=== PATIENT | male | born 1955 | race Caucasian/White ===

== ENCOUNTER 2016-04-11 14:08 | Emergency (ER) | payer SELFPAY ==
[~2016-04-11 14:08] MED LIST: ALTA1.256; DIPH2%T; PAXI20TA26 PO; TOPR25TA2 PO; VYTO10TA29 PO; WARF2.5 PO
[2016-04-11 14:10] VITALS: BP 152/71; PULSE 62; RESP 20; TEMP 98.1; O2SAT 98
--- NOTE | 2016-04-11 16:01 | PD ---
HPI Chief Complaint: GI/ Complaint Time Seen by Provider: 15:53 Travel History International Travel<30 days: No Contact w/Intl Traveler<30days: No Traveled to known affect area: No History of Present Illness HPI Patient is a 61-year-old male presented to the emergency for evaluation of urinary symptoms. Patient states for several years he's had issues with dribbling, feeling as if he doesn't empty his bladder completely. For the last week he states the symptoms have worsened. He has pelvic pressure, low back pain and dysuria. Patient is also complaining of constipation. He states that he did have a bowel movement this morning but it was loose and watery. Patient has been using suppositories and milk of magnesia. Initially he said he didn't have a bowel movement for a week but then he has had small bowel movements with the [id number] therapies he's been trialing. He denies any fever, chills , nausea, vomiting, chest pain, shortness of breath. Patient's past medical history includes BPH, aortic stenosis, hypertension, depression, hyperlipidemia. PFSH Past Medical History Hx Anticoagulant Therapy: Yes (on Coumadin) Anxiety: Yes Depression: Yes Cardiovascular Problems: Yes (aortic stenosis) High Cholesterol: Yes Hypertension: Yes Past Surgical History Cardiac Surgery: Yes (aortic valve replacement) Coronary Artery Bypass Graft: Yes Valve Replacement: Yes (CARDIAC VALVE REPLACEMENT) Social History Alcohol Use: No Tobacco Use: Yes (1PPD) Substance Use: No Allergies-Medications (Allergen,Severity, Reaction): Coded Allergies: No Known Allergies (Verified , 04/11/16) Reported Meds & Prescriptions Reported Meds & Active Scripts Active Reported Benazepril (Benazepril HCl) 20 Mg Tab 20 Mg PO BID Warfarin 5 Mg Tab 5 Mg PO DAILY Paxil (Paroxetine HCl) 20 Mg Tab 20 Mg PO DAILY Aspirin 81 Mg Tabdr 81 Mg PO DAILY Crestor (Rosuvastatin Calcium) 40 Mg Tab 40 Mg PO DAILY Metoprolol Tartrate 25 Mg Tab 12.5 Mg PO BID Review of Systems Except as stated in HPI: all other systems reviewed are Neg Cardiovascular: No: Chest Pain or Discomfort Respiratory: No: Shortness of Breath Gastrointestinal: Positive: Abdominal Pain (distention), Constipation, No: Nausea Genitourinary: Positive: Frequency, Decreased Urinary Output, Hesitancy, Dribbling, Pelvic Pain, Flank Pain Physical Exam Narrative GENERAL: Thin, well-developed, alert male. Resting comfortably in no acute distress. SKIN: Warm and dry. HEAD: Atraumatic. Normocephalic. EYES: Pupils equal and round. No scleral icterus. No injection or drainage. ENT: No nasal bleeding or discharge. Mucous membranes pink and moist. NECK: Trachea midline. No JVD. CARDIOVASCULAR: Regular rate and rhythm. 5/6 systolic murmur, palpable on anterior chest wall, just right of the sternum RESPIRATORY: No accessory muscle use. Clear to auscultation. Breath sounds equal bilaterally. GASTROINTESTINAL: Abdomen firm, mildly tender in suprapubic region, mildly distended. Hepatic and splenic margins not palpable. Positive bowel sounds, no rebound, no guarding. MUSCULOSKELETAL: No obvious deformities. No clubbing. No cyanosis. No edema. NEUROLOGICAL: Awake and alert. No obvious cranial nerve deficits. Motor grossly within normal limits. Normal speech. PSYCHIATRIC: Appropriate mood and affect; insight and judgment normal. Data Data Last Documented VS Vital Signs Date Time Temp Pulse Resp B/P Pulse Ox O2 Delivery O2 Flow Rate FiO2 04/11/16 17:13 54 17 140/71 100 Room Air 04/11/16 14:10 98.1 Orders Complete Blood Count With Diff (04/11/16 15:52) Comprehensive Metabolic Panel (04/11/16 15:52) Ua Includes Microscopic (04/11/16 15:52) Abdomen, Kub Only (04/11/16 15:52) Labs Laboratory Tests Test 04/11/16 04/11/16 16:00 16:12 Urine Color LIGHT-YELLOW Urine Turbidity CLEAR Urine pH 5.5 Urine Specific [place] 1.005 Urine Protein NEG mg/dL Urine Glucose (UA) NEG mg/dL Urine Ketones NEG mg/dL Urine Occult Blood LARGE Urine Nitrite NEG Urine Bilirubin NEG Urine Urobilinogen LESS THAN 2.0 MG/DL Urine Leukocyte Esterase NEG Urine RBC 2 /hpf Urine WBC 2 /hpf Urine Squamous Epithelial <1 /hpf Cells White Blood Count 8.8 TH/MM3 Red Blood Count 3.94 MIL/MM3 Hemoglobin 11.9 GM/DL Hematocrit 34.2 % Mean Corpuscular Volume 86.9 FL Mean Corpuscular Hemoglobin 30.1 PG Mean Corpuscular Hemoglobin 34.6 % Concent Red Cell Distribution Width 15.8 % Platelet Count 140 TH/MM3 Mean Platelet Volume 10.1 FL Neutrophils (%) (Auto) 69.6 % Lymphocytes (%) (Auto) 10.3 % Monocytes (%) (Auto) 11.9 % Eosinophils (%) (Auto) 7.8 % Basophils (%) (Auto) 0.4 % Neutrophils # (Auto) 6.1 TH/MM3 Lymphocytes # (Auto) 0.9 TH/MM3 Monocytes # (Auto) 1.1 TH/MM3 Eosinophils # (Auto) 0.7 TH/MM3 Basophils # (Auto) 0.0 TH/MM3 CBC Comment DIFF FINAL Differential Comment Sodium Level 140 MEQ/L Potassium Level 4.4 MEQ/L Chloride Level 105 MEQ/L Carbon Dioxide Level 29.6 MEQ/L Anion Gap 5 MEQ/L Blood Urea Nitrogen 10 MG/DL Creatinine 1.31 MG/DL Estimat Glomerular Filtration 55 ML/MIN Rate Random Glucose 100 MG/DL Calcium Level 8.4 MG/DL Total Bilirubin 0.5 MG/DL Aspartate Amino Transf 26 U/L (AST/SGOT) Alanine Aminotransferase 19 U/L (ALT/SGPT) Alkaline Phosphatase 80 U/L Total Protein 6.8 GM/DL Albumin 3.6 GM/DL MDM Medical Decision Making Medical Screen Exam Complete: Yes Emergency Medical Condition: Yes Interpretation(s) Vital Signs Date Time Temp Pulse Resp B/P Pulse Ox O2 Delivery O2 Flow Rate FiO2 04/11/16 14:10 98.1 62 20 152/71 98 Room Air Differential Diagnosis BPH versus obstruction versus constipation versus UTI versus other Narrative Course Patient is a 61-year-old male presenting to the emergency department for evaluation of constipation and difficulty urinating. Patient has a primary doctor, Dr. Arredondo. Patient was told that he had an enlarged prostate, he has not ever been on medication for this. Labs and imaging ordered and pending. Patient is in no acute distress, patient is comfortable, his vital signs are stable. Care of patient will be transferred to medical bed when one is available. Kimberlee Cao Apr 11, 2016 16:01
--- NOTE | 2016-04-11 16:14 | RADRPT ---
EXAM DATE/TIME: 04/11/2016 16:12 [facility] COMPARISON: No previous studies available for comparison. INDICATIONS : Constipation. Abdominal pain and firmness. MEDICAL HISTORY : None. SURGICAL HISTORY : Aortic valve replacement. ENCOUNTER: Initial ACUITY: 1 week PAIN SCORE: 4/10 LOCATION: Bilateral lower quadrant abdomen FINDINGS: Supine view of the abdomen was performed. The abdominal bowel gas pattern is normal. No abnormal ma sses, calcifications, or organomegaly is seen. The osseous structures are unremarkable. CONCLUSION: Normal examination. Gunnar Monge MD on April 11, 2016 at 16:12 Board Certified Radiologist. This report was verified electronically.
[2016-04-11 16:31] LABS: BLOOD, URINE LARGE (NEG); GLUCOSE,URINE NEG (NEG); KETONE, URINE NEG (NEG); NITRITE,URINE NEG (NEG); PH, URINE 5.5 (5.0-8.5); SQUAMOUS EPITHELIAL CELL URINE <1 /hpf (0-5); URINE COLOR LIGHT-YELLOW (YELLW/STRAW)
[2016-04-11 16:31] LABS: AUTOMATED NEUTROPHIL # 6.1 TH/MM3 (1.8-7.7); BASOPHIL % 0.4 % (0.0-2.0); EOSINOPHIL # 0.7 TH/MM3 (0-0.4); EOSINOPHIL % 7.8 % (0.0-4.0); HEMATOCRIT 34.2 % (39.0-51.0); HEMO FLAGS DIFF FINAL; LYMPH % 10.3 % (9.0-44.0); LYMPHOCYTE # 0.9 TH/MM3 (1.0-4.8); MEAN CELL VOLUME 86.9 FL (80.0-100.0); MEAN CORPUSCULAR HEMOGLOBIN 30.1 PG (27.0-34.0); MEAN CORPUSCULAR HGB CONC 34.6 % (32.0-36.0); MONO % 11.9 % (0.0-8.0); NEUT % 69.6 % (16.0-70.0); PLATELET COUNT 140 TH/MM3 (150-450); RED BLOOD COUNT 3.94 MIL/MM3 (4.50-5.90); RED CELL DISTRIBUTION WIDTH 15.8 % (11.6-17.2); WHITE BLOOD COUNT 8.8 TH/MM3 (4.0-11.0)
[2016-04-11 16:56] LABS: ANION GAP 5 MEQ/L (5-15); AST (GOT) 26 U/L (15-37); BICARBONATE 29.6 MEQ/L (21.0-32.0); BLOOD UREA NITROGEN 10 MG/DL (7-18); CHLORIDE 105 MEQ/L (98-107); GLOMERULAR FILTRATION RATE 55 ML/MIN (>89); POTASSIUM 4.4 MEQ/L (3.5-5.1); SODIUM (NA) 140 MEQ/L (136-145)
[2016-04-11 16:59] LABS: ALKALINE PHOSPHATASE 80 U/L (45-117); ALT (GPT) 19 U/L (12-78); TOTAL BILIRUBIN ADULT 0.5 MG/DL (0.2-1.0)
[2016-04-11 17:13] VITALS: BP 140/71; PULSE 54; RESP 17; O2SAT 100
[2016-04-11] MEDS ORDERED: PAXI20TA PO (17:18)
[2016-04-11] MEDS ORDERED: ROSU40 PO (17:18)
[2016-04-11] MEDS ORDERED: ASPI1TAB69 PO (17:18)
[2016-04-11] MEDS ORDERED: METO25TA3 PO (17:18)
[2016-04-11] MEDS ORDERED: WARF-23 PO (17:18)
[2016-04-11] MEDS ORDERED: BENA20TA PO (17:22)
--- NOTE | 2016-04-11 17:50 | PD ---
Data Data Last Documented VS Vital Signs Date Time Temp Pulse Resp B/P Pulse Ox O2 Delivery O2 Flow Rate FiO2 04/11/16 20:05 54 18 166/70 99 04/11/16 17:13 Room Air 04/11/16 14:10 98.1 Orders Complete Blood Count With Diff (04/11/16 15:52) Comprehensive Metabolic Panel (04/11/16 15:52) Ua Includes Microscopic (04/11/16 15:52) Abdomen, Kub Only (04/11/16 15:52) Prothrombin Time / Inr (Pt) (04/11/16 17:25) Ed Poc Ultrasound (04/11/16 ) Urinary Catheter Insert/Apply (04/11/16 17:34) Labs Laboratory Tests Test 04/11/16 04/11/16 04/11/16 16:00 16:12 18:35 Urine Color LIGHT-YELLOW Urine Turbidity CLEAR Urine pH 5.5 Urine Specific [place] 1.005 Urine Protein NEG mg/dL Urine Glucose (UA) NEG mg/dL Urine Ketones NEG mg/dL Urine Occult Blood LARGE Urine Nitrite NEG Urine Bilirubin NEG Urine Urobilinogen LESS THAN 2.0 MG/DL Urine Leukocyte Esterase NEG Urine RBC 2 /hpf Urine WBC 2 /hpf Urine Squamous Epithelial <1 /hpf Cells White Blood Count 8.8 TH/MM3 Red Blood Count 3.94 MIL/MM3 Hemoglobin 11.9 GM/DL Hematocrit 34.2 % Mean Corpuscular Volume 86.9 FL Mean Corpuscular Hemoglobin 30.1 PG Mean Corpuscular Hemoglobin 34.6 % Concent Red Cell Distribution Width 15.8 % Platelet Count 140 TH/MM3 Mean Platelet Volume 10.1 FL Neutrophils (%) (Auto) 69.6 % Lymphocytes (%) (Auto) 10.3 % Monocytes (%) (Auto) 11.9 % Eosinophils (%) (Auto) 7.8 % Basophils (%) (Auto) 0.4 % Neutrophils # (Auto) 6.1 TH/MM3 Lymphocytes # (Auto) 0.9 TH/MM3 Monocytes # (Auto) 1.1 TH/MM3 Eosinophils # (Auto) 0.7 TH/MM3 Basophils # (Auto) 0.0 TH/MM3 CBC Comment DIFF FINAL Differential Comment Sodium Level 140 MEQ/L Potassium Level 4.4 MEQ/L Chloride Level 105 MEQ/L Carbon Dioxide Level 29.6 MEQ/L Anion Gap 5 MEQ/L Blood Urea Nitrogen 10 MG/DL Creatinine 1.31 MG/DL Estimat Glomerular Filtration 55 ML/MIN Rate Random Glucose 100 MG/DL Calcium Level 8.4 MG/DL Total Bilirubin 0.5 MG/DL Aspartate Amino Transf 26 U/L (AST/SGOT) Alanine Aminotransferase 19 U/L (ALT/SGPT) Alkaline Phosphatase 80 U/L Total Protein 6.8 GM/DL Albumin 3.6 GM/DL Prothrombin Time 62.9 SEC Prothromb Time International 5.3 RATIO Ratio [facility] Supervised Visit with BO: Yes Narrative Course Patient care assumed from Hillary BEAR: This is a 61-year-old male presents emergency Department with difficulty stooling and difficult to urinating for the past week. Patient states he was told that he had an enlarged prostate in the past. Patient urinated just prior to being roomed in the emergency department, states he continuously feels like he has to urinate. He was placed on Flomax in the past but it made him feel lightheaded so he self discontinued it. He has not seen a urologist in several years and last saw urologist for kidney stones. Denies any fever denies any blood in the stool. He is on Coumadin for a history of valve replacement. Patient states he was taking multiple medications including milk of magnesia, suppositories to relieve his bowels and did have quite explosive bowel movement prior to arrival. He does complain of some abdominal discomfort but denies any pain. GENERAL: Well-developed well-nourished no apparent distress, thin build. SKIN: Warm and dry. HEAD: Atraumatic. Normocephalic. EYES: Pupils equal and round. No scleral icterus. No injection or drainage. ENT: No nasal bleeding or discharge. Mucous membranes pink and moist. NECK: Trachea midline. No JVD. CARDIOVASCULAR: Regular rate and rhythm. No murmur appreciated. RESPIRATORY: No accessory muscle use. Clear to auscultation. Breath sounds equal bilaterally. GASTROINTESTINAL: Abdomen soft, non-tender, minimally distended in the suprapubic area. Hepatic and splenic margins not palpable. MUSCULOSKELETAL: No obvious deformities. No clubbing. No cyanosis. No edema. NEUROLOGICAL: Awake and alert. No obvious cranial nerve deficits. Motor grossly within normal limits. Normal speech. PSYCHIATRIC: Appropriate mood and affect; insight and judgment normal. Hannah catheter was placed immediately yielded about 1250 cc of urine. Patient has no evidence of urinary tract infection. INR is elevated to 5.2. Patient states that since his abdomen had been tense he has not been eating as much leafy vegetables his usual. Discussed with him to hold his Coumadin for the next 2 days and call his [employer] officer for further instructions. Otherwise his symptoms been completely relieved. Discussed MiraLAX for constipation and follow-up the primary care physician. Discussed return to ED criteria. Will be discharged with leg bag in place Procedures Procedure Narrative BEDSIDE ULTRASOUND: Superpubic views were obtained of the bladder approximately 20 minutes after the patient attempted to void: There is approximately 850-950 cc of urine in the bladder. Diagnosis Primary Impression: Urinary retention Additional Impression: Elevated INR Referrals: Taz Smith MD Additional Instruction: Stop taking her Coumadin for the next 2 days, call Dr. Quispe for further instructions. Follow-up with urology within the next week, if you cannot find a urology appointment within the next week return to the emergency department for consideration of removal of catheter. Med/Other Pt SpecificInfo: Prescription(s) given Scripts Tamsulosin (Flomax)0.4 Mg Cap0.4 Mg PO HS #30 CAP Ref 0 Prov:Adolph Carroll MD 04/11/16 Disposition: 01 DISCHARGE HOME Condition: Stable Adolph Carroll MD Apr 11, 2016 17:49
[2016-04-11 19:03] LABS: INTERNATIONAL NORMALIZED RATIO 5.3 RATIO; PROTHROMBIN TIME - PATIENT 62.9 SEC (9.8-11.6)
[2016-04-11] MEDS ORDERED: TAMS5CAP PO (19:34)
[2016-04-11 20:05] VITALS: BP 166/70
== END 2016-04-11 20:12 | disposition home or self-care (01) ==
LOC: NEPA 14:08
DX: R33.9 Retention of urine, unspecified (principal); K59.00 Constipation, unspecified; M54.5 Low back pain; R79.1 Abnormal coagulation profile; I35.0 Nonrheumatic aortic (valve) stenosis; I10 Essential (primary) hypertension; F17.200 Nicotine dependence, unspecified, uncomplicated; Z79.01 Long term (current) use of anticoagulants
CPT/HCPCS: 51703; 74000; 80053; 81001; 85025; 85610

== ENCOUNTER 2017-01-03 19:02 | Inpatient (IN) | payer SELFPAY ==
[2017-01-03] VITALS (10 sets, daily range): BP systolic 79–127; BP diastolic 30–61; PULSE 74–90; RESP 22; TEMP 93.2–97.1; O2SAT 92–100
[~2017-01-03] VITALS: Ht 182.9 cm; Wt 60.0 kg
[~2017-01-03 19:02] MED LIST changes: -ALTA1.256; +ASPI1TAB69 PO; +BENA20TA PO; -DIPH2%T; +METO25TA3 PO; +PAXI20TA PO; -PAXI20TA26 PO; +ROSU40 PO; +TAMS5CAP PO; -TOPR25TA2 PO; -VYTO10TA29 PO; +WARF-23 PO; -WARF2.5 PO
[2017-01-03] MEDS ORDERED: PANTOPRAZOLE INJ 80 MG in SODIUM CHLORIDE 0.9% INJ 35 ML IV ONE (19:13)
[2017-01-03] MEDS ORDERED: SODIUM CHLOR 0.9% 1000 ML INJ 1,000 ML IV SCH ×2 (19:13→20:27)
[2017-01-03] MEDS ORDERED: SODIUM CHLORIDE 0.9% FLUSH 10 ML FLUSH IVF PRN (19:15)
[2017-01-03] MEDS: PANTOPRAZOLE INJ 80 MG in SODIUM CHLORIDE 0.9% INJ 100 ML IV SCH (19:30)
[2017-01-03 19:49] LABS: MEAN CELL VOLUME 85.8 FL (80.0-100.0); MEAN CORPUSCULAR HEMOGLOBIN 26.1 PG (27.0-34.0); MEAN CORPUSCULAR HGB CONC 30.4 % (32.0-36.0); PLATELET COUNT 276 TH/MM3 (150-450); RED BLOOD COUNT 1.09 MIL/MM3 (4.50-5.90); RED CELL DISTRIBUTION WIDTH 16.4 % (11.6-17.2); WHITE BLOOD COUNT 22.6 TH/MM3 (4.0-11.0)
[2017-01-03 19:55] LABS: HEMO FLAGS AUTO DIFF
[2017-01-03 19:58] LABS: HEMATOCRIT 9.4 % (39.0-51.0)
--- NOTE | 2017-01-03 20:17 | PD ---
HPI Chief Complaint: GI Complaint Time Seen by Provider: 19:13 Travel History International Travel<30 days: No Contact w/Intl Traveler<30days: No Traveled to known affect area: No History of Present Illness HPI 61-year-old male came to the emergency room with history of GI bleed. Patient appeared to be in extremis and was brought in by EMS. As per them his blood pressure was in the low 80s systolic. Patient is GCS of 14 and says that he's been having diarrhea for past 1 week, where he has noticed blood in his stool. Patient is on Coumadin for a replaced heart valve. He appeared lethargic and unable to answer too many questions. He was covered in stool and appeared very pale. Patient was not a reliable historian at this point. He denies of any pain currently. His rectal temperature was 93. PFSH Past Medical History Narrative Medical List of his past medical, surgical, social and family history is reviewed from the nursing note. Hx Anticoagulant Therapy: Yes (on Coumadin) Anxiety: Yes Depression: Yes Cardiovascular Problems: Yes (aortic stenosis) High Cholesterol: Yes Diminished Hearing: No Gastrointestinal Disorders: Yes (GI bleed) Hypertension: Yes Past Surgical History Cardiac Surgery: Yes (aortic valve replacement) Coronary Artery Bypass Graft: Yes Valve Replacement: Yes (CARDIAC VALVE REPLACEMENT) Social History Alcohol Use: No Tobacco Use: Yes (1 PPD) Substance Use: No Allergies-Medications (Allergen,Severity, Reaction): Coded Allergies: No Known Allergies (Verified Allergy, Mild, 01/03/17) Comments No known drug allergies Reported Meds & Prescriptions Reported Meds & Active Scripts Active Flomax (Tamsulosin HCl) 0.4 Mg Cap 0.4 Mg PO HS Reported Benazepril (Benazepril HCl) 20 Mg Tab 20 Mg PO BID Warfarin 5 Mg Tab 5 Mg PO DAILY Paxil (Paroxetine HCl) 20 Mg Tab 20 Mg PO DAILY Aspirin 81 Mg Tabdr 81 Mg PO DAILY Crestor (Rosuvastatin Calcium) 40 Mg Tab 40 Mg PO DAILY Metoprolol Tartrate 25 Mg Tab 12.5 Mg PO BID Narrative Medication List of his home medications reviewed from the nursing note. Review of Systems Except as stated in HPI: all other systems reviewed are Neg Gastrointestinal: Positive: Diarrhea, Hematochezia Neurologic: Positive: Weakness Physical Exam Narrative GENERAL: Lethargic, significant distress SKIN: Pale and cold. Poor skin hygiene and covered in dried dark color stool HEAD: Atraumatic. Normocephalic. EYES: Pupils equal and round. No scleral icterus. No injection or drainage. ENT: No nasal bleeding or discharge. Mucous membranes pink and moist. NECK: Trachea midline. No JVD. CARDIOVASCULAR: Regular rate and rhythm. No murmur appreciated. RESPIRATORY: No accessory muscle use. Clear to auscultation. Breath sounds equal bilaterally. GASTROINTESTINAL: Abdomen soft, non-tender, nondistended. Hepatic and splenic margins not palpable. MUSCULOSKELETAL: No obvious deformities. No clubbing. No cyanosis. No edema. NEUROLOGICAL: Lethargic, GCS of 14. No obvious cranial nerve deficits. Motor grossly within normal limits. Normal speech. PSYCHIATRIC: Appropriate mood and affect; insight and judgment normal. Data Data Last Documented VS Vital Signs Date Time Temp Pulse Resp B/P (MAP) Pulse Ox O2 Delivery O2 Flow Rate FiO2 01/03/17 20:15 76 22 121/53 01/03/17 20:00 93.2 01/03/17 19:40 92 Nasal Cannula 3.00 Orders Orders Type And Screen (01/03/17 19:14) Complete Blood Count With Diff (01/03/17 19:13) Comprehensive Metabolic Panel (01/03/17 19:13) Prothrombin Time / Inr (Pt) (01/03/17 19:13) Red Blood Cells (Rbc) (01/03/17 19:13) Fresh Frozen Plasma (Ffp) (01/03/17 19:13) Ecg Monitoring (01/03/17 19:13) Iv Access Insert/Monitor (01/03/17 19:13) Oximetry (01/03/17 19:13) Sodium Chlor 0.9% 1000 Ml Inj (Ns 1000 M (01/03/17 19:13) Sodium Chloride 0.9% Flush (Ns Flush) (01/03/17 19:15) Sodium Chloride 0.9... W/Pantoprazole In (01/03/17 19:13) Sodium Chloride 0.9... W/Pantoprazole In (01/03/17 19:13) Piperacil-Tazo 4.5 Gm Premix (Zosyn 4.5 (01/03/17 20:30) Vancomycin Inj (Vancomycin Inj) (01/03/17 20:30) C Diff Toxin Pcr (01/03/17 20:17) Blood Culture (01/03/17 20:17) Lactic Acid (01/03/17 20:17) Admit Order (Ed Use Only) (01/03/17 20:17) Labs Laboratory Tests Test 01/03/17 19:10 White Blood Count 22.6 TH/MM3 Red Blood Count 1.09 MIL/MM3 Hemoglobin 2.8 GM/DL Hematocrit 9.4 % Mean Corpuscular Volume 85.8 FL Mean Corpuscular Hemoglobin 26.1 PG Mean Corpuscular Hemoglobin Concent 30.4 % Red Cell Distribution Width 16.4 % Platelet Count 276 TH/MM3 Mean Platelet Volume 10.3 FL CBC Comment AUTO DIFF Differential Total Cells Counted 100 Neutrophils % (Manual) 86 % Band Neutrophils % 5 % Lymphocytes % 1 % Monocytes % 4 % Neutrophils # (Manual) 21.5 TH/MM3 Metamyelocytes 2 % Myelocytes 1 % Promyelocytes 1 % Differential Comment FINAL DIFF MANUAL Platelet Estimate NORMAL Platelet Morphology Comment ENLARGED Ovalocytes 2+ Prothrombin Time GREATER THAN 180.0 SEC Prothromb Time International Ratio GREATER THAN 14.5 RATIO Blood Urea Nitrogen 60 MG/DL Creatinine 2.04 MG/DL Random Glucose 150 MG/DL Total Protein 4.1 GM/DL Albumin 1.4 GM/DL Calcium Level 6.5 MG/DL Alkaline Phosphatase 39 U/L Aspartate Amino Transf (AST/SGOT) 13 U/L Alanine Aminotransferase (ALT/SGPT) 20 U/L Total Bilirubin 0.1 MG/DL Sodium Level 141 MEQ/L Potassium Level 5.7 MEQ/L Chloride Level 111 MEQ/L Carbon Dioxide Level 15.0 MEQ/L Anion Gap 15 MEQ/L Estimat Glomerular Filtration Rate 33 ML/MIN Protein Corrected Calcium 8.1 MG/DL MDM Medical Decision Making Medical Screen Exam Complete: Yes Emergency Medical Condition: Yes Medical Record Reviewed: Yes Differential Diagnosis GI bleed, symptomatic anemia, hemorrhagic shock, hypovolemic shock Narrative Course 8:23 PM given patient's initial appearance and my clinical gestalt I decided to start him on emergency release blood 4 units. I will also ordered 4 units of FFP given the fact that he is on Coumadin. His current blood pressure is 94 systolic. The nurses have cleaned him and he does not appear to be in active bleeding condition right now. Given his hemoglobin and hematocrit I've ordered 4 more units of crossmatch PRBC. I just discussed the case with Dr. Rico from GI and I put a fight him. He agrees that patient needs to be stabilized and they will see him soon. He'll need to be scoped. Patient is also getting Protonix bolus and drip. I discussed the case with Dr. Baez from ICU who has accepted the case. Patient's condition continues to be critical. Given his leukocytosis I have given him IV Zosyn and vancomycin. Blood culture, lactic acid and C. difficile has been ordered. 8:39 PM patient's INR is 14.5 and PTT is more than 180. Given the fact that the Coumadin is for replacement of it would be dangerous to completely reverse him. I've chosen to give some vitamin K 10 mg subcutaneous and 4 more units of FFP. I was just told by the nurse that patient's blood pressure is 121/78. His chemistry was back and patient has some significant electrolyte abnormalities and renal failure. I have ordered 2 g of calcium and 2 A of bicarbonate which will take care of the hyperkalemia, acidosis as well as hypocalcemia Critical Care Narrative Aggregate critical care time was 90 minutes. Time to perform other separately billable procedures was not included in the critical care time. My time did not include minutes spent treating any other patients simultaneously or on activities that did not directly contribute to the patient's treatment. The services I provided to this patient were to treat and/or prevent clinically significant deterioration that could result in: GI bleed, hemorrhagic shock, leukocytosis, multiple blood transfusion, Protonix bolus and drip I provided critical care services requiring my management, as noted below: Chart data review, documentation time, medication orders and management, vital sign assessments/reviewing monitor data, ordering and reviewing lab tests, ordering and interpreting/reviewing x-rays and diagnostic studies, care of the patient and discussion of the patient with the admitting physicians. Procedures EKG Prior to Arrival: No Physician Communication Physician Communication Dr. Rico, Dr. Baez Diagnosis Primary Impression: GI bleed Qualified Codes: K92.1 - Melena Additional Impressions: Hemorrhagic shock Leukocytosis Qualified Codes: D72.829 - Elevated white blood cell count, unspecified Symptomatic anemia Hypocalcemia Hyperkalemia Acute renal failure Qualified Codes: N17.9 - Acute kidney failure, unspecified Metabolic acidosis Coumadin toxicity Qualified Codes: T45.514A - Poisoning by anticoagulants, undetermined, initial encounter Isha Dorsey MD Jan 03, 2017 20:17
[2017-01-03 20:23] LABS: CALCIUM-PROTEIN CORRECTED 8.1 MG/DL (8.5-10.1); POTASSIUM 5.7 MEQ/L (3.5-5.1); TOTAL BILIRUBIN ADULT 0.1 MG/DL (0.2-1.0)
--- NOTE | 2017-01-03 20:29 | HHI.HP ---
[facility] Service Critical Care Medicine Primary Care Physician Unknown Admission Diagnosis GI bleed, leukocytosis, symptomatic anemia, hemorrhagic shock Diagnosis: (1) Symptomatic anemia Diagnosis: Principal (2) GI bleed Diagnosis: Principal (3) Acute renal failure Diagnosis: Principal (4) Hyperkalemia Diagnosis: Principal (5) Hypocalcemia Diagnosis: Principal (6) Elevated INR Diagnosis: Principal (7) Urinary retention Diagnosis: Principal (8) Metabolic acidosis Diagnosis: Principal (9) Coumadin toxicity Diagnosis: Principal (10) Hemorrhagic shock Diagnosis: Principal (11) Leukocytosis Diagnosis: Principal Chief Complaint: Shortness of breath, weakness Travel History International Travel<30 Days: No Contact w/Intl Traveler <30 Da: No Traveled to Known Affected Are: No History of Present Illness This is a 1-year-old male. Date of admission 01/03/2017. Past medical history includes aortic valve replacement 10 years ago, chronic warfarin use, depression, hypertension, dyslipidemia and BPH. Patient has not felt well for the past 2 weeks. Patient states his bowel movements have initially returned from dark brown to black to liquid diarrhea with blood. Patient recently had his warfarin checked. Last INR was 4.2 and his warfarin was decreased by 4 mg. He did not take his warfarin today. He presents to [facility] ED with generalized weakness and heme positive stools. Laboratories revealed potassium 5.7, creatinine 2.0, low calcium low albumin. INR greater than 14. White blood cell count 22,000. Hemoglobin 2.8. Patient received vitamin K, 8 units. Season or units FFP. Repeat coags are pending. Patient is currently hemodynamically stable. EKG and troponins currently pending. Review of Systems Constitutional: COMPLAINS OF: Fatigue, Weight loss, Dizziness, DENIES: Weight gain, Chills Endocrine: DENIES: Polydipsia, Polyuria Eyes: DENIES: Blurred vision Ears, nose, mouth, throat: DENIES: Tinnitus Respiratory: DENIES: Apneas Cardiovascular: DENIES: Chest pain Gastrointestinal: COMPLAINS OF: Black stools, Bloody stools, Constipation, Diarrhea, DENIES: Abdominal pain, Nausea, Vomiting Genitourinary: COMPLAINS OF: Urgency Musculoskeletal: DENIES: Joint pain Integumentary: DENIES: Abnormal pigmentation Hematologic/lymphatic: DENIES: Bruising Immunologic/allergic: DENIES: Eczema Neurologic: DENIES: Abnormal gait, Headache Psychiatric: DENIES: Anxiety, Confusion Past Family Social History Allergies: Coded Allergies: No Known Allergies (Verified Allergy, Mild, 01/03/17) Past Medical History Hypertension Dyslipidemia BPH Chronic warfarin use Depression Past Surgical History Aortic valve replacement Reported Medications Active Flomax (Tamsulosin HCl) 0.4 Mg Cap 0.4 Mg PO HS Reported Benazepril (Benazepril HCl) 20 Mg Tab 20 Mg PO BID Warfarin 5 Mg Tab 5 Mg PO DAILY Paxil (Paroxetine HCl) 20 Mg Tab 20 Mg PO DAILY Aspirin 81 Mg Tabdr 81 Mg PO DAILY Crestor (Rosuvastatin Calcium) 40 Mg Tab 40 Mg PO DAILY Metoprolol Tartrate 25 Mg Tab 12.5 Mg PO BID Active Ordered Medications Reviewed in EMR Family History Mother's cause of unknown. Father had aortic aneurysm. Social History 1 pack per day tobacco. Denies any significant alcohol use or illicit drug use. Physical Exam Vital Signs Vital Signs Date Time Temp Pulse Resp B/P (MAP) Pulse Ox O2 Delivery O2 Flow Rate FiO2 01/03/17 20:15 76 22 121/53 01/03/17 20:00 93.2 77 22 79/61 01/03/17 19:40 22 92 Nasal Cannula 3.00 01/03/17 19:38 90 22 84/47 (59) 96 Nasal Cannula 3.00 01/03/17 19:26 88 22 80/30 01/03/17 19:13 88 22 80/30 (47) Physical Exam GENERAL: 61 year male, resting in bed in no acute distress SKIN: Warm and dry. HEAD: Atraumatic. Normocephalic. EYES: Pupils equal and round. No scleral icterus. No injection or drainage. ENT: No nasal bleeding or discharge. Mucous membranes pink and moist. NECK: Trachea midline. No JVD. CARDIOVASCULAR: Regular rate and rhythm. S1, S2 no S4. 2/6 murmur with click right upper sternal border RESPIRATORY:. Clear to auscultation. Breath sounds equal bilaterally. GASTROINTESTINAL: Abdomen soft, non-tender, nondistended. Positive stools MUSCULOSKELETAL: Extremities without noted peripheral edema. No obvious deformities. NEUROLOGICAL: Awake and alert. No obvious cranial nerve deficits. Motor grossly within normal limits. Five out of 5 muscle strength in the arms and legs. Normal speech. PSYCHIATRIC: Appropriate mood and affect; insight and judgment normal. Laboratory Laboratory Tests Test 01/03/17 19:10 White Blood Count 22.6 Red Blood Count 1.09 Hemoglobin 2.8 Hematocrit 9.4 Mean Corpuscular Volume 85.8 Mean Corpuscular Hemoglobin 26.1 Mean Corpuscular Hemoglobin Concent 30.4 Red Cell Distribution Width 16.4 Platelet Count 276 Mean Platelet Volume 10.3 CBC Comment AUTO DIFF Blood Urea Nitrogen 60 Creatinine 2.04 Random Glucose 150 Total Protein 4.1 Albumin 1.4 Calcium Level 6.5 Alkaline Phosphatase 39 Aspartate Amino Transf (AST/SGOT) 13 Alanine Aminotransferase (ALT/SGPT) 20 Total Bilirubin 0.1 Sodium Level 141 Potassium Level 5.7 Chloride Level 111 Carbon Dioxide Level 15.0 Anion Gap 15 Estimat Glomerular Filtration Rate 33 Protein Corrected Calcium 8.1 Result Diagram: 01/03/17190901/03/171909 Messi VTE Risk Assessment Messi VTE Risk Assessment: Mod/High Risk (score >= 2) VTE Pharm Contraindication: Hemorrhage Messi Risk Assessment Model Point Value = 1 Point Value = 2 Point Value = 3 Point Value = 5 Age 41-60 Minor surgery BMI > 25 kg/m2 Swollen legs Varicose veins or History of unexplained or recurrent spontaneous Oral contraceptives or hormone replacement Sepsis (< 1 month) Serious lung disease, including pneumonia (< 1 month) Abnormal pulmonary function Acute myocardial infarction Congestive heart failure (< 1 month) History of inflammatory bowel disease Medical patient at bed rest Age 61-74 Arthroscopic surgery Major open surgery (> 45 min) Laparoscopic surgery (> 45 min) Malignancy Confined to bed (> 72 hours) Immobilizing plaster cast Central venous access Age >= 75 History of VTE Family history of VTE Factor V Leiden Prothrombin [id number] Lupus anticoagulant Anticardiolipin antibodies Elevated serum homocysteine Heparin-induced thrombocytopenia Other congenital or acquired thrombophilia Stroke (< 1 month) Elective arthroplasty Hip, pelvis, or leg fracture Acute spinal cord injury (< 1 month) Prophylaxis Regimen Total Risk Factor Score Risk Level Prophylaxis Regimen 0-1 Low Early ambulation 2 Moderate Order ONE of the following: *Sequential Compression Device (SCD) *Heparin 5000 units SQ BID 3-4 Higher Order ONE of the following medications: *Heparin 5000 units SQ TID *Enoxaparin/Lovenox 40 mg SQ daily (WT < 150 kg, CrCl > 30 mL/min) *Enoxaparin/Lovenox 30 mg SQ daily (WT < 150 kg, CrCl > 10-29 mL/min) *Enoxaparin/Lovenox 30 mg SQ BID (WT < 150 kg, CrCl > 30 mL/min) AND/OR *Sequential Compression Device (SCD) 5 or more Highest Order ONE of the following medications: *Heparin 5000 units SQ TID (Preferred with Epidurals) *Enoxaparin/Lovenox 40 mg SQ daily (WT < 150 kg, CrCl > 30 mL/min) *Enoxaparin/Lovenox 30 mg SQ daily (WT < 150 kg, CrCl > 10-29 mL/min) *Enoxaparin/Lovenox 30 mg SQ BID (WT < 150 kg, CrCl > 30 mL/min) AND *Sequential Compression Device (SCD) Assessment and Plan Assessment and Plan Neuro/Psych: IV Ofirmev for fever/pain 1-10 CV: History of aortic valve replacement Hypertension Dyslipidemia Follow-up on EKG/troponin. Currently holding rosuvastatin 40 mg daily for dyslipidemia. Resume when clinically indicated Currently metoprolol 12.5 mg by mouth twice a day and benazepril 20 mg twice a day in light of hypotension/acute kidney injury. Resume when clinically indicated Consult Dr. Matthews per family request with recent abnormal echo stress test Holding aspirin 81 mg daily light of GI bleed Current D5 water with 3 ampules sodium bicarbonate at 75 cc an hour Resp: Tobacco abuse Nasal cannula to maintain saturations greater than equal to 90% Incentive spirometry while awake Follow-up on chest x-ray Nicotine cessation encouraged. GI: GI bleed Hypoalbuminemia Currently on pantoprazole drip at 8 mg an hour. Consult gastroenterology for endoscopy : BPH Currently holding tamsulosin 0.4 mill grams daily. Resume when clinically indicated Endo: Sliding-scale insulin if indicated to maintain euglycemia Renal: Acute kidney injury Check urine eosinophils electrolytes Check abdominal ultrasound Monitor urine output Accurate I's and O's Currently on D5 water with 3 ampules of bicarbonate at 75 cc an hour in ED. Heme: Acute blood loss anemia Leukocytosis Warfarin toxicity Serial hemoglobin is every 6 hours recheck coags in a.m. Receive vitamin K 10 mg and 4 FFP in ED. Transfuse 8 units PRBCs ID: Monitor for infection Received vancomycin ED FEN: Hyperkalemia Hypocalcemia Calcium gluconate, insulin/D50 and bicarbonate given. Recheck potassium tonight 3 hours MSK: Osteoarthritis PT evaluate and treat Access - Utilize peripheral IV. Central line if indicated Prophylaxis - GI - pantoprazole - DVT - SCD/pharmacological prophylaxis contraindicated with acute GI bleed Level II admission Code Status Full code Discussed Condition With Patient. Care plan discussed and all questions answered. Problem Qualifiers (1) GI bleed: Qualified Codes: K92.1 - Melena (2) Acute renal failure: Qualified Codes: N17.9 - Acute kidney failure, unspecified (3) Coumadin toxicity: Qualified Codes: T45.514A - Poisoning by anticoagulants, undetermined, initial encounter (4) Leukocytosis: Qualified Codes: D72.829 - Elevated white blood cell count, unspecified Tushar Baez MD Jan 03, 2017 20:29
[2017-01-03 20:30] LABS: BANDS 5 % (0-6); METAMYELOCYTES 2 % (0-1); MYELOCYTES 1 % (0-0); NEUTROPHIL # MANUAL DIFF 21.5 TH/MM3 (1.8-7.7); OVALOCYTES 2+ (NORMAL); POLYS (SEG NEUTROPHILS) 86 % (16-70); PROMYELOCYTES 1 % (0-0); WBC DIFF SAMPLE 100
[2017-01-03] MEDS ORDERED: CALCIUM GLUCONATE INJ 1 GM in SODIUM CHLORIDE 0.9% INJ 100 ML IV ONE (20:30)
[2017-01-03] MEDS ORDERED: SENNOSIDES 8.6 MG TAB PO PRN (20:30)
[2017-01-03] MEDS ORDERED: PIPERACIL-TAZO 4.5 GM PREMIX 100 ML IV ONE (20:30)
[2017-01-03] MEDS ORDERED: ACETAMINOPHEN 325 MG TAB PO PRN (20:30)
[2017-01-03] MEDS ORDERED: MISCELLANEOUS NURSING INFORMATION XX SCH (20:30)
[2017-01-03] MEDS ORDERED: ONDANSETRON HCL 4 MG/2 ML VIAL IV PUSH PRN (20:30)
[2017-01-03] MEDS ORDERED: VANCOMYCIN INJ 1,000 MG in SODIUM CHLOR 0.9% 250 ML INJ 250 ML IV ONE (20:30)
[2017-01-03] MEDS ORDERED: RESP: ALBUTEROL 2.5 MG/3 ML NEB (PRN) INH (20:30)
[2017-01-03] MEDS ORDERED: SODIUM CHLOR 0.9% 250 ML INJ 250 ML IV ONE ×2 (20:30→20:45)
[2017-01-03] MEDS ORDERED: MAGNESIUM HYDROXIDE SUSP 30 ML CUP PO PRN (20:30)
[2017-01-03] MEDS ORDERED: CHLORHEXIDINE GLUCONATE 2 % 1 PACK (2 CLOTHS) TOP PRN (20:30)
[2017-01-03] MEDS ORDERED: BISACODYL 10 MG SUPP RECTAL PRN (20:30)
[2017-01-03] MEDS ORDERED: LACTULOSE SYRUP 20 GM/30 ML CUP PO PRN (20:30)
[2017-01-03] MEDS ORDERED: SODIUM CHLORIDE 0.9% FLUSH 10 ML FLUSH IV FLUSH PRN (20:30)
[2017-01-03] MEDS ORDERED: ACETAMINOPHEN/HYDROcodone 325 MG/5 MG TAB PO PRN (20:30)
[2017-01-03] MEDS ORDERED: CALCIUM CHLORIDE INJ 2 GM in DEXTROSE 5% IN WATER 100ML INJ 100 ML IV ONE ×2 (20:30)
[2017-01-03 20:31] LABS: PLATELET ESTIMATE SMEAR NORMAL (NORMAL); PLATELET MORPHOLOGY ENLARGED (NORMAL); SCAN/DIFF FINAL DIFF MANUAL
[2017-01-03 20:33] LABS: INTERNATIONAL NORMALIZED RATIO GREATER THAN 14.5 RATIO; PROTHROMBIN TIME - PATIENT GREATER THAN 180.0 SEC (9.8-11.6)
[2017-01-03] MEDS ORDERED: PHYTONADIONE 10 MG/ML VIAL SQ ONE (20:45)
[2017-01-03] MEDS: DOCUSATE SODIUM 50 MG/SENNA 8.6 MG TAB PO SCH (21:00)
[2017-01-03] MEDS: SODIUM CHLORIDE 0.9% FLUSH 10 ML FLUSH IV FLUSH SCH (21:00)
[2017-01-03] MEDS: SODIUM BICARBONATE 8.4% INJ 150 MEQ in DEXTROSE 5% IN WATE 1000ML INJ 1,000 ML IV SCH ×2 (21:19)
[2017-01-03] MEDS: RESP: ALBUTEROL 2.5 MG/IPRATROPIUM 0.5 MG NEB (SCH) INH (22:07)
[2017-01-03] MEDS ORDERED: CALCIUM GLUCONATE INJ 1 GM in DEXTROSE 5% IN WATER 100ML INJ 100 ML IV ONE ×2 (22:30)
[2017-01-03] MEDS ORDERED: SODIUM BICARBONATE 8.4% SOLN 50 MEQ/50 ML VIAL SLOW IVP ONE (22:30)
[2017-01-03] MEDS ORDERED: INSULIN HUMAN REGULAR 1,000 UNITS/10 ML VIAL IV PUSH ONE (22:30)
[2017-01-03] MEDS ORDERED: DEXTROSE 50% IN WATER 50 ML VIAL(D50) IV PUSH ONE (22:30)
[2017-01-03] MEDS ORDERED: CALCIUM GLUCONATE 10% 1 GM/10 ML VIAL SLOW IVP ONE (22:30)
[2017-01-03] MEDS ORDERED: ACETAMINOPHEN 1000 MG/100 ML 100 ML IV PRN (22:45)
[2017-01-03] MEDS ORDERED: DEXTROSE 50% IN WATER 50 ML VIAL(D50) IV PUSH PRN (23:00)
[2017-01-03] MEDS ORDERED: PHYTONADIONE INJ 10 MG in SODIUM CHLORIDE 0.9% INJ 50 ML IV ONE (23:00)
[2017-01-03] MEDS ORDERED: GLUCAGON 1 MG/ML VIAL OTHER PRN (23:00)
[2017-01-04] VITALS (26 sets, daily range): BP systolic 85–147; BP diastolic 55–80; PULSE 63–87; RESP 16–30; TEMP 97.9–98.9; O2SAT 89–100
[2017-01-04 01:08] LABS: HEMATOCRIT 24.7 % (39.0-51.0); REVIEW FLAG FINAL
[2017-01-04 01:15] LABS: APTT (PATIENT) 44.4 SEC (24.3-30.1); INTERNATIONAL NORMALIZED RATIO 2.4 RATIO
[2017-01-04 01:27] LABS: POTASSIUM 4.9 MEQ/L (3.5-5.1)
[2017-01-04 01:36] LABS: HDL CHOLESTEROL 21.1 MG/DL (40.0-60.0)
[2017-01-04] MEDS: CHLORHEXIDINE GLUCONATE 2 % 1 PACK (2 CLOTHS) TOP SCH (02:21)
[2017-01-04] MEDS: PANTOPRAZOLE INJ 80 MG in SODIUM CHLORIDE 0.9% INJ 100 ML IV SCH ×2 (04:07→16:00)
[2017-01-04] MEDS: RESP: ALBUTEROL 2.5 MG/IPRATROPIUM 0.5 MG NEB (SCH) INH ×4 (04:25→22:00)
[2017-01-04 04:33] LABS: APTT (PATIENT) 46.6 SEC (24.3-30.1); INTERNATIONAL NORMALIZED RATIO 2.7 RATIO; PROTHROMBIN TIME - PATIENT 30.6 SEC (9.8-11.6)
[2017-01-04 04:47] LABS: BICARBONATE 25.8 MEQ/L (21.0-32.0); CALCIUM-PROTEIN CORRECTED 8.5 MG/DL (8.5-10.1); POTASSIUM 4.9 MEQ/L (3.5-5.1); TOTAL BILIRUBIN ADULT 0.4 MG/DL (0.2-1.0)
[2017-01-04 05:07] LABS: HEMATOCRIT 24.5 % (39.0-51.0); REVIEW FLAG FINAL
[2017-01-04 05:09] LABS: AUTOMATED NEUTROPHIL # 15.6 TH/MM3 (1.8-7.7); BASOPHIL % 0.2 % (0.0-2.0); EOSINOPHIL % 0.1 % (0.0-4.0); HEMATOCRIT 24.1 % (39.0-51.0); LYMPH % 4.8 % (9.0-44.0); LYMPHOCYTE # 0.8 TH/MM3 (1.0-4.8); MEAN CELL VOLUME 84.6 FL (80.0-100.0); MEAN CORPUSCULAR HEMOGLOBIN 28.9 PG (27.0-34.0); MEAN CORPUSCULAR HGB CONC 34.1 % (32.0-36.0); NEUT % 89.9 % (16.0-70.0); PLATELET COUNT 218 TH/MM3 (150-450); RED BLOOD COUNT 2.85 MIL/MM3 (4.50-5.90); RED CELL DISTRIBUTION WIDTH 15.3 % (11.6-17.2); WHITE BLOOD COUNT 17.3 TH/MM3 (4.0-11.0)
[2017-01-04 05:15] LABS: HEMO FLAGS AUTO DIFF
[2017-01-04] MEDS: INSULIN NovoLIN REGULAR SUPPLEMENTAL SCALE SQ SCH ×4 (06:00→18:00)
[2017-01-04 06:57] LABS: PLATELET ESTIMATE SMEAR NORMAL (NORMAL); PLATELET MORPHOLOGY NORMAL (NORMAL); SCAN/DIFF AUTO DIFF CONFIRMED
--- NOTE | 2017-01-04 08:34 | PD.CONS ---
HPI History of Present Illness This is a 61 year old with a history of mechanical aortic valve replacement on chronic anticoagulation with coumadin and daily aspirin. He reports that for the past 2 weeks, he had severe generalized weakness, decreased appetite, and generalized malaise. He thought he had the flu and was taking Tylenol, but no ibuprofen. About a week ago, he started having black tarry stools. He denies any nausea, vomiting. He does note that he has not been eating much for the past few weeks secondary to his decreased appetite. He did note some left sided flank pain described as a dull ache. A few days ago, the melena turned to a dark maroon bloody stool. Yesterday, he went to take a shower and when he got out of the shower, he passed out. He reports that he woke up on his bedroom floor. His daughter went by his house and called 911 and [facility] transported him to the hospital. He was noted to have severe anemia with an HH 2.8/9.4 and coagulopathy with an INR > 14.5. He was given 6 units of PRBC and 4 units of FFP. Rpt labs from 4am 8.2/24.1 and INR of 2.7. He ws given another 2 units of FFP. He is currently resting in bed with stable vital signs. He is not having active bleeding at this time. He denies any history of PUD and has never had an egd/colonoscopy. (Corina Luis) PFS Past Medical History Aortic Valve Replacement, on chronic anticoagulation with coumadin HTN Hyperlipidemia BPH Depression Past Surgical History Aortic valve replacement, mechanical (Corina Luis) Coded Allergies: No Known Allergies (Verified Allergy, Mild, 01/03/17) Medications Allergies Coded Allergies Type Severity Reaction Last Updated Verified No Known Allergies Allergy Mild 01/03/17 Yes Active Scripts Medications Dose Route/Sig Max Daily Dose Days Date Category Flomax (Tamsulosin HCl) 0.4 Mg Cap 0.4 Mg PO HS 04/11/16 Rx Benazepril (Benazepril HCl) 20 Mg Tab 20 Mg PO BID 04/11/16 Reported Warfarin 5 Mg Tab 5 Mg PO DAILY 04/11/16 Reported Paxil (Paroxetine HCl) 20 Mg Tab 20 Mg PO DAILY 04/11/16 Reported Aspirin 81 Mg Tabdr 81 Mg PO DAILY 04/11/16 Reported Crestor (Rosuvastatin Calcium) 40 Mg Tab 40 Mg PO DAILY 04/11/16 Reported Metoprolol Tartrate 25 Mg Tab 12.5 Mg PO BID 04/11/16 Reported Family History Father from aortic aneurysm Social History Smokes 1 PPD. No ETOH/Illicit drug use. (Corina Luis) Review of Systems Constitutional: COMPLAINS OF: Diaphoretic episodes, Fatigue, Change in appetite , DENIES: Weight loss Respiratory: COMPLAINS OF: Cough Cardiovascular: COMPLAINS OF: Syncope, DENIES: Chest pain Gastrointestinal: COMPLAINS OF: Black stools, Bloody stools, Diarrhea, Anorexia , DENIES: Abdominal pain, Constipation, Nausea, Vomiting, Hematemesis (left flank pain) Hematologic/lymphatic: COMPLAINS OF: Bruising Neurologic: DENIES: Headache Psychiatric: DENIES: Confusion (Corina Luis) GI Exam Vitals I&O Vital Signs Date Time Temp Pulse Resp B/P (MAP) Pulse Ox O2 Delivery O2 Flow Rate FiO2 01/04/17 06:00 64 28 138/65 (89) 94 01/04/17 06:00 63 01/04/17 05:12 98.0 67 22 119/57 94 01/04/17 05:00 72 30 119/57 (77) 98 01/04/17 04:02 97.9 72 18 125/58 97 01/04/17 04:00 98.0 71 26 125/58 (80) 99 01/04/17 04:00 71 01/04/17 04:00 72 01/04/17 03:00 65 24 113/61 (78) 99 01/04/17 02:00 98.9 70 22 118/56 (76) 97 01/04/17 02:00 70 01/04/17 02:00 70 01/04/17 01:29 99 Nasal Cannula 2.00 01/04/17 01:00 98.6 71 24 106/56 (73) 99 01/04/17 00:00 98.7 72 24 120/58 (78) 100 01/04/17 00:00 72 01/04/17 00:00 72 01/03/17 22:09 100 Nasal Cannula 3.00 01/03/17 22:06 97.1 74 22 115/56 (75) 98 Nasal Cannula 3.00 01/03/17 20:45 75 22 127/58 01/03/17 20:30 75 22 109/55 01/03/17 20:15 76 22 121/53 01/03/17 20:00 93.2 77 22 79/61 01/03/17 19:40 22 92 Nasal Cannula 3.00 01/03/17 19:38 90 22 84/47 (59) 96 Nasal Cannula 3.00 01/03/17 19:26 88 22 80/30 01/03/17 19:13 88 22 80/30 (47) I/O 01/03/17 01/03/17 01/03/17 01/04/17 01/04/17 01/04/17 07:00 15:00 23:00 07:00 15:00 23:00 Intake Total 5211 ml 1176 ml Output Total 450 ml Balance 5211 ml 726 ml Intake Oral 120 ml IV Total 1255 ml 350 ml Packed Cells 1600 ml FFP 943 ml 366 ml Blood Product IV Normal Saline Flush 1413 ml 340 ml Output Urine Total 450 ml Laboratory Test 01/03/17 19:10 01/03/17 20:35 01/03/17 23:00 01/04/17 00:41 White Blood Count 22.6 TH/MM3 Red Blood Count 1.09 MIL/MM3 Hemoglobin 2.8 GM/DL 8.6 GM/DL Hematocrit 9.4 % 24.7 % Mean Corpuscular Volume 85.8 FL Mean Corpuscular Hemoglobin 26.1 PG Mean Corpuscular Hemoglobin Concent 30.4 % Red Cell Distribution Width 16.4 % Platelet Count 276 TH/MM3 Mean Platelet Volume 10.3 FL CBC Comment AUTO DIFF Differential Total Cells Counted 100 Neutrophils % (Manual) 86 % Band Neutrophils % 5 % Lymphocytes % 1 % Monocytes % 4 % Neutrophils # (Manual) 21.5 TH/MM3 Metamyelocytes 2 % Myelocytes 1 % Promyelocytes 1 % Differential Comment FINAL DIFF MANUAL Platelet Estimate NORMAL Platelet Morphology Comment ENLARGED Ovalocytes 2+ Prothrombin Time GREATER THAN 180.0 SEC Prothromb Time International Ratio GREATER THAN 14.5 RATIO Blood Urea Nitrogen 60 MG/DL Creatinine 2.04 MG/DL Random Glucose 150 MG/DL Total Protein 4.1 GM/DL Albumin 1.4 GM/DL Calcium Level 6.5 MG/DL Alkaline Phosphatase 39 U/L Aspartate Amino Transf (AST/SGOT) 13 U/L Alanine Aminotransferase (ALT/SGPT) 20 U/L Total Bilirubin 0.1 MG/DL Sodium Level 141 MEQ/L Potassium Level 5.7 MEQ/L 4.9 MEQ/L Chloride Level 111 MEQ/L Carbon Dioxide Level 15.0 MEQ/L Anion Gap 15 MEQ/L Estimat Glomerular Filtration Rate 33 ML/MIN Protein Corrected Calcium 8.1 MG/DL Lactic Acid Level 8.2 mmol/L Nasal Screen MRSA (PCR) MRSA NOT DETECTED Total Creatine Kinase 97 U/L Troponin I 0.08 NG/ML Triglycerides Level 164 MG/DL Cholesterol Level 63 MG/DL LDL Cholesterol 9 MG/DL HDL Cholesterol 21.1 MG/DL Cholesterol/HDL Ratio 2.98 RATIO Thyroid Stimulating Hormone 3rd Gen 1.520 uIU/ML Test 01/04/17 00:52 01/04/17 04:01 Prothrombin Time 27.0 SEC 30.6 SEC Prothromb Time International Ratio 2.4 RATIO 2.7 RATIO Activated Partial Thromboplast Time 44.4 SEC 46.6 SEC White Blood Count 17.3 TH/MM3 Red Blood Count 2.85 MIL/MM3 Hemoglobin 8.2 GM/DL Hematocrit 24.1 % Mean Corpuscular Volume 84.6 FL Mean Corpuscular Hemoglobin 28.9 PG Mean Corpuscular Hemoglobin Concent 34.1 % Red Cell Distribution Width 15.3 % Platelet Count 218 TH/MM3 Mean Platelet Volume 9.5 FL Neutrophils (%) (Auto) 89.9 % Lymphocytes (%) (Auto) 4.8 % Monocytes (%) (Auto) 5.0 % Eosinophils (%) (Auto) 0.1 % Basophils (%) (Auto) 0.2 % Neutrophils # (Auto) 15.6 TH/MM3 Lymphocytes # (Auto) 0.8 TH/MM3 Monocytes # (Auto) 0.9 TH/MM3 Eosinophils # (Auto) 0.0 TH/MM3 Basophils # (Auto) 0.0 TH/MM3 CBC Comment AUTO DIFF Differential Comment AUTO DIFF CONFIRMED Platelet Estimate NORMAL Platelet Morphology Comment NORMAL Blood Urea Nitrogen 50 MG/DL Creatinine 1.79 MG/DL Random Glucose 126 MG/DL Total Protein 5.2 GM/DL Albumin 2.1 GM/DL Calcium Level 7.4 MG/DL Phosphorus Level 4.3 MG/DL Magnesium Level 2.0 MG/DL Alkaline Phosphatase 52 U/L Aspartate Amino Transf (AST/SGOT) 20 U/L Alanine Aminotransferase (ALT/SGPT) 23 U/L Total Bilirubin 0.4 MG/DL Sodium Level 142 MEQ/L Potassium Level 4.9 MEQ/L Chloride Level 109 MEQ/L Carbon Dioxide Level 25.8 MEQ/L Anion Gap 7 MEQ/L Estimat Glomerular Filtration Rate 39 ML/MIN Lactic Acid Level 1.5 mmol/L Protein Corrected Calcium 8.5 MG/DL Troponin I 0.13 NG/ML Date/Time Source Procedure Growth Status 01/03/17 20:50 Blood Peripheral Aerobic Blood Culture Pending Received 01/03/17 20:50 Blood Peripheral Anaerobic Blood Culture Pending Received Physical Examination HEENT: Normocephalic; atraumatic; no jaundice. CHEST: CTA CARDIAC: RRR ABDOMEN: Soft, nondistended, nontender; no hepatosplenomegaly; bowel sounds are present in all four quadrants. EXTREMITIES: No clubbing, cyanosis, or edema. SKIN: Generalized pallor PIPE INSULATOR HELPER: No focal deficits; Lethargic and oriented times three. (Corina Luis) Assessment and Plan Plan ASSESSMENT: - GIB with melanotic/dark maroon bloody stool x 1 week. Severe weakness, malaise, night sweats and decreased appetite x 2 weeks. Hx Aortic valve replacement (mechanical), on chronic anticoagulation with coumadin. Also takes daily ASA. 1 week hx of black tarry stools, that then turned to dark maroon stools. No hx PUD. No hx EGD/ Colonoscopy. On admission, HH 2.8/9.4 and coagulopathy with an INR > 14.5. He was given 6 units of PRBC and 4 units of FFP. Rpt labs from 4am 8.2/24.1 and INR of 2.7. S/P 2 units of FFP. He is currently resting in bed with stable vital signs. He is not having active bleeding at this time. - Hemorrhagic Shock/Severe anemia. HH 2.8/9.4 on admission. S/P 6 units PRBC. 6 units FFP. Rpt. Labs 4am 8.2/24.1 and INR of 2.7 - Coagulopathy, Coumadin toxicity. Chronic anticoagulation for mechanical heart valve with coumadin. Currently on hold. INR > 14.5 on admission. Was 2.7 this am and received addition FFP for total of 6 units. - ASHLEY secondary to above. Creat. 1.79. - Hx Mechanical Aortic Heart Valve. Chronic anticoagulation. Coumadin on hold - HTN, Hyperlipidemia, BPH, Depression per attending. PLAN: - Plan for EGD today - Obtain consents - NPO - Protonix Gtt - 2 units FFP - Monitor HH q6h, INR - Transfuse as necessary - CBC, BMP in am - Notify GI of active bleeding - Supportive care - Further recommendations to follow based on results of above - Pt seen and examined by Dr. Rico and myself and this note is written on his behalf (Corina Luis) Physician Comments Patient seen and examined Agree with above Continue with current supportive care Monitor labs Plan for an EGD now (Moshe Rico MD) Corina Luis Jan 04, 2017 08:34 Moshe Rico MD Jan 04, 2017 12:10
[2017-01-04] MEDS ORDERED: SODIUM CHLOR 0.9% 250 ML INJ 250 ML IV ONE ×2 (08:45→15:45)
[2017-01-04] MEDS: DOCUSATE SODIUM 50 MG/SENNA 8.6 MG TAB PO SCH ×2 (09:00→21:00)
--- NOTE | 2017-01-04 09:22 | RADRPT ---
EXAM DATE/TIME: 01/04/2017 07:57 [facility] COMPARISON: No previous studies available for comparison. INDICATIONS : Elevated liver function tests. Elevated BUN. MEDICAL HISTORY : Hypercholesterolemia. Hypertension. Gastrointestinal bleed. Aortic stenosis. Dyspnea. Melena. Prostat e problems. Depression. Anxiety. Tobacco use. Anticoagulant therapy, Coumadin. SURGICAL HISTORY : CABG. Aortic valve replacement. TURP. Blood transfusions. ENCOUNTER: Initial ACUITY: 1 day PAIN SCORE: 0/10 LOCATION: Abdomen. MEASUREMENTS: LIVER: 16.0 cm length COMMON DUCT: 5 mm RIGHT KIDNEY: 12.3 x 4.4 x 5.1 cm LEFT KIDNEY: 12.5 x 6.1 x cm SPLEEN: 10.0 cm length AORTA: 2.4cm maximal FINDINGS: LIVER: Normal echotexture without focal lesion or ductal dilatation. Small bilateral pleural effusions are noted. COMMON DUCT: No intraluminal mass or stone visualized. GALLBLADDER: Sludge with minimal pericholecystic fluid. PANCREAS: The visualized portions are within normal limits. RIGHT KIDNEY: 1 cm cyst. In right kidney. Hyperechoic area upper pole of right kidney it is not of simple cysts. Follow with CT scan with and without contrast is suggested. LEFT KIDNEY: No hydronephrosis, stone or mass. SPLEEN: No focal lesion. AORTA: Non aneurysmal. IVC: Within normal limits. CONCLUSION: 1. Sludge gallbladder with trace pericholecystic fluid. There is no tenderness over the gallbladder 2. Abnormal right kidney. CT renal protocol is suggested. 3. Bilateral pleural effusions. Moy Patton MD FACR on January 04, 2017 at 9:19 Board Certified Radiologist. This report was verified electronically.
[2017-01-04] MEDS ORDERED: PROPOFOL 200 MG/20 ML AMP IV ONE (12:00)
[2017-01-04] MEDS ORDERED: LIDOCAINE HCL 1% PF 5 ML SYRINGE OTHER ONE (12:00)
--- NOTE | 2017-01-04 12:13 | PD.PROCEDR ---
GI Procedure REFERRING PHYSICIAN Dr. Baez PROCEDURE PERFORMED EGD INDICATION FOR PROCEDURE GI bleed PROCEDURE: The procedure, risks and benefits were discussed with Mr. Shearer and informed consent was obtained. Anesthesia sedated him with Diprivan. He was placed in the left lateral decubitus position. EGD: The Pentax videoscope was introduced through the oropharynx and advanced to the second portion of the duodenum under direct visualization. Retroflexion was performed in the stomach. FINDINGS: The esophagus this was normal The stomach this was normal The duodenum this was normal ESTIMATED BLOOD LOSS: None SPECIMENS REMOVED: None COMPLICATIONS: None IMPRESSION: Normal EGD PLAN: Continue with current supportive care Monitor labs and transfuse as needed Plan for colonoscopy tomorrow Moshe Rico MD Jan 04, 2017 12:13
[2017-01-04] MEDS ORDERED: DO NOT ADM ANY ANTICOAGULANT DRUGS PRN (12:16)
[2017-01-04] MEDS ORDERED: PEG (High)/E-LYTE SOLN 4000 ML BTL PO ONE (13:00)
[2017-01-04 13:36] LABS: HEMATOCRIT 22.6 % (39.0-51.0); REVIEW FLAG FINAL
[2017-01-04] MEDS: SODIUM BICARBONATE 8.4% INJ 150 MEQ in DEXTROSE 5% IN WATE 1000ML INJ 1,000 ML IV SCH ×2 (14:23)
[2017-01-04 14:28] LABS: BACTERIA, URINE OCC /hpf; BLOOD, URINE MOD (NEG); GLUCOSE,URINE NEG (NEG); KETONE, URINE NEG (NEG); MUCUS URINE FEW /lpf (OCC); NITRITE,URINE POS (NEG); URINE COLOR YELLOW (YELLW/STRAW)
[2017-01-04 14:29] LABS: COMMENT (UR) CATH-CULTURE IND; CULTURE IF INDICATED CATH CULTURE IND
--- NOTE | 2017-01-04 16:09 | HHI.CCPN ---
Subjective Remarks/Hospital Course 01/03: This is a 1-year-old male. Date of admission 01/03/2017. Past medical history includes aortic valve replacement 10 years ago, chronic warfarin use, depression, hypertension, dyslipidemia and BPH. Patient has not felt well for the past 2 weeks. Patient states his bowel movements have initially returned from dark brown to black to liquid diarrhea with blood. Patient recently had his warfarin checked. Last INR was 4.2 and his warfarin was decreased by 4 mg. He did not take his warfarin today. He presents to [place] ED with generalized weakness and heme positive stools. Laboratories revealed potassium 5.7, creatinine 2.0, low calcium low albumin. INR greater than 14. White blood cell count 22,000. Hemoglobin 2.8. Patient received vitamin K, 8 units. Season or units FFP. Repeat coags are pending. Patient is currently hemodynamically stable. EKG and troponins currently pending. 01/04: Resting in bed comfortably. Not in any acute distress. EGD unremarkable. Objective Vital Signs Date Time Temp Pulse Resp B/P (MAP) Pulse Ox O2 Delivery O2 Flow Rate FiO2 01/04/17 14:00 67 01/04/17 10:36 98.2 24 135/62 90 01/04/17 10:11 Nasal Cannula 4.00 Intake and Output 01/04/17 01/04/17 01/05/17 08:00 16:00 00:00 Intake Total 1176 ml 984 ml Output Total 450 ml Balance 726 ml 984 ml Result Diagram: 01/04/17 1219 01/04/17 0401 Objective Remarks GENERAL: 61 year male, resting in bed in no acute distress SKIN: Warm and dry. HEAD: Atraumatic. Normocephalic. EYES: Pupils equal and round. No scleral icterus. No injection or drainage. Pallor present ENT: No nasal bleeding or discharge. NECK: Trachea midline. No JVD. CARDIOVASCULAR: Regular rate and rhythm. S1, S2 no S4. 2/6 murmur with click right upper sternal border RESPIRATORY:. Clear to auscultation. Breath sounds equal bilaterally. GASTROINTESTINAL: Abdomen soft, non-tender, nondistended. Positive stools MUSCULOSKELETAL: Extremities without noted peripheral edema. No obvious deformities. NEUROLOGICAL: Awake and alert. No obvious cranial nerve deficits. Motor grossly within normal limits. Five out of 5 muscle strength in the arms and legs. Normal speech. PSYCHIATRIC: Appropriate mood and affect; insight and judgment normal. A/P Assessment and Plan Neuro/Psych: IV Ofirmev for fever/pain 1-10 CV: History of aortic valve replacement Hypertension Dyslipidemia Follow-up on EKG/troponin. Currently holding rosuvastatin 40 mg daily for dyslipidemia. Resume when clinically indicated Currently metoprolol 12.5 mg by mouth twice a day and benazepril 20 mg twice a day in light of hypotension/acute kidney injury. Resume when clinically indicated Consult Dr. Matthews per family request with recent abnormal echo stress test Holding aspirin 81 mg daily light of GI bleed Current D5 water with 3 ampules sodium bicarbonate at 75 cc an hour Resp: Tobacco abuse Nasal cannula to maintain saturations greater than equal to 90% Incentive spirometry while awake Follow-up on chest x-ray Nicotine cessation encouraged. GI: GI bleed Hypoalbuminemia Currently on pantoprazole drip at 8 mg an hour. Consulted gastroenterology. EGD negative. colonoscopy planned. : BPH Currently holding tamsulosin 0.4 mill grams daily. Resume when clinically indicated Endo: Sliding-scale insulin if indicated to maintain euglycemia Renal: Acute kidney injury Check urine eosinophils electrolytes Check abdominal ultrasound Monitor urine output Accurate I's and O's Currently on D5 water with 3 ampules of bicarbonate at 75 cc an hour in ED. Heme: Acute blood loss anemia Leukocytosis Warfarin toxicity Serial hemoglobin is every 6 hours recheck coags in a.m. Receive vitamin K 10 mg and 4 FFP in ED. Transfuse 8 units PRBCs. Ordered 1 unit PRBC on 01/04 after EGD. ID: Monitor for infection Received vancomycin ED FEN: Hyperkalemia Hypocalcemia Calcium gluconate, insulin/D50 and bicarbonate given. Recheck potassium tonight 3 hours MSK: Osteoarthritis PT evaluate and treat Access - Utilize peripheral IV. Central line if indicated Prophylaxis - GI - pantoprazole - DVT - SCD/pharmacological prophylaxis contraindicated with acute GI bleed Ethan Chicas MD Jan 04, 2017 16:09
--- NOTE | 2017-01-04 18:54 | EKG ---
Date Performed: 01/03/2017 Time Performed: 22:01:59 PTAGE: 61 years EKG: Sinus rhythm WITH FIRST DEGREE AV BLOCK INTRAVENTRICULAR CONDUCTION DELAY OLD INFERIOR MYOCARDIAL INFARCTION ABNO RMAL ECG PREVIOUS TRACING : 03/25/2007 16.17 Compared to prior tracing no significant change DOCTOR: Clarisse Saunders Interpretating Date/Time 01/04/2017 18:53:21
[2017-01-04] MEDS: MORPHINE SULFATE 2 MG/ML INJ IV PUSH PRN ×2 (18:55→22:29)
[2017-01-04 21:20] LABS: HEMATOCRIT 28.2 % (39.0-51.0); REVIEW FLAG FINAL
--- NOTE | 2017-01-04 21:57 | RADRPT ---
EXAM DATE/TIME: 01/04/2017 21:35 [facility] COMPARISON: No previous studies available for comparison. INDICATIONS : Shortness of breath. MEDICAL HISTORY : None. SURGICAL HISTORY : CABG. Cardiac valve replacement. ENCOUNTER: Initial ACUITY: 1 day PAIN SCORE: 0/10 LOCATION: chest FINDINGS: The patient is status post sternotomy. The inferior sternal wire is broken. There is a prosthetic car diac valve in place. The heart size is within normal limits. There is diffuse increased density throu ghout the lungs being worse at the bases. There is silhouetting of the hemidiaphragms bilaterally. CONCLUSION: Diffuse increased density likely related to diffuse processes such as edema. There is further atelect asis, consolidation or effusion at the bases silhouetting the hemidiaphragms. Gunnar Martinez MD on January 04, 2017 at 21:54 Board Certified Radiologist. This report was verified electronically.
[2017-01-04] MEDS ORDERED: ALBUMIN 25% INJ 50 ML IV ONE (22:00)
[2017-01-04] MEDS: SODIUM CHLORIDE 0.9% FLUSH 10 ML FLUSH IV FLUSH SCH (22:30)
[2017-01-04] MEDS ORDERED: BUMETANIDE INJ 1 MG/4 ML VIAL IV PUSH ONE (23:30)
[2017-01-05] VITALS (17 sets, daily range): BP systolic 118–169; BP diastolic 61–75; PULSE 54–80; RESP 18–25; TEMP 97.8–98.5; O2SAT 92–100
[2017-01-05] MEDS: MORPHINE SULFATE 2 MG/ML INJ IV PUSH PRN (00:15)
[2017-01-05] MEDS: PANTOPRAZOLE INJ 80 MG in SODIUM CHLORIDE 0.9% INJ 100 ML IV SCH ×3 (00:36→23:15)
[2017-01-05] MEDS: CHLORHEXIDINE GLUCONATE 2 % 1 PACK (2 CLOTHS) TOP SCH (00:37)
[2017-01-05] MEDS: RESP: ALBUTEROL 2.5 MG/IPRATROPIUM 0.5 MG NEB (SCH) INH ×4 (03:02→19:25)
[2017-01-05 03:48] LABS: AUTOMATED NEUTROPHIL # 15.3 TH/MM3 (1.8-7.7); BASOPHIL % 0.2 % (0.0-2.0); EOSINOPHIL # 0.1 TH/MM3 (0-0.4); EOSINOPHIL % 0.5 % (0.0-4.0); HEMATOCRIT 27.7 % (39.0-51.0); HEMO FLAGS DIFF FINAL; LYMPH % 4.1 % (9.0-44.0); LYMPHOCYTE # 0.7 TH/MM3 (1.0-4.8); MEAN CORPUSCULAR HEMOGLOBIN 29.9 PG (27.0-34.0); MEAN CORPUSCULAR HGB CONC 35.1 % (32.0-36.0); MONO % 5.1 % (0.0-8.0); NEUT % 90.1 % (16.0-70.0); PLATELET COUNT 262 TH/MM3 (150-450); RED BLOOD COUNT 3.26 MIL/MM3 (4.50-5.90); RED CELL DISTRIBUTION WIDTH 15.2 % (11.6-17.2)
[2017-01-05 03:53] LABS: INTERNATIONAL NORMALIZED RATIO 1.2 RATIO; PROTHROMBIN TIME - PATIENT 13.2 SEC (9.8-11.6)
[2017-01-05 04:29] LABS: ALKALINE PHOSPHATASE 65 U/L (45-117); ALT (GPT) 26 U/L (12-78); ANION GAP 7 MEQ/L (5-15); AST (GOT) 25 U/L (15-37); BICARBONATE 31.7 MEQ/L (21.0-32.0); BLOOD UREA NITROGEN 33 MG/DL (7-18); CHLORIDE 106 MEQ/L (98-107); GLOMERULAR FILTRATION RATE 47 ML/MIN (>89); POTASSIUM 3.9 MEQ/L (3.5-5.1); SODIUM (NA) 145 MEQ/L (136-145); TOTAL BILIRUBIN ADULT 0.6 MG/DL (0.2-1.0)
[2017-01-05] MEDS: INSULIN NovoLIN REGULAR SUPPLEMENTAL SCALE SQ SCH ×4 (06:00→17:26)
--- NOTE | 2017-01-05 07:29 | MB ---
cc: MARY SINGLETON M.D. DATE OF CONSULTATION 01/04/2017 REASON FOR CONSULTATION Mr. Shearer is a 61-year-old gentleman known to me with a prior history of mild cardiomyopathy, aortic valve replacement with a metallic valve, history of chronic anticoagulation with Coumadin therapy, history of smoking and occasional ETOH use, history of hypertension and hyperlipidemia, history of depression. He comes in found by his family lying in bed weak and in a pool of blood and came to the emergency room with a hemoglobin of 2.8 and had multiple blood transfusions and calcium gluconate and FFP as well as vitamin K. He has epigastric discomfort when he takes a deep breath. Otherwise denies any other chest pains. He has been short of breath lately today. Denies prior palpitations, dizziness or syncope. He has been progressively feeling weak with GI symptoms including dark black stools and diarrhea with bloody stools at times, nauseous and "lazy". His last INR was checked in the office about three weeks ago and he was supposed to come on the 21 of December for a recheck as it was 4.2 and he was advised to hold the dose one day and cut down the dose. He never came to the appointment December 21 and now with INR greater than 14 upon admission and hemorrhagic shock with prerenal insufficiency. PAST MEDICAL AND SURGICAL HISTORY As mentioned above. MEDICATIONS AT HOME Includes: 1. Benazepril 20 mEq b.i.d. 2. Coumadin 4 grams daily 3. Paxil 20 n.p.o. daily 4. Ecotrin 81 mg p.o. daily 5. Crestor 40 mg p.o. q.h.s. 6. Metoprolol tartrate 12.5 mg p.o. b.i.d. SOCIAL HISTORY He smokes a pack a day and smoked for many years. He used to drink alcohol on and off, but has not lately according to him. Denies recreational drug use. FAMILY HISTORY Positive for aneurysm, otherwise noncontributory. REVIEW OF SYSTEMS 12-point system review was unremarkable except what is mentioned in the history of present illness and the GI symptoms. EXAMINATION The patient is a 61-year-old gentleman lying in bed in mild to moderate respiratory distress. Alert and oriented x3 answering questions appropriately. VITAL SIGNS: Shows blood pressures 140/73 mmHg, pulse of 84 beats per minute and regular, respiration at 24 beats per minute, afebrile. HEENT: Shows head is normocephalic. Pupils equal and active. Throat is within normal limits. NECK: Supple. No carotid bruit. No thyromegaly or jugular venous distension noted. LUNGS: Shows diminished air entry at the bases bilaterally with crepitations more on the left side. CARDIOVASCULAR: S1-S2 are metallic in nature and faint S4 gallop with a 1/6 soft systolic murmur unchanged from before. No rubs. ABDOMEN: Exam is somewhat distended, but with normoactive bowel sounds and nontender. No organomegaly. EXTREMITIES: No clubbing, cyanosis or edema. Pulses 2+ bilaterally and no bruit noted. NEUROLOGIC: Grossly intact with no focal deficits. RECTAL: Exam deferred. LABORATORIES He came with an INR of 14.5 and a repeat is 2.4 and 2.7. Chemistry came with a BUN of 60, creatinine 2.04, potassium of 5.7, calcium 6.5 and total bilirubin of 0.1 with an AST of 13, ALT of 20, bilirubin of 1.4, Troponin I is 0.08 and 0.13, repeat kidney function was 50 and 1.79. Lipid panel showed triglycerides 164, BUN of 9, HDL of 21. TSH 1.52. Magnesium is 2.0 and phosphorous 4.3. Lactic acid upon presentation was elevated at 8.2, repeat is 1.5. A chest x-ray was not done. EKG shows sinus rhythm at 70 beats per minute with incomplete right bundle-branch block, borderline first degree AV block and this has not really significantly changed compared to prior tracing. ASSESSMENT AND RECOMMENDATIONS GI bleed with Coumadin toxicity. Agree with current therapy. Would try to avoid further vitamin K as they do develop antibodies and it becomes difficult to anticoagulate with Coumadin later on. His INR at the present time is stable where it should be because of his metallic valve. I agree with the GI workup. He already had an upper endoscopy with no significant pathology and is getting colonoscopy. Transfuse to keep hemoglobin greater than 8. He does have some pleural effusion and appears to be in fluid overload and a dose Bumex with albumin will be given with careful watch of his electrolytes and his kidney function because he is currently sating around 94% on a non-rebreather and quite tachypneic. History of mild cardiomyopathy. At present would avoid the EDGARD inhibitors because of his renal function and his hyperkalemia when he presented. The beta blockers will be kept on hold and reintroduce when he is more stable. Leukocytosis and the rest of the medical problem per his medical team and critical care. Status post aortic valve replacement as mentioned above. He needs to continue on anticoagulation as long as his hemoglobin/hematocrit remains stable and also cleared by GI. Follow up his INR on a daily basis. SBE prophylaxis in high risk procedures. Further recommendations will follow. I thank you for the consultation. MD AVANI Frey/JASMIN /9:16 PM /7:07 AM
[2017-01-05] MEDS ORDERED: FUROSEMIDE 40 MG/4 ML VIAL IV PUSH ONE (07:30)
[2017-01-05] MEDS: PARoxetine HCL 20 MG TAB PO SCH (07:51)
[2017-01-05] MEDS: DOCUSATE SODIUM 50 MG/SENNA 8.6 MG TAB PO SCH ×2 (07:51→23:14)
[2017-01-05] MEDS: ATORVASTATIN 80 MG TAB PO SCH (07:51)
[2017-01-05] MEDS: SODIUM CHLORIDE 0.9% FLUSH 10 ML FLUSH IV FLUSH SCH ×2 (07:52→23:13)
--- NOTE | 2017-01-05 08:07 | RADRPT ---
EXAM DATE/TIME: 01/05/2017 07:39 [facility] COMPARISON: CHEST SINGLE AP, January 04, 2017, 21:35. INDICATIONS : Shortness of breath. MEDICAL HISTORY : Hypercholesterolemia. Hypertension. Gastrointestinal bleed. Aortic stenosis.Dyspnea. Melena. Prostate problems. Depression. Anxiety. Tobacco use. Anticoagulant therapy, Coumadin. SURGICAL HISTORY : CABG. Aortic valve replacement. TURP. Blood transfusions. ENCOUNTER: Subsequent ACUITY: 2 days PAIN SCORE: 0/10 LOCATION: Bilateral chest FINDINGS: A single portable frontal view the chest shows no significant change. Cardiomegaly. Bilateral pleural effusions and bibasilar pulmonary infiltrates. Median sternotomy wires and prosthetic aortic valve. CONCLUSION: Unchanged exam. Serafin Jean Jr., MD on January 05, 2017 at 8:05 Board Certified Radiologist. This report was verified electronically.
[2017-01-05 10:29] LABS: HEMATOCRIT 30.7 % (39.0-51.0); REVIEW FLAG FINAL
[2017-01-05] MEDS ORDERED: PHENYLEPH/NS 1000 MCG/10 ML SYR IV ONE (12:00)
[2017-01-05] MEDS ORDERED: MAGNESIUM CITRATE SOLN 300 ML BTL PO SCH ×2 (12:00→18:00)
[2017-01-05] MEDS ORDERED: PROPOFOL 200 MG/20 ML AMP IV ONE (12:00)
--- NOTE | 2017-01-05 12:14 | HHI.CCPN ---
Subjective Remarks/Hospital Course 01/03: This is a 1-year-old male. Date of admission 01/03/2017. Past medical history includes aortic valve replacement 10 years ago, chronic warfarin use, depression, hypertension, dyslipidemia and BPH. Patient has not felt well for the past 2 weeks. Patient states his bowel movements have initially returned from dark brown to black to liquid diarrhea with blood. Patient recently had his warfarin checked. Last INR was 4.2 and his warfarin was decreased by 4 mg. He did not take his warfarin today. He presents to [facility] ED with generalized weakness and heme positive stools. Laboratories revealed potassium 5.7, creatinine 2.0, low calcium low albumin. INR greater than 14. White blood cell count 22,000. Hemoglobin 2.8. Patient received vitamin K, 8 units. Season or units FFP. Repeat coags are pending. Patient is currently hemodynamically stable. EKG and troponins currently pending. 01/04: Resting in bed comfortably. Not in any acute distress. EGD unremarkable. 01/05: Increasing O2 requirement since yesterday evening. On 100% nonrebreather facemask. Given Bumex 2 mg IV last night, chest x-ray last evening revealed pulmonary edema/right pleural effusion. This morning remains on nonrebreather facemask. Denies any shortness of breath though gets very hypoxic on attempting to decrease O2. Getting colonoscopy prep. Objective Vital Signs Date Time Temp Pulse Resp B/P (MAP) Pulse Ox O2 Delivery O2 Flow Rate FiO2 01/05/17 10:00 55 01/05/17 09:51 98 Non-Rebreather 100 01/05/17 08:55 15.00 01/05/17 08:00 98.3 24 169/67 (101) Intake and Output 01/05/17 01/05/17 01/06/17 08:00 16:00 00:00 Intake Total 200 ml Output Total 1502 ml Balance -1302 ml Result Diagram: 01/05/1790401/05/174 Imaging Last Impressions Chest X-Ray 01/05/17 0000 Signed Impressions: Service Date/Time: December 07:39 - CONCLUSION: Unchanged exam. Serafin Jean Jr., MD Abdomen Ultrasound 01/04/17 0000 Signed Impressions: Service Date/Time: Wednesday, January 04, 2017 07:57 - CONCLUSION: 1. Sludge gallbladder with trace pericholecystic fluid. There is no tenderness over the gallbladder 2. Abnormal right kidney. CT renal protocol is suggested. 3. Bilateral pleural effusions. Moy Patton MD FACR Objective Remarks GENERAL: 61 year male, resting in bed in no acute distress SKIN: Warm and dry. HEAD: Atraumatic. Normocephalic. EYES: Pupils equal and round. No scleral icterus. No injection or drainage. Pallor present ENT: No nasal bleeding or discharge. NECK: Trachea midline. No JVD. CARDIOVASCULAR: Regular rate and rhythm. S1, S2 no S4. 2/6 murmur with click right upper sternal border RESPIRATORY:. Clear to auscultation. Breath sounds equal bilaterally. GASTROINTESTINAL: Abdomen soft, non-tender, nondistended. Positive stools MUSCULOSKELETAL: Extremities without noted peripheral edema. No obvious deformities. NEUROLOGICAL: Awake and alert. No obvious cranial nerve deficits. Motor grossly within normal limits. Five out of 5 muscle strength in the arms and legs. Normal speech. PSYCHIATRIC: Appropriate mood and affect; insight and judgment normal. A/P Assessment and Plan Neuro/Psych: IV Ofirmev for fever/pain 1-10 CV: History of aortic valve replacement Hypertension Dyslipidemia Follow-up on EKG/troponin. Currently holding rosuvastatin 40 mg daily for dyslipidemia. Resume when clinically indicated holding metoprolol 12.5 mg by mouth twice a day and benazepril 20 mg twice a day in light of hypotension/acute kidney injury. Resume when clinically indicated Consulted Dr. Matthews per family request with recent abnormal echo stress test. Bumex 2mg IV on 01/04. Holding aspirin 81 mg daily light of GI bleed KVO IV fluids. Lasix 40mg IV x 1 on 01/05 Resp: Tobacco abuse Nasal cannula to maintain saturations greater than equal to 90% Incentive spirometry while awake Follow-up on chest x-ray Nicotine cessation encouraged. GI: GI bleed Hypoalbuminemia Currently on pantoprazole drip at 8 mg an hour. Consulted gastroenterology. EGD negative. colonoscopy planned. : BPH Currently holding tamsulosin 0.4 mill grams daily. Resume when clinically indicated Endo: Sliding-scale insulin if indicated to maintain euglycemia Renal: Acute kidney injury Check urine eosinophils electrolytes Check abdominal ultrasound Monitor urine output Accurate I's and O's Change bicarbonate drip to KVO Heme: Acute blood loss anemia Leukocytosis Warfarin toxicity Serial hemoglobin is every 6 hours recheck coags in a.m. Receive vitamin K 10 mg and 4 FFP in ED. Transfuse 8 units PRBCs. Ordered 1 unit PRBC on 01/04 after EGD. ID: Monitor for infection Received vancomycin ED FEN: Hyperkalemia Hypocalcemia Calcium gluconate, insulin/D50 and bicarbonate given on admission. MSK: Osteoarthritis PT evaluate and treat Access - Utilize peripheral IV. Central line if indicated Prophylaxis - GI - pantoprazole - DVT - SCD/pharmacological prophylaxis contraindicated with acute GI bleed Ethan Chicas MD Jan 05, 2017 12:14
[2017-01-05] MEDS ORDERED: FUROSEMIDE 20 MG/2 ML VIAL IV PUSH ONE (13:00)
--- NOTE | 2017-01-05 15:43 | HHI.GIFU ---
Subjective Remarks Finished golytely prep this am. Was having shortness of breath this am and went on nonrebreather, however, now improved. No obvious active bleeding at this time. Denies n/v/abdominal pain. (Corina Luis) Objective Vitals I&O Vital Signs Date Time Temp Pulse Resp B/P (MAP) Pulse Ox O2 Delivery O2 Flow Rate FiO2 01/05/17 15:11 100 Partial Non-Rebreather 01/05/17 14:00 60 01/05/17 12:00 98.5 54 25 139/70 (93) 100 01/05/17 12:00 54 01/05/17 10:00 55 01/05/17 09:51 98 Non-Rebreather 100 01/05/17 08:55 97 Non-Rebreather 15.00 01/05/17 08:00 98.3 74 24 169/67 (101) 95 01/05/17 08:00 74 01/05/17 08:00 74 01/05/17 06:00 60 24 134/70 (91) 99 01/05/17 06:00 80 01/05/17 05:00 60 24 140/73 (95) 98 01/05/17 04:00 68 01/05/17 04:00 68 01/05/17 04:00 98.4 68 18 131/74 (93) 94 01/05/17 03:00 61 24 133/66 (88) 97 01/05/17 02:00 60 01/05/17 02:00 61 24 127/75 (92) 95 01/05/17 01:00 66 18 118/61 (80) 96 01/05/17 00:00 72 01/05/17 00:00 98.4 72 18 127/66 (86) 97 01/05/17 00:00 72 01/04/17 23:00 69 16 132/58 (82) 96 01/04/17 22:11 94 Non-Rebreather 15.00 100 01/04/17 22:00 69 01/04/17 22:00 69 18 130/69 (89) 96 01/04/17 21:00 98.3 78 16 127/78 (94) 92 01/04/17 20:00 79 01/04/17 20:00 79 01/04/17 20:00 98.3 79 16 138/80 (99) 91 01/04/17 19:00 98.3 87 18 85/55 (65) 89 01/04/17 18:00 67 01/04/17 18:00 73 26 139/73 (95) 92 01/04/17 17:00 98.1 68 26 147/68 (94) 99 01/04/17 16:00 73 01/04/17 16:00 98.1 72 26 147/68 (94) 99 01/04/17 16:00 67 I/O 01/04/17 01/04/17 01/04/17 01/05/17 01/05/17 01/05/17 07:00 15:00 23:00 07:00 15:00 23:00 Intake Total 1176 ml 743 ml 2171 ml 925 ml 77 ml Output Total 450 ml 852 ml 1502 ml Balance 726 ml 743 ml 1319 ml -577 ml 77 ml Intake Oral 120 ml 380 ml 200 ml IV Total 350 ml 1090 ml 725 ml 77 ml Packed Cells 400 ml FFP 366 ml 603 ml 201 ml Blood Product IV Normal Saline Flush 340 ml 90 ml 100 ml Other 50 ml Output Urine Total 450 ml 850 ml 1500 ml Stool Total 2 ml 2 ml Laboratory Laboratory Tests Test 01/04/17 21:06 01/05/17 03:14 01/05/17 09:05 Hemoglobin 9.6 9.7 10.5 Hematocrit 28.2 27.7 30.7 B-Type Natriuretic Peptide 1095 White Blood Count 17.0 Red Blood Count 3.26 Mean Corpuscular Volume 85.0 Mean Corpuscular Hemoglobin 29.9 Mean Corpuscular Hemoglobin Concent 35.1 Red Cell Distribution Width 15.2 Platelet Count 262 Mean Platelet Volume 8.8 Neutrophils (%) (Auto) 90.1 Lymphocytes (%) (Auto) 4.1 Monocytes (%) (Auto) 5.1 Eosinophils (%) (Auto) 0.5 Basophils (%) (Auto) 0.2 Neutrophils # (Auto) 15.3 Lymphocytes # (Auto) 0.7 Monocytes # (Auto) 0.9 Eosinophils # (Auto) 0.1 Basophils # (Auto) 0.0 CBC Comment DIFF FINAL Differential Comment Prothrombin Time 13.2 Prothromb Time International Ratio 1.2 Blood Urea Nitrogen 33 Creatinine 1.52 Random Glucose 96 Total Protein 6.2 Albumin 2.6 Calcium Level 7.5 Alkaline Phosphatase 65 Aspartate Amino Transf (AST/SGOT) 25 Alanine Aminotransferase (ALT/SGPT) 26 Total Bilirubin 0.6 Sodium Level 145 Potassium Level 3.9 Chloride Level 106 Carbon Dioxide Level 31.7 Anion Gap 7 Estimat Glomerular Filtration Rate 47 Date/Time Source Procedure Growth Status 01/03/17 20:50 Blood Peripheral Aerobic Blood Culture - Preliminary NO GROWTH IN 2 DAYS Resulted 01/03/17 20:50 Blood Peripheral Anaerobic Blood Culture - Preliminary NO GROWTH IN 2 DAYS Resulted 01/04/17 13:05 Urine Catheterized Urine Urine Culture - Preliminary Gram Negative [place] Resulted Imaging Last Impressions Chest X-Ray 01/05/17 0000 Signed Impressions: Service Date/Time: December 07:39 - CONCLUSION: Unchanged exam. Serafin Jean Jr., MD Abdomen Ultrasound 01/04/17 0000 Signed Impressions: Service Date/Time: Wednesday, January 04, 2017 07:57 - CONCLUSION: 1. Sludge gallbladder with trace pericholecystic fluid. There is no tenderness over the gallbladder 2. Abnormal right kidney. CT renal protocol is suggested. 3. Bilateral pleural effusions. Moy Patton MD FACR Physical Exam HEENT: Normocephalic; atraumatic; no jaundice. CHEST: Diminished, NRB Mask. Not labored. Actually took off his mask and stayed 96-97% CARDIAC: RRR. ABDOMEN: Soft, nontender; no hepatosplenomegaly; bowel sounds are present in all four quadrants. EXTREMITIES: No clubbing, cyanosis, or edema. SKIN: Generalized pallor HAND BULLDOZER: No focal deficits; alert and oriented times three. (Corina LuisP) Assessment and Plan Plan ASSESSMENT: - GIB with melanotic/dark maroon bloody stool x 1 week. Severe weakness, malaise, night sweats and decreased appetite x 2 weeks. Hx Aortic valve replacement (mechanical), on chronic anticoagulation with coumadin. Also takes daily ASA. 1 week hx of black tarry stools, that then turned to dark maroon stools. No hx PUD. No hx EGD/ Colonoscopy. On admission, HH 2.8/9.4 and coagulopathy with an INR > 14.5. S/P 5 unit PRBC, 8 units FFP. S/P EGD (11/15/17)---> Normal EGD. Plan is for colonoscopy today vs. tomorrow. HH 10.5/30.7. - Hemorrhagic Shock/Severe anemia. HH 2.8/9.4 on admission. S/P 5 units PRBC. 8 units FFP. HH stable 10.5/30.7. - Coagulopathy, Coumadin toxicity. Chronic anticoagulation for mechanical heart valve with coumadin. Currently on hold. INR > 14.5 on admission. S/P 8 units FFP. INR 1.2. - ASHLEY secondary to above. Creat. 1.52 - Hx Mechanical Aortic Heart Valve. Chronic anticoagulation. Coumadin on hold. - HTN, Hyperlipidemia, BPH, Depression per attending. PLAN: - Plan for colonoscopy today vs. tomorrow - Obtain consents - NPO - Protonix Gtt - Monitor HH - Transfuse as necessary - CBC, BMP in am - Notify GI of active bleeding - Supportive care - Further recommendations to follow based on results of above - Pt seen and examined by Dr. Rico and myself and this note is written on his behalf (Corina Luis) Physician Comments Patient seen and examined Agree with above Continue with current supportive care Monitor labs Patient appears to be stable for colonoscopy today we will proceed (Moshe Rico MD) Corina Luis Jan 05, 2017 15:43 Moshe Rico MD Jan 05, 2017 19:08
[2017-01-05 16:29] LABS: HEMATOCRIT 30.3 % (39.0-51.0); REVIEW FLAG FINAL
[2017-01-05] MEDS: FUROSEMIDE 20 MG/2 ML VIAL IV PUSH SCH (17:26)
[2017-01-05] MEDS ORDERED: DO NOT ADM ANY ANTICOAGULANT DRUGS PRN (18:31)
--- NOTE | 2017-01-05 18:48 | PD.PROCEDR ---
GI Procedure REFERRING PHYSICIAN Dr. grande PROCEDURE PERFORMED Colonoscopy INDICATION FOR PROCEDURE GI bleed, anemia PROCEDURE: The procedure, risks and benefits were discussed with Mr. Shearer and informed consent was obtained. Anesthesia sedated him with Diprivan. He was placed in the left lateral decubitus position. Colonoscopy: The Pentax videoscope was introduced through the rectum and advanced to cecum where the ileocecal valve and appendiceal orifice were identified. Retroflexion was performed in the rectum. Colonic prep was very good FINDINGS: Colonic withdrawal time greater than 6 minutes as the scope was slowly withdrawn colonic mucosa was carefully inspected this was noted to be unremarkable and within normal limits on the way through so as retroflexion and rectal examination the patient was noted to have mild diverticulosis of the sigmoid region ESTIMATED BLOOD LOSS: None SPECIMENS REMOVED: None COMPLICATIONS: None IMPRESSION: Diverticulosis PLAN: Continue with current supportive care Monitor labs and transfuse as needed Obtain a small bowel follow-through Moshe Rico MD Jan 05, 2017 18:48
[2017-01-05] MEDS ORDERED: BISACODYL EC 5 MG TABEC PO SCH (21:00)
[2017-01-05 22:30] LABS: HEMATOCRIT 32.9 % (39.0-51.0); REVIEW FLAG FINAL
[2017-01-05] MEDS: TAMSULOSIN HCL 0.4 MG CAP PO SCH (23:14)
[2017-01-05] MEDS ORDERED: HEPARIN SODIUM - IV 10,000 UNITS/10 ML VIAL IV PUSH PRN ×2 (23:15)
[2017-01-05] MEDS: POTASSIUM CHLORIDE 10 MEQ CONTROLLED RELEASE TAB PO SCH (23:41)
[2017-01-05] MEDS: HEPARIN 25,000 UNITS-D5W 250 ML - PREMIX IV PRN (23:59)
[2017-01-06] VITALS (17 sets, daily range): BP systolic 107–173; BP diastolic 58–83; PULSE 42–126; RESP 22–33; TEMP 98–98.8; O2SAT 91–99
[2017-01-06] MEDS: RESP: ALBUTEROL 2.5 MG/IPRATROPIUM 0.5 MG NEB (SCH) INH ×4 (03:55→21:31)
[2017-01-06] MEDS: CHLORHEXIDINE GLUCONATE 2 % 1 PACK (2 CLOTHS) TOP SCH (04:00)
[2017-01-06] MEDS: INSULIN NovoLIN REGULAR SUPPLEMENTAL SCALE SQ SCH ×5 (06:00→23:21)
[2017-01-06 06:20] LABS: AUTOMATED NEUTROPHIL # 12.9 TH/MM3 (1.8-7.7); BASOPHIL % 0.2 % (0.0-2.0); EOSINOPHIL # 0.2 TH/MM3 (0-0.4); EOSINOPHIL % 1.5 % (0.0-4.0); HEMATOCRIT 29.8 % (39.0-51.0); HEMO FLAGS DIFF FINAL; LYMPH % 3.8 % (9.0-44.0); LYMPHOCYTE # 0.6 TH/MM3 (1.0-4.8); MEAN CORPUSCULAR HEMOGLOBIN 30.4 PG (27.0-34.0); MEAN CORPUSCULAR HGB CONC 34.9 % (32.0-36.0); NEUT % 88.5 % (16.0-70.0); PLATELET COUNT 298 TH/MM3 (150-450); RED BLOOD COUNT 3.42 MIL/MM3 (4.50-5.90); RED CELL DISTRIBUTION WIDTH 15.3 % (11.6-17.2); WHITE BLOOD COUNT 14.6 TH/MM3 (4.0-11.0)
[2017-01-06 06:33] LABS: APTT (PATIENT) 44.3 SEC (24.3-30.1); INTERNATIONAL NORMALIZED RATIO 1.1 RATIO
[2017-01-06 07:24] LABS: BICARBONATE 27.9 MEQ/L (21.0-32.0)
[2017-01-06 07:30] LABS: POTASSIUM 2.9 MEQ/L (3.5-5.1)
--- NOTE | 2017-01-06 08:07 | HHI.CCPN ---
Subjective Remarks/Hospital Course 01/03: This is a 1-year-old male. Date of admission 01/03/2017. Past medical history includes aortic valve replacement 10 years ago, chronic warfarin use, depression, hypertension, dyslipidemia and BPH. Patient has not felt well for the past 2 weeks. Patient states his bowel movements have initially returned from dark brown to black to liquid diarrhea with blood. Patient recently had his warfarin checked. Last INR was 4.2 and his warfarin was decreased by 4 mg. He did not take his warfarin today. He presents [facility] with generalized weakness and heme positive stools. Laboratories revealed potassium 5.7, creatinine 2.0, low calcium low albumin. INR greater than 14. White blood cell count 22,000. Hemoglobin 2.8. Patient received vitamin K, 8 units. Season or units FFP. Repeat coags are pending. Patient is currently hemodynamically stable. EKG and troponins currently pending. 01/04: Resting in bed comfortably. Not in any acute distress. EGD unremarkable. 01/05: Increasing O2 requirement since yesterday evening. On 100% nonrebreather facemask. Given Bumex 2 mg IV last night, chest x-ray last evening revealed pulmonary edema/right pleural effusion. This morning remains on nonrebreather facemask. Denies any shortness of breath though gets very hypoxic on attempting to decrease O2. Getting colonoscopy prep. 01/06 No events overnight. On 3L oxygen with good sats. Afebrile. On Heparin and Protonix drips. Objective Vital Signs Date Time Temp Pulse Resp B/P (MAP) Pulse Ox O2 Delivery O2 Flow Rate FiO2 01/06/17 06:00 60 01/06/17 04:00 98.5 22 140/68 (92) 95 01/05/17 19:25 Nasal Cannula 3.50 01/05/17 09:51 100 Intake and Output 01/06/17 01/06/17 01/07/17 08:00 16:00 00:00 Intake Total 0 ml Output Total 1300 ml Balance -1300 ml Result Diagram: 01/06/17 0550 01/06/17 0550 Other Results Laboratory Tests Test 01/05/17 09:05 01/05/17 15:33 01/05/17 21:18 01/06/17 05:50 Hemoglobin 10.5 GM/DL 10.1 GM/DL 11.1 GM/DL 10.4 GM/DL Hematocrit 30.7 % 30.3 % 32.9 % 29.8 % White Blood Count 14.6 TH/MM3 Red Blood Count 3.42 MIL/MM3 Mean Corpuscular Volume 87.0 FL Mean Corpuscular Hemoglobin 30.4 PG Mean Corpuscular Hemoglobin Concent 34.9 % Red Cell Distribution Width 15.3 % Platelet Count 298 TH/MM3 Mean Platelet Volume 8.9 FL Neutrophils (%) (Auto) 88.5 % Lymphocytes (%) (Auto) 3.8 % Monocytes (%) (Auto) 6.0 % Eosinophils (%) (Auto) 1.5 % Basophils (%) (Auto) 0.2 % Neutrophils # (Auto) 12.9 TH/MM3 Lymphocytes # (Auto) 0.6 TH/MM3 Monocytes # (Auto) 0.9 TH/MM3 Eosinophils # (Auto) 0.2 TH/MM3 Basophils # (Auto) 0.0 TH/MM3 CBC Comment DIFF FINAL Differential Comment Prothrombin Time 12.0 SEC Prothromb Time International Ratio 1.1 RATIO Activated Partial Thromboplast Time 44.3 SEC Blood Urea Nitrogen 25 MG/DL Creatinine 1.37 MG/DL Random Glucose 100 MG/DL Calcium Level 7.9 MG/DL Sodium Level 140 MEQ/L Potassium Level 2.9 MEQ/L Chloride Level 105 MEQ/L Carbon Dioxide Level 27.9 MEQ/L Anion Gap 7 MEQ/L Estimat Glomerular Filtration Rate 53 ML/MIN Imaging Last Impressions Chest X-Ray 01/05/17 0000 Signed Impressions: Service Date/Time: December 07:39 - CONCLUSION: Unchanged exam. Serafin Jean Jr., MD Abdomen Ultrasound 01/04/17 0000 Signed Impressions: Service Date/Time: Wednesday, January 04, 2017 07:57 - CONCLUSION: 1. Sludge gallbladder with trace pericholecystic fluid. There is no tenderness over the gallbladder 2. Abnormal right kidney. CT renal protocol is suggested. 3. Bilateral pleural effusions. Moy Patton MD FACR Objective Remarks GENERAL: 61 year male, resting in bed in no acute distress SKIN: Warm and dry. HEAD: Atraumatic. Normocephalic. EYES: Pupils equal and round. No scleral icterus. No injection or drainage. Pallor present ENT: No nasal bleeding or discharge. NECK: Trachea midline. No JVD. CARDIOVASCULAR: Regular rate and rhythm. S1, S2 no S4. 2/6 murmur with click right upper sternal border RESPIRATORY:. Clear to auscultation. Breath sounds equal bilaterally. GASTROINTESTINAL: Abdomen soft, non-tender, nondistended. Positive stools MUSCULOSKELETAL: Extremities without noted peripheral edema. No obvious deformities. NEUROLOGICAL: Awake and alert. No obvious cranial nerve deficits. Motor grossly within normal limits. Five out of 5 muscle strength in the arms and legs. Normal speech. PSYCHIATRIC: Appropriate mood and affect; insight and judgment normal. A/P Assessment and Plan Neuro/Psych: IV Ofirmev for fever/pain 1-10 CV: History of aortic valve replacement Hypertension Dyslipidemia Monitor HR and BP keep MAP >65mmHg Cards is following- Dr. Matthews On Heparin drip Resp: Tobacco abuse Continue with oxygen keep sat 90% Incentive spirometry while awake Bronchodilators Nicotine cessation encouraged. GI: GI bleed Hypoalbuminemia Change Protonix drip to IV Protonix 40mg daily GI is following. EGD negative. s/p colonoscopy-Diverticulosis For small bowel series today : ASHLEY BPH Monitor renal function, I/O's, electrolytes replacement per protocol Renal function is improving with Cr: 1.37 from 1.52 Will need K replacement today Endo: Sliding-scale insulin if indicated to maintain euglycemia Heme: Acute blood loss anemia Leukocytosis s/p Warfarin toxicity Monitor CBC, coags- On Heparin drip Receive vitamin K 10 mg and 4 FFP in ED. Transfuse 8 units PRBCs. Ordered 1 unit PRBC on 01/04 after EGD. Keep Hgb >8 ID: UTI: urine cx: GNR Place on Rocephin and monitor for signs of infection( Fever, WBC) Received vancomycin ED MSK Osteoarthritis PT evaluate and treat Access - Utilize peripheral IV. Central line if indicated Prophylaxis - GI - pantoprazole - DVT - SCD/on heparin drip. Level 3 Gab David MD Jan 06, 2017 08:07
[2017-01-06] MEDS ORDERED: MAGNESIUM SULFATE INJ 4 GM in SODIUM CHLORIDE 0.9% INJ 92 ML IV PRN (08:15)
[2017-01-06] MEDS ORDERED: POTASSIUM CHLOR 20 MEQ PREMIX 100 ML IV PRN (08:15)
[2017-01-06] MEDS ORDERED: POTASSIUM PHOSPHATE INJ 30 MMOL in SODIUM CHLOR 0.9% 250 ML INJ 250 ML IV PRN (08:15)
[2017-01-06] MEDS ORDERED: POTASSIUM CHLOR 40 MEQ PREMIX 100 ML IV PRN ×2 (08:15)
[2017-01-06] MEDS ORDERED: MAGNESIUM OXIDE 400 MG TAB PO PRN (08:15)
[2017-01-06] MEDS ORDERED: POTASSIUM PHOSPHATE MONOBASIC 500 MG TAB PO/TUBE PRN (08:15)
[2017-01-06] MEDS ORDERED: SODIUM PHOSPHATE INJ 30 MMOL in SODIUM CHLOR 0.9% 250 ML INJ 240 ML IV PRN (08:15)
[2017-01-06] MEDS ORDERED: POTASSIUM CHLORIDE 25 MEQ EFFERVESCENT TAB PO PRN (08:15)
[2017-01-06] MEDS ORDERED: MAGNESIUM SULFATE INJ 2 GM in SODIUM CHLORIDE 0.9% INJ 96 ML IV PRN (08:15)
[2017-01-06] MEDS ORDERED: POTASSIUM PHOSPHATE MONOBASIC 500 MG TAB PO PRN (08:15)
[2017-01-06] MEDS: DOCUSATE SODIUM 50 MG/SENNA 8.6 MG TAB PO SCH ×2 (08:31→21:00)
[2017-01-06] MEDS: ATORVASTATIN 80 MG TAB PO SCH (08:32)
[2017-01-06] MEDS: PARoxetine HCL 20 MG TAB PO SCH (08:32)
[2017-01-06] MEDS: POTASSIUM CHLORIDE 10 MEQ CONTROLLED RELEASE TAB PO SCH ×2 (08:33→21:01)
[2017-01-06] MEDS: FUROSEMIDE 20 MG/2 ML VIAL IV PUSH SCH ×2 (08:36→17:50)
[2017-01-06] MEDS: SODIUM CHLORIDE 0.9% FLUSH 10 ML FLUSH IV FLUSH SCH ×2 (08:37→21:00)
[2017-01-06] MEDS: cefTRIAXone INJ 1,000 MG in SODIUM CHLORIDE 0.9% INJ 100 ML IV SCH (08:50)
[2017-01-06] MEDS: POTASSIUM CHLOR 20 MEQ PREMIX 100 ML IV PRN ×4 (08:51→18:40)
[2017-01-06] MEDS: PANTOPRAZOLE SODIUM 40 MG VIAL IV PUSH SCH (08:52)
[2017-01-06] MEDS ORDERED: INFLUENZA VIRUS VACCINE (QUADRIVALENT) 0.5 ML SYR IM ONE (09:00)
[2017-01-06] MEDS ORDERED: PNEUMOCOCCAL POLYVALENT INJ 25 MCG/0.5 ML SYR IM ONE (09:00)
--- NOTE | 2017-01-06 13:04 | RADRPT ---
EXAM DATE/TIME: 01/06/2017 10:31 [facility] COMPARISON: No previous studies available for comparison. INDICATIONS : Anemia. GI bleed. FLUORO TIME: .80 minutes IMAGE COUNT: 15 CONTRAST: Entero Vu 24% Barium Sulfate (24% w/v, 20% w/w) IMAGING TIME(S): 15 min, 30 min, 45 min, 1 hr, 1.5 hrs MEDICAL HISTORY : Hypercholesterolemia. Hypertension. Gastrointestinal bleed. Aortic stenosis.Dyspnea. Melena. Prostate problems. Depression. Anxiety. Tobacco use. Anticoagulant therapy, Coumadin. SURGICAL HISTORY : CABG. Aortic valve replacement. TURP. Blood transfusions. ENCOUNTER: Initial ACUITY: 1 day PAIN SCORE: 0/10 LOCATION: abdomen FINDINGS: Preliminary film is unremarkable. The stomach is grossly unremarkable. Examination of the small bowel demonstrates normal mucosal pattern involving the jejunum and ileum. There is no evidence of mass or obstruction. No intraluminal filling defects are identified. Small bowel transit time is normal at 90 minutes. Fluoroscopy of the abdomen and terminal ileum demonstrat es no abnormality. CONCLUSION: Unremarkable small bowel examination. Aurelio Jane MD on January 06, 2017 at 13:02 Board Certified Radiologist. This report was verified electronically.
--- NOTE | 2017-01-06 13:36 | HHI.GIFU ---
Subjective Remarks Resting in bed. Has had multiple loose stools, some dark. No osmin red bleeding. On heparin gtt. No n/v, abdominal pain. (Corina Luis) Objective Vitals I&O Vital Signs Date Time Temp Pulse Resp B/P (MAP) Pulse Ox O2 Delivery O2 Flow Rate FiO2 01/06/17 12:00 42 01/06/17 12:00 98.8 53 33 143/65 (91) 97 01/06/17 10:00 47 28 151/72 (98) 97 01/06/17 10:00 47 01/06/17 09:08 97 Nasal Cannula 3.00 01/06/17 09:00 49 31 158/69 (98) 97 01/06/17 08:00 95 Nasal Cannula 3.00 01/06/17 08:00 50 01/06/17 08:00 98.1 50 32 150/70 (96) 95 01/06/17 06:00 60 01/06/17 04:00 98.5 69 22 140/68 (92) 95 01/06/17 04:00 69 01/06/17 02:00 61 01/06/17 00:00 126 01/06/17 00:00 98.6 126 24 137/68 (91) 91 01/05/17 22:00 71 01/05/17 20:00 57 01/05/17 20:00 98.2 57 24 149/71 (97) 92 01/05/17 19:25 92 Nasal Cannula 3.50 01/05/17 19:00 99 Nasal Cannula 3.00 01/05/17 19:00 97.8 58 16 132/67 (88) 92 Nasal Cannula 4 01/05/17 18:45 57 16 141/67 (91) 91 Nasal Cannula 4 01/05/17 18:30 98.0 55 19 147/61 (89) 96 Simple Mask 6 01/05/17 16:45 99 Non-Rebreather 15.00 01/05/17 16:00 54 01/05/17 16:00 97.8 54 22 140/73 (95) 100 01/05/17 15:11 100 Partial Non-Rebreather 01/05/17 14:00 60 I/O 01/05/17 01/05/17 01/05/17 01/06/17 01/06/1717/17 07:00 15:00 23:00 07:00 15:00 23:00 Intake Total 925 ml 77 ml 1644 ml 0 ml 221 ml Output Total 1502 ml 3850 ml 1300 ml Balance -577 ml 77 ml -2206 ml -1300 ml 221 ml Intake Oral 200 ml 1500 ml 0 ml IV Total 725 ml 77 ml 44 ml 221 ml Other 100 ml Output Urine Total 1500 ml 3850 ml 1300 ml Stool Total 2 ml # Bowel Movements 4 2 Laboratory Laboratory Tests Test 01/05/17 15:33 01/05/17 21:18 01/06/17 05:50 Hemoglobin 10.1 11.1 10.4 Hematocrit 30.3 32.9 29.8 White Blood Count 14.6 Red Blood Count 3.42 Mean Corpuscular Volume 87.0 Mean Corpuscular Hemoglobin 30.4 Mean Corpuscular Hemoglobin Concent 34.9 Red Cell Distribution Width 15.3 Platelet Count 298 Mean Platelet Volume 8.9 Neutrophils (%) (Auto) 88.5 Lymphocytes (%) (Auto) 3.8 Monocytes (%) (Auto) 6.0 Eosinophils (%) (Auto) 1.5 Basophils (%) (Auto) 0.2 Neutrophils # (Auto) 12.9 Lymphocytes # (Auto) 0.6 Monocytes # (Auto) 0.9 Eosinophils # (Auto) 0.2 Basophils # (Auto) 0.0 CBC Comment DIFF FINAL Differential Comment Prothrombin Time 12.0 Prothromb Time International Ratio 1.1 Activated Partial Thromboplast Time 44.3 Blood Urea Nitrogen 25 Creatinine 1.37 Random Glucose 100 Calcium Level 7.9 Sodium Level 140 Potassium Level 2.9 Chloride Level 105 Carbon Dioxide Level 27.9 Anion Gap 7 Estimat Glomerular Filtration Rate 53 Date/Time Source Procedure Growth Status 01/03/17 20:50 Blood Peripheral Aerobic Blood Culture - Preliminary NO GROWTH IN 3 DAYS Resulted 01/03/17 20:50 Blood Peripheral Anaerobic Blood Culture - Preliminary NO GROWTH IN 3 DAYS Resulted 01/04/17 13:05 Urine Catheterized Urine Urine Culture - Final Klebsiella Pneumoniae Complete Imaging Last Impressions Small Bowel X-Ray 01/06/17 0000 Signed Impressions: Service Date/Time: Friday, January 06, 2017 10:31 - CONCLUSION: Unremarkable small bowel examination. Aurelio Jane MD Chest X-Ray 01/05/17 0000 Signed Impressions: Service Date/Time: December 07:39 - CONCLUSION: Unchanged exam. Serafin Jean Jr., MD Abdomen Ultrasound 01/04/17 0000 Signed Impressions: Service Date/Time: Wednesday, January 04, 2017 07:57 - CONCLUSION: 1. Sludge gallbladder with trace pericholecystic fluid. There is no tenderness over the gallbladder 2. Abnormal right kidney. CT renal protocol is suggested. 3. Bilateral pleural effusions. Moy Patton MD FACR Physical Exam HEENT: Normocephalic; atraumatic; no jaundice. CHEST: Resp. even/unlabored, diminished bases CARDIAC: Regular, bradycardic ABDOMEN: Soft, mildly bloated, nontender; no hepatosplenomegaly; bowel sounds are present in all four quadrants. EXTREMITIES: No clubbing, cyanosis, or edema. SKIN: Generalized pallor JUNIOR QA ANALYST: No focal deficits; alert and oriented times three. (Corina Luis) Assessment and Plan Plan ASSESSMENT: - GIB with melanotic/dark maroon bloody stool x 1 week. Severe weakness, malaise, night sweats and decreased appetite x 2 weeks. Hx Aortic valve replacement (mechanical), on chronic anticoagulation with coumadin. Also takes daily ASA. 1 week hx of black tarry stools, that then turned to dark maroon stools. No hx PUD. No hx EGD/ Colonoscopy. On admission, HH 2.8/9.4 and coagulopathy with an INR > 14.5. S/P 5 unit PRBC, 8 units FFP. S/P EGD (01/04/17)---> Normal EGD. S/P Colonoscopy (01/06/17)---> Diverticulosis. SBFT (01/06/17)---> Unremarkable small bowel examination. HH 10.4/29.8. HH has remained stable with heparin gtt. - Hemorrhagic Shock/Severe anemia. HH 2.8/9.4 on admission. S/P 5 units PRBC. 8 units FFP. HH stable 10./29.8 - Coagulopathy, Coumadin toxicity. Chronic anticoagulation for mechanical heart valve with coumadin. Currently on hold. INR > 14.5 on admission. S/P 8 units FFP. INR 1.1. - ASHLEY secondary to above. Creat. 1.37 - Hx Mechanical Aortic Heart Valve. Chronic anticoagulation. Heparin gtt. - HTN, Hyperlipidemia, BPH, Depression per attending. PLAN: - Heart healthy diet - Protonix 40mg IV daily - Monitor HH - Transfuse as necessary - Monitor labs - Notify GI of active bleeding - Consider capsule endoscopy as outpatient - Further recommendations to follow based on results of above - Pt seen and examined by Dr. Rico and myself and this note is written on his behalf (Corina Luis) Physician Comments Patient seen and examined Agree with above Continue with current supportive care Monitor labs Patient appears to be stable on heparin drip with no further bleeding Small bowel follow-through is negative At this point I would say it is okay to resume anticoagulation as necessary Patient to follow-up with GI post discharge for capsule endoscopy If there is any active bleeding then I will pursue a bleeding scan (Moshe Rico MD) Corina Luis Jan 06, 2017 13:36 Moshe Rico MD Jan 06, 2017 18:18
[2017-01-06 14:23] LABS: REVIEW FLAG FINAL
[2017-01-06 14:34] LABS: APTT (PATIENT) 42.7 SEC (24.3-30.1)
[2017-01-06] MEDS: BISACODYL EC 5 MG TABEC PO SCH (17:45)
[2017-01-06 18:25] LABS: POTASSIUM 3.5 MEQ/L (3.5-5.1)
[2017-01-06 20:29] LABS: HEMATOCRIT 29.8 % (39.0-51.0)
[2017-01-06 20:32] LABS: REVIEW FLAG FINAL
[2017-01-06] MEDS: HEPARIN 25,000 UNITS-D5W 250 ML - PREMIX IV PRN (21:00)
[2017-01-06] MEDS: TAMSULOSIN HCL 0.4 MG CAP PO SCH (21:01)
[2017-01-06] MEDS ORDERED: POTASSIUM PHOSPHATE INJ 30 MMOL in SODIUM CHLOR 0.9% 250 ML INJ 250 ML IV ONE (22:15)
[2017-01-06] MEDS: WARFARIN SOD 4 MG TAB PO SCH (23:12)
[2017-01-07] VITALS (19 sets, daily range): BP systolic 105–164; BP diastolic 55–96; PULSE 41–74; RESP 21–30; TEMP 98–98.3; O2SAT 96–99
[2017-01-07] MEDS: RESP: ALBUTEROL 2.5 MG/IPRATROPIUM 0.5 MG NEB (SCH) INH ×4 (04:00→21:28)
[2017-01-07] MEDS: CHLORHEXIDINE GLUCONATE 2 % 1 PACK (2 CLOTHS) TOP SCH (04:00)
[2017-01-07 04:44] LABS: AUTOMATED NEUTROPHIL # 10.8 TH/MM3 (1.8-7.7); BASOPHIL # 0.1 TH/MM3 (0-0.2); BASOPHIL % 0.4 % (0.0-2.0); EOSINOPHIL # 0.4 TH/MM3 (0-0.4); EOSINOPHIL % 2.8 % (0.0-4.0); HEMATOCRIT 30.3 % (39.0-51.0); HEMO FLAGS DIFF FINAL; LYMPH % 7.6 % (9.0-44.0); MEAN CELL VOLUME 86.8 FL (80.0-100.0); MEAN CORPUSCULAR HEMOGLOBIN 29.1 PG (27.0-34.0); MEAN CORPUSCULAR HGB CONC 33.5 % (32.0-36.0); MONO % 6.6 % (0.0-8.0); NEUT % 82.6 % (16.0-70.0); PLATELET COUNT 344 TH/MM3 (150-450); RED BLOOD COUNT 3.49 MIL/MM3 (4.50-5.90); RED CELL DISTRIBUTION WIDTH 15.3 % (11.6-17.2); WHITE BLOOD COUNT 13.1 TH/MM3 (4.0-11.0)
[2017-01-07 04:56] LABS: APTT (PATIENT) 57.8 SEC (24.3-30.1); PROTHROMBIN TIME - PATIENT 11.6 SEC (9.8-11.6)
[2017-01-07 05:08] LABS: BICARBONATE 24.1 MEQ/L (21.0-32.0); MAGNESIUM 1.7 MG/DL (1.5-2.5); POTASSIUM 4.1 MEQ/L (3.5-5.1)
[2017-01-07] MEDS: INSULIN NovoLIN REGULAR SUPPLEMENTAL SCALE SQ SCH ×3 (06:00→18:00)
--- NOTE | 2017-01-07 08:16 | HHI.CCPN ---
Subjective Remarks/Hospital Course 01/03: This is a 1-year-old male. Date of admission 01/03/2017. Past medical history includes aortic valve replacement 10 years ago, chronic warfarin use, depression, hypertension, dyslipidemia and BPH. Patient has not felt well for the past 2 weeks. Patient states his bowel movements have initially returned from dark brown to black to liquid diarrhea with blood. Patient recently had his warfarin checked. Last INR was 4.2 and his warfarin was decreased by 4 mg. He did not take his warfarin today. He presents to [facility] with generalized weakness and heme positive stools. Laboratories revealed potassium 5.7, creatinine 2.0, low calcium low albumin. INR greater than 14. White blood cell count 22,000. Hemoglobin 2.8. Patient received vitamin K, 8 units. Season or units FFP. Repeat coags are pending. Patient is currently hemodynamically stable. EKG and troponins currently pending. 01/04: Resting in bed comfortably. Not in any acute distress. EGD unremarkable. 01/05: Increasing O2 requirement since yesterday evening. On 100% nonrebreather facemask. Given Bumex 2 mg IV last night, chest x-ray last evening revealed pulmonary edema/right pleural effusion. This morning remains on nonrebreather facemask. Denies any shortness of breath though gets very hypoxic on attempting to decrease O2. Getting colonoscopy prep. 01/06 No events overnight. On 3L oxygen with good sats. Afebrile. On Heparin and Protonix drips. 01/07 No events overnight. H/H stable, SB series unremarkable. On Heparin drip. Objective Vital Signs Date Time Temp Pulse Resp B/P (MAP) Pulse Ox O2 Delivery O2 Flow Rate FiO2 01/07/17 06:00 41 01/07/17 04:00 98.1 28 142/94 (110) 97 01/06/17 22:54 Nasal Cannula 01/06/17 19:00 3.00 01/05/17 09:51 100 Intake and Output 01/07/17 01/07/17 01/08/17 08:00 16:00 00:00 Intake Total 1044 ml Output Total 1550 ml Balance -506 ml Result Diagram: 01/07/17 0346 01/07/17 0346 Other Results Laboratory Tests Test 01/06/17 14:07 01/06/17 17:55 01/06/17 20:04 01/07/17 03:46 Hemoglobin 10.8 GM/DL 11.0 GM/DL 10.2 GM/DL Hematocrit 32.0 % 29.8 % 30.3 % Activated Partial Thromboplast Time 42.7 SEC 57.8 SEC Potassium Level 3.5 MEQ/L 4.1 MEQ/L Phosphorus Level 1.8 MG/DL 3.7 MG/DL White Blood Count 13.1 TH/MM3 Red Blood Count 3.49 MIL/MM3 Mean Corpuscular Volume 86.8 FL Mean Corpuscular Hemoglobin 29.1 PG Mean Corpuscular Hemoglobin Concent 33.5 % Red Cell Distribution Width 15.3 % Platelet Count 344 TH/MM3 Mean Platelet Volume 8.8 FL Neutrophils (%) (Auto) 82.6 % Lymphocytes (%) (Auto) 7.6 % Monocytes (%) (Auto) 6.6 % Eosinophils (%) (Auto) 2.8 % Basophils (%) (Auto) 0.4 % Neutrophils # (Auto) 10.8 TH/MM3 Lymphocytes # (Auto) 1.0 TH/MM3 Monocytes # (Auto) 0.9 TH/MM3 Eosinophils # (Auto) 0.4 TH/MM3 Basophils # (Auto) 0.1 TH/MM3 CBC Comment DIFF FINAL Differential Comment Prothrombin Time 11.6 SEC Prothromb Time International Ratio 1.0 RATIO Blood Urea Nitrogen 23 MG/DL Creatinine 1.23 MG/DL Random Glucose 100 MG/DL Calcium Level 7.6 MG/DL Magnesium Level 1.7 MG/DL Sodium Level 139 MEQ/L Chloride Level 109 MEQ/L Carbon Dioxide Level 24.1 MEQ/L Anion Gap 6 MEQ/L Estimat Glomerular Filtration Rate 60 ML/MIN Imaging Last Impressions Small Bowel X-Ray 01/06/17 0000 Signed Impressions: Service Date/Time: Friday, January 06, 2017 10:31 - CONCLUSION: Unremarkable small bowel examination. Aurelio Jane MD Chest X-Ray 01/05/17 0000 Signed Impressions: Service Date/Time: December 07:39 - CONCLUSION: Unchanged exam. Serafin Jean Jr., MD Abdomen Ultrasound 01/04/17 0000 Signed Impressions: Service Date/Time: Wednesday, January 04, 2017 07:57 - CONCLUSION: 1. Sludge gallbladder with trace pericholecystic fluid. There is no tenderness over the gallbladder 2. Abnormal right kidney. CT renal protocol is suggested. 3. Bilateral pleural effusions. Moy Patton MD FACR Objective Remarks GENERAL: 61 year male, resting in bed in no acute distress SKIN: Warm and dry. HEAD: Atraumatic. Normocephalic. EYES: Pupils equal and round. No scleral icterus. No injection or drainage. Pallor present ENT: No nasal bleeding or discharge. NECK: Trachea midline. No JVD. CARDIOVASCULAR: Regular rate and rhythm. S1, S2 no S4. 2/6 murmur with click right upper sternal border RESPIRATORY:. Clear to auscultation. Breath sounds equal bilaterally. GASTROINTESTINAL: Abdomen soft, non-tender, nondistended. Positive stools MUSCULOSKELETAL: Extremities without noted peripheral edema. No obvious deformities. NEUROLOGICAL: Awake and alert. No obvious cranial nerve deficits. Motor grossly within normal limits. Five out of 5 muscle strength in the arms and legs. Normal speech. PSYCHIATRIC: Appropriate mood and affect; insight and judgment normal. A/P Assessment and Plan Neuro/Psych: Awake and alert CV: History of aortic valve replacement Hypertension Dyslipidemia Monitor HR and BP keep MAP >65mmHg Cards is following- Dr. Matthews On Heparin drip, Coumadin started yesterday Resp: Tobacco abuse Continue with oxygen keep sat 90% Incentive spirometry while awake Bronchodilators Nicotine cessation encouraged. GI: GI bleed Hypoalbuminemia Change Protonix drip to IV Protonix 40mg daily GI is following. EGD negative. s/p colonoscopy-Diverticulosis small bowel series yesterday unremarkable. : ASHLEY- improving BPH Monitor renal function, I/O's, electrolytes replacement per protocol Renal function is improving with Cr: 1.23 today from 1.37 On Lasix 20mg BID Endo: Sliding-scale insulin if indicated to maintain euglycemia Heme: Acute blood loss anemia Leukocytosis s/p Warfarin toxicity Monitor CBC, coags- On Heparin drip, Coumadin, d/c Coumadin once INR >2.0 Receive vitamin K 10 mg and 4 FFP in ED. Transfuse 8 units PRBCs. Ordered 1 unit PRBC on 01/04 after EGD. Keep Hgb >8 ID: UTI: urine cx: Kleb pneumonia On Rocephin and monitor for signs of infection( Fever, WBC) Received vancomycin ED MSK Osteoarthritis PT evaluate and treat Access - Utilize peripheral IV. Prophylaxis - GI - pantoprazole - DVT - SCD/on heparin drip/Coumadin. Will sign off and transfer care to [facility] Level 3 Gab David MD Jan 07, 2017 08:16
[2017-01-07] MEDS: ATORVASTATIN 80 MG TAB PO SCH (08:26)
[2017-01-07] MEDS: PARoxetine HCL 20 MG TAB PO SCH (08:26)
[2017-01-07] MEDS: POTASSIUM CHLORIDE 10 MEQ CONTROLLED RELEASE TAB PO SCH ×2 (08:26→21:41)
[2017-01-07] MEDS: PANTOPRAZOLE SODIUM 40 MG VIAL IV PUSH SCH (08:26)
[2017-01-07] MEDS: DOCUSATE SODIUM 50 MG/SENNA 8.6 MG TAB PO SCH ×2 (08:27→21:00)
[2017-01-07] MEDS: FUROSEMIDE 20 MG/2 ML VIAL IV PUSH SCH ×2 (08:27→18:26)
[2017-01-07] MEDS: SODIUM CHLORIDE 0.9% FLUSH 10 ML FLUSH IV FLUSH SCH ×2 (08:27→21:42)
[2017-01-07] MEDS: cefTRIAXone INJ 1,000 MG in SODIUM CHLORIDE 0.9% INJ 100 ML IV SCH (08:27)
--- NOTE | 2017-01-07 11:12 | HHI.GIFU ---
Subjective Remarks Pt resting in bed. No obvious bleeding. Still with liquid BM. no pain, n/v. (Kimberly Casey) Objective Vitals I&O Vital Signs Date Time Temp Pulse Resp B/P (MAP) Pulse Ox O2 Delivery O2 Flow Rate FiO2 01/07/17 06:00 41 01/07/17 04:00 54 01/07/17 04:00 98.1 54 28 142/94 (110) 97 01/07/17 02:00 54 01/07/17 00:00 56 01/07/17 00:00 98.1 56 27 131/60 (83) 98 01/06/17 22:54 94 Nasal Cannula 01/06/17 22:00 57 01/06/17 20:00 98.3 64 23 127/59 (81) 99 01/06/17 20:00 64 01/06/17 19:00 98 Nasal Cannula 3.00 01/06/17 18:00 57 01/06/17 16:00 60 01/06/17 16:00 98.0 67 32 138/65 (89) 97 01/06/17 15:00 61 33 107/58 (74) 96 01/06/17 14:00 45 01/06/17 14:00 53 27 138/83 (101) 98 01/06/17 13:00 43 31 173/73 (106) 96 01/06/17 12:00 42 01/06/17 12:00 98.8 53 33 143/65 (91) 97 I/O 01/06/17 01/06/17 01/06/17 01/07/17 01/07/17 01/07/17 07:00 15:00 23:00 07:00 15:00 23:00 Intake Total 0 ml 221 ml 1580 ml 1044 ml Output Total 1300 ml 1200 ml 1550 ml Balance -1300 ml 221 ml 380 ml -506 ml Intake Oral 0 ml 980 ml 500 ml IV Total 221 ml 600 ml 544 ml Output Urine Total 1300 ml 1200 ml 1550 ml # Bowel Movements 2 2 1 Laboratory Laboratory Tests Test 01/06/17 14:07 01/06/17 17:55 01/06/17 20:04 01/07/17 03:46 Hemoglobin 10.8 11.0 10.2 Hematocrit 32.0 29.8 30.3 Activated Partial Thromboplast Time 42.7 57.8 Potassium Level 3.5 4.1 Phosphorus Level 1.8 3.7 White Blood Count 13.1 Red Blood Count 3.49 Mean Corpuscular Volume 86.8 Mean Corpuscular Hemoglobin 29.1 Mean Corpuscular Hemoglobin Concent 33.5 Red Cell Distribution Width 15.3 Platelet Count 344 Mean Platelet Volume 8.8 Neutrophils (%) (Auto) 82.6 Lymphocytes (%) (Auto) 7.6 Monocytes (%) (Auto) 6.6 Eosinophils (%) (Auto) 2.8 Basophils (%) (Auto) 0.4 Neutrophils # (Auto) 10.8 Lymphocytes # (Auto) 1.0 Monocytes # (Auto) 0.9 Eosinophils # (Auto) 0.4 Basophils # (Auto) 0.1 CBC Comment DIFF FINAL Differential Comment Prothrombin Time 11.6 Prothromb Time International Ratio 1.0 Blood Urea Nitrogen 23 Creatinine 1.23 Random Glucose 100 Calcium Level 7.6 Magnesium Level 1.7 Sodium Level 139 Chloride Level 109 Carbon Dioxide Level 24.1 Anion Gap 6 Estimat Glomerular Filtration Rate 60 Date/Time Source Procedure Growth Status 01/03/17 20:50 Blood Peripheral Aerobic Blood Culture - Preliminary NO GROWTH IN 4 DAYS Resulted 01/03/17 20:50 Blood Peripheral Anaerobic Blood Culture - Preliminary NO GROWTH IN 4 DAYS Resulted 01/04/17 13:05 Urine Catheterized Urine Urine Culture - Final Klebsiella Pneumoniae Complete Imaging Last Impressions Small Bowel X-Ray 01/06/17 0000 Signed Impressions: Service Date/Time: Friday, January 06, 2017 10:31 - CONCLUSION: Unremarkable small bowel examination. Aurelio Jane MD Chest X-Ray 01/05/17 0000 Signed Impressions: Service Date/Time: December 07:39 - CONCLUSION: Unchanged exam. Serafin Jean Jr., MD Abdomen Ultrasound 01/04/17 0000 Signed Impressions: Service Date/Time: Wednesday, January 04, 2017 07:57 - CONCLUSION: 1. Sludge gallbladder with trace pericholecystic fluid. There is no tenderness over the gallbladder 2. Abnormal right kidney. CT renal protocol is suggested. 3. Bilateral pleural effusions. Moy Patton MD FACR Physical Exam HEENT: Normocephalic; atraumatic; no jaundice. CHEST: CTA CARDIAC: Regular, bradycardic; click (mechanical valve) ABDOMEN: Soft, mildly bloated, nontender; no hepatosplenomegaly; bowel sounds are present in all four quadrants. EXTREMITIES: No clubbing, cyanosis, or edema. SKIN: Generalized pallor COMPUTER FORENSIC SPECIALIST: No focal deficits; alert and oriented times three. (Kimberly Casey) Assessment and Plan Plan ASSESSMENT: - GIB with melanotic/dark maroon bloody stool x 1 week. Severe weakness, malaise, night sweats and decreased appetite x 2 weeks. Hx Aortic valve replacement (mechanical), on chronic anticoagulation with coumadin. Also takes daily ASA. 1 week hx of black tarry stools, that then turned to dark maroon stools. No hx PUD. No hx EGD/ Colonoscopy. On admission, HH 2.8/9.4 and coagulopathy with an INR > 14.5. S/P 5 unit PRBC, 8 units FFP. S/P EGD (01/04/17)---> Normal EGD. S/P Colonoscopy (01/06/17)---> Diverticulosis. SBFT (01/06/17)---> Unremarkable small bowel examination. mild drop hgb today. no obvious bleeding. + bm liquid, per RN looks like contrast - Hemorrhagic Shock/Severe anemia. HH 2.8/9.4 on admission. S/P 5 units PRBC. 8 units FFP. HH relatively stable - Coagulopathy, Coumadin toxicity. Chronic anticoagulation for mechanical heart valve with coumadin. Currently on hold. INR > 14.5 on admission. S/P 8 units FFP. INR 1. - ASHLEY secondary to above. Creat. 1.23 improving - Hx Mechanical Aortic Heart Valve. Chronic anticoagulation. Heparin gtt. - HTN, Hyperlipidemia, BPH, Depression per attending. PLAN: - Heart healthy diet - Protonix 40mg IV daily - Monitor HH - Transfuse as necessary - Monitor labs - if bleeding get stat bleed scan - f/u with GI after d/c for capsule endoscopy - Further recommendations to follow based on results of above - Pt seen and examined by Dr. Rico and myself and this note is written on his behalf (Kimberly Casey) Physician Comments Patient seen and examined Agree with above Continue with current supportive care Monitor labs (Moshe Rico MD) Kimberly Casey Jan 07, 2017 11:12 Moshe Rico MD Jan 07, 2017 21:02
[2017-01-07] MEDS ORDERED: WARFARIN SOD 2 MG TAB PO ONE (13:45)
[2017-01-07] MEDS: HEPARIN 25,000 UNITS-D5W 250 ML - PREMIX IV PRN (17:41)
[2017-01-07] MEDS: BISACODYL EC 5 MG TABEC PO SCH (18:00)
[2017-01-07] MEDS: WARFARIN SOD 4 MG TAB PO SCH (18:26)
[2017-01-07] MEDS: TAMSULOSIN HCL 0.4 MG CAP PO SCH (21:41)
[2017-01-08] VITALS (18 sets, daily range): BP systolic 108–151; BP diastolic 66–83; PULSE 43–75; RESP 19–34; TEMP 95.9–98.6; O2SAT 94–97
[2017-01-08] MEDS: CHLORHEXIDINE GLUCONATE 2 % 1 PACK (2 CLOTHS) TOP SCH (04:00)
[2017-01-08 05:06] LABS: AUTOMATED NEUTROPHIL # 10.6 TH/MM3 (1.8-7.7); BASOPHIL # 0.1 TH/MM3 (0-0.2); BASOPHIL % 0.4 % (0.0-2.0); EOSINOPHIL # 0.4 TH/MM3 (0-0.4); EOSINOPHIL % 3.1 % (0.0-4.0); HEMATOCRIT 33.2 % (39.0-51.0); HEMO FLAGS DIFF FINAL; LYMPH % 7.9 % (9.0-44.0); MEAN CELL VOLUME 86.2 FL (80.0-100.0); MEAN CORPUSCULAR HEMOGLOBIN 28.6 PG (27.0-34.0); MEAN CORPUSCULAR HGB CONC 33.2 % (32.0-36.0); MONO % 7.1 % (0.0-8.0); NEUT % 81.5 % (16.0-70.0); PLATELET COUNT 396 TH/MM3 (150-450); RED BLOOD COUNT 3.85 MIL/MM3 (4.50-5.90); RED CELL DISTRIBUTION WIDTH 15.4 % (11.6-17.2)
[2017-01-08 05:19] LABS: BICARBONATE 25.3 MEQ/L (21.0-32.0); MAGNESIUM 1.7 MG/DL (1.5-2.5); POTASSIUM 3.8 MEQ/L (3.5-5.1)
[2017-01-08 05:35] LABS: APTT (PATIENT) 58.5 SEC (24.3-30.1); INTERNATIONAL NORMALIZED RATIO 1.2 RATIO; PROTHROMBIN TIME - PATIENT 13.2 SEC (9.8-11.6)
[2017-01-08] MEDS: INSULIN NovoLIN REGULAR SUPPLEMENTAL SCALE SQ SCH ×3 (06:00→12:00)
--- NOTE | 2017-01-08 07:40 | HHI.CCPN ---
Subjective Remarks/Hospital Course 01/03: This is a 1-year-old male. Date of admission 01/03/2017. Past medical history includes aortic valve replacement 10 years ago, chronic warfarin use, depression, hypertension, dyslipidemia and BPH. Patient has not felt well for the past 2 weeks. Patient states his bowel movements have initially returned from dark brown to black to liquid diarrhea with blood. Patient recently had his warfarin checked. Last INR was 4.2 and his warfarin was decreased by 4 mg. He did not take his warfarin today. He presents to [facility] ED with generalized weakness and heme positive stools. Laboratories revealed potassium 5.7, creatinine 2.0, low calcium low albumin. INR greater than 14. White blood cell count 22,000. Hemoglobin 2.8. Patient received vitamin K, 8 units. Season or units FFP. Repeat coags are pending. Patient is currently hemodynamically stable. EKG and troponins currently pending. 01/04: Resting in bed comfortably. Not in any acute distress. EGD unremarkable. 01/05: Increasing O2 requirement since yesterday evening. On 100% nonrebreather facemask. Given Bumex 2 mg IV last night, chest x-ray last evening revealed pulmonary edema/right pleural effusion. This morning remains on nonrebreather facemask. Denies any shortness of breath though gets very hypoxic on attempting to decrease O2. Getting colonoscopy prep. 01/06 No events overnight. On 3L oxygen with good sats. Afebrile. On Heparin and Protonix drips. 01/07 No events overnight. H/H stable, SB series unremarkable. On Heparin drip. 01/08 No events overnight. On Heparin drip. Afebrile. Objective Vital Signs Date Time Temp Pulse Resp B/P (MAP) Pulse Ox O2 Delivery O2 Flow Rate FiO2 01/08/17 06:00 46 01/08/17 04:00 98.6 31 151/67 (95) 94 01/07/17 21:27 Nasal Cannula 2.00 01/05/17 09:51 100 Intake and Output 01/08/17 01/08/17 01/09/17 08:00 16:00 00:00 Intake Total 300 ml Output Total 1600 ml Balance -1300 ml Result Diagram: 01/08/17 0355 01/08/17 0355 Other Results Laboratory Tests Test 01/08/17 03:55 White Blood Count 13.0 TH/MM3 Red Blood Count 3.85 MIL/MM3 Hemoglobin 11.0 GM/DL Hematocrit 33.2 % Mean Corpuscular Volume 86.2 FL Mean Corpuscular Hemoglobin 28.6 PG Mean Corpuscular Hemoglobin Concent 33.2 % Red Cell Distribution Width 15.4 % Platelet Count 396 TH/MM3 Mean Platelet Volume 8.6 FL Neutrophils (%) (Auto) 81.5 % Lymphocytes (%) (Auto) 7.9 % Monocytes (%) (Auto) 7.1 % Eosinophils (%) (Auto) 3.1 % Basophils (%) (Auto) 0.4 % Neutrophils # (Auto) 10.6 TH/MM3 Lymphocytes # (Auto) 1.0 TH/MM3 Monocytes # (Auto) 0.9 TH/MM3 Eosinophils # (Auto) 0.4 TH/MM3 Basophils # (Auto) 0.1 TH/MM3 CBC Comment DIFF FINAL Differential Comment Prothrombin Time 13.2 SEC Prothromb Time International Ratio 1.2 RATIO Activated Partial Thromboplast Time 58.5 SEC Blood Urea Nitrogen 23 MG/DL Creatinine 1.17 MG/DL Random Glucose 97 MG/DL Calcium Level 8.3 MG/DL Phosphorus Level 3.2 MG/DL Magnesium Level 1.7 MG/DL Sodium Level 137 MEQ/L Potassium Level 3.8 MEQ/L Chloride Level 103 MEQ/L Carbon Dioxide Level 25.3 MEQ/L Anion Gap 9 MEQ/L Estimat Glomerular Filtration Rate 63 ML/MIN Imaging Last Impressions Small Bowel X-Ray 01/06/17 0000 Signed Impressions: Service Date/Time: Friday, January 06, 2017 10:31 - CONCLUSION: Unremarkable small bowel examination. Aurelio Jane MD Chest X-Ray 01/05/17 0000 Signed Impressions: Service Date/Time: December 07:39 - CONCLUSION: Unchanged exam. Serafin Jean Jr., MD Abdomen Ultrasound 01/04/17 0000 Signed Impressions: Service Date/Time: Wednesday, January 04, 2017 07:57 - CONCLUSION: 1. Sludge gallbladder with trace pericholecystic fluid. There is no tenderness over the gallbladder 2. Abnormal right kidney. CT renal protocol is suggested. 3. Bilateral pleural effusions. Moy Patton MD FACR Objective Remarks GENERAL: 61 year male, resting in bed in no acute distress SKIN: Warm and dry. HEAD: Atraumatic. Normocephalic. EYES: Pupils equal and round. No scleral icterus. No injection or drainage. Pallor present ENT: No nasal bleeding or discharge. NECK: Trachea midline. No JVD. CARDIOVASCULAR: Regular rate and rhythm. S1, S2 no S4. 2/6 murmur with click right upper sternal border RESPIRATORY:. Clear to auscultation. Breath sounds equal bilaterally. GASTROINTESTINAL: Abdomen soft, non-tender, nondistended. Positive stools MUSCULOSKELETAL: Extremities without noted peripheral edema. No obvious deformities. NEUROLOGICAL: Awake and alert. No obvious cranial nerve deficits. Motor grossly within normal limits. Five out of 5 muscle strength in the arms and legs. Normal speech. PSYCHIATRIC: Appropriate mood and affect; insight and judgment normal. A/P Assessment and Plan Neuro/Psych: Awake and alert CV: History of aortic valve replacement Hypertension Dyslipidemia Monitor HR and BP keep MAP >65mmHg Cards is following- Dr. Matthews On Heparin drip, Coumadin monitor PTT,INR Resp: Tobacco abuse Continue with oxygen keep sat 90% Incentive spirometry while awake Bronchodilators Nicotine cessation encouraged. GI: s/p GI bleed Hypoalbuminemia On IV Protonix 40mg daily GI is following. EGD negative. s/p colonoscopy-Diverticulosis small bowel series 01/06 unremarkable. : ASHLEY- improving BPH Monitor renal function, I/O's, electrolytes replacement per protocol On Lasix 20mg BID Endo: Sliding-scale insulin if indicated to maintain euglycemia Heme: Acute blood loss anemia Leukocytosis s/p Warfarin toxicity Monitor CBC, coags- On Heparin drip, Coumadin, d/c Coumadin once INR >2.0 Receive vitamin K 10 mg and 4 FFP in ED. Transfuse 8 units PRBCs. Ordered 1 unit PRBC on 01/04 after EGD. Keep Hgb >8 ID: UTI: urine cx: Kleb pneumonia On Rocephin,monitor for signs of infection( Fever, WBC) Received vancomycin ED MSK Osteoarthritis PT evaluate and treat Access - Utilize peripheral IV. Prophylaxis - GI - pantoprazole - DVT - SCD/on heparin drip/Coumadin. Will sign off and transfer care to [facility]. Awaiting transfer to floor. Level 2 aGb David MD Jan 08, 2017 07:40
[2017-01-08] MEDS: DOCUSATE SODIUM 50 MG/SENNA 8.6 MG TAB PO SCH ×2 (09:00→19:37)
[2017-01-08] MEDS: PANTOPRAZOLE SODIUM 40 MG VIAL IV PUSH SCH (09:17)
[2017-01-08] MEDS: POTASSIUM CHLORIDE 10 MEQ CONTROLLED RELEASE TAB PO SCH ×2 (09:17→19:36)
[2017-01-08] MEDS: ATORVASTATIN 80 MG TAB PO SCH (09:17)
[2017-01-08] MEDS: cefTRIAXone INJ 1,000 MG in SODIUM CHLORIDE 0.9% INJ 100 ML IV SCH (09:17)
[2017-01-08] MEDS: PARoxetine HCL 20 MG TAB PO SCH (09:17)
[2017-01-08] MEDS: FUROSEMIDE 20 MG/2 ML VIAL IV PUSH SCH ×2 (09:18→18:00)
[2017-01-08] MEDS: SODIUM CHLORIDE 0.9% FLUSH 10 ML FLUSH IV FLUSH SCH ×2 (09:18→19:36)
--- NOTE | 2017-01-08 16:00 | HHI.GIFU ---
Subjective Remarks Patient is resting in bed, no more bleeding. He is being transferred to regular floor. (CrystalJeffrycarol ann BEAR) Objective Vitals I&O Vital Signs Date Time Temp Pulse Resp B/P (MAP) Pulse Ox O2 Delivery O2 Flow Rate FiO2 01/08/17 14:00 64 01/08/17 13:00 75 01/08/17 12:00 64 01/08/17 12:00 97.8 64 27 123/72 (89) 97 01/08/17 11:00 64 01/08/17 10:00 68 01/08/17 09:00 44 01/08/17 08:00 58 01/08/17 08:00 97.9 58 34 136/66 (89) 96 01/08/17 07:00 59 01/08/17 07:00 98 Nasal Cannula 3.00 01/08/17 06:00 46 01/08/17 04:00 98.6 43 31 151/67 (95) 94 01/08/17 04:00 43 01/08/17 02:00 52 01/08/17 00:00 98.2 47 28 137/83 (101) 96 01/08/17 00:00 47 01/07/17 22:00 50 01/07/17 21:27 98 Nasal Cannula 2.00 01/07/17 20:00 60 01/07/17 20:00 98.0 60 28 117/66 (83) 97 01/07/17 19:00 98 Nasal Cannula 3.00 01/07/17 18:00 57 01/07/17 17:00 48 01/07/17 16:00 48 01/07/17 16:00 48 30 105/96 (99) 96 I/O 01/07/17 01/07/17 01/07/17 01/08/17 01/08/17 01/08/17 07:00 15:00 23:00 07:00 15:00 23:00 Intake Total 1044 ml 100 ml 950 ml 300 ml Output Total 1550 ml 2300 ml 1600 ml Balance -506 ml 100 ml -1350 ml -1300 ml Intake Oral 500 ml 700 ml 300 ml IV Total 544 ml 100 ml 250 ml Output Urine Total 1550 ml 2300 ml 1600 ml # Bowel Movements 1 1 Laboratory Laboratory Tests Test 01/08/17 03:55 White Blood Count 13.0 Red Blood Count 3.85 Hemoglobin 11.0 Hematocrit 33.2 Mean Corpuscular Volume 86.2 Mean Corpuscular Hemoglobin 28.6 Mean Corpuscular Hemoglobin Concent 33.2 Red Cell Distribution Width 15.4 Platelet Count 396 Mean Platelet Volume 8.6 Neutrophils (%) (Auto) 81.5 Lymphocytes (%) (Auto) 7.9 Monocytes (%) (Auto) 7.1 Eosinophils (%) (Auto) 3.1 Basophils (%) (Auto) 0.4 Neutrophils # (Auto) 10.6 Lymphocytes # (Auto) 1.0 Monocytes # (Auto) 0.9 Eosinophils # (Auto) 0.4 Basophils # (Auto) 0.1 CBC Comment DIFF FINAL Differential Comment Prothrombin Time 13.2 Prothromb Time International Ratio 1.2 Activated Partial Thromboplast Time 58.5 Blood Urea Nitrogen 23 Creatinine 1.17 Random Glucose 97 Calcium Level 8.3 Phosphorus Level 3.2 Magnesium Level 1.7 Sodium Level 137 Potassium Level 3.8 Chloride Level 103 Carbon Dioxide Level 25.3 Anion Gap 9 Estimat Glomerular Filtration Rate 63 Date/Time Source Procedure Growth Status 01/03/17 20:50 Blood Peripheral Aerobic Blood Culture - Final NO GROWTH IN 5 DAYS Complete 01/03/17 20:50 Blood Peripheral Anaerobic Blood Culture - Final NO GROWTH IN 5 DAYS Complete 01/04/17 13:05 Urine Catheterized Urine Urine Culture - Final Klebsiella Pneumoniae Complete Imaging Last Impressions Small Bowel X-Ray 01/06/17 0000 Signed Impressions: Service Date/Time: Friday, January 06, 2017 10:31 - CONCLUSION: Unremarkable small bowel examination. Aurelio Jane MD Chest X-Ray 01/05/17 0000 Signed Impressions: Service Date/Time: December 07:39 - CONCLUSION: Unchanged exam. Serafin Jean Jr., MD Abdomen Ultrasound 01/04/17 0000 Signed Impressions: Service Date/Time: Wednesday, January 04, 2017 07:57 - CONCLUSION: 1. Sludge gallbladder with trace pericholecystic fluid. There is no tenderness over the gallbladder 2. Abnormal right kidney. CT renal protocol is suggested. 3. Bilateral pleural effusions. Moy Patton MD FACR Physical Exam HEENT: Normocephalic; atraumatic; no jaundice. CHEST: CTA CARDIAC: Regular, bradycardic; click (mechanical valve) ABDOMEN: Soft, mildly bloated, nontender; no hepatosplenomegaly; bowel sounds are present in all four quadrants. EXTREMITIES: No clubbing, cyanosis, or edema. SKIN: Generalized pallor OPHTHALMIC SURGEON: No focal deficits; alert and oriented times three. (Shon Rojas) Assessment and Plan Plan ASSESSMENT: - GIB with melanotic/dark maroon bloody stool x 1 week. Severe weakness, malaise, night sweats and decreased appetite x 2 weeks. Hx Aortic valve replacement (mechanical), on chronic anticoagulation with coumadin. Also takes daily ASA. 1 week hx of black tarry stools, that then turned to dark maroon stools. No hx PUD. No hx EGD/ Colonoscopy. On admission, HH 2.8/9.4 and coagulopathy with an INR > 14.5. S/P 5 unit PRBC, 8 units FFP. S/P EGD (01/04/17)---> Normal EGD. S/P Colonoscopy (01/06/17)---> Diverticulosis. SBFT (01/06/17)---> Unremarkable small bowel examination. hgb stable no obvious bleeding. - Hemorrhagic Shock/Severe anemia. HH 2.8/9.4 on admission. S/P 5 units PRBC. 8 units FFP. HH stable, no more bleeding - Coagulopathy, Coumadin toxicity. Chronic anticoagulation for mechanical heart valve with coumadin. Currently on hold. INR > 14.5 on admission. S/P 8 units FFP. INR 1. - ASHLEY secondary to above. Creat. 1.23 improving - Hx Mechanical Aortic Heart Valve. Chronic anticoagulation. Heparin gtt. - HTN, Hyperlipidemia, BPH, Depression per attending. PLAN: - Heart healthy diet - Protonix 40mg IV daily - Monitor HH - Transfuse as necessary - Monitor labs - if bleeding get stat bleed scan - f/u with GI after d/c for capsule endoscopy - Gi will sign off - Pt seen and examined by Dr. Rico and myself and this note is written on his behalf (Shon Rojas) Physician Comments Patient seen and examined Agree with above Continue with current supportive care Monitor labs Not much to add at this point from a GI perspective we will sign off Please reconsult as needed Follow-up with GI post discharge for capsule endoscopy (Moshe Rico MD) FernandabryantShon FUENTESP Jan 08, 2017 16:00 Moshe Rico MD Jan 08, 2017 18:33
[2017-01-08] MEDS: HEPARIN 25,000 UNITS-D5W 250 ML - PREMIX IV PRN (16:20)
[2017-01-08] MEDS: BISACODYL EC 5 MG TABEC PO SCH (18:00)
[2017-01-08] MEDS: WARFARIN SOD 4 MG TAB PO SCH (18:14)
[2017-01-08] MEDS: TAMSULOSIN HCL 0.4 MG CAP PO SCH (19:36)
[2017-01-09] VITALS (9 sets, daily range): BP systolic 104–124; BP diastolic 60–69; PULSE 62–76; RESP 17–20; TEMP 96.1–97.1; O2SAT 93–97
[2017-01-09] MEDS: CHLORHEXIDINE GLUCONATE 2 % 1 PACK (2 CLOTHS) TOP SCH (00:30)
[2017-01-09] MEDS: INSULIN NovoLIN REGULAR SUPPLEMENTAL SCALE SQ SCH ×4 (05:43→17:00)
[2017-01-09 06:51] LABS: AUTOMATED NEUTROPHIL # 10.8 TH/MM3 (1.8-7.7); BASOPHIL # 0.1 TH/MM3 (0-0.2); BASOPHIL % 0.7 % (0.0-2.0); EOSINOPHIL # 0.4 TH/MM3 (0-0.4); EOSINOPHIL % 3.1 % (0.0-4.0); HEMATOCRIT 35.1 % (39.0-51.0); HEMO FLAGS DIFF FINAL; LYMPH % 8.1 % (9.0-44.0); LYMPHOCYTE # 1.1 TH/MM3 (1.0-4.8); MEAN CELL VOLUME 86.4 FL (80.0-100.0); MEAN CORPUSCULAR HEMOGLOBIN 29.7 PG (27.0-34.0); MEAN CORPUSCULAR HGB CONC 34.4 % (32.0-36.0); MONO % 7.7 % (0.0-8.0); NEUT % 80.4 % (16.0-70.0); PLATELET COUNT 416 TH/MM3 (150-450); RED BLOOD COUNT 4.06 MIL/MM3 (4.50-5.90); RED CELL DISTRIBUTION WIDTH 15.1 % (11.6-17.2); WHITE BLOOD COUNT 13.5 TH/MM3 (4.0-11.0)
[2017-01-09 07:01] LABS: APTT (PATIENT) 60.4 SEC (24.3-30.1); INTERNATIONAL NORMALIZED RATIO 1.4 RATIO
[2017-01-09 07:13] LABS: BICARBONATE 26.6 MEQ/L (21.0-32.0); POTASSIUM 3.9 MEQ/L (3.5-5.1)
[2017-01-09] MEDS: PARoxetine HCL 20 MG TAB PO SCH (08:25)
[2017-01-09] MEDS: ATORVASTATIN 80 MG TAB PO SCH (08:25)
[2017-01-09] MEDS: cefTRIAXone INJ 1,000 MG in SODIUM CHLORIDE 0.9% INJ 100 ML IV SCH (08:25)
[2017-01-09] MEDS: PANTOPRAZOLE SODIUM 40 MG VIAL IV PUSH SCH (08:26)
[2017-01-09] MEDS: POTASSIUM CHLORIDE 10 MEQ CONTROLLED RELEASE TAB PO SCH ×2 (08:26→20:19)
[2017-01-09] MEDS: FUROSEMIDE 20 MG/2 ML VIAL IV PUSH SCH ×2 (08:26→17:10)
[2017-01-09] MEDS: SODIUM CHLORIDE 0.9% FLUSH 10 ML FLUSH IV FLUSH SCH ×2 (08:27→20:19)
[2017-01-09] MEDS: DOCUSATE SODIUM 50 MG/SENNA 8.6 MG TAB PO SCH ×2 (08:27→20:19)
[2017-01-09] MEDS: HEPARIN 25,000 UNITS-D5W 250 ML - PREMIX IV PRN (11:29)
--- NOTE | 2017-01-09 15:10 | HHI.PR ---
Subjective Remarks Patient seen earlier today at 11:45 AM. The patient denies chest pain or shortness of breath. Denies fevers or chills. Denies nausea, vomiting or abdominal pain. Denies melena or hematochezia. Objective Vitals Vital Signs Date Time Temp Pulse Resp B/P (MAP) Pulse Ox O2 Delivery O2 Flow Rate FiO2 01/09/17 12:00 96.1 76 17 105/60 (75) 96 01/09/17 11:09 Room Air 01/09/17 08:00 97.1 74 17 107/64 (78) 97 01/09/17 05:57 96.5 62 20 112/64 (80) 93 01/09/17 01:23 96.8 69 20 109/61 (77) 93 01/09/17 01:04 96 01/08/17 21:48 96.4 64 22 120/73 (89) 96 01/08/17 21:35 71 01/08/17 20:00 Room Air 01/08/17 18:40 98 Room Air 01/08/17 18:00 95.9 68 19 108/75 (86) 96 01/08/17 17:00 72 01/08/17 16:00 98.0 64 32 128/68 (88) 95 01/08/17 16:00 64 I/O 01/08/17 01/08/17 01/08/17 01/09/17 01/09/17 01/09/17 07:00 15:00 23:00 07:00 15:00 23:00 Intake Total 300 ml 700 ml 123 ml Output Total 1600 ml 2100 ml 2150 ml Balance -1300 ml -1400 ml -2027 ml Intake Oral 300 ml 700 ml IV Total 123 ml Output Urine Total 1600 ml 2100 ml 2150 ml Result Diagram: 01/09/17 0621 01/09/17 0621 Imaging Last Impressions Small Bowel X-Ray 01/06/17 0000 Signed Impressions: Service Date/Time: Friday, January 06, 2017 10:31 - CONCLUSION: Unremarkable small bowel examination. Aurelio Jane MD Chest X-Ray 01/05/17 0000 Signed Impressions: Service Date/Time: December 07:39 - CONCLUSION: Unchanged exam. Serafin Jean Jr., MD Abdomen Ultrasound 01/04/17 0000 Signed Impressions: Service Date/Time: Wednesday, January 04, 2017 07:57 - CONCLUSION: 1. Sludge gallbladder with trace pericholecystic fluid. There is no tenderness over the gallbladder 2. Abnormal right kidney. CT renal protocol is suggested. 3. Bilateral pleural effusions. Moy Patton MD FACR Objective Remarks GENERAL: 61 year male, resting in bed in no acute distress SKIN: Warm and dry. HEAD: Atraumatic. Normocephalic. EYES: Pupils equal and round. No scleral icterus. No injection or drainage. Pallor present ENT: No nasal bleeding or discharge. NECK: Trachea midline. No JVD. CARDIOVASCULAR: Regular rate and rhythm. S1, S2 no S4. 2/6 murmur with click right upper sternal border RESPIRATORY:. Clear to auscultation. Breath sounds equal bilaterally. GASTROINTESTINAL: Abdomen soft, non-tender, nondistended. MUSCULOSKELETAL: Extremities without noted peripheral edema. No obvious deformities. NEUROLOGICAL: Awake and alert. No obvious cranial nerve deficits. Motor grossly within normal limits. Five out of 5 muscle strength in the arms and legs. Normal speech. PSYCHIATRIC: Appropriate mood and affect; insight and judgment normal. Medications and IVs Current Medications Medications (Trade) Dose Ordered Sig/Timothy Route Start Time Stop Time Status Last Admin (NS Flush) 2 ml UNSCH PRN IV FLUSH 01/03/17 20:30 (NS Flush) 2 ml BID IV FLUSH 01/03/17 21:00 01/09/17 08:27 (Tylenol) 650 mg Q6H PRN PO 01/03/17 20:30 ([place] 5-325 Mg) 1 tab Q4H PRN PO 01/03/17 20:30 (Morphine Inj) 2 mg Q2H PRN IV PUSH 01/03/17 21:15 01/04/17 22:29 (Zofran Inj) 4 mg Q6H PRN IV PUSH 01/03/17 20:30 (Albuterol Neb) 2.5 mg Q2HR NEB PRN INH 01/03/17 20:30 Miscellaneous Information 1 Q361D XX 01/03/17 20:30 (Chlorhexidine 2% Cloth) Taper DAILY@04 TOP 01/04/17 04:00 12/31/17 03:59 01/08/17 04:00 (Chlorhexidine 2% Cloth) 3 pack UNSCH PRN TOP 01/03/17 20:30 (Natividad-Colace) 1 tab BID PO 01/03/17 21:00 01/06/17 08:31 (Milk Of Magnesia Liq) 30 ml Q12H PRN PO 01/03/17 20:30 (Senokot) 17.2 mg Q12H PRN PO 01/03/17 20:30 (Dulcolax Supp) 10 mg DAILY PRN RECTAL 01/03/17 20:30 (Lactulose Liq) 30 ml DAILY PRN PO 01/03/17 20:30 Acetaminophen 100 ml @ 400 mls/hr Q8HR PRN IV 01/03/17 22:45 (D50w (Vial) Inj) 50 ml UNSCH PRN IV PUSH 01/03/17 23:00 (Glucagon Inj) 1 mg UNSCH PRN OTHER 01/03/17 23:00 (NovoLIN R SUPPLEMENTAL SCALE) 1 Q6HR SQ 01/04/17 00:00 01/09/17 11:25 (Paxil) 20 mg DAILY PO 01/05/17 09:00 01/09/17 08:25 (Flomax) 0.4 mg HS PO 01/05/17 21:00 01/08/17 19:36 (Lipitor) 80 mg DAILY PO 01/05/17 09:00 01/09/17 08:25 (Lasix Inj) 20 mg BID@09,18 IV PUSH 01/05/17 18:00 01/09/17 08:26 (Dulcolax Ec) 10 mg 1800 PO 01/06/17 18:00 (KCl) 10 meq BID PO 01/05/17 22:50 01/09/17 08:26 Heparin Sodium/ Dextrose 250 ml @ 12 mls/hr TITRATE PRN IV 01/05/17 23:15 01/09/17 11:29 (Heparin Inj) 5,000 units UNSCH PRN IV PUSH 01/05/17 23:15 (Heparin Inj) 2,500 units UNSCH PRN IV PUSH 01/05/17 23:15 (Protonix Inj) 40 mg Q24H IV PUSH 01/06/17 09:00 01/09/17 08:26 Ceftriaxone Sodium 1000 mg/ Sodium Chloride 100 ml @ 200 mls/hr Q24H IV 01/06/17 09:00 01/09/17 08:25 (Coumadin) 4 mg DAILY@1800 PO 01/06/17 22:15 01/08/17 18:14 Urinary Catheter: No Vascular Central Line Catheter: No A/P Problem List: (1) Symptomatic anemia ICD Code: D64.9 - Anemia, unspecified Status: Acute (2) GI bleed ICD Code: K92.2 - Gastrointestinal hemorrhage, unspecified Status: Acute (3) Acute renal failure ICD Code: N17.9 - Acute kidney failure, unspecified Status: Acute (4) Hyperkalemia ICD Code: E87.5 - Hyperkalemia Status: Acute (5) Hypocalcemia ICD Code: E83.51 - Hypocalcemia Status: Acute (6) Elevated INR ICD Code: R79.1 - Abnormal coagulation profile Status: Acute (7) Urinary retention ICD Code: R33.9 - Retention of urine, unspecified Status: Acute (8) Metabolic acidosis ICD Code: E87.2 - Acidosis Status: Acute (9) Coumadin toxicity ICD Code: T45.511A - Poisoning by anticoagulants, accidental (unintentional), initial encounter Status: Acute (10) Hemorrhagic shock ICD Code: R57.8 - Other shock Status: Acute (11) Leukocytosis ICD Code: D72.829 - Elevated white blood cell count, unspecified Status: Acute Assessment and Plan History of aortic valve replacement Hypertension Dyslipidemia Monitor HR and BP keep MAP >65mmHg Cards is following- Dr. Matthews 01/09 daily heparin bridge to Coumadin, monitor PT, PTT INR. INR goal 2.5-3.5. Tobacco abuse Continue with oxygen keep sat 90% Incentive spirometry while awake Bronchodilators Nicotine cessation encouraged. s/p GI bleed Hypoalbuminemia On IV Protonix 40mg daily GI is following. EGD negative. s/p colonoscopy-Diverticulosis small bowel series 01/06 unremarkable. Transfuse as needed for hemoglobin less than 7, symptomatic anemia or hemoglobin less than 8 if active bleeding. Goal hemoglobin more than 9. ASHLEY- improving BPH Monitor renal function, I/O's, electrolytes replacement per protocol On Lasix 20mg BID Endo: Sliding-scale insulin if indicated to maintain euglycemia 01/09 Check hemoglobin A1C. Acute blood loss anemia Leukocytosis s/p Warfarin toxicity Monitor CBC, coags- On Heparin drip, Coumadin, d/c Coumadin once INR >2.0 Receive vitamin K 10 mg and 4 FFP in ED. Transfuse 8 units PRBCs. Ordered 1 unit PRBC on 01/04 after EGD. Keep Hgb >8 Klebsiella Pneumonia UTI On Rocephin,monitor for signs of infection( Fever, WBC) Received vancomycin ED Osteoarthritis PT evaluate and treat Access - Utilize peripheral IV. Prophylaxis - GI - pantoprazole - DVT - SCD/on heparin drip/Coumadin. Discharge Planning Patient needs to have a therapeutic INR - goal INR 2.5 to 3.5. Problem Qualifiers (1) GI bleed: Qualified Codes: K92.1 - Melena (2) Acute renal failure: Qualified Codes: N17.9 - Acute kidney failure, unspecified (3) Coumadin toxicity: Qualified Codes: T45.514A - Poisoning by anticoagulants, undetermined, initial encounter (4) Leukocytosis: Qualified Codes: D72.829 - Elevated white blood cell count, unspecified Mikael Tay MD Jan 09, 2017 15:10
[2017-01-09] MEDS ORDERED: WARFARIN SOD 2 MG TAB PO ONE (16:15)
[2017-01-09] MEDS: BISACODYL EC 5 MG TABEC PO SCH (17:09)
[2017-01-09] MEDS: WARFARIN SOD 4 MG TAB PO SCH (17:10)
[2017-01-09] MEDS: TAMSULOSIN HCL 0.4 MG CAP PO SCH (20:19)
[2017-01-10] VITALS (8 sets, daily range): BP systolic 105–128; BP diastolic 56–67; PULSE 70–79; RESP 16–18; TEMP 95.8–97.1; O2SAT 95–97
[2017-01-10] MEDS: CHLORHEXIDINE GLUCONATE 2 % 1 PACK (2 CLOTHS) TOP SCH (04:00)
[2017-01-10 05:53] LABS: APTT (PATIENT) 66.1 SEC (24.3-30.1); AUTOMATED NEUTROPHIL # 8.7 TH/MM3 (1.8-7.7); BASOPHIL # 0.1 TH/MM3 (0-0.2); BASOPHIL % 1.1 % (0.0-2.0); EOSINOPHIL # 0.4 TH/MM3 (0-0.4); EOSINOPHIL % 3.7 % (0.0-4.0); HEMATOCRIT 35.5 % (39.0-51.0); HEMO FLAGS DIFF FINAL; INTERNATIONAL NORMALIZED RATIO 1.7 RATIO; LYMPH % 10.6 % (9.0-44.0); LYMPHOCYTE # 1.2 TH/MM3 (1.0-4.8); MEAN CORPUSCULAR HEMOGLOBIN 29.6 PG (27.0-34.0); MONO % 8.5 % (0.0-8.0); NEUT % 76.1 % (16.0-70.0); PLATELET COUNT 405 TH/MM3 (150-450); PROTHROMBIN TIME - PATIENT 19.4 SEC (9.8-11.6); RED BLOOD COUNT 4.08 MIL/MM3 (4.50-5.90); RED CELL DISTRIBUTION WIDTH 15.7 % (11.6-17.2); WHITE BLOOD COUNT 11.5 TH/MM3 (4.0-11.0)
[2017-01-10] MEDS: INSULIN NovoLIN REGULAR SUPPLEMENTAL SCALE SQ SCH ×4 (06:00→18:00)
[2017-01-10 06:09] LABS: BICARBONATE 23.6 MEQ/L (21.0-32.0); POTASSIUM 3.9 MEQ/L (3.5-5.1)
[2017-01-10] MEDS: SODIUM CHLORIDE 0.9% FLUSH 10 ML FLUSH IV FLUSH SCH ×2 (09:00→21:00)
[2017-01-10] MEDS: HEPARIN 25,000 UNITS-D5W 250 ML - PREMIX IV PRN (09:56)
[2017-01-10] MEDS: PANTOPRAZOLE SODIUM 40 MG VIAL IV PUSH SCH (09:58)
[2017-01-10] MEDS: ATORVASTATIN 80 MG TAB PO SCH (09:59)
[2017-01-10] MEDS: DOCUSATE SODIUM 50 MG/SENNA 8.6 MG TAB PO SCH ×2 (09:59→21:00)
[2017-01-10] MEDS: PARoxetine HCL 20 MG TAB PO SCH (09:59)
[2017-01-10] MEDS: FUROSEMIDE 20 MG TAB PO SCH (09:59)
[2017-01-10] MEDS: POTASSIUM CHLORIDE 10 MEQ CONTROLLED RELEASE TAB PO SCH (10:00)
[2017-01-10] MEDS: cefTRIAXone INJ 1,000 MG in SODIUM CHLORIDE 0.9% INJ 100 ML IV SCH (10:02)
--- NOTE | 2017-01-10 13:06 | HHI.PR ---
Subjective Remarks denies cp/sob. Denies melena or hematochezia. Objective Vitals Vital Signs Date Time Temp Pulse Resp B/P (MAP) Pulse Ox O2 Delivery O2 Flow Rate FiO2 01/10/17 12:00 96.7 72 16 106/62 (77) 97 01/10/17 08:00 96.8 79 16 113/65 (81) 97 01/10/17 04:00 95.8 73 17 110/63 (79) 96 01/10/17 00:00 96.5 70 18 105/56 (72) 97 01/09/17 20:06 67 01/09/17 20:00 96.1 72 17 104/66 (79) 94 01/09/17 16:00 96.1 75 17 124/69 (87) 96 I/O 01/09/17 01/09/17 01/09/17 01/10/17 01/10/17 01/10/17 07:00 15:00 23:00 07:00 15:00 23:00 Intake Total 123 ml 1680 ml 240 ml Output Total 2150 ml 1500 ml 2500 ml Balance -2027 ml 180 ml -2260 ml Intake Oral 1680 ml 240 ml IV Total 123 ml Output Urine Total 2150 ml 1500 ml 2500 ml # Voids 3 # Bowel Movements 1 Result Diagram: 01/10/17 0410 01/10/17 0410 Imaging Last Impressions Small Bowel X-Ray 01/06/17 0000 Signed Impressions: Service Date/Time: Friday, January 06, 2017 10:31 - CONCLUSION: Unremarkable small bowel examination. Aurelio Jane MD Chest X-Ray 01/05/17 0000 Signed Impressions: Service Date/Time: December 07:39 - CONCLUSION: Unchanged exam. Serafin Jean Jr., MD Abdomen Ultrasound 01/04/17 0000 Signed Impressions: Service Date/Time: Wednesday, January 04, 2017 07:57 - CONCLUSION: 1. Sludge gallbladder with trace pericholecystic fluid. There is no tenderness over the gallbladder 2. Abnormal right kidney. CT renal protocol is suggested. 3. Bilateral pleural effusions. Moy Patton MD FACR Objective Remarks GENERAL: 61 year male, resting in bed in no acute distress SKIN: Warm and dry. HEAD: Atraumatic. Normocephalic. EYES: Pupils equal and round. No scleral icterus. No injection or drainage. Pallor present ENT: No nasal bleeding or discharge. NECK: Trachea midline. No JVD. CARDIOVASCULAR: Regular rate and rhythm. S1, S2 no S4. 2/6 murmur with click right upper sternal border RESPIRATORY:. Clear to auscultation. Breath sounds equal bilaterally. GASTROINTESTINAL: Abdomen soft, non-tender, nondistended. MUSCULOSKELETAL: Extremities without noted peripheral edema. No obvious deformities. NEUROLOGICAL: Awake and alert. No obvious cranial nerve deficits. Motor grossly within normal limits. Five out of 5 muscle strength in the arms and legs. Normal speech. PSYCHIATRIC: Appropriate mood and affect; insight and judgment normal. Medications and IVs Current Medications Medications (Trade) Dose Ordered Sig/Timothy Route Start Time Stop Time Status Last Admin (NS Flush) 2 ml UNSCH PRN IV FLUSH 01/03/17 20:30 (NS Flush) 2 ml BID IV FLUSH 01/03/17 21:00 01/10/17 09:00 (Tylenol) 650 mg Q6H PRN PO 01/03/17 20:30 ([place] 5-325 Mg) 1 tab Q4H PRN PO 01/03/17 20:30 (Morphine Inj) 2 mg Q2H PRN IV PUSH 01/03/17 21:15 01/04/17 22:29 (Zofran Inj) 4 mg Q6H PRN IV PUSH 01/03/17 20:30 (Albuterol Neb) 2.5 mg Q2HR NEB PRN INH 01/03/17 20:30 Miscellaneous Information 1 Q361D XX 01/03/17 20:30 (Chlorhexidine 2% Cloth) Taper DAILY@04 TOP 01/04/17 04:00 12/31/17 03:59 01/08/17 04:00 (Chlorhexidine 2% Cloth) 3 pack UNSCH PRN TOP 01/03/17 20:30 (Natividad-Colace) 1 tab BID PO 01/03/17 21:00 01/10/17 09:59 (Milk Of Magnesia Liq) 30 ml Q12H PRN PO 01/03/17 20:30 (Senokot) 17.2 mg Q12H PRN PO 01/03/17 20:30 (Dulcolax Supp) 10 mg DAILY PRN RECTAL 01/03/17 20:30 (Lactulose Liq) 30 ml DAILY PRN PO 01/03/17 20:30 Acetaminophen 100 ml @ 400 mls/hr Q8HR PRN IV 01/03/17 22:45 (D50w (Vial) Inj) 50 ml UNSCH PRN IV PUSH 01/03/17 23:00 (Glucagon Inj) 1 mg UNSCH PRN OTHER 01/03/17 23:00 (NovoLIN R SUPPLEMENTAL SCALE) 1 Q6HR SQ 01/04/17 00:00 01/09/17 11:25 (Paxil) 20 mg DAILY PO 01/05/17 09:00 01/10/17 09:59 (Flomax) 0.4 mg HS PO 01/05/17 21:00 01/09/17 20:19 (Lipitor) 80 mg DAILY PO 01/05/17 09:00 01/10/17 09:59 (Dulcolax Ec) 10 mg 1800 PO 01/06/17 18:00 Heparin Sodium/ Dextrose 250 ml @ 12 mls/hr TITRATE PRN IV 01/05/17 23:15 01/10/17 09:56 (Heparin Inj) 5,000 units UNSCH PRN IV PUSH 01/05/17 23:15 (Heparin Inj) 2,500 units UNSCH PRN IV PUSH 01/05/17 23:15 (Protonix Inj) 40 mg Q24H IV PUSH 01/06/17 09:00 01/10/17 09:58 Ceftriaxone Sodium 1000 mg/ Sodium Chloride 100 ml @ 200 mls/hr Q24H IV 01/06/17 09:00 01/10/17 10:02 (Coumadin) 4 mg DAILY@1800 PO 01/06/17 22:15 01/09/17 17:10 Pharmacy Profile Note 0 ml @ 0 mls/hr UNSCH OTHER 01/09/17 15:15 (Lasix) 20 mg DAILY PO 01/10/17 09:00 01/10/17 09:59 (KCl) 10 meq DAILY PO 01/10/17 09:00 01/10/17 10:00 Urinary Catheter: No Vascular Central Line Catheter: No A/P Problem List: (1) Symptomatic anemia ICD Code: D64.9 - Anemia, unspecified Status: Acute (2) GI bleed ICD Code: K92.2 - Gastrointestinal hemorrhage, unspecified Status: Acute (3) Acute renal failure ICD Code: N17.9 - Acute kidney failure, unspecified Status: Acute (4) Hyperkalemia ICD Code: E87.5 - Hyperkalemia Status: Acute (5) Hypocalcemia ICD Code: E83.51 - Hypocalcemia Status: Acute (6) Elevated INR ICD Code: R79.1 - Abnormal coagulation profile Status: Acute (7) Urinary retention ICD Code: R33.9 - Retention of urine, unspecified Status: Acute (8) Metabolic acidosis ICD Code: E87.2 - Acidosis Status: Acute (9) Coumadin toxicity ICD Code: T45.511A - Poisoning by anticoagulants, accidental (unintentional), initial encounter Status: Acute (10) Hemorrhagic shock ICD Code: R57.8 - Other shock Status: Acute (11) Leukocytosis ICD Code: D72.829 - Elevated white blood cell count, unspecified Status: Acute Assessment and Plan History of aortic valve replacement Hypertension Dyslipidemia Monitor HR and BP keep MAP >65mmHg Cards is following- Dr. Matthews 01/10 Continue heparin bridge to Coumadin, monitor PT, PTT INR. INR goal 2.5- 3.5. INR today 1.7 Tobacco abuse Continue with oxygen keep sat 90% Incentive spirometry while awake Bronchodilators Nicotine cessation encouraged. s/p GI bleed Hypoalbuminemia On IV Protonix 40mg daily GI is following. EGD negative. s/p colonoscopy-Diverticulosis small bowel series 01/06 unremarkable. Transfuse as needed for hemoglobin less than 7, symptomatic anemia or hemoglobin less than 8 if active bleeding. Goal hemoglobin more than 9. Hemoglobin stable. ASHLEY- improving BPH Monitor renal function, I/O's, electrolytes replacement per protocol On Lasix 20mg BID Sliding-scale insulin if indicated to maintain euglycemia Check hemoglobin A1C. Acute blood loss anemia Leukocytosis s/p Warfarin toxicity Monitor CBC, coags- On Heparin drip, Coumadin, d/c Coumadin once INR >2.0 Receive vitamin K 10 mg and 4 FFP in ED. Transfuse 8 units PRBCs. Ordered 1 unit PRBC on 01/04 after EGD. Keep Hgb >8 Klebsiella Pneumonia UTI On Rocephin,monitor for signs of infection( Fever, WBC) Received vancomycin ED Osteoarthritis PT evaluate and treat Access - Utilize peripheral IV. Prophylaxis - GI - pantoprazole - DVT - SCD/on heparin drip/Coumadin. Discharge Planning Patient needs to have a therapeutic INR - goal INR 2.5 to 3.5. Problem Qualifiers (1) GI bleed: Qualified Codes: K92.1 - Melena (2) Acute renal failure: Qualified Codes: N17.9 - Acute kidney failure, unspecified (3) Coumadin toxicity: Qualified Codes: T45.514A - Poisoning by anticoagulants, undetermined, initial encounter (4) Leukocytosis: Qualified Codes: D72.829 - Elevated white blood cell count, unspecified Mikael Tay MD Jan 10, 2017 13:06
[2017-01-10 16:18] LABS: HEMOGLOBIN A1a 0.9 %; HEMOGLOBIN A1b 1.6 %; HEMOGLOBIN Ao 85.9 %; HEMOGLOBIN LA1C 1.8 %; HEMOGLOBIN P3 3.6 %
[2017-01-10] MEDS: BISACODYL EC 5 MG TABEC PO SCH (18:00)
[2017-01-10] MEDS: WARFARIN SOD 4 MG TAB PO SCH (20:00)
[2017-01-10] MEDS: TAMSULOSIN HCL 0.4 MG CAP PO SCH (21:13)
[2017-01-11] VITALS: BP 108/62; PULSE 73; RESP 17; TEMP 97.1; O2SAT 96
[2017-01-11] MEDS: CHLORHEXIDINE GLUCONATE 2 % 1 PACK (2 CLOTHS) TOP SCH (01:11)
[2017-01-11 04:00] VITALS: BP 106/62; PULSE 65; RESP 18; TEMP 95.9; O2SAT 95
[2017-01-11] MEDS: INSULIN NovoLIN REGULAR SUPPLEMENTAL SCALE SQ SCH ×3 (06:49→12:00)
[2017-01-11 06:56] LABS: INTERNATIONAL NORMALIZED RATIO 1.9 RATIO; PROTHROMBIN TIME - PATIENT 21.7 SEC (9.8-11.6)
[2017-01-11 06:57] LABS: BASOPHIL # 0.1 TH/MM3 (0-0.2); EOSINOPHIL # 0.3 TH/MM3 (0-0.4); EOSINOPHIL % 3.2 % (0.0-4.0); LYMPH % 12.8 % (9.0-44.0); LYMPHOCYTE # 1.2 TH/MM3 (1.0-4.8); MEAN CELL VOLUME 87.1 FL (80.0-100.0); MEAN CORPUSCULAR HGB CONC 33.3 % (32.0-36.0); MONO % 9.3 % (0.0-8.0); NEUT % 73.7 % (16.0-70.0); PLATELET COUNT 395 TH/MM3 (150-450); RED CELL DISTRIBUTION WIDTH 15.1 % (11.6-17.2); WHITE BLOOD COUNT 9.4 TH/MM3 (4.0-11.0)
[2017-01-11 07:12] LABS: ALT (GPT) 57 U/L (12-78); ANION GAP 10 MEQ/L (5-15); AST (GOT) 42 U/L (15-37); BICARBONATE 23.3 MEQ/L (21.0-32.0); BLOOD UREA NITROGEN 27 MG/DL (7-18); CHLORIDE 105 MEQ/L (98-107); GLOMERULAR FILTRATION RATE 69 ML/MIN (>89); SODIUM (NA) 138 MEQ/L (136-145)
[2017-01-11 07:14] LABS: ALKALINE PHOSPHATASE 88 U/L (45-117); TOTAL BILIRUBIN ADULT 0.3 MG/DL (0.2-1.0)
[2017-01-11 07:16] LABS: HEMO FLAGS AUTO DIFF
[2017-01-11 08:00] VITALS: BP 128/66; PULSE 69; RESP 17; TEMP 95.5; O2SAT 96
[2017-01-11] MEDS: POTASSIUM CHLORIDE 10 MEQ CONTROLLED RELEASE TAB PO SCH (09:22)
[2017-01-11] MEDS: PANTOPRAZOLE SODIUM 40 MG VIAL IV PUSH SCH (09:22)
[2017-01-11] MEDS: cefTRIAXone INJ 1,000 MG in SODIUM CHLORIDE 0.9% INJ 100 ML IV SCH (09:22)
[2017-01-11] MEDS: SODIUM CHLORIDE 0.9% FLUSH 10 ML FLUSH IV FLUSH SCH (09:23)
[2017-01-11] MEDS: DOCUSATE SODIUM 50 MG/SENNA 8.6 MG TAB PO SCH (09:23)
[2017-01-11] MEDS: ATORVASTATIN 80 MG TAB PO SCH (09:23)
[2017-01-11] MEDS: PARoxetine HCL 20 MG TAB PO SCH (09:23)
[2017-01-11] MEDS: FUROSEMIDE 20 MG TAB PO SCH (09:23)
[2017-01-11 09:24] VITALS: PULSE 58
[2017-01-11 09:24] LABS: OVALOCYTES 1+ (NORMAL)
[2017-01-11 09:25] LABS: SCAN/DIFF AUTO DIFF CONFIRMED
[2017-01-11] MEDS: HEPARIN 25,000 UNITS-D5W 250 ML - PREMIX IV PRN (10:09)
[2017-01-11 12:00] VITALS: BP 112/59; PULSE 70; RESP 17; TEMP 95.9; O2SAT 96
--- NOTE | 2017-01-11 14:45 | HHI.PR ---
Subjective Remarks 01/03: This is a 1-year-old male. Date of admission 01/03/2017. Past medical history includes aortic valve replacement 10 years ago, chronic warfarin use, depression, hypertension, dyslipidemia and BPH. Patient has not felt well for the past 2 weeks. Patient states his bowel movements have initially returned from dark brown to black to liquid diarrhea with blood. Patient recently had his warfarin checked. Last INR was 4.2 and his warfarin was decreased by 4 mg. He did not take his warfarin today. He presents to [facility] with generalized weakness and heme positive stools. Laboratories revealed potassium 5.7, creatinine 2.0, low calcium low albumin. INR greater than 14. White blood cell count 22,000. Hemoglobin 2.8. Patient received vitamin K, 8 units. Season or units FFP. Repeat coags are pending. Patient is currently hemodynamically stable. EKG and troponins currently pending. 01/04: Resting in bed comfortably. Not in any acute distress. EGD unremarkable. 01/05: Increasing O2 requirement since yesterday evening. On 100% nonrebreather facemask. Given Bumex 2 mg IV last night, chest x-ray last evening revealed pulmonary edema/right pleural effusion. This morning remains on nonrebreather facemask. Denies any shortness of breath though gets very hypoxic on attempting to decrease O2. Getting colonoscopy prep. 01/06 No events overnight. On 3L oxygen with good sats. Afebrile. On Heparin and Protonix drips. 01/07 No events overnight. H/H stable, SB series unremarkable. On Heparin drip. 01/08 No events overnight. On Heparin drip. Afebrile. 01-11 NEED TO RELOAD COUMADIN GOAL 2.5 TO 3.5 MECHANICAL VALVE DW RN AND PT NO NEW COMPLAINTS AM LABS LOAD COUMADIN Objective Vitals Vital Signs Date Time Temp Pulse Resp B/P (MAP) Pulse Ox O2 Delivery O2 Flow Rate FiO2 01/11/17 12:00 95.9 70 17 112/59 (76) 96 01/11/17 08:00 95.5 69 17 128/66 (86) 96 01/11/17 04:00 95.9 65 18 106/62 (77) 95 01/11/17 00:00 97.1 73 17 108/62 (77) 96 01/10/17 21:49 70 01/10/17 20:00 97.1 79 17 128/67 (87) 97 01/10/17 16:00 96.5 75 16 110/65 (80) 95 I/O 01/10/17 01/10/17 01/10/17 01/11/17 01/11/17 01/11/17 07:00 15:00 23:00 07:00 15:00 23:00 Intake Total 240 ml 720 ml 240 ml 100 ml Output Total 2500 ml 1125 ml 1200 ml Balance -2260 ml -405 ml -960 ml 100 ml Intake Oral 240 ml 720 ml 240 ml IV Total 100 ml Output Urine Total 2500 ml 1125 ml 1200 ml # Bowel Movements 1 Result Diagram: 01/11/17 0515 01/11/17 0515 Other Results Laboratory Tests Test 01/09/17 06:21 01/10/17 04:10 01/11/17 05:15 White Blood Count 13.5 TH/MM3 11.5 TH/MM3 9.4 TH/MM3 Red Blood Count 4.06 MIL/MM3 4.08 MIL/MM3 3.90 MIL/MM3 Hemoglobin 12.1 GM/DL 12.1 GM/DL 11.3 GM/DL Hematocrit 35.1 % 35.5 % 34.0 % Mean Corpuscular Volume 86.4 FL 87.0 FL 87.1 FL Mean Corpuscular Hemoglobin 29.7 PG 29.6 PG 29.0 PG Mean Corpuscular Hemoglobin Concent 34.4 % 34.0 % 33.3 % Red Cell Distribution Width 15.1 % 15.7 % 15.1 % Platelet Count 416 TH/MM3 405 TH/MM3 395 TH/MM3 Mean Platelet Volume 8.7 FL 9.0 FL 8.9 FL Neutrophils (%) (Auto) 80.4 % 76.1 % 73.7 % Lymphocytes (%) (Auto) 8.1 % 10.6 % 12.8 % Monocytes (%) (Auto) 7.7 % 8.5 % 9.3 % Eosinophils (%) (Auto) 3.1 % 3.7 % 3.2 % Basophils (%) (Auto) 0.7 % 1.1 % 1.0 % Neutrophils # (Auto) 10.8 TH/MM3 8.7 TH/MM3 7.0 TH/MM3 Lymphocytes # (Auto) 1.1 TH/MM3 1.2 TH/MM3 1.2 TH/MM3 Monocytes # (Auto) 1.0 TH/MM3 1.0 TH/MM3 0.9 TH/MM3 Eosinophils # (Auto) 0.4 TH/MM3 0.4 TH/MM3 0.3 TH/MM3 Basophils # (Auto) 0.1 TH/MM3 0.1 TH/MM3 0.1 TH/MM3 CBC Comment DIFF FINAL DIFF FINAL AUTO DIFF Differential Comment AUTO DIFF CONFIRMED Prothrombin Time 16.0 SEC 19.4 SEC 21.7 SEC Prothromb Time International Ratio 1.4 RATIO 1.7 RATIO 1.9 RATIO Activated Partial Thromboplast Time 60.4 SEC 66.1 SEC Blood Urea Nitrogen 23 MG/DL 29 MG/DL 27 MG/DL Creatinine 1.20 MG/DL 1.16 MG/DL 1.08 MG/DL Random Glucose 100 MG/DL 102 MG/DL 90 MG/DL Calcium Level 8.6 MG/DL 8.7 MG/DL 8.6 MG/DL Sodium Level 136 MEQ/L 136 MEQ/L 138 MEQ/L Potassium Level 3.9 MEQ/L 3.9 MEQ/L 4.0 MEQ/L Chloride Level 102 MEQ/L 102 MEQ/L 105 MEQ/L Carbon Dioxide Level 26.6 MEQ/L 23.6 MEQ/L 23.3 MEQ/L Anion Gap 7 MEQ/L 10 MEQ/L 10 MEQ/L Estimat Glomerular Filtration Rate 61 ML/MIN 64 ML/MIN 69 ML/MIN Hemoglobin A1c 6.0 % Ovalocytes 1+ Total Protein 7.0 GM/DL Albumin 2.7 GM/DL Phosphorus Level 3.3 MG/DL Magnesium Level 2.0 MG/DL Alkaline Phosphatase 88 U/L Aspartate Amino Transf (AST/SGOT) 42 U/L Alanine Aminotransferase (ALT/SGPT) 57 U/L Total Bilirubin 0.3 MG/DL Imaging Last Impressions Small Bowel X-Ray 01/06/17 0000 Signed Impressions: Service Date/Time: Friday, January 06, 2017 10:31 - CONCLUSION: Unremarkable small bowel examination. Aurelio Jane MD Chest X-Ray 01/05/17 0000 Signed Impressions: Service Date/Time: December 07:39 - CONCLUSION: Unchanged exam. Serafin Jean Jr., MD Abdomen Ultrasound 01/04/17 0000 Signed Impressions: Service Date/Time: Wednesday, January 04, 2017 07:57 - CONCLUSION: 1. Sludge gallbladder with trace pericholecystic fluid. There is no tenderness over the gallbladder 2. Abnormal right kidney. CT renal protocol is suggested. 3. Bilateral pleural effusions. Moy Patton MD FACR Objective Remarks GENERAL: SKIN: Warm and dry. HEAD: Atraumatic. Normocephalic. EYES: Pupils equal and round. No scleral icterus. No injection or drainage. ENT: No nasal bleeding or discharge. Mucous membranes pink and moist. NECK: Trachea midline. No JVD. CARDIOVASCULAR: Regular rate and rhythm. RESPIRATORY: No accessory muscle use. Clear to auscultation. Breath sounds equal bilaterally. GASTROINTESTINAL: Abdomen soft, non-tender, nondistended. Hepatic and splenic margins not palpable. MUSCULOSKELETAL: Extremities without clubbing, cyanosis, or edema. No obvious deformities. NEUROLOGICAL: Awake and alert. No obvious cranial nerve deficits. Motor grossly within normal limits. Five out of 5 muscle strength in the arms and legs. Normal speech. PSYCHIATRIC: Appropriate mood and affect; insight and judgment normal. Procedures PROCEDURE PERFORMED Colonoscopy INDICATION FOR PROCEDURE GI bleed, anemia PROCEDURE: The procedure, risks and benefits were discussed with Mr. Shearer and informed consent was obtained. Anesthesia sedated him with Diprivan. He was placed in the left lateral decubitus position. Colonoscopy: The Pentax videoscope was introduced through the rectum and advanced to cecum where the ileocecal valve and appendiceal orifice were identified. Retroflexion was performed in the rectum. Colonic prep was very good FINDINGS: Colonic withdrawal time greater than 6 minutes as the scope was slowly withdrawn colonic mucosa was carefully inspected this was noted to be unremarkable and within normal limits on the way through so as retroflexion and rectal examination the patient was noted to have mild diverticulosis of the sigmoid region ESTIMATED BLOOD LOSS: None SPECIMENS REMOVED: None COMPLICATIONS: None IMPRESSION: Diverticulosis PLAN: Continue with current supportive care Monitor labs and transfuse as needed Obtain a small bowel follow-through Medications and IVs Current Medications Sodium Chloride 1,000 ml @ 1,000 mls/hr Q1H IV Last administered on t 19:20; Start 01/03/17 at 19:13; Stop 01/03/17 at 20:12; Status DC Sodium Chloride (NS Flush) 2 ml UNSCH PRN IVF FLUSH AFTER USING IV ACCESS; Start 01/03/17 at 19:15; Stop 01/03/17 at 20:54; Status DC Pantoprazole Sodium 80 mg/ Sodium Chloride 35 ml @ 420 mls/hr Q5M ONCE IV Last administered on 01/03/17 19:20; Start 01/03/17 at 19:13; Stop 01/03/17 at 19:17; Status DC Pantoprazole Sodium 80 mg/ Sodium Chloride 100 ml @ 10 mls/hr Q10H IV Last administered on 01/05/17 23:15; Start 01/03/17 at 19:13; Stop 01/06/17 at 08 :07; Status DC Piperacillin Sod/ Tazobactam Sod 100 ml @ 200 mls/hr ONCE ONCE IV Last administered on 01/03/17 21:01; Start 01/03/17 at 20:30; Stop 01/03/17 at 20 :59; Status DC Vancomycin HCl 1000 mg/Sodium Chloride 250 ml @ 250 mls/hr ONCE ONCE IV Last administered on 01/03/17 21:38; Start 01/03/17 at 20:30; Stop 01/03/17 at 21 :29; Status DC Calcium Gluconate 1 gm/Sodium Chloride 110 ml @ 110 mls/hr ONCE ONCE IV ; Start 01/03/17 at 20:30; Stop 01/03/17 at 21:29; Status UNV Sodium Chloride 1,000 ml @ 84 mls/hr [id number] IV Last administered on 02:21; Start 01/03/17 at 20:27; Stop 01/04/17 at 21:40; Status DC Sodium Chloride (NS Flush) 2 ml UNSCH PRN IV FLUSH FLUSH AFTER USING IV ACCESS ; Start 01/03/17 at 20:30 Sodium Chloride (NS Flush) 2 ml BID IV FLUSH Last administered on 01/11/17 09 :23; Start 01/03/17 at 21:00 Acetaminophen (Tylenol) 650 mg Q6H PRN PO FEVER >101F; Start 01/03/17 at 20:30 Acetaminophen/ Hydrocodone Bitart (Vicco 5-325 Mg) 1 tab Q4H PRN PO PAIN SCALE 1 TO 5; Start 01/03/17 at 20:30 Morphine Sulfate (Morphine Inj) 2 mg Q2H PRN IV PUSH PAIN 6-10 Last administered on 01/04/17 22:29; Start 01/03/17 at 21:15 Ondansetron HCl (Zofran Inj) 4 mg Q6H PRN IV PUSH NAUSEA OR VOMITING; Start at 20:30 Albuterol/ Ipratropium (Duoneb Neb) 1 ampule Q6HR NEB INH Last administered on 01/04/17 15:35; Start 01/03/17 at 22:00; Stop 01/07/17 at 21:59; Status DC Albuterol Sulfate (Albuterol Neb) 2.5 mg Q2HR NEB PRN INH SOB/WHEEZING; Start 01/03/17 at 20:30 Miscellaneous Information 1 Q361D XX ; Start 01/03/17 at 20:30 Chlorhexidine Gluconate (Chlorhexidine 2% Cloth) Taper DAILY@04 TOP Last administered on 01/08/17 04:00; Start 01/04/17 at 04:00; Stop 12/31/17 at 03 :59 Chlorhexidine Gluconate (Chlorhexidine 2% Cloth) 3 pack UNSCH PRN TOP HYGIENIC CARE; Start 01/03/17 at 20:30 Senna/Docusate Sodium (Natividad-Colace) 1 tab BID PO Last administered on 09:59; Start 01/03/17 at 21:00 Magnesium Hydroxide (Milk Of Magnesia Liq) 30 ml Q12H PRN PO Mild constipation ; Start 01/03/17 at 20:30 Sennosides (Senokot) 17.2 mg Q12H PRN PO Moderate constipation; Start at 20:30 Bisacodyl (Dulcolax Supp) 10 mg DAILY PRN RECTAL SEVERE CONSITIPATION; Start 01/03/17 at 20:30 Lactulose (Lactulose Liq) 30 ml DAILY PRN PO SEVERE CONSITIPATION; Start 01/03 at 20:30 Sodium Chloride 250 ml @ 15 mls/hr ONCE ONCE IV ; Start 01/03/17 at 20:30; Stop 01/04/17 at 03:45; Status DC Calcium Chloride 2 gm/Dextrose 120 ml @ 120 mls/hr ONCE ONCE IV Last administered on 11/14/17at 21:12; Start 01/03/17 at 20:30; Stop 01/03/17 at 21 :29; Status DC Sodium Bicarbonate 150 meq/Dextrose 1,150 ml @ 75 mls/hr [id number] IV Last administered on 01/04/17t 14:23; Start 01/03/17 at 20:30; Stop 01/04/17 at 21 :40; Status DC Phytonadione (Vitamin K Inj) 10 mg ONCE ONCE SQ Last administered on t 21:26; Start 01/03/17 at 20:45; Stop 01/03/17 at 20:46; Status DC Sodium Chloride 250 ml @ 15 mls/hr ONCE ONCE IV ; Start 01/03/17 at 20:45; Stop 01/04/17 at 03:45; Status DC Calcium Gluconate (Calcium Gluconate Inj) 1 gm ONCE ONCE SLOW IVP ; Start at 22:30; Stop 01/03/17 at 22:30; Status DC Insulin Human Regular (NovoLIN R INJ) 10 units ONCE ONCE IV PUSH ; Start 01/03 at 22:30; Stop 01/03/17 at 22:31; Status DC Dextrose (D50w (Vial) Inj) 50 ml ONCE ONCE IV PUSH ; Start 01/03/17 at 22:30; Stop 01/03/17 at 22:31; Status DC Sodium Bicarbonate (Sodium Bicarbonate 8.4% Inj) 50 meq ONCE ONCE SLOW IVP ; Start 01/03/17 at 22:30; Stop 01/03/17 at 22:31; Status DC Calcium Gluconate 1 gm/Dextrose 110 ml @ 220 mls/hr ONCE ONCE IV ; Start at 22:30; Stop 01/03/17 at 22:59; Status DC Acetaminophen 100 ml @ 400 mls/hr Q8HR PRN IV fever; Start 01/03/17 at 22:45 Phytonadione 10 mg/Sodium Chloride 51 ml @ 102 mls/hr ONCE ONCE IV ; Start at 23:00; Stop 01/03/17 at 23:29; Status DC Dextrose (D50w (Vial) Inj) 50 ml UNSCH PRN IV PUSH HYPOGLYCEMIA-SEE COMMENTS; Start 01/03/17 at 23:00 Glucagon (Glucagon Inj) 1 mg UNSCH PRN OTHER HYPOGLYCEMIA-SEE COMMENTS; Start 01/03/17 at 23:00 Insulin Human Regular (NovoLIN R SUPPLEMENTAL SCALE) 1 Q6HR SQ Last administered on 01/11/17 06:49; Start 01/04/17 at 00:00 Pneumococcal Polyvalent Vaccine (Pneumovax-23 Inj) 25 mcg ONCE ONCE IM Last administered on 01/06/17 08:35; Start 01/06/17 at 09:00; Stop 01/06/17 at 09 :01; Status DC Influenza Virus Vaccine (Flu (Quadrivalent) Vaccine Inj) 0.5 ml ONCE ONCE IM Last administered on 01/06/17 08:42; Start 01/06/17 at 09:00; Stop 01/06/17 at 09:01; Status DC Sodium Chloride 250 ml @ 15 mls/hr ONCE ONCE IV ; Start 01/04/17 at 08:45; Stop 01/04/17 at 15:42; Status DC Polyethylene Glycol/ Electrolytes (Colyte Liq) 4,000 ml ONCE ONCE PO Last administered on 01/04/17 17:12; Start 01/04/17 at 13:00; Stop 01/04/17 at 13 :01; Status DC Miscellaneous Information ALL NURSING DEPARTME... UNSCH PRN .XX SEE LABEL COMMENTS; Start 01/04/17 at 12:16; Stop 01/05/17 at 12:15; Status DC Sodium Chloride 250 ml @ 15 mls/hr ONCE ONCE IV Last administered on 15:45; Start 01/04/17 at 15:45; Stop 01/05/17 at 08:24; Status DC Albumin Human 50 ml @ 50 mls/hr NOW ONCE IV Last administered on 01/04/17 22 :27; Start 01/04/17 at 22:00; Stop 01/04/17 at 22:59; Status DC Bumetanide (Bumex Inj) 2 mg ONCE@2330 ONCE IV PUSH Last administered on 22:28; Start 01/04/17 at 23:30; Stop 01/04/17 at 23:31; Status DC Furosemide (Lasix Inj) 40 mg STAT ONCE IV PUSH Last administered on 07:52; Start 01/05/17 at 07:30; Stop 01/05/17 at 07:31; Status DC Paroxetine HCl (Paxil) 20 mg DAILY PO Last administered on 01/11/17 09:23; Start 01/05/17 at 09:00 Tamsulosin HCl (Flomax) 0.4 mg HS PO Last administered on 01/10/17 21:13; Start 01/05/17 at 21:00 Atorvastatin Calcium (Lipitor) 80 mg DAILY PO Last administered on 01/11/17 09:23; Start 01/05/17 at 09:00 Furosemide (Lasix Inj) 20 mg BID@09,18 IV PUSH Last administered on 01/09/17 17:10; Start 01/05/17 at 18:00; Stop 01/09/17 at 21:29; Status DC Acetazolamide Sodium (Diamox Inj) 250 mg ONCE ONCE IV PUSH Last administered on 01/05/17 12:55; Start 01/05/17 at 13:00; Stop 01/05/17 at 13:01; Status DC Furosemide (Lasix Inj) 20 mg STAT ONCE IV PUSH Last administered on 12:55; Start 01/05/17 at 13:00; Stop 01/05/17 at 13:01; Status DC Miscellaneous Information ALL NURSING DEPARTME... UNSCH PRN .XX SEE LABEL COMMENTS; Start 01/05/17 at 18:31; Stop 01/06/17 at 18:30; Status DC Magnesium Citrate (Citroma Liq) 300 ml ONCE PO ; Start 01/05/17 at 12:00; Stop 01/05/17 at 23:59; Status DC Magnesium Citrate (Citroma Liq) 300 ml ONCE PO ; Start 01/05/17 at 18:00; Stop 01/05/17 at 23:59; Status DC Bisacodyl (Dulcolax Ec) 10 mg 1800 PO ; Start 01/06/17 at 18:00 Bisacodyl (Dulcolax Ec) 10 mg HS PO Last administered on 01/05/17 23:14; Start 01/05/17 at 21:00; Stop 01/05/17 at 21:01; Status DC Potassium Chloride (KCl) 10 meq BID PO Last administered on 01/09/17 20:19; Start 01/05/17 at 22:50; Stop 01/09/17 at 21:29; Status DC Heparin Sodium/ Dextrose 250 ml @ 12 mls/hr TITRATE PRN IV Coagulation Management Last administered on 01/11/17t 10:09; Start 01/05/17 at 23:15 Heparin Sodium (Porcine) (Heparin Inj) 5,000 units UNSCH PRN IV PUSH aPTT less than 25; Start 01/05/17 at 23:15 Heparin Sodium (Porcine) (Heparin Inj) 2,500 units UNSCH PRN IV PUSH aPTT 25 to 39; Start 01/05/17 at 23:15 Potassium Chloride 100 ml @ 50 mls/hr Q2H PRN IV For Potassium 2.8 - 3.2 mEq/L ; Start 01/06/17 at 08:15; Stop 01/09/17 at 09:02; Status DC Potassium Chloride 100 ml @ 50 mls/hr Q2H PRN IV For Potassium 2.8 - 3.2 mEq/ L Last administered on 01/06/17t 18:40; Start 01/06/17 at 08:15; Stop at 09:02; Status DC Potassium Bicarb/ Potassium Chloride (K-Lyte Cl Eff) 50 meq UNSCH PRN PO For Potassium 3.3 - 3.5 mEq/L; Start 01/06/17 at 08:15; Stop 01/09/17 at 09:02; Status DC Potassium Chloride 100 ml @ 25 mls/hr UNSCH PRN IV For Potassium 3.3 - 3.5 mEq /L; Start 01/06/17 at 08:15; Stop 01/09/17 at 09:02; Status DC Potassium Chloride 100 ml @ 50 mls/hr Q2H PRN IV For Potassium 3.3 - 3.5 mEq/L ; Start 01/06/17 at 08:15; Stop 01/09/17 at 09:02; Status DC Magnesium Sulfate 4 gm/Sodium Chloride 100 ml @ 50 mls/hr UNSCH PRN IV For Magnesium 0.9 - 1.1 mg/dL; Start 01/06/17 at 08:15; Stop 01/09/17 at 09:02; Status DC Magnesium Oxide (Mag-Ox) 800 mg UNSCH PRN PO For Magnesium 1.2 - 1.6 mg/dL; Start 01/06/17 at 08:15; Stop 01/09/17 at 09:02; Status DC Magnesium Sulfate 2 gm/Sodium Chloride 100 ml @ 50 mls/hr UNSCH PRN IV For Magnesium 1.2 - 1.6 mg/dL; Start 01/06/17 at 08:15; Stop 01/09/17 at 09:02; Status DC Potassium Phosphate (K-Phos) 2,000 mg Q4H PRN PO For Phosphorus < 2.5 mg/dL; Start 01/06/17 at 08:15; Stop 01/09/17 at 09:02; Status DC Sodium Phosphate 30 mmol/Sodium Chloride 250 ml @ 42 mls/hr UNSCH PRN IV For Phosphorus < 2.5 mg/dL; Start 01/06/17 at 08:15; Stop 01/09/17 at 09:02; Status DC Potassium Phosphate (K-Phos) 2,000 mg UNSCH PRN PO/TUBE SEE LABEL COMMENTS; Start 01/06/17 at 08:15; Stop 01/09/17 at 09:02; Status DC Potassium Phosphate 30 mmol/ Sodium Chloride 260 ml @ 42 mls/hr UNSCH PRN IV SEE LABEL COMMENTS; Start 01/06/17 at 08:15; Stop 01/09/17 at 09:02; Status DC Pantoprazole Sodium (Protonix Inj) 40 mg Q24H IV PUSH Last administered on 09:22; Start 01/06/17 at 09:00 Ceftriaxone Sodium 1000 mg/ Sodium Chloride 100 ml @ 200 mls/hr Q24H IV Last administered on 01/11/17 09:22; Start 01/06/17 at 09:00 Potassium Phosphate 30 mmol/ Sodium Chloride 260 ml @ 86.667 mls/ hr NOW ONCE IV Last administered on 01/06/17 23:12; Start 01/06/17 at 22:15; Stop 01/07 at 01:14; Status DC Warfarin Sodium (Coumadin) 4 mg DAILY@1800 PO Last administered on 01/10/17 20:00; Start 01/06/17 at 22:15 Warfarin Sodium (Coumadin) 2 mg NOW ONCE PO Last administered on 01/07/17 13 :45; Start 01/07/17 at 13:45; Stop 01/07/17 at 13:46; Status DC Pharmacy Profile Note 0 ml @ 0 mls/hr UNSCH OTHER ; Start 01/09/17 at 15:15 Warfarin Sodium (Coumadin) 2 mg ONCE ONCE PO Last administered on 01/09/17 17:10; Start 01/09/17 at 16:15; Stop 01/09/17 at 16:16; Status DC Furosemide (Lasix) 20 mg DAILY PO Last administered on 01/11/17 09:23; Start 01/10/17 at 09:00 Potassium Chloride (KCl) 10 meq DAILY PO Last administered on 01/11/17 09:22 ; Start 01/10/17 at 09:00 A/P Problem List: (1) Symptomatic anemia ICD Code: D64.9 - Anemia, unspecified Status: Acute (2) GI bleed ICD Code: K92.2 - Gastrointestinal hemorrhage, unspecified Status: Acute (3) Acute renal failure ICD Code: N17.9 - Acute kidney failure, unspecified Status: Acute (4) Hyperkalemia ICD Code: E87.5 - Hyperkalemia Status: Acute (5) Hypocalcemia ICD Code: E83.51 - Hypocalcemia Status: Acute (6) Elevated INR ICD Code: R79.1 - Abnormal coagulation profile Status: Acute (7) Urinary retention ICD Code: R33.9 - Retention of urine, unspecified Status: Acute (8) Metabolic acidosis ICD Code: E87.2 - Acidosis Status: Acute (9) Coumadin toxicity ICD Code: T45.511A - Poisoning by anticoagulants, accidental (unintentional), initial encounter Status: Acute (10) Hemorrhagic shock ICD Code: R57.8 - Other shock Status: Acute (11) Leukocytosis ICD Code: D72.829 - Elevated white blood cell count, unspecified Status: Acute Assessment and Plan Assessment and Plan History of aortic valve replacement Hypertension Dyslipidemia Monitor HR and BP keep MAP >65mmHg Cards is following- Dr. Matthews 01/10 Continue heparin bridge to Coumadin, monitor PT, PTT INR. INR goal 2.5- 3.5. INR today 1.9 GOAL OF 2.5 TO 3.5 Tobacco abuse Continue with oxygen keep sat 90% Incentive spirometry while awake Bronchodilators Nicotine cessation encouraged. s/p GI bleed Hypoalbuminemia On IV Protonix 40mg daily GI is following. EGD negative. s/p colonoscopy-Diverticulosis small bowel series 01/06 unremarkable. Transfuse as needed for hemoglobin less than 7, symptomatic anemia or hemoglobin less than 8 if active bleeding. Goal hemoglobin more than 9. Hemoglobin stable. ASHLEY- improving BPH Monitor renal function, I/O's, electrolytes replacement per protocol On Lasix 20mg BID Sliding-scale insulin if indicated to maintain euglycemia Check hemoglobin A1C. Acute blood loss anemia Leukocytosis s/p Warfarin toxicity Monitor CBC, coags- On Heparin drip, Coumadin, d/c Coumadin once INR >2.0 Receive vitamin K 10 mg and 4 FFP in ED. Transfuse 8 units PRBCs. Ordered 1 unit PRBC on 01/04 after EGD. Keep Hgb >8 Klebsiella Pneumonia UTI On Rocephin,monitor for signs of infection( Fever, WBC) Received vancomycin ED Osteoarthritis PT evaluate and treat Access - Utilize peripheral IV. Prophylaxis - GI - pantoprazole - DVT - SCD/on heparin drip/Coumadin. Discharge Planning Patient needs to have a therapeutic INR - goal INR 2.5 to 3.5. Discharge Planning PENDING INR 2.5 TO 3.5 THEN DC Problem Qualifiers (1) GI bleed: Qualified Codes: K92.1 - Melena (2) Acute renal failure: Qualified Codes: N17.9 - Acute kidney failure, unspecified (3) Coumadin toxicity: Qualified Codes: T45.514A - Poisoning by anticoagulants, undetermined, initial encounter (4) Leukocytosis: Qualified Codes: D72.829 - Elevated white blood cell count, unspecified Moy Rico DO Jan 11, 2017 14:45
[2017-01-11] MEDS ORDERED: PROT40TA PO (15:09)
[2017-01-11] MEDS ORDERED: METO25TA3 PO (15:09)
[2017-01-11] MEDS ORDERED: PARO20TA2 PO (15:09)
[2017-01-11] MEDS ORDERED: ROSU40 PO (15:09)
[2017-01-11] MEDS ORDERED: TAMS5CAP PO (15:09)
[2017-01-11] MEDS ORDERED: COUM4TAB PO (15:09)
--- NOTE | 2017-01-11 15:15 | HHI.DS ---
Discharge Summary Admission Date Jan 03, 2017 at 20:20 Discharge Date: Jan 11, 2017 Admitting Diagnosis GI bleed, leukocytosis, symptomatic anemia, hemorrhagic shock (1) Symptomatic anemia ICD Code: D64.9 - Anemia, unspecified Diagnosis: Principal Status: Acute (2) GI bleed ICD Code: K92.2 - Gastrointestinal hemorrhage, unspecified Diagnosis: Principal Status: Acute (3) Acute renal failure ICD Code: N17.9 - Acute kidney failure, unspecified Diagnosis: Principal Status: Acute (4) Hyperkalemia ICD Code: E87.5 - Hyperkalemia Diagnosis: Secondary Status: Acute (5) Hypocalcemia ICD Code: E83.51 - Hypocalcemia Diagnosis: Secondary Status: Acute (6) Elevated INR ICD Code: R79.1 - Abnormal coagulation profile Diagnosis: Principal Status: Acute (7) Urinary retention ICD Code: R33.9 - Retention of urine, unspecified Diagnosis: Secondary Status: Acute (8) Metabolic acidosis ICD Code: E87.2 - Acidosis Diagnosis: Principal Status: Acute (9) Coumadin toxicity ICD Code: T45.511A - Poisoning by anticoagulants, accidental (unintentional), initial encounter Diagnosis: Principal Status: Acute (10) Hemorrhagic shock ICD Code: R57.8 - Other shock Diagnosis: Principal Status: Acute (11) Leukocytosis ICD Code: D72.829 - Elevated white blood cell count, unspecified Diagnosis: Secondary Status: Acute Procedures PROCEDURE PERFORMED Colonoscopy INDICATION FOR PROCEDURE GI bleed, anemia PROCEDURE: The procedure, risks and benefits were discussed with Mr. Shearer and informed consent was obtained. Anesthesia sedated him with Diprivan. He was placed in the left lateral decubitus position. Colonoscopy: The Pentax videoscope was introduced through the rectum and advanced to cecum where the ileocecal valve and appendiceal orifice were identified. Retroflexion was performed in the rectum. Colonic prep was very good FINDINGS: Colonic withdrawal time greater than 6 minutes as the scope was slowly withdrawn colonic mucosa was carefully inspected this was noted to be unremarkable and within normal limits on the way through so as retroflexion and rectal examination the patient was noted to have mild diverticulosis of the sigmoid region ESTIMATED BLOOD LOSS: None SPECIMENS REMOVED: None COMPLICATIONS: None IMPRESSION: Diverticulosis PLAN: Continue with current supportive care Monitor labs and transfuse as needed Obtain a small bowel follow-through Brief History - From Admission This is a 1-year-old male. Date of admission 01/03/2017. Past medical history includes aortic valve replacement 10 years ago, chronic warfarin use, depression, hypertension, dyslipidemia and BPH. Patient has not felt well for the past 2 weeks. Patient states his bowel movements have initially returned from dark brown to black to liquid diarrhea with blood. Patient recently had his warfarin checked. Last INR was 4.2 and his warfarin was decreased by 4 mg. He did not take his warfarin today. He presents to [place] ED with generalized weakness and heme positive stools. Laboratories revealed potassium 5.7, creatinine 2.0, low calcium low albumin. INR greater than 14. White blood cell count 22,000. Hemoglobin 2.8. Patient received vitamin K, 8 units. Season or units FFP. Repeat coags are pending. Patient is currently hemodynamically stable. EKG and troponins currently pending. CBC/BMP: 01/11/17 0515 01/11/17 0515 Significant Findings Laboratory Tests Test 01/09/17 06:21 01/10/17 04:10 01/11/17 05:15 White Blood Count 13.5 TH/MM3 (4.0-11.0) 11.5 TH/MM3 (4.0-11.0) Red Blood Count 4.06 MIL/MM3 (4.50-5.90) 4.08 MIL/MM3 (4.50-5.90) 3.90 MIL/MM3 (4.50-5.90) Hemoglobin 12.1 GM/DL (13.0-17.0) 12.1 GM/DL (13.0-17.0) 11.3 GM/DL (13.0-17.0) Hematocrit 35.1 % (39.0-51.0) 35.5 % (39.0-51.0) 34.0 % (39.0-51.0) Neutrophils (%) (Auto) 80.4 % (16.0-70.0) 76.1 % (16.0-70.0) 73.7 % (16.0-70.0) Lymphocytes (%) (Auto) 8.1 % (9.0-44.0) Neutrophils # (Auto) 10.8 TH/MM3 (1.8-7.7) 8.7 TH/MM3 (1.8-7.7) Monocytes # (Auto) 1.0 TH/MM3 (0-0.9) 1.0 TH/MM3 (0-0.9) Prothrombin Time 16.0 SEC (9.8-11.6) 19.4 SEC (9.8-11.6) 21.7 SEC (9.8-11.6) Activated Partial Thromboplast Time 60.4 SEC (24.3-30.1) 66.1 SEC (24.3-30.1) Blood Urea Nitrogen 23 MG/DL (7-18) 29 MG/DL (7-18) 27 MG/DL (7-18) Estimat Glomerular Filtration Rate 61 ML/MIN (>89) 64 ML/MIN (>89) 69 ML/MIN (>89) Monocytes (%) (Auto) 8.5 % (0.0-8.0) 9.3 % (0.0-8.0) Ovalocytes 1+ (NORMAL) Albumin 2.7 GM/DL (3.4-5.0) Aspartate Amino Transf (AST/SGOT) 42 U/L (15-37) Imaging Last Impressions Small Bowel X-Ray 01/06/17 0000 Signed Impressions: Service Date/Time: Friday, January 06, 2017 10:31 - CONCLUSION: Unremarkable small bowel examination. Aurelio Jane MD Chest X-Ray 01/05/17 0000 Signed Impressions: Service Date/Time: December 07:39 - CONCLUSION: Unchanged exam. Serafin Jean Jr., MD Abdomen Ultrasound 01/04/17 0000 Signed Impressions: Service Date/Time: Wednesday, January 04, 2017 07:57 - CONCLUSION: 1. Sludge gallbladder with trace pericholecystic fluid. There is no tenderness over the gallbladder 2. Abnormal right kidney. CT renal protocol is suggested. 3. Bilateral pleural effusions. Moy Patton MD FACR PE at Discharge GENERAL: SKIN: Warm and dry. HEAD: Atraumatic. Normocephalic. EYES: Pupils equal and round. No scleral icterus. No injection or drainage. ENT: No nasal bleeding or discharge. Mucous membranes pink and moist. NECK: Trachea midline. No JVD. CARDIOVASCULAR: Regular rate and rhythm. RESPIRATORY: No accessory muscle use. Clear to auscultation. Breath sounds equal bilaterally. GASTROINTESTINAL: Abdomen soft, non-tender, nondistended. Hepatic and splenic margins not palpable. MUSCULOSKELETAL: Extremities without clubbing, cyanosis, or edema. No obvious deformities. NEUROLOGICAL: Awake and alert. No obvious cranial nerve deficits. Motor grossly within normal limits. Five out of 5 muscle strength in the arms and legs. Normal speech. PSYCHIATRIC: Appropriate mood and affect; insight and judgment normal. Hospital Course 01/03: This is a 1-year-old male. Date of admission 01/03/2017. Past medical history includes aortic valve replacement 10 years ago, chronic warfarin use, depression, hypertension, dyslipidemia and BPH. Patient has not felt well for the past 2 weeks. Patient states his bowel movements have initially returned from dark brown to black to liquid diarrhea with blood. Patient recently had his warfarin checked. Last INR was 4.2 and his warfarin was decreased by 4 mg. He did not take his warfarin today. He presents to [place] ED with generalized weakness and heme positive stools. Laboratories revealed potassium 5.7, creatinine 2.0, low calcium low albumin. INR greater than 14. White blood cell count 22,000. Hemoglobin 2.8. Patient received vitamin K, 8 units. Season or units FFP. Repeat coags are pending. Patient is currently hemodynamically stable. EKG and troponins currently pending. 01/04: Resting in bed comfortably. Not in any acute distress. EGD unremarkable. 01/05: Increasing O2 requirement since yesterday evening. On 100% nonrebreather facemask. Given Bumex 2 mg IV last night, chest x-ray last evening revealed pulmonary edema/right pleural effusion. This morning remains on nonrebreather facemask. Denies any shortness of breath though gets very hypoxic on attempting to decrease O2. Getting colonoscopy prep. 01/06 No events overnight. On 3L oxygen with good sats. Afebrile. On Heparin and Protonix drips. 01/07 No events overnight. H/H stable, SB series unremarkable. On Heparin drip. 01/08 No events overnight. On Heparin drip. Afebrile. 01-11 NEED TO RELOAD COUMADIN GOAL 2.5 TO 3.5 MECHANICAL VALVE DW RN AND PT NO NEW COMPLAINTS CARDIOLOGY WANTS TO GIVE 6MG OF COUMADIN AND DC TO HOME TODAY AND FOLLOW UP IN HIS OFFICE ON MONDAY FOR INR CHECK Pt Condition on Discharge: Good Discharge Disposition: Discharge Home Discharge Time: > 30 minutes Discharge Instructions DIET: Follow Instructions for: Heart Healthy Diet Speech Therapy-Diet Recommends: Regular Activities you can perform: Regular-No Restrictions Follow up Referrals: Cardiology - 01/13/17 with Yung Matthews MD Gastroenterology - 2 Weeks with Moshe Rico MD New Medications: Pantoprazole (Protonix) 40 Mg Tab 40 MG PO DAILY for Ulcer Prevention, #30 TAB 0 Refills Paroxetine (Paroxetine) 20 Mg Tab 20 MG PO DAILY for Blood Pressure Management, #30 TAB Warfarin (Coumadin) 4 Mg Tab 4 MG PO DAILY@1800 for Blood Clot Prevention, #30 TAB Continued Medications: Metoprolol Tartrate (Metoprolol Tartrate) 25 Mg Tab 12.5 MG PO BID for Blood Pressure Management, #60 TAB 0 Refills (This prescription has been renewed) Rosuvastatin (Crestor) 40 Mg Tab 40 MG PO DAILY for Cholesterol Management, #30 TAB 0 Refills (This prescription has been renewed) Tamsulosin (Flomax) 0.4 Mg Cap 0.4 MG PO HS for Manage Prostate Problems, #30 CAP 0 Refills (This prescription has been renewed) Discontinued Medications: Aspirin (Aspirin) 81 Mg Tabdr 81 MG PO DAILY, TAB Benazepril (Benazepril) 20 Mg Tab 20 MG PO BID for Blood Pressure Management, #60 TAB 0 Refills Paroxetine (Paxil) 20 Mg Tab 20 MG PO DAILY, #30 TAB 0 Refills Warfarin (Warfarin) 5 Mg Tab 5 MG PO DAILY for Blood Clot Prevention, #30 TAB 0 Refills Moy Rico DO Jan 11, 2017 15:15
[2017-01-11 16:00] VITALS: BP 119/65; PULSE 71; RESP 17; TEMP 96.6; O2SAT 97
[2017-01-11] MEDS ORDERED: PILL SPLITTER OTHER PRN (16:30)
[2017-01-11] MEDS ORDERED: WARFARIN SOD 6 MG TAB PO ONE (16:30)
[2017-01-11] MEDS ORDERED: METOPROLOL TARTRATE 25 MG TAB PO SCH (21:00)
[2017-01-12] MEDS ORDERED: WARFARIN SOD 4 MG TAB PO SCH (18:00)
== END 2017-01-11 18:14 | disposition home or self-care (01) | DRG 377 ==
LOC: NEPC 19:02 → NEDA 20:20 → HIME 22:40 → N07B 01-08 17:49
PROVIDERS: ADMIT Hospitalist; ATTEND Hospitalist
PROC: 30233K1 Transfusion of Nonautologous Frozen Plasma into Peripheral Vein, Percutaneous Approach (ICD-10-PCS; principal; 2017-01-03)
PROC: 30233N1 Transfusion of Nonautologous Red Blood Cells into Peripheral Vein, Percutaneous Approach (ICD-10-PCS; 2017-01-03)
PROC: 0DJ08ZZ Inspection of Upper Intestinal Tract, Via Natural or Artificial Opening Endoscopic (ICD-10-PCS; 2017-01-04)
PROC: 0DJD8ZZ Inspection of Lower Intestinal Tract, Via Natural or Artificial Opening Endoscopic (ICD-10-PCS; 2017-01-05)
DX: K92.1 Melena (principal); R57.8 Other shock; N17.9 Acute kidney failure, unspecified; J90 Pleural effusion, not elsewhere classified; J81.1 Chronic pulmonary edema; D62 Acute posthemorrhagic anemia; E87.2 Acidosis; D68.32 Hemorrhagic disorder due to extrinsic circulating anticoagulants; I42.9 Cardiomyopathy, unspecified; N39.0 Urinary tract infection, site not specified; E83.51 Hypocalcemia; E87.5 Hyperkalemia; F32.9 Major depressive disorder, single episode, unspecified; I10 Essential (primary) hypertension; N40.0 Benign prostatic hyperplasia without lower urinary tract symptoms; E78.5 Hyperlipidemia, unspecified; K57.30 Diverticulosis of large intestine without perforation or abscess without bleeding; R09.02 Hypoxemia; M19.90 Unspecified osteoarthritis, unspecified site; B96.1 Klebsiella pneumoniae [K. pneumoniae] as the cause of diseases classified elsewhere; F17.210 Nicotine dependence, cigarettes, uncomplicated; F41.9 Anxiety disorder, unspecified; Z23 Encounter for immunization; Z79.01 Long term (current) use of anticoagulants; Z95.2 Presence of prosthetic heart valve
CPT/HCPCS: 36430; 71010; 74250; 76700; 80048; 80053; 80061; 81001; 82550; 82570; 82948; 83036; 83605; 83735; 83880; 84100; 84132; 84300; 84443; 84484; 85007; 85014; 85018; 85025; 85027; 85610; 85730; 86850; 86900; 86901; 86920; 86927; 87040; 87077; 87086; 87186; 87205; 87641; 90686; 90732; 93005; 94150; 94640; 94664; 96361; 96365; 99292; C9113; J0696; J1120; J1644; J1940; J2270; J2370; J2543; J3370; J3430; J3480; J7030; J7050; J7070; P9016; P9017; P9047; Q2038

== ENCOUNTER 2017-09-11 18:26 | Inpatient (IN) ==
[2017-09-11] MEDS ORDERED: Sod Chloride 0.9% Inj 1,000 ML IV.SIG ONE (19:03)
--- NOTE | 2017-09-11 19:27 | XR ---
EXAM DATE: 09/11/2017 7:22 PM EDT AGE/SEX: 62 years / Male INDICATIONS: Fever. CLINICAL DATA: This is the patient's initial encounter. Patient reports that signs and symptoms have been present for 1 day and indicates a pain score of 0/10. MEDICAL/SURGICAL HISTORY: . Hypercholesterolemia. Hypertension. Gastrointestinal bleed. Aortic stenosis. Dyspnea. Melena. Prostate problems. Depression. Anxiety. Tobacco use. Anticoagulant therapy , Coumadin. . CABG. Aortic valve replacement. TURP. Blood transfusions. Prostate. [place] [facility] [place]. . FINDINGS: The patient is status post sternotomy. There is a prosthetic aortic valve present. The heart size is normal. There is mild increased density at the right base. The left lung is grossly clear. CONCLUSION: Suspected mild right lower lobe consolidation or atelectasis. Electronically signed by: Gunnar Martinez MD 09/11/2017 7:26 PM EDT
[2017-09-11] MEDS ORDERED: Aztreonam Inj 2 GM in Sodium Chloride 0.9% Inj 100 ML IV.SIG STA (19:30)
--- NOTE | 2017-09-11 19:36 | ED ---
HPI General Chief complaint: Weakness Stated complaint: Weakness Time Seen by Provider: 09/11/17 18:36 Source: patient Mode of arrival: EMS History of Present Illness HPI Narrative: Patient is a 62-year-old male who presents the emergency room for evaluation of generalized weakness. Patient reports that he had an outpatient procedure today at the surgical center- he has green laser surgery to his prostate by Dr. Banda around 7am this morning. Reports that he was at the out patient surgical center for a few hours and was discharged home with a snowden catheter. It was draining blood - he is on coumadin because he has history of aortic valve replacement. Patient reports that after he was discharged to home, he just felt weak overall. Denies fever/chills. Denies chest pain/sob. Patient with no other complaints. Related Data Home Medications Medication Instructions Recorded Confirmed ciprofloxacin HCl [Cipro] 500 mg PO Q12H 09/11/17 09/11/17 metoprolol tartrate 12.5 mg PO BID 09/11/17 09/11/17 rosuvastatin [Crestor] 40 mg PO DAILY 09/11/17 09/11/17 warfarin [Coumadin] 4 mg PO EVERY OTHER DAY 09/11/17 09/11/17 warfarin [Coumadin] 5 mg PO QTUTHSASU 09/11/17 09/11/17 Allergies Allergy/AdvReac Type Severity Reaction Status Date / Time No Known Allergies Allergy Unverified 09/11/17 18:43 Review of Systems Except as stated in HPI: all other systems reviewed are negative [facility] Medical History Medical History Aortic valve stenosis, severe (Acute) High cholesterol (Acute) Hypertension (Acute) Surgical History Surgical History H/O transurethral resection of prostate (Acute) Social History Social History Smoking Status: Former smoker Tobacco Type: Cigarettes How Often Do You Have a Drink Containing Alcohol: Monthly or less Recent Travel in [facility] within the Last 8 Weeks: No Recent Out of Country Travel within the Last 8 Weeks: No Immunization History Tetanus Immunization: Unsure Hx Influenza Vaccine This Season: No Exam Narrative Exam Narrative: GENERAL: Severe distress SKIN: Focused skin assessment warm/dry. HEAD: Atraumatic. Normocephalic. EYES: Pupils equal and round. No scleral icterus. No injection or drainage. ENT: No nasal bleeding or discharge. Mucous membranes pink and moist. NECK: Trachea midline. No JVD. CARDIOVASCULAR: Regular rate and rhythm. No murmur appreciated. RESPIRATORY: No accessory muscle use. Clear to auscultation. Breath sounds equal bilaterally. GASTROINTESTINAL: Abdomen soft, non-tender, nondistended. Hepatic and splenic margins not palpable. : snowden catheter with dark blood MUSCULOSKELETAL: No obvious deformities. No clubbing. No cyanosis. No edema. NEUROLOGICAL: Awake and alert. No obvious cranial nerve deficits. Motor grossly within normal limits. Normal speech. PSYCHIATRIC: Appropriate mood and affect; insight and judgment normal. Procedures Central Line Placement Right Femoral: Time Out Performed: Yes Patient Placed on Monitor/Pulse Ox: Yes MD Prep: mask, gown and gloves Central Line Prep: Chlorhexidine scrub and sterile drapes applied Local anesthesia used: lidocaine 1% Amount of anesthesia used (mL): 4 Ultrasound Used for Placement: Yes Central Line Lumen Inserted: triple Post Procedure: sutured in place, good blood return, all ports aspirated, flushed, capped and sterile dressing applied Patient Tolerated Procedure: no complications Complications: none Course Initial Documented Vital Signs Temperature 97.2 F L 09/11/17 18:47 Pulse Rate 58 L 09/11/17 18:47 Respiratory Rate 14 09/11/17 18:47 Blood Pressure 86/56 L 09/11/17 18:47 Pulse Oximetry 99 09/11/17 18:47 Last Documented Vital Signs Temperature 97.2 F L 09/11/17 18:47 Pulse Rate 54 L 09/11/17 20:05 Respiratory Rate 19 09/11/17 20:04 Blood Pressure 85/54 L 09/11/17 20:04 Pulse Oximetry 99 09/11/17 20:06 Critical Care Time Critical Care Time: Yes Total Critical Care Time: 60 Attestation: Aggregate critical care time was 60 minutes. Time to perform other separately billable procedures was not included in the critical care time. My time did not include minutes spent treating any other patients simultaneously or on activities that did not directly contribute to the patient's treatment. The services I provided to this patient were to treat and/or prevent clinically significant deterioration that could result in: , decompensation, deterioration I provided critical care services requiring my management, as noted below: Chart data review, documentation time, medication orders and management, vital sign assessments/reviewing monitor data, ordering and reviewing lab tests, ordering and interpreting/reviewing x-rays and diagnostic studies, care of the patient and discussion of the patient with the admitting physicians. Medical Decision Making MDM Narrative Medical decision making narrative: During the course of the patients emergency department visit, the patients history, examination, and differential diagnosis were reviewed with the patient. The patient was placed on a rn referral with oximetry and frequent blood pressure monitoring. The patient had an IV access obtained and blood work sent for analysis. Sepsis workup was initiated The patient was initially provided 1 liter iv fluid by EMS, patient hypotensive with BP 86/56 - this is after 1 liter of fluid - another 1 liters of fluids was ordered for him Patient's abdomen was distended, I did irrigate patient's bladder and there were many clots that came otu of his snowden catheter. Plan to change him to a 3 way snowden catheter for CBI The patients laboratory studies were reviewed and remarkable for wbc 23.5, hgb 13.8, hct 41.6, platelet 164 Radiology studies were reviewed and remarkable for: chest xray: suspected mild right lower consolidation or atelectasis Patient was given levaquin as well as azactam for broad spectrum coverage as source of infection could be from lung vs abdominal source. I do think that source of infection is most likely from the abdomen give his distended hard ab 3 way snowden catheter placed - snowden was irrigated for blood clots - patient with continued pain to abdomen - cr 1.87- ct of abdomen and pelvis without contrast ordered INR 3.6 hgb 13.8, hct 41.6 platelet 164 trop less than 0.02 lactic acid 3.1 Patient continues to be hypotensive with a bp in the 70's despite 30cc/kg bolus of IVF A right sided femoral line was placed, levophed started, patient went down for stat ct of abdomen and pelvis. case reviewed with Dr. Hartmann who accepts pt to service as he is in septic shock Differential Diagnosis Differential Diagnosis: urinary retention, bacteremia, UTI, electrolyte abnormality, pneumonia, bladder rupture Medical Records Medical records reviewed: Yes I reviewed the patient's medical records. Lab Data Lab results reviewed: Yes I reviewed the patient's lab results. Result diagrams: 09/11/17 19:10 09/11/17 19:10 Lab Results 09/11/17 09/11/17 09/11/17 Range/Units 19:10 19:10 19:10 WBC 23.5 H (4.0-11.0) th/mm3 RBC 4.67 (4.50-5.90) mil/mm3 Hgb 13.8 (13.0-17.0) gm/dL Hct 41.6 (39.0-51.0) % MCV 89.1 (80.0-100.0) fL MCH 29.6 (27.0-34.0) pg MCHC 33.3 (32.0-36.0) % RDW 15.8 (11.6-17.2) % Plt Count 164 (150-450) th/mm3 MPV 9.7 (7.0-11.0) fL Neut % (Auto) 90.0 H (16.0-70.0) % Lymph % (Auto) 3.0 L (9.0-44.0) % Ceiba % (Auto) 6.8 (0.0-8.0) % Eos % (Auto) 0.1 (0.0-4.0) % Baso % (Auto) 0.1 (0.0-2.0) % Neut # (Auto) 21.1 H (1.8-7.7) th/mm3 Lymph # (Auto) 0.7 L (1.0-4.8) th/mm3 Ceiba # (Auto) 1.6 H (0.0-0.9) th/mm3 Eos # (Auto) 0.0 (0.0-0.4) th/mm3 Baso # (Auto) 0.0 (0.0-0.2) th/mm3 WBC Differential . Differential Comment Auto diff final PT 35.9 H (9.8-11.6) sec INR 3.6 Ratio APTT 37.1 H (24.3-30.1) sec Sodium 142 (136-145) meq/L Potassium 4.4 (3.5-5.1) meq/L Chloride 111 H (98-107) meq/L Carbon Dioxide 21.4 (21.0-32.0) meq/L Anion Gap 10 (5-15) meq/L BUN 24 H (7-18) mg/dL Creatinine 1.87 H (0.60-1.30) mg/dL Estimated GFR 37 L (>89) mL/min Random Glucose 126 H (74-106) mg/dL Lactic Acid (0.4-2.0) mmol/L Calcium 7.3 L* (8.5-10.1) mg/dL Prot Corrected Calcium 8.1 L (8.5-10.1) mg/dL Magnesium 1.8 (1.5-2.5) mg/dL Total Bilirubin 0.9 (0.2-1.0) mg/dL AST 36 (15-37) U/L ALT 17 (12-78) U/L Alkaline Phosphatase 70 (45-117) U/L Total Creatine Kinase 193 (39-308) U/L CK-MB (CK-2) 4.2 H (0.5-3.6) ng/mL Troponin I Less than 0.02 L (0.02-0.05) ng/mL Total Protein 5.6 L (6.4-8.2) g/dL Albumin 2.7 L (3.4-5.0) g/dL 09/11/17 Range/Units 19:10 WBC (4.0-11.0) th/mm3 RBC (4.50-5.90) mil/mm3 Hgb (13.0-17.0) gm/dL Hct (39.0-51.0) % MCV (80.0-100.0) fL MCH (27.0-34.0) pg MCHC (32.0-36.0) % RDW (11.6-17.2) % Plt Count (150-450) th/mm3 MPV (7.0-11.0) fL Neut % (Auto) (16.0-70.0) % Lymph % (Auto) (9.0-44.0) % Ceiba % (Auto) (0.0-8.0) % Eos % (Auto) (0.0-4.0) % Baso % (Auto) (0.0-2.0) % Neut # (Auto) (1.8-7.7) th/mm3 Lymph # (Auto) (1.0-4.8) th/mm3 Ceiba # (Auto) (0.0-0.9) th/mm3 Eos # (Auto) (0.0-0.4) th/mm3 Baso # (Auto) (0.0-0.2) th/mm3 WBC Differential Differential Comment PT (9.8-11.6) sec INR Ratio APTT (24.3-30.1) sec Sodium (136-145) meq/L Potassium (3.5-5.1) meq/L Chloride (98-107) meq/L Carbon Dioxide (21.0-32.0) meq/L Anion Gap (5-15) meq/L BUN (7-18) mg/dL Creatinine (0.60-1.30) mg/dL Estimated GFR (>89) mL/min Random Glucose (74-106) mg/dL Lactic Acid 3.1 H (0.4-2.0) mmol/L Calcium (8.5-10.1) mg/dL Prot Corrected Calcium (8.5-10.1) mg/dL Magnesium (1.5-2.5) mg/dL Total Bilirubin (0.2-1.0) mg/dL AST (15-37) U/L ALT (12-78) U/L Alkaline Phosphatase (45-117) U/L Total Creatine Kinase (39-308) U/L CK-MB (CK-2) (0.5-3.6) ng/mL Troponin I (0.02-0.05) ng/mL Total Protein (6.4-8.2) g/dL Albumin (3.4-5.0) g/dL Imaging Data Attestation: I personally reviewed and interpreted this imaging study as follows : Radiologist's impression: Chest X-Ray 09/11/17 19:03 CONCLUSION: Suspected mild right lower lobe consolidation or atelectasis. Abdomen/Pelvis CT 09/11/17 20:30 CONCLUSION: 1. Increased density and scattered air within the urinary bladder. Increased density is likely related to hemorrhage. An underlying mass or process in the bladder cannot be excluded. 2. Mild ascites. 3. Small nonobstructing renal stone seen bilaterally. There is no hydronephrosis. 4. 2 left-sided renal masses are seen. The more superior mass is too dense to represent a simple cyst. It could be a complex cyst or solid mass. The inferior mass is likely related to a cyst. These are nonspecific on this noncontrast CT examination. 5. Distended stomach and distal esophagus. 6. Bibasilar areas of consolidation or atelectasis. Discharge Plan Discharge Disposition Patient Disposition: 30 Still Patient Physicians Team ED Provider: Claudia Lai Primary Care Provider: Fritz Delgado Attending Provider: Mata Hartmann Rxs /Orders / Referrals /Forms Prescriptions: No Action ciprofloxacin HCl [Cipro] 500 mg Tablet 500 mg PO Q12H RF: 0 warfarin [Coumadin] 4 mg Tablet 4 mg PO EVERY OTHER DAY RF: 0 warfarin [Coumadin] 5 mg Tablet 5 mg PO QTUTHSASU RF: 0 rosuvastatin [Crestor] 40 mg Tablet 40 mg PO DAILY RF: 0 metoprolol tartrate 25 mg Tablet 12.5 mg PO BID RF: 0 Status ED Status: With Doctor
[2017-09-11 19:37] LABS: Baso % (Auto) 0.1 % (0.0-2.0); Eos % (Auto) 0.1 % (0.0-4.0); Hematocrit 41.6 % (39.0-51.0); Hemoglobin 13.8 gm/dL (13.0-17.0); Lymph # (Auto) 0.7 th/mm3 (1.0-4.8); Mean Corpuscular HGB Conc 33.3 % (32.0-36.0); Mean Corpuscular Hemoglobin 29.6 pg (27.0-34.0); Mean Corpuscular Volume 89.1 fL (80.0-100.0); Mean Platelet Volume 9.7 fL (7.0-11.0); Mono # (Auto) 1.6 th/mm3 (0.0-0.9); Mono % (Auto) 6.8 % (0.0-8.0); Neut # (Auto) 21.1 th/mm3 (1.8-7.7); Platelet Count 164 th/mm3 (150-450); Red Blood Count 4.67 mil/mm3 (4.50-5.90); Red Cell Distribution Width 15.8 % (11.6-17.2); White Blood Count 23.5 th/mm3 (4.0-11.0)
[2017-09-11 19:56] LABS: Activated Partial Thrombo Time 37.1 sec (24.3-30.1); INR 3.6 Ratio; Prothrombin Time 35.9 sec (9.8-11.6)
[2017-09-11 20:15] LABS: Alanine Aminotransferase 17 U/L (12-78); Albumin 2.7 g/dL (3.4-5.0); Alkaline Phosphatase 70 U/L (45-117); Anion Gap 10 meq/L (5-15); Aspartate Aminotransferase 36 U/L (15-37); Blood Urea Nitrogen 24 mg/dL (7-18); Calcium 7.3 mg/dL (8.5-10.1); Carbon Dioxide 21.4 meq/L (21.0-32.0); Chloride 111 meq/L (98-107); Creatine Kinase 193 U/L (39-308); Glomerular Filtration Rate 37 mL/min (>89); Glucose,Random 126 mg/dL (74-106); Magnesium 1.8 mg/dL (1.5-2.5); Potassium 4.4 meq/L (3.5-5.1); Sodium 142 meq/L (136-145); Total Protein 5.6 g/dL (6.4-8.2)
[2017-09-11 20:41] LABS: Creatine Kinase MB 4.2 ng/mL (0.5-3.6)
[2017-09-11] MEDS ORDERED: Norepinephrine Inj 4 MG/4 ML Ampul ONE (20:48)
--- NOTE | 2017-09-11 21:34 | CT ---
EXAM DATE: 09/11/2017 9:20 PM EDT AGE/SEX: 62 years / Male INDICATIONS: Lower abdominal pain today. CLINICAL DATA: This is the patient's initial encounter. Patient reports that signs and symptoms have been present for 1 day and indicates a pain score of 7/10. MEDICAL/SURGICAL HISTORY: Hypertension. . TURP RADIATION DOSE: 6.64 CTDI (mGy) [place]PAR[place] [facility] [place]. . TECHNIQUE: Multiple contiguous axial images were obtained through the abdomen. Images were obtained using multiple row detector helical technique. Using automated exposure control and adjustment of the mA and/or kV according to patient size, radiation dose was kept as low as reasonably achievable to o btain optimal diagnostic quality images. DICOM format image data is available electronically for rev iew and comparison. FINDINGS: Lower Lungs: There is increased density at the posterior lower lobes bilaterally. There is a prosthet ic aortic valve present. There is a small amount of air within the main pulmonary artery likely from prior injection. The patient is status post sternotomy. Calcifications are seen at the [place] coronar y arteries. Liver: The liver has a homogeneous density without space-occupying lesion. There is no dilation of th e biliary tree. Spleen: Homogeneous density without enlargement. Pancreas: Unremarkable without mass or calcification. Kidneys: There are 2 small 2 to 3 mm nonobstructing right renal stone seen and a solitary tiny 2 mm nonobstructing left renal stone. No hydronephrosis is seen. There is a 2.5 cm mass seen at the sleep scientist ior superior lateral left kidney. This is too dense to represent a simple cyst. There is also a 3 cm mass at the inferior lateral left kidney likely related to a cyst. Adrenal Glands: Unremarkable. Aorta: The aorta and proximal iliac vessels are grossly unremarkable without aneurysmal dilation. T here are scattered atherosclerotic calcifications present. Bowel/Mesentery: There is a mild amount of ascites seen around the liver and spleen. There is some a scites in the lower lateral pelvic regions. The stomach is distended. The distal esophagus is distend ed. The bowel is not distended. There are scattered colonic diverticula. Abdominal Wall: Intact. Retroperitoneum: No evidence of adenopathy in the retrocrural, para-aortic, or deep pelvic regions. Bladder: There is a Hannah catheter in place. There is increased density seen throughout the urinary bladder likely related to hemorrhage. There is air in the urinary bladder. There appears to be a smal l diverticulum at the posterior right lateral aspect of the urinary bladder. Reproductive Organs: No abnormal masses or calcifications seen. Inguinal: There is a right femoral vein catheter in place. Bony Structures: There is degenerative change in the lumbar spine. There appears to be an old healed fracture deformity at the superior right pubic rami. CONCLUSION: 1. Increased density and scattered air within the urinary bladder. Increased density is likely relat ed to hemorrhage. An underlying mass or process in the bladder cannot be excluded. 2. Mild ascites. 3. Small nonobstructing renal stone seen bilaterally. There is no hydronephrosis. 4. 2 left-sided renal masses are seen. The more superior mass is too dense to represent a simple cys t. It could be a complex cyst or solid mass. The inferior mass is likely related to a cyst. These are nonspecific on this noncontrast CT examination. 5. Distended stomach and distal esophagus. 6. Bibasilar areas of consolidation or atelectasis. Electronically signed by: Gunnar Martinez MD 09/11/2017 9:32 PM EDT
[2017-09-11] MEDS ORDERED: Bisacodyl 10 MG Supp RECTAL PRN (22:17)
[2017-09-11] MEDS ORDERED: Acetaminophen 325 MG Tablet PO PRN (22:17)
[2017-09-11] MEDS ORDERED: Vancomycin Consult Pharmacy 1 EACH OTHER SCH (22:24)
--- NOTE | 2017-09-11 22:30 | P.HPCC ---
History of Present Illness Primary Care Physician: Fritz Delgado MD History of Present Illness: 62-year-old male presents for an evaluation of generalized weakness. Patient reports that he had an outpatient procedure today at the surgical center- he has green laser surgery to his prostate by Dr. Banda around 7am this morning. Reports that he was at the out patient surgical center for a few hours and was discharged home with a snowden catheter. It was draining blood - he is on coumadin because he has history of aortic valve replacement. Patient reports that after he was discharged to home, he just felt weak overall. In the emergency department he was found to be hypotensive with elevated white count, he was IV fluid resuscitated and the central line was placed by ED attending. He was started on Levophed and is now admitted to ICU. Inpatient Certification: I certify that the inpatient services were ordered in accordance with Medicare regulations governing the order. This includes certification that hospital inpatient services are reasonable and necessary and in the case of services not specified as inpatient-only under 42 CFR 419.22(n), that they are appropriately provided as inpatient services in accordance to with the 2-midnight benchmark under 43 CFR 412.3(e) Estimated Total Length of Stay (Days): 5 Plans for Post Hospital Care: Not yet determined Review of Systems All other systems reviewed negative except as stated in HPI [facility] - History History Provided By: Patient - Medical History Medical History: Medical History (Last Reviewed 09/11/17 @ 19:34 by Claudia Lai) Aortic valve stenosis, severe High cholesterol Hypertension - Surgical History Surgical History: Surgical History (Last Updated 09/11/17 @ 23:05 by Mata Hartmann MD) H/O aortic valve replacement H/O transurethral resection of prostate - Tobacco History Tobacco Use In Past 30 Days: Yes Smoking Status: Former smoker Tobacco Type: Cigarettes - Alcohol History How Often Do You Have a Drink Containing Alcohol: Monthly or less - Travel History Recent Travel in the [place] Within the Last 8 Weeks: No Recent Travel Out of the Country Within the Last 8 Weeks: No - Immunization History Tetanus Immunization: Unsure Hx Influenza Vaccine This Season: No Medications and Allergies Active Medications: Active Medications Acetaminophen (Tylenol) 650 mg PO Q6H PRN PRN Reason: PAIN 1-10 AND/OR FEVER >101F Al Hydroxide/Mg Hydroxide (Milk Of Magnesia Liq) 30 ml PO Q12H PRN PRN Reason: Mild Constipation Albuterol (Duoneb Neb (Prn)) 1 ampul NEB Q2HR NEB PRN PRN Reason: WHEEZING Atorvastatin Calcium (Lipitor) 80 mg PO DAILY [facility] Bisacodyl (Dulcolax Supp) 10 mg RECTAL DAILY PRN PRN Reason: SEVERE CONSITIPATION Chlorhexidine Gluconate (Chlorhexidine 2% Cloth) 3 pack TOPICAL DAILY@0400 [facility] Stop: 09/17/17 03:59 Chlorhexidine Gluconate (Chlorhexidine 2% Cloth) 3 pack TOPICAL DAILY@0400 PRN PRN Reason: Extra cloth needed Stop: 09/17/17 03:59 Famotidine (Pepcid Pf Inj) 20 mg IV.PUSH Q12HR [facility] Norepinephrine Bitartrate (Levophed-Dextrose 4 Mg/250 Ml Drip) 4 mg in 250 mls @ 7.5 mls/hr IV.SIG TITRATE PRN; Protocol PRN Reason: Per Protocol Sodium Chloride (Ns Inj) 1,000 mls @ 125 mls/hr IV.CONT .Q8H [facility] Albumin Human (Alburx 5% Inj) 500 mls @ 250 mls/hr IV.SIG Q6H [facility] Cefepime HCl 2,000 mg/ Sodium (Chloride) 100 mls @ 200 mls/hr IV.SIG Q12H [facility] Pharmacy Profile Note (Vancomycin Consult Pharmacy) 0 mls @ 0 mls/hr OTHER UNSCH [facility] Lactulose (Lactulose Liq) 30 ml PO DAILY PRN PRN Reason: SEVERE CONSITIPATION Morphine Sulfate (Morphine Inj) 2 mg IV.PUSH Q2H PRN PRN Reason: PAIN SCALE 6 TO 10 Ondansetron HCl (Zofran Inj) 4 mg IV.PUSH Q6H PRN PRN Reason: NAUSEA OR VOMITING Patient Medication Teaching (Coumadin Booklet) 1 each OTHER ONCE ONE Stop: 09/13/17 16:01 Senna/Docusate Sodium (Natividad-Colace) 1 tab PO BID [facility] Sennosides (Senokot) 17.2 mg PO Q12H PRN PRN Reason: Moderate Constipation Sodium Chloride (Ns Flush) 2 ml IV.FLUSH PRN PRN PRN Reason: FLUSH AFTER USING IV ACCESS Sodium Chloride (Ns Flush) 2 ml IV.FLUSH BID [facility] Terbutaline Sulfate (Brethine Inj) 1 mg SQ UNSCH PRN PRN Reason: For Extravasation Warfarin Sodium (Coumadin) 4 mg PO Q48H [facility] Allergies Allergy/AdvReac Type Severity Reaction Status Date / Time No Known Allergies Allergy Unverified 09/11/17 18:43 Home Medications Medication Instructions Recorded Confirmed Type ciprofloxacin HCl [Cipro] 500 mg PO Q12H 09/11/17 09/11/17 History metoprolol tartrate 12.5 mg PO BID 09/11/17 09/11/17 History rosuvastatin [Crestor] 40 mg PO DAILY 09/11/17 09/11/17 History warfarin [Coumadin] 4 mg PO EVERY OTHER DAY 09/11/17 09/11/17 History warfarin [Coumadin] 5 mg PO QTUTHSASU 09/11/17 09/11/17 History Results - Labs CBC & Chem 7: 09/11/17 19:10 09/11/17 19:10 Labs: Short CBC 09/11/17 Range/Units 19:10 WBC 23.5 H (4.0-11.0) th/mm3 Hgb 13.8 (13.0-17.0) gm/dL Hct 41.6 (39.0-51.0) % Plt Count 164 (150-450) th/mm3 BMP 09/11/17 19:10 Sodium 142 Potassium 4.4 Chloride 111 H Carbon Dioxide 21.4 BUN 24 H Creatinine 1.87 H Calcium 7.3 L* Cardiac Enzymes 09/11/17 Range/Units 19:10 Total Creatine Kinase 193 (39-308) U/L CK-MB (CK-2) 4.2 H (0.5-3.6) ng/mL Troponin I Less than 0.02 L (0.02-0.05) ng/mL Liver Function 09/11/17 Range/Units 19:10 Total Bilirubin 0.9 (0.2-1.0) mg/dL AST 36 (15-37) U/L ALT 17 (12-78) U/L Alkaline Phosphatase 70 (45-117) U/L Albumin 2.7 L (3.4-5.0) g/dL - Imaging Impressions Chest X-Ray 09/11/17 19:03 CONCLUSION: Suspected mild right lower lobe consolidation or atelectasis. Abdomen/Pelvis CT 09/11/17 20:30 CONCLUSION: 1. Increased density and scattered air within the urinary bladder. Increased density is likely related to hemorrhage. An underlying mass or process in the bladder cannot be excluded. 2. Mild ascites. 3. Small nonobstructing renal stone seen bilaterally. There is no hydronephrosis. 4. 2 left-sided renal masses are seen. The more superior mass is too dense to represent a simple cyst. It could be a complex cyst or solid mass. The inferior mass is likely related to a cyst. These are nonspecific on this noncontrast CT examination. 5. Distended stomach and distal esophagus. 6. Bibasilar areas of consolidation or atelectasis. Exam Vital signs: Vital Signs 09/11/17 18:47 09/11/17 20:04 09/11/17 20:05 Temperature 97.2 F L Pulse Rate 58 L 57 L 54 L Respiratory Rate 14 19 Blood Pressure 86/56 L 85/54 L Pulse Oximetry 99 99 09/11/17 20:06 Temperature Pulse Rate Respiratory Rate Blood Pressure Pulse Oximetry 99 Intake & Output 09/11/17 09/11/17 09/12/17 06:59 18:59 06:59 Weight 62.142 kg - Constitutional mild distress, average body habitus, chronically ill appearing - Routine HEENT Exam Head: Present: normocephalic, atraumatic Eye: Present: PERRL ENT: Present: mucous membranes moist - Routine Neck Exam Present: full ROM. Absent: JVD, carotid bruit - Routine Chest/Breast/Axilla Exam Chest wall: Absent: tenderness, mass - Routine Respiratory Exam Absent: accessory muscle use - Routine Cardiovascular Exam Present: RRR, S1, S2 - Routine Abdominal Exam Present: tenderness, distended, firm. Absent: rebound, guarding - Routine Extremities Exam Absent: cyanosis, clubbing, edema - Routine Skin Exam Present: intact, dry. Absent: cyanosis, erythema - Routine Neurological Exam Present: alert, oriented X3, CN II-XII intact. Absent: sensory deficit, motor deficit Septic Shock Reassessment Septic shock perfusion: reassessment completed Caprini VTE Risk Assessment Caprini VTE Risk Assessment: Moderate/High Risk (score >= 2) Caprini Risk Assessment Model: Point Value = 1 Point Value = 2 Point Value = 3 Point Value = 5 Age 41-60 Minor surgery BMI > 25 kg/m2 Swollen legs Varicose veins or History of unexplained or recurrent spontaneous Oral contraceptives or hormone replacement Sepsis (< 1 month) Serious lung disease, including pneumonia (< 1 month) Abnormal pulmonary function Acute myocardial infarction Congestive heart failure (< 1 month) History of inflammatory bowel disease Medical patient at bed rest Age 61-74 Arthroscopic surgery Major open surgery (> 45 min) Laparoscopic surgery (> 45 min) Malignancy Confined to bed (> 72 hours) Immobilizing plaster cast Central venous access Age >= 75 History of VTE Family history of VTE Factor V Leiden Prothrombin [id number] Lupus anticoagulant Anticardiolipin antibodies Elevated serum homocysteine Heparin-induced thrombocytopenia Other congenital or acquired thrombophilia Stroke (< 1 month) Elective arthroplasty Hip, pelvis, or leg fracture Acute spinal cord injury (< 1 month) Prophylaxis Regimen: Total Risk Factor Score Risk Level Prophylaxis Regimen 0-1 Low Early ambulation 2 Moderate Order ONE of the following: *Sequential Compression Device (SCD) *Heparin 5000 units SQ BID 3-4 Higher Order ONE of the following medications: *Heparin 5000 units SQ TID *Enoxaparin/Lovenox 40 mg SQ daily (WT < 150 kg, CrCl > 30 mL/min) *Enoxaparin/Lovenox 30 mg SQ daily (WT < 150 kg, CrCl > 10-29 mL/min) *Enoxaparin/Lovenox 30 mg SQ BID (WT < 150 kg, CrCl > 30 mL/min) AND/OR *Sequential Compression Device (SCD) 5 or more Highest Order ONE of the following medications: *Heparin 5000 units SQ TID (Preferred with Epidurals) *Enoxaparin/Lovenox 40 mg SQ daily (WT < 150 kg, CrCl > 30 mL/min) *Enoxaparin/Lovenox 30 mg SQ daily (WT < 150 kg, CrCl > 10-29 mL/min) *Enoxaparin/Lovenox 30 mg SQ BID (WT < 150 kg, CrCl > 30 mL/min) AND *Sequential Compression Device (SCD) Assessment and Plan - Assessment and Plan Plan: Septic shock -Aggressive IV fluid hydration -Levophed as needed to keep map above 65 -Broad-spectrum antibiotics -Follow-up cultures -Lactic acid trend Acute kidney injury -Unknown baseline -IV fluid hydration -Strict I's and O's -Monitor creatinine and electrolyte levels Hematuria -Status post TURP -Urology consultation Distended abdomen -N.p.o. -CT scan negative for perforation -NG tube to low wall suction Dyslipidemia -Continue rosuvastatin Status post aortic valve replacement -Continue Coumadin per pharmacy dosing DVT GI prophylaxis -Teds SCDs -Coumadin -Pepcid Critical Care: The total critical care time was 35 minutes. Time to perform other separately billable procedures was not included in the critical care time.
[2017-09-11] MEDS ORDERED: Warfarin Consult Pharmacy 1 EACH OTHER SCH (23:00)
[2017-09-11] MEDS: Morphine Inj 4 MG/ML Vial IV.PUSH PRN (23:29)
[2017-09-11] MEDS: Albumin Human 5% Inj 500 ML IV.SIG SCH (23:31)
[2017-09-11] MEDS: Sod Chloride 0.9% Inj 1,000 ML IV.CONT SCH (23:45)
[2017-09-12] MEDS: Morphine Inj 4 MG/ML Vial IV.PUSH PRN ×3 (01:27→23:06)
[2017-09-12 02:49] LABS: Bilirubin,Urine Negative (Negative); Clarity,Urine Cloudy (Clear); Color,Urine Red (Yellw/Straw); Glucose,Urine (UA) 50 mg/dL (Negative); Leukocyte Esterase,Urine Negative (Negative); Nitrite,Urine Positive (Negative); Specific Gravity,Urine 1.029 (1.002-1.035)
[2017-09-12] MEDS ORDERED: Chlorhexidine Gluconate 2% 1 Pack (2 Cloths) TOPICAL PRN (04:00)
[2017-09-12] MEDS: Chlorhexidine Gluconate 2% 1 Pack (2 Cloths) TOPICAL SCH (04:07)
[2017-09-12 04:17] LABS: Baso % (Auto) 0.1 % (0.0-2.0); Eos % (Auto) 0.1 % (0.0-4.0); Hematocrit 33.7 % (39.0-51.0); Hemoglobin 11.4 gm/dL (13.0-17.0); Lymph # (Auto) 0.7 th/mm3 (1.0-4.8); Lymph % (Auto) 3.5 % (9.0-44.0); Mean Corpuscular HGB Conc 33.8 % (32.0-36.0); Mean Corpuscular Hemoglobin 30.3 pg (27.0-34.0); Mean Corpuscular Volume 89.7 fL (80.0-100.0); Mean Platelet Volume 9.9 fL (7.0-11.0); Mono # (Auto) 1.4 th/mm3 (0.0-0.9); Mono % (Auto) 6.6 % (0.0-8.0); Neut % (Auto) 89.7 % (16.0-70.0); Platelet Count 151 th/mm3 (150-450); Red Blood Count 3.76 mil/mm3 (4.50-5.90); Red Cell Distribution Width 15.5 % (11.6-17.2); White Blood Count 21.2 th/mm3 (4.0-11.0)
[2017-09-12 04:26] LABS: Activated Partial Thrombo Time 45.1 sec (24.3-30.1); INR 4.7 Ratio; Prothrombin Time 46.9 sec (9.8-11.6)
[2017-09-12] MEDS: Albumin Human 5% Inj 500 ML IV.SIG SCH ×4 (04:35→23:07)
[2017-09-12 04:43] LABS: Albumin 3.1 g/dL (3.4-5.0); Calcium 6.6 mg/dL (8.5-10.1); Carbon Dioxide 23.1 meq/L (21.0-32.0); Magnesium 1.6 mg/dL (1.5-2.5); Phosphorus 2.7 mg/dL (2.5-4.9); Potassium 5.8 meq/L (3.5-5.1); Total Protein 5.6 g/dL (6.4-8.2)
[2017-09-12] MEDS ORDERED: Calcium Gluconate Inj 2 GM in Sodium Chlor 0.9% Inj 100 ML IV.SIG ONE (05:52)
[2017-09-12] MEDS ORDERED: Sodium Polystyrene Sulfonate/Sorbitol Liq 15 GM/60 ML UDC PO ONE (05:52)
[2017-09-12] MEDS ORDERED: Sod Chloride 0.9% Inj 1,000 ML IV.SIG ONE (05:54)
[2017-09-12] MEDS ORDERED: Sodium Bicarbonate 8.4% Inj 50 MEQ/50 ML Syringe IV.PUSH ONE (05:54)
[2017-09-12] MEDS: Famotidine PF Inj 20 MG/2 ML Vial IV.PUSH SCH ×2 (08:02→20:09)
[2017-09-12] MEDS: Senna/Docusate Sodium 8.6/50 MG Tablet PO SCH ×2 (08:03→20:09)
[2017-09-12] MEDS ORDERED: SODIUM CHLOR 0.9% IV.SIG ONE (09:00)
[2017-09-12] MEDS ORDERED: CALCIUM CHLORIDE IV.SIG ONE (09:00)
[2017-09-12] MEDS: Sod Chloride 0.9% Inj 1,000 ML IV.CONT SCH ×3 (10:42→23:26)
--- NOTE | 2017-09-12 10:52 | ECG ---
Date Performed: 09/11/2017 Time Performed: 18:51:34 PTAGE: 62 years EKG: Sinus rhythm RIGHT BUNDLE BRANCH BLOCK INFERIOR MYOCARDIAL INFARCTION ABNORMAL ECG PREVIOUS TRACING : 01/03/2017 22.01 DOCTOR: Guy Negron Interpretating Date/Time 09/12/2017 10:51:55
--- NOTE | 2017-09-12 14:15 | P.PNCC ---
Subjective Subjective Remarks/Hospital Course: 62-year-old male presents for an evaluation of generalized weakness. Patient reports that he had an outpatient procedure today at the surgical center- he has green laser surgery to his prostate by Dr. Banad around 7am this morning. Reports that he was at the out patient surgical center for a few hours and was discharged home with a snowden catheter. It was draining blood - he is on coumadin because he has history of aortic valve replacement. Patient reports that after he was discharged to home, he just felt weak overall. In the emergency department he was found to be hypotensive with elevated white count, he was IV fluid resuscitated and the central line was placed by ED attending. He was started on Levophed and is now admitted to ICU. 09/12: Normotensive and mildly tachycardic. INR 4.7, large amount of blood and clots in Snowden drainage. Urology service has been contacted and has arranged to replace Snowden for irrigation -> Lengthy discussion with Solo, patient, and his daughter Claudia. I explained to her that this problem is related to the warfarin and we may need to partially or completely reverse the INR to stop the bleeding. This particular mechanical valve in the aortic position will almost certainly be fine for 2-3 days without warfarin or other anticoagulation should it be necessary. We will then restart it simultaneously with heparin until INR is therapeutic. Objective Vital Signs / I&O: Vital Signs 09/11/17 18:47 09/11/17 20:04 09/11/17 20:05 Temperature 97.2 F L Pulse Rate 58 L 57 L 54 L Respiratory Rate 14 19 Blood Pressure 86/56 L 85/54 L Pulse Oximetry 99 99 09/11/17 20:06 09/11/17 21:00 09/12/17 00:00 Temperature Pulse Rate 58 L 68 Respiratory Rate 20 Blood Pressure 78/53 L 95/58 L Pulse Oximetry 99 99 100 09/12/17 01:23 09/12/17 02:30 09/12/17 04:00 Temperature 98 F Pulse Rate 76 77 Respiratory Rate 27 H Blood Pressure 116/72 Pulse Oximetry 100 96 09/12/17 04:30 09/12/17 06:00 09/12/17 08:00 Temperature Pulse Rate 79 86 80 Respiratory Rate Blood Pressure Pulse Oximetry 09/12/17 08:07 09/12/17 10:00 09/12/17 12:00 Temperature Pulse Rate 86 92 H Respiratory Rate 20 Blood Pressure Pulse Oximetry 96 Intake & Output 09/11/17 09/12/17 09/12/17 18:59 06:59 18:59 Intake Total 850 / 850 1500 / 1500 Output Total 1300 / 1300 370 / 370 Balance -450 / -450 1130 / 1130 Weight 62.142 kg 68.1 kg Intake: IV 850 / 850 1500 / 1500 NS Inj 1,000 ML @ 125 mls/hr IV 1000 / 1000 .CONT .Q8H [facility] Rx#:[id number] Alburx 5% Inj 500 ML @ 250 mls/ 500 / 500 500 / 500 hr IV.SIG Q6H [facility] Rx#:[id number] Azactam Inj 2 GM In NS Inj 100 100 / 100 ML @ 200 mls/hr IV.SIG STAT STA Rx#:[id number] Maxipime Inj 2,000 MG In NS Inj 100 / 100 100 ML @ 200 mls/hr IV.SIG Q12H [facility] Rx#:[id number] Levaquin 750 mg Premix Inj 150 150 / 150 ML @ 100 mls/hr IV.SIG STAT STA Rx#:[id number] Output: Urine Amount (Catheter) 525 / 525 370 / 370 3-way Urethral 525 / 525 370 / 370 Gastric Drainage 775 / 775 Right Nare 775 / 775 Other: Bladder Irrigation Fluid - Amount Instilled 3-way Urethral 250 Bladder Irrigation Fluid - Amount Drained 3-way Urethral 330 Date of Last Bowel Movement 09/11/17 09/11/17 Result Diagrams: 09/12/17 14:36 09/12/17 14:36 Objective Remarks: - Imaging Impressions Chest X-Ray 09/11/17 19:03 CONCLUSION: Suspected mild right lower lobe consolidation or atelectasis. Abdomen/Pelvis CT 09/11/17 20:30 CONCLUSION: 1. Increased density and scattered air within the urinary bladder. Increased density is likely related to hemorrhage. An underlying mass or process in the bladder cannot be excluded. 2. Mild ascites. 3. Small nonobstructing renal stone seen bilaterally. There is no hydronephrosis. 4. 2 left-sided renal masses are seen. The more superior mass is too dense to represent a simple cyst. It could be a complex cyst or solid mass. The inferior mass is likely related to a cyst. These are nonspecific on this noncontrast CT examination. 5. Distended stomach and distal esophagus. 6. Bibasilar areas of consolidation or atelectasis. Exam - Constitutional mild distress, average body habitus, chronically ill appearing - Routine HEENT Exam Head: Present: normocephalic, atraumatic Eye: Present: PERRL ENT: Present: mucous membranes moist - Routine Neck Exam Present: full ROM. Absent: JVD, carotid bruit - Routine Chest/Breast/Axilla Exam Chest wall: Absent: tenderness, mass - Routine Respiratory Exam Shallow respirations, appear limited by abdominal distention. - Routine Cardiovascular Exam Present: RRR, S1, S2, tachycardia at 110. [place] prosthetic valve sounds. - Routine Abdominal Exam Present: Generalized tenderness, distended, firm. Absent: rebound, guarding - Routine Extremities Exam Tepid, adequately perfused. - Routine Skin Exam Present: intact, dry. Absent: cyanosis, erythema - Routine Neurological Exam Present: alert, oriented X3, CN II-XII intact. Absent: sensory deficit, motor deficit Assessment and Plan - Assessment and Plan Plan: Septic shock -Aggressive IV fluid hydration -Levophed as needed to keep map above 65 -Continue broad-spectrum antibiotics -Follow-up cultures -Lactic acid trend Acute kidney injury -Unknown baseline -IV fluid hydration -Strict I's and O's -Monitor creatinine and electrolyte levels Hematuria -Status post TURP -Urology consultation -Serial hemoglobin Distended abdomen -N.p.o. -CT scan negative for perforation -NG tube to low intermittent wall suction Dyslipidemia -Continue rosuvastatin Status post aortic valve replacement -Continue Coumadin per pharmacy dosing DVT GI prophylaxis -Teds SCDs -Hold Coumadin -Pepcid Overall impression: This gentleman remains critically ill with abdominal distention and shallow respirations. It would appear that the bladder must be getting pretty distended by this point. His respiratory status is compromised but mostly in the form of rapid shallow breaths. I suspect this will be resolved by decompression of his bladder. We will follow the lactic acid closely in the meantime. I have discussed at length with Dr. Banda and the patient's daughter. Critical care 45 minutes aside from procedures.
[2017-09-12] MEDS ORDERED: Vancomycin Inj 1,250 MG in Sodium Chlor 0.9% Inj 250 ML IV.SIG ONE (14:30)
--- NOTE | 2017-09-12 16:52 | P.CONURO ---
History of Present Illness Service: Urology Reason for Consult: Hematuria/TURP Primary Care Provider: Fritz Delgado MD Chief Complaint: Hematuria, Weakness History of Present Illness: 62yo male with history of aortic valve on coumadin s/p [facility] T[facility]P yesterday admitted for Hematuria, weakness. His INR was over 3 on admit and recently as high as 4.7. Patient was doing well immediately post- greenlight TURP. At home he noticed his catheter becoming increasingly bloody with clots. Home health care saw the patient and per patient report changed his catheter to an unknown size. He continued to have significant hematuria and reported to the ED. His catheter was again changed to a 20Fr 3-way snowden with dark red blood noted. He was found to have an elevated WBC and CT scan identified what appears to be large clot within the bladder. Patient also has distended abdomen and tender, however patient does not report much pain. No fevers. Review of Systems All other systems reviewed negative except as stated in HPI Constitutional: Denies anorexia, Denies chills Eyes: Denies blind spots Ears, Nose, Mouth, and Throat: Denies abnormal hearing, Denies bleeding gums Cardiovascular: Denies chest pain, Denies irregular heart rhythm Respiratory: Denies chest congestion, Denies cough Gastrointestinal: Reports abdominal pain Genitourinary: Reports blood in urine Musculoskeletal: Denies back pain, Denies body aches Neurologic: Denies abnormal hearing, Denies abnormal movements, Denies dizziness Psychiatric: Denies anxiety Endocrine: Denies cold intolerance Hematologic/Lymphatic: Reports easy bleeding Allergic/Immunologic: Denies hives [facility] - History History Provided By: Patient - Medical History Medical History: Medical History (Last Reviewed 09/12/17 @ 08:23 by Mike Silva) Aortic valve stenosis, severe High cholesterol Hypertension - Surgical History Surgical History: Surgical History (Last Reviewed 09/12/17 @ 08:23 by Mike Silva) H/O aortic valve replacement H/O transurethral resection of prostate - Tobacco History Tobacco Use In Past 30 Days: Yes Smoking Status: Former smoker Tobacco Type: Cigarettes - Alcohol History How Often Do You Have a Drink Containing Alcohol: Monthly or less - Substance Use Type Alcohol Frequency: Ocassionally with meals - Travel History Recent Travel in the [facility] Within the Last 8 Weeks: No Recent Travel Out of the Country Within the Last 8 Weeks: No - Immunization History Tetanus Immunization: Unsure Hx Influenza Vaccine This Season: No Medications and Allergies Active Medications: Active Medications Acetaminophen (Tylenol) 650 mg PO Q6H PRN PRN Reason: PAIN 1-10 AND/OR FEVER >101F Al Hydroxide/Mg Hydroxide (Milk Of [place] Liq) 30 ml PO Q12H PRN PRN Reason: Mild Constipation Albuterol (Duoneb Neb (Prn)) 1 ampul NEB Q2HR NEB PRN PRN Reason: WHEEZING Atorvastatin Calcium (Lipitor) 80 mg PO DAILY [facility] Last Admin: 09/12/17 08:03 Dose: Not Given Bisacodyl (Dulcolax Supp) 10 mg RECTAL DAILY PRN PRN Reason: SEVERE CONSITIPATION Chlorhexidine Gluconate (Chlorhexidine 2% Cloth) 3 pack TOPICAL DAILY@0400 [facility] Stop: 09/17/17 03:59 Last Admin: 09/12/17 04:07 Dose: 3 pack Chlorhexidine Gluconate (Chlorhexidine 2% Cloth) 3 pack TOPICAL DAILY@0400 PRN PRN Reason: Extra cloth needed Stop: 09/17/17 03:59 Famotidine (Pepcid Pf Inj) 20 mg IV.PUSH Q12HR [facility] Last Admin: 09/12/17 08:02 Dose: 20 mg Norepinephrine Bitartrate (Levophed-Dextrose 4 Mg/250 Ml Drip) 4 mg in 250 mls @ 7.5 mls/hr IV.SIG TITRATE PRN; Protocol PRN Reason: Per Protocol Last Titration: 09/12/17 05:45 Dose: 1 mcg/min, 3.75 mls/hr Sodium Chloride (Ns Inj) 1,000 mls @ 125 mls/hr IV.CONT .Q8H [facility] Last Admin: 09/12/17 14:03 Dose: 125 mls/hr Albumin Human (Alburx 5% Inj) 500 mls @ 250 mls/hr IV.SIG Q6H [facility] Last Infusion: 09/12/17 14:03 Dose: Infused Cefepime HCl 2,000 mg/ Sodium (Chloride) 100 mls @ 200 mls/hr IV.SIG Q12H [facility] Last Admin: 09/12/17 10:46 Dose: 200 mls/hr Pharmacy Profile Note (Vancomycin Consult Pharmacy) 0 mls @ 0 mls/hr OTHER UNSCH [facility] Pharmacy Profile Note (Coumadin Consult Pharmacy) 0 mls @ 0 mls/hr OTHER [facility] Vancomycin HCl 1,000 mg/ (Sodium Chloride) 250 mls @ 250 mls/hr IV.SIG Q24H [facility] Lactulose (Lactulose Liq) 30 ml PO DAILY PRN PRN Reason: SEVERE CONSITIPATION Miscellaneous Information ([facility] Ordered Lab Info) 0 each OTHER ONCE ONE Stop: 09/15/17 14:46 Morphine Sulfate (Morphine Inj) 2 mg IV.PUSH Q2H PRN PRN Reason: PAIN SCALE 6 TO 10 Last Admin: 09/12/17 01:27 Dose: 2 mg Ondansetron HCl (Zofran Odt) 4 mg PO Q6H PRN PRN Reason: NAUSEA OR VOMITING Last Admin: 09/11/17 23:30 Dose: 4 mg Patient Medication Teaching (Coumadin Booklet) 1 each OTHER ONCE ONE Stop: 09/13/17 16:01 Senna/Docusate Sodium (Natividad-Colace) 1 tab PO BID [facility] Last Admin: 09/12/17 08:03 Dose: Not Given Sennosides (Senokot) 17.2 mg PO Q12H PRN PRN Reason: Moderate Constipation Sodium Chloride (Ns Flush) 2 ml IV.FLUSH PRN PRN PRN Reason: FLUSH AFTER USING IV ACCESS Sodium Chloride (Ns Flush) 2 ml IV.FLUSH BID [facility] Last Admin: 09/12/17 08:03 Dose: 2 ml Terbutaline Sulfate (Brethine Inj) 1 mg SQ UNS PRN PRN Reason: For Extravasation Warfarin Sodium (Coumadin) 4 mg PO Q48H [facility] Allergies Allergy/AdvReac Type Severity Reaction Status Date / Time No Known Allergies Allergy Unverified 09/11/17 18:43 Home Medications Medication Instructions Recorded Confirmed Type ciprofloxacin HCl [Cipro] 500 mg PO Q12H 09/11/17 09/11/17 History metoprolol tartrate 12.5 mg PO BID 09/11/17 09/11/17 History rosuvastatin [Crestor] 40 mg PO DAILY 09/11/17 09/11/17 History warfarin [Coumadin] 4 mg PO EVERY OTHER DAY 09/11/17 09/11/17 History warfarin [Coumadin] 5 mg PO [id number] 09/11/17 09/11/17 History Physical Exam Vital Signs - 24 hr 09/11/17 18:47 09/11/17 20:04 09/11/17 20:05 Temperature 97.2 F L Pulse Rate 58 L 57 L 54 L Respiratory Rate 14 19 Blood Pressure 86/56 L 85/54 L Pulse Oximetry 99 99 09/11/17 20:06 09/11/17 21:00 09/12/17 00:00 Temperature Pulse Rate 58 L 68 Respiratory Rate 20 Blood Pressure 78/53 L 95/58 L Pulse Oximetry 99 99 100 09/12/17 01:23 09/12/17 02:30 09/12/17 04:00 Temperature 98 F Pulse Rate 76 77 Respiratory Rate 27 H Blood Pressure 116/72 Pulse Oximetry 100 96 09/12/17 04:30 09/12/17 06:00 09/12/17 08:00 Temperature 98.4 F Pulse Rate 79 86 84 Respiratory Rate 25 H Blood Pressure 110/61 Pulse Oximetry 96 09/12/17 08:07 09/12/17 10:00 09/12/17 12:00 Temperature 98.8 F Pulse Rate 86 86 Respiratory Rate 27 H Blood Pressure 118/58 L Pulse Oximetry 96 95 09/12/17 13:36 Temperature Pulse Rate 92 H Respiratory Rate Blood Pressure Pulse Oximetry Physical Exam: GENERAL: This is a well-nourished, well-developed patient, in no apparent distress. SKIN: No rashes, ecchymoses or lesions. Cool and dry. HEAD: Atraumatic. Normocephalic. EYES: Extraocular motions intact. No scleral icterus. No injection or drainage. ENT: Nose without bleeding, purulent drainage. Airway patent. NECK: Trachea midline. No JVD or lymphadenopathy. CARDIOVASCULAR: Normal pulses RESPIRATORY: Nonlabored GASTROINTESTINAL: Abdomen distended, some tenderness to palpation, slightly firm ; no obvious peritoneal signs GENITOURINARY: Circumcised phallus, normal meatus. Blood noted in catheter, draining MUSCULOSKELETAL: Extremities without clubbing, cyanosis, or edema. NEUROLOGICAL: Awake and alert. Motor and sensory grossly within normal limits. Normal speech. Laboratory Results - last 24 hr 09/11/17 09/11/17 09/11/17 19:10 19:10 19:10 WBC 23.5 H RBC 4.67 Hgb 13.8 Hct 41.6 MCV 89.1 MCH 29.6 MCHC 33.3 RDW 15.8 Plt Count 164 MPV 9.7 Neut % (Auto) 90.0 H Lymph % (Auto) 3.0 L Reynolds % (Auto) 6.8 Eos % (Auto) 0.1 Baso % (Auto) 0.1 Neut # (Auto) 21.1 H Lymph # (Auto) 0.7 L Reynolds # (Auto) 1.6 H Eos # (Auto) 0.0 Baso # (Auto) 0.0 WBC Differential . Differential Comment Auto diff final PT 35.9 H INR 3.6 APTT 37.1 H Sodium 142 Potassium 4.4 Chloride 111 H Carbon Dioxide 21.4 Anion Gap 10 BUN 24 H Creatinine 1.87 H Estimated GFR 37 L Random Glucose 126 H Lactic Acid Calcium 7.3 L* Prot Corrected Calcium 8.1 L Phosphorus Magnesium 1.8 Total Bilirubin 0.9 AST 36 ALT 17 Alkaline Phosphatase 70 Total Creatine Kinase 193 CK-MB (CK-2) 4.2 H Troponin I Less than 0.02 L Total Protein 5.6 L Albumin 2.7 L Prealbumin Urine Color Urine Clarity Urine pH Ur Specific [place] Urine Protein Urine Glucose (UA) Urine Ketones Urine Occult Blood Urine Nitrate Urine Bilirubin Urine Urobilinogen Ur Leukocyte Esterase Micro UA Comment Urine Culture Comments Urine Comment Nasal Screen MRSA (PCR) Blood Type Antibody Screen MTS Gel Crossmatch 09/11/17 09/11/17 09/11/17 19:10 20:31 22:10 WBC RBC Hgb Hct MCV MCH MCHC RDW Plt Count MPV Neut % (Auto) Lymph % (Auto) Reynolds % (Auto) Eos % (Auto) Baso % (Auto) Neut # (Auto) Lymph # (Auto) Reynolds # (Auto) Eos # (Auto) Baso # (Auto) WBC Differential Differential Comment PT INR APTT Sodium Potassium Chloride Carbon Dioxide Anion Gap BUN Creatinine Estimated GFR Random Glucose Lactic Acid 3.1 H 2.3 H Calcium Prot Corrected Calcium Phosphorus Magnesium Total Bilirubin AST ALT Alkaline Phosphatase Total Creatine Kinase CK-MB (CK-2) Troponin I Total Protein Albumin Prealbumin Urine Color Urine Clarity Urine pH Ur Specific [place] Urine Protein Urine Glucose (UA) Urine Ketones Urine Occult Blood Urine Nitrate Urine Bilirubin Urine Urobilinogen Ur Leukocyte Esterase Micro UA Comment Urine Culture Comments Urine Comment Nasal Screen MRSA (PCR) Blood Type B Positive Antibody Screen Negative MTS Gel Crossmatch 09/12/17 09/12/17 09/12/17 01:00 01:00 04:00 WBC 21.2 H RBC 3.76 L Hgb 11.4 L D Hct 33.7 L MCV 89.7 MCH 30.3 MCHC 33.8 RDW 15.5 Plt Count 151 MPV 9.9 Neut % (Auto) 89.7 H Lymph % (Auto) 3.5 L Reynolds % (Auto) 6.6 Eos % (Auto) 0.1 Baso % (Auto) 0.1 Neut # (Auto) 19.0 H Lymph # (Auto) 0.7 L Reynolds # (Auto) 1.4 H Eos # (Auto) 0.0 Baso # (Auto) 0.0 WBC Differential . Differential Comment Auto diff final PT INR APTT Sodium Potassium Chloride Carbon Dioxide Anion Gap BUN Creatinine Estimated GFR Random Glucose Lactic Acid Calcium Prot Corrected Calcium Phosphorus Magnesium Total Bilirubin AST ALT Alkaline Phosphatase Total Creatine Kinase CK-MB (CK-2) Troponin I Total Protein Albumin Prealbumin Urine Color Red Urine Clarity Cloudy H Urine pH 7.0 Ur Specific [place] 1.029 Urine Protein 500 or greater Urine Glucose (UA) 50 Urine Ketones Negative Urine Occult Blood Large H Urine Nitrate Positive H Urine Bilirubin Negative Urine Urobilinogen Less than 2 Ur Leukocyte Esterase Negative Micro UA Comment Cath-culture ind Urine Culture Comments Cath-cult indicated Urine Comment Nasal Screen MRSA (PCR) Not detected Blood Type Antibody Screen MTS Gel Crossmatch 09/12/17 09/12/17 09/12/17 04:00 04:00 04:00 WBC RBC Hgb Hct MCV MCH MCHC RDW Plt Count MPV Neut % (Auto) Lymph % (Auto) Reynolds % (Auto) Eos % (Auto) Baso % (Auto) Neut # (Auto) Lymph # (Auto) Reynolds # (Auto) Eos # (Auto) Baso # (Auto) WBC Differential Differential Comment PT 46.9 H D INR 4.7 APTT 45.1 H D Sodium 141 Potassium 5.8 H D Chloride 112 H Carbon Dioxide 23.1 Anion Gap 6 BUN 31 H Creatinine 1.99 H Estimated GFR 34 L Random Glucose 143 H Lactic Acid 2.6 H Calcium 6.6 L* Prot Corrected Calcium 7.3 L* D Phosphorus 2.7 Magnesium 1.6 Total Bilirubin 0.9 AST 21 ALT 14 Alkaline Phosphatase 50 Total Creatine Kinase CK-MB (CK-2) Troponin I Total Protein 5.6 L Albumin 3.1 L Prealbumin 18 L Urine Color Urine Clarity Urine pH Ur Specific [place] Urine Protein Urine Glucose (UA) Urine Ketones Urine Occult Blood Urine Nitrate Urine Bilirubin Urine Urobilinogen Ur Leukocyte Esterase Micro UA Comment Urine Culture Comments Urine Comment Nasal Screen MRSA (PCR) Blood Type Antibody Screen MTS Gel Crossmatch 09/12/17 09/12/17 09/12/17 14:36 14:36 14:36 WBC RBC Hgb 7.8 L D Hct MCV MCH MCHC RDW Plt Count MPV Neut % (Auto) Lymph % (Auto) Reynolds % (Auto) Eos % (Auto) Baso % (Auto) Neut # (Auto) Lymph # (Auto) Reynolds # (Auto) Eos # (Auto) Baso # (Auto) WBC Differential Differential Comment PT INR APTT Sodium Potassium 4.3 D Chloride Carbon Dioxide Anion Gap BUN Creatinine Estimated GFR Random Glucose Lactic Acid 1.9 Calcium Prot Corrected Calcium Phosphorus Magnesium Total Bilirubin AST ALT Alkaline Phosphatase Total Creatine Kinase CK-MB (CK-2) Troponin I Total Protein Albumin Prealbumin Urine Color Urine Clarity Urine pH Ur Specific [place] Urine Protein Urine Glucose (UA) Urine Ketones Urine Occult Blood Urine Nitrate Urine Bilirubin Urine Urobilinogen Ur Leukocyte Esterase Micro UA Comment Urine Culture Comments Urine Comment Nasal Screen MRSA (PCR) Blood Type Antibody Screen MTS Gel Crossmatch 09/12/17 16:14 WBC RBC Hgb Hct MCV MCH MCHC RDW Plt Count MPV Neut % (Auto) Lymph % (Auto) Reynolds % (Auto) Eos % (Auto) Baso % (Auto) Neut # (Auto) Lymph # (Auto) Reynolds # (Auto) Eos # (Auto) Baso # (Auto) WBC Differential Differential Comment PT INR APTT Sodium Potassium Chloride Carbon Dioxide Anion Gap BUN Creatinine Estimated GFR Random Glucose Lactic Acid Calcium Prot Corrected Calcium Phosphorus Magnesium Total Bilirubin AST ALT Alkaline Phosphatase Total Creatine Kinase CK-MB (CK-2) Troponin I Total Protein Albumin Prealbumin Urine Color Urine Clarity Urine pH Ur Specific [place] Urine Protein Urine Glucose (UA) Urine Ketones Urine Occult Blood Urine Nitrate Urine Bilirubin Urine Urobilinogen Ur Leukocyte Esterase Micro UA Comment Urine Culture Comments Urine Comment Nasal Screen MRSA (PCR) Blood Type Antibody Screen MTS Gel Crossmatch See Detail Microbiology 09/11/17 22:10 Aerobic Blood Culture - Preliminary Blood - Peripheral No growth in 1 day Anaerobic Blood Culture - Preliminary No growth in 1 day 09/11/17 19:10 Aerobic Blood Culture - Preliminary Blood - Peripheral No growth in 1 day Anaerobic Blood Culture - Preliminary No growth in 1 day Result Diagrams: 09/12/17 14:36 09/12/17 14:36 Personally reviewed images: Yes Imaging: ITS Impressions Chest X-Ray 09/11/17 19:03 CONCLUSION: Suspected mild right lower lobe consolidation or atelectasis. Abdomen/Pelvis CT 09/11/17 20:30 CONCLUSION: 1. Increased density and scattered air within the urinary bladder. Increased density is likely related to hemorrhage. An underlying mass or process in the bladder cannot be excluded. 2. Mild ascites. 3. Small nonobstructing renal stone seen bilaterally. There is no hydronephrosis. 4. 2 left-sided renal masses are seen. The more superior mass is too dense to represent a simple cyst. It could be a complex cyst or solid mass. The inferior mass is likely related to a cyst. These are nonspecific on this noncontrast CT examination. 5. Distended stomach and distal esophagus. 6. Bibasilar areas of consolidation or atelectasis. Assessment and Plan - Assessment (1) Hematuria Code(s): R31.9 - Hematuria, unspecified Status: Acute (2) S/P TURP Code(s): Z90.79 - Acquired absence of other genital organ(s) Status: Acute - Plan -Snowden catheter irrigated at bedside, minimal irrigation possible -24Fr hematuria catheter placed and irrigated, no clots removed, draining easily. CBI initiated -Maintain CBI throughout the night -Cardiology consulted, holding coumadin. Will recheck INR -Patient may require formal clot evacuation in the OR -Will follow closely. If patient's hematuria does not improved as INR improves, will consider cystoscopy under anesthesia with clot evacuation. May consider re- imaging to evaluate any remaining clot in the bladder
[2017-09-12 16:58] LABS: INR 5.2 Ratio; Prothrombin Time 52.1 sec (9.8-11.6)
[2017-09-12] MEDS: PARoxetine Liq 20 MG/10 ML UDC NG/OG SCH (18:30)
[2017-09-12] MEDS: Metoprolol Tartrate 25 MG Tablet PO SCH (18:30)
[2017-09-13] MEDS: Morphine Inj 4 MG/ML Vial IV.PUSH PRN ×4 (03:13→17:10)
[2017-09-13] MEDS: Chlorhexidine Gluconate 2% 1 Pack (2 Cloths) TOPICAL SCH (04:37)
[2017-09-13] MEDS: Albumin Human 5% Inj 500 ML IV.SIG SCH ×4 (04:41→23:01)
[2017-09-13 06:25] LABS: Hematocrit 23.5 % (39.0-51.0); Mean Corpuscular HGB Conc 34.2 % (32.0-36.0); Mean Corpuscular Hemoglobin 30.2 pg (27.0-34.0); Mean Corpuscular Volume 88.4 fL (80.0-100.0); Mean Platelet Volume 10.3 fL (7.0-11.0); Platelet Count 91 th/mm3 (150-450); Red Blood Count 2.66 mil/mm3 (4.50-5.90); Red Cell Distribution Width 14.9 % (11.6-17.2); White Blood Count 10.7 th/mm3 (4.0-11.0)
[2017-09-13 06:26] LABS: Baso % (Auto) 0.1 % (0.0-2.0); Lymph # (Auto) 0.8 th/mm3 (1.0-4.8); Lymph % (Auto) 7.9 % (9.0-44.0); Mono # (Auto) 1.6 th/mm3 (0.0-0.9); Mono % (Auto) 14.7 % (0.0-8.0); Neut # (Auto) 8.2 th/mm3 (1.8-7.7); Neut % (Auto) 77.3 % (16.0-70.0)
[2017-09-13] MEDS: Metoprolol Tartrate 25 MG Tablet PO SCH ×3 (06:34→18:55)
[2017-09-13 06:54] LABS: INR 3.3 Ratio; Prothrombin Time 33.6 sec (9.8-11.6)
[2017-09-13 07:05] LABS: Albumin 3.6 g/dL (3.4-5.0); Calcium 6.7 mg/dL (8.5-10.1); Carbon Dioxide 23.5 meq/L (21.0-32.0); Potassium 3.8 meq/L (3.5-5.1); Total Protein 5.3 g/dL (6.4-8.2)
[2017-09-13 09:02] LABS: Lymphocytes 11 % (9-44); Monocytes 3 % (0-8)
[2017-09-13 09:03] LABS: Ovalocytes 1+; Platelet Morphology Normal (Normal)
--- NOTE | 2017-09-13 09:12 | P.PNURO ---
Subjective Patient symptoms today: Doing well this am, INR improved to 3.3. CBI running, light pink urine. Abdomen remains distended Objective Vital Signs: Vital Signs 09/12/17 10:00 09/12/17 12:00 09/12/17 13:36 Temperature 98.8 F Pulse Rate 86 86 92 H Respiratory Rate 27 H Blood Pressure 118/58 L Pulse Oximetry 95 09/12/17 16:00 09/12/17 17:43 09/12/17 19:50 Temperature 98.8 F 98.6 F Pulse Rate 88 91 H 98 H Respiratory Rate 20 19 Blood Pressure 141/66 H 127/58 L Pulse Oximetry 96 97 09/12/17 20:01 09/12/17 20:07 09/12/17 20:15 Temperature 97.8 F 98.4 F Pulse Rate 95 H 81 Respiratory Rate 26 H 24 Blood Pressure 133/65 135/70 Pulse Oximetry 95 98 09/12/17 22:00 09/12/17 23:30 09/13/17 00:00 Temperature 98.2 F 98.3 F Pulse Rate 91 H 79 77 Respiratory Rate 19 Blood Pressure 124/72 138/74 Pulse Oximetry 94 L 09/13/17 00:05 09/13/17 02:05 09/13/17 04:00 Temperature 98.2 F Pulse Rate 81 81 77 Respiratory Rate 20 24 Blood Pressure 135/67 122/66 Pulse Oximetry 94 L 94 L 09/13/17 06:00 Temperature Pulse Rate 78 Respiratory Rate Blood Pressure Pulse Oximetry Intake & Output 09/12/17 09/13/17 09/13/17 18:59 06:59 18:59 Intake Total 6100 / 6100 3000 / 3000 Output Total 790 / 790 0 / 0 Balance 5310 / 5310 3000 / 3000 Weight 73 kg Intake: IV 3000 / 3000 2200 / 2200 NS Inj 1,000 ML @ 125 mls/hr IV 2000 / 2000 1000 / 1000 .CONT .Q8H [facility] Rx#:[id number] Alburx 5% Inj 500 ML @ 250 mls/ 1000 / 1000 1000 / 1000 hr IV.SIG Q6H [facility] Rx#:[id number] Maxipime Inj 2,000 MG In NS Inj 200 / 200 100 ML @ 200 mls/hr IV.SIG Q12H [facility] Rx#:[id number] Intake (Blood Product) Amt 800 / 800 Rbc As-3 Leukoreduced Unit 400 / 400 [id number] Rbc As-3 Leukoreduced Unit 400 / 400 [id number] Bladder Irrigation Fluid - 3100 / 3100 Amount Retained Output: Urine Amount (Catheter) 790 / 790 3-way Urethral 790 / 790 Gastric Drainage 0 / 0 Right Nare 0 / 0 Other: Bladder Irrigation Fluid - 2,400 Amount Instilled 3-way Urethral 9,000 Bladder Irrigation Fluid - Amount Drained 3-way Urethral 7,900 Date of Last Bowel Movement 09/11/17 09/11/17 Result Diagrams: 09/13/17 05:50 09/13/17 05:50 Other Results: NAD, AAOx3 Resp NL Ab Distended, improved tenderness Hannah catheter in place, CBI running with light pink urine Medications and IVs: Active Medications Generic Name Dose Route Start Last Admin Trade Name Freq PRN Reason Stop Dose Admin Acetaminophen 650 mg 09/11/17 22:17 Tylenol PO Q6H PRN PAIN 1-10 AND/OR FEVER >101F Al Hydroxide/Mg Hydroxide 30 ml 09/11/17 22:17 Milk Of Magnesia Liq PO Q12H PRN Mild Constipation Albuterol 1 ampul 09/11/17 22:17 Duoneb Neb (Prn) NEB Q2HR NEB PRN WHEEZING Atorvastatin Calcium 80 mg 09/12/17 09:00 09/12/17 08:03 Lipitor PO Not Given DAILY [facility] Bisacodyl 10 mg 09/11/17 22:17 Dulcolax Supp RECTAL DAILY PRN SEVERE CONSITIPATION Chlorhexidine Gluconate 3 pack 09/12/17 04:00 09/13/17 04:37 Chlorhexidine 2% Cloth TOPICAL 09/17/17 03:59 3 pack DAILY@0400 [facility] Administration Chlorhexidine Gluconate 3 pack 09/12/17 04:00 Chlorhexidine 2% Cloth TOPICAL 09/17/17 03:59 DAILY@0400 PRN Extra cloth needed Famotidine 20 mg 09/12/17 09:00 09/12/17 20:09 Pepcid Pf Inj IV.PUSH 20 mg Q12HR [facility] Administration Norepinephrine Bitartrate 4 mg in 250 mls @ 7.5 mls/hr 09/11/17 20:45 05:45 Levophed-Dextrose 4 Mg/250 Ml Drip IV.SIG 1 mcg/min TITRATE PRN 3.75 mls/hr Per Protocol Titration Protocol 2 MCG/MIN Sodium Chloride 1,000 mls @ 125 mls/hr 09/11/17 22:30 09/12/17 23:26 Ns Inj IV.CONT 125 mls/hr .Q8H [facility] Administration Albumin Human 500 mls @ 250 mls/hr 09/11/17 23:00 09/13/17 04:41 Alburx 5% Inj IV.SIG 250 mls/hr Q6H [facility] Administration Cefepime HCl 2,000 mg/ Sodium 100 mls @ 200 mls/hr 09/11/17 23:00 09/12/17 23 :45 Chloride IV.SIG Infused Q12H [facility] Infusion Pharmacy Profile Note 0 mls @ 0 mls/hr 09/11/17 22:24 Vancomycin Consult Pharmacy OTHER [facility] As Directed Pharmacy Profile Note 0 mls @ 0 mls/hr 09/11/17 23:00 Coumadin Consult Pharmacy OTHER [facility] As Directed Vancomycin HCl 1,000 mg/ 250 mls @ 250 mls/hr 09/13/17 15:00 Sodium Chloride IV.SIG Q24H [facility] Lactulose 30 ml 09/11/17 22:17 Lactulose Liq PO DAILY PRN SEVERE CONSITIPATION Metoprolol Tartrate 12.5 mg 09/12/17 18:00 09/13/17 06:53 Lopressor PO 12.5 mg Q12H [facility] Administration Miscellaneous Information 0 each 09/15/17 14:45 [facility] Ordered Lab Info OTHER 09/15/17 14:46 ONCE ONE Morphine Sulfate 2 mg 09/11/17 22:17 09/13/17 06:03 Morphine Inj IV.PUSH 2 mg Q2H PRN Administration PAIN SCALE 6 TO 10 Ondansetron HCl 4 mg 09/11/17 22:17 09/11/17 23:30 Zofran Odt PO 4 mg Q6H PRN Administration NAUSEA OR VOMITING Paroxetine HCl 20 mg 09/12/17 18:00 09/12/17 18:30 Paxil Liq NG/OG 20 mg DAILY [facility] Administration Patient Medication Teaching 1 each 09/13/17 16:00 Coumadin Booklet OTHER 09/13/17 16:01 ONCE ONE Senna/Docusate Sodium 1 tab 09/12/17 09:00 09/12/17 20:09 Natividad-Colace PO 1 tab BID [facility] Administration Sennosides 17.2 mg 09/11/17 22:17 Senokot PO Q12H PRN Moderate Constipation Sodium Chloride 2 ml 09/11/17 22:17 Ns Flush IV.FLUSH PRN PRN FLUSH AFTER USING IV ACCESS Sodium Chloride 2 ml 09/12/17 09:00 09/12/17 23:26 Ns Flush IV.FLUSH 2 ml BID [facility] Administration Terbutaline Sulfate 1 mg 09/11/17 20:35 Brethine Inj SQ UNSCH PRN For Extravasation Warfarin Sodium 4 mg 09/13/17 16:00 Coumadin PO Q48H [facility] Assessment and Plan - Assessment (1) Hematuria Code(s): R31.9 - Hematuria, unspecified Status: Acute (2) S/P TURP Code(s): Z90.79 - Acquired absence of other genital organ(s) Status: Acute - Plan -Continue CBI -Obtain CT ab/pel today to re-evaluate presence of any bladder clots as catheter is now irrigating well -Keep NPO until results of CT scan -If any clots noted, patient will need official clot evacuation under anesthesia in the OR tomorrow
[2017-09-13] MEDS: Famotidine PF Inj 20 MG/2 ML Vial IV.PUSH SCH ×2 (09:54→21:38)
[2017-09-13] MEDS: PARoxetine Liq 20 MG/10 ML UDC NG/OG SCH (09:54)
[2017-09-13] MEDS: Senna/Docusate Sodium 8.6/50 MG Tablet PO SCH ×2 (09:55→21:49)
--- NOTE | 2017-09-13 11:53 | MB ---
cc: Yung Matthews MD DATE: 09/13/2017 REASON FOR CONSULTATION: Anticoagulation management. HISTORY OF PRESENT ILLNESS: 1. Mr. Adam Siddiqui is a pleasant 62-year-old gentleman who is known to me with history of borderline cardiomyopathy 2. History of aortic valve replacement, (mechanical valve) [address] [facility], in 2004. 3. History of coronary artery disease, status post bypass graft surgery at the same year during the same procedure with an SVG to diagonal/SVG to RCA. He has done relatively well after that. He also has a history of hypertension and hyperlipidemia. He underwent [facility] TURP 2 days ago and was sent home and was felt to be clotting and obstructed. He returned back. During this procedure, he was given antibiotics and his INR went up to about 5, and he was bleeding through his irrigation and also clotting at the same time. This has cleared today and irrigation appears to be flowing well, and the solution is more pinkish than actual clots. Denies chest pain or shortness of breath. Denies prior palpitations, dizziness or syncope. Denies orthopnea, PND or leg swelling. PAST MEDICAL AND SURGICAL HISTORY: 1. Includes as mentioned above. 2. History of syphilis. 3. History of gastrointestinal bleed and sepsis, CHF, and renal insufficiency during admission in 12/2016 to the hospital. SOCIAL HISTORY: He used to smoke, but stopped just recently. He has a 36-dycp-ynpm history of smoking. Denies ETOH abuse or recreational drug use. He exercises, walks and rides his bike 2-3 times a week with no chest pain or shortness of breath. FAMILY HISTORY: Positive for coronary artery disease, otherwise noncontributory. REVIEW OF SYSTEMS: A 12-point system review was unremarkable, except as mentioned in history of present illness. His abdomen is distended and slightly diffusely tender. He has been constipated over the last 4 days. No bleeding from any other site that he could tell me. ALLERGIES: NO KNOWN DRUG ALLERGIES. MEDICATIONS: 1. Crestor 40 mg p.o. at bedtime. 2. Finasteride 5 mg p.o. daily. 3. Metoprolol tartrate 12.5 mg p.o. b.i.d. 4. Paxil 20 mg p.o. daily. 5. Tamsulosin 0.4 mg capsule once daily. 6. Coumadin 4 mg alternating with 5 mg daily on Monday, Monday, Monday, otherwise, 4 mg other days. PHYSICAL EXAMINATION: GENERAL: A 62-year-old gentleman, lying in bed, in no apparent distress, alert, oriented x 3, answering questions appropriately. VITAL SIGNS: Blood pressure is 150/76, pulse rate 82 beats per minute and regular, respiration 14 per minute, afebrile. HEENT: Shows head is normocephalic. Pupils equal, reactive. Throat is within normal limits. NECK: Supple. No carotid bruit, no thyromegaly. No jugular venous distention noted. LUNGS: Clear to auscultation and percussion. HEART: S1, S2 are metallic in nature with a faint S4 gallop. No rubs or murmurs. ABDOMEN: Somewhat slightly tense, diffusely tender. No organomegaly noted. Normoactive bowel sounds, however. EXTREMITIES: No clubbing, cyanosis or edema. Pulses 2+ bilaterally and no bruit noted. NEUROLOGIC: Grossly intact with no focal deficits. RECTAL: Deferred. ASSESSMENT AND RECOMMENDATIONS: 1. Coronary artery disease, status post coronary artery bypass grafting. 2. Recent nuclear stress study prior to his surgery showed no evidence of ischemia, with a decent LVEF 60%. His baseline is around 45-50%. 3. Echocardiogram in 09/2016 showed similar LVEF of 45-50% with adequately functioning prosthetic metallic [facility] Ben's aortic valve/grade 2 diastolic dysfunction, subtle mitral valve prolapse and only mild valvular regurgitations, with a PA systolic pressure of 30 mmHg. From that aspect he appears stable. 4. Status post metallic aortic valve replacement. 5. Currently, because of his bleeding, his Coumadin is on hold. Repeat INR today is 3.3. This needs to be repeated on a daily basis and some form of anticoagulation needs to be started if his INR drops to less than 2.2. Watch his H and H closely as well. 6. With irrigation, also, watch his electrolytes. 7. Abdominal distention and tenderness. I spoke with Dr. Banda and he is ordering a abdominal CT without contrast and further recommendations will follow, per the surgical recommendations versus gastrointestinal evaluation. He is constipated and I will leave further management to the medical team/the surgeons. 2. Hypertension. Resume low-dose beta blockers as tolerated by his gastrointestinal tract. 3. Hyperlipidemia. We can hold off on the statins until his discharge or until his gastrointestinal tract is in better condition. Thank you for the consultation. We will follow. MD AVANI Frey/reina/hugo , 08:39 AM , 09:09 AM
[2017-09-13] MEDS: Sod Chloride 0.9% Inj 1,000 ML IV.CONT SCH ×3 (12:59→14:50)
--- NOTE | 2017-09-13 13:50 | CT ---
EXAM DATE: 09/13/2017 1:39 PM EDT AGE/SEX: 62 years / Male INDICATIONS: Hematuria,post turp,bladder clot,abdomen dstention CLINICAL DATA: This is the patient's initial encounter. Patient reports that signs and symptoms have been present for 1 day and indicates a pain score of 4/10. MEDICAL/SURGICAL HISTORY: Hypertension. Cardiovascular disease. . Turp,aortic valve RADIATION DOSE: 6.61 CTDI (mGy) COMPARISON: [facility] [place], CT ABDOMEN & PELVIS W/O CONTRAST, 09/11/2017. . TECHNIQUE: Multiple contiguous axial images were obtained through the abdomen. Images were obtained using multiple row detector helical technique. Using automated exposure control and adjustment of the mA and/or kV according to patient size, radiation dose was kept as low as reasonably achievable to o btain optimal diagnostic quality images. DICOM format image data is available electronically for rev iew and comparison. FINDINGS: Lower Lungs: There are new small bilateral pleural effusions. Consolidation is noted in both posterio r lung bases. Liver: The liver has a homogeneous density without space-occupying lesion. There is no dilation of th e biliary tree. Ascitic fluid is again noted surrounding portions of the liver. The gallbladder remai ns unremarkable. Spleen: Homogeneous density without enlargement. There is a small amount of surrounding ascitic flui d. Pancreas: Unremarkable without mass or calcification. Kidneys: Normal in size and shape. No evidence of hydronephrosis. High density exophytic rounded mas s is again noted extending off the lateral upper pole of left kidney. This measures up to 2.5 cm. The re is more simple appearing cysts again noted extending off the lower pole anteriorly. There are at l east 3 tiny less than 1 mm nonobstructing right renal calculi and a single 1 mm nonobstructing left r enal calculi. Adrenal Glands: Unremarkable. Aorta: The aorta and proximal iliac vessels are grossly unremarkable without aneurysmal dilation. Bowel/Mesentery: Oral contrast was given. The bowel loops are grossly unremarkable. The cecum and sig moid colon have a normal configuration. Small to moderate amount of ascitic fluid is noted in both pa racolic gutters Abdominal Wall: Intact. Retroperitoneum: No small amount of fluid in the pelvis. Evidence of adenopathy in the retrocrural, para-aortic, or deep pelvic regions. Bladder: A Hannah catheter is again noted in the bladder. The bladder remains abnormal in appearance with multiple gas bubbles and mildly inhomogeneous high density. There is a diverticulum along the ri ght lower lateral bladder. There is inflammatory change surrounding the bladder. Reproductive Organs: No abnormal masses or calcifications seen. Inguinal: The inguinal region is unremarkable without evidence of adenopathy. Bony Structures: Unremarkable. CONCLUSION: 1. Urinary bladder remains abnormal appearance with inhomogeneous high density and multiple gas bubb les. 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 A Hannah catheter is present. 2. Bilateral nonobstructing renal calculi. 3. Left renal cyst and higher density nonspecific lesion again noted which may represent complex or hemorrhagic cyst however solid lesion could have a similar appearance. 4. Sibim-ow-ywroupxg amount of ascitic fluid. 5. Bilateral effusions with consolidation in the lung bases. Electronically signed by: Aurelio Jane MD 09/13/2017 1:49 PM EDT
--- NOTE | 2017-09-13 14:28 | P.PNCC ---
Subjective Subjective Remarks/Hospital Course: 62-year-old male presents for an evaluation of generalized weakness. Patient reports that he had an outpatient procedure today at the surgical center- he has green laser surgery to his prostate by Dr. Banda around 7am this morning. Reports that he was at the out patient surgical center for a few hours and was discharged home with a snowden catheter. It was draining blood - he is on coumadin because he has history of aortic valve replacement. Patient reports that after he was discharged to home, he just felt weak overall. In the emergency department he was found to be hypotensive with elevated white count, he was IV fluid resuscitated and the central line was placed by ED attending. He was started on Levophed and is now admitted to ICU. 09/12: Normotensive and mildly tachycardic. INR 4.7, large amount of blood and clots in Snowden drainage. Urology service has been contacted and has arranged to replace Snowden for irrigation -> Lengthy discussion with Solo, patient, and his daughter Claudia. I explained to her that this problem is related to the warfarin and we may need to partially or completely reverse the INR to stop the bleeding. This particular mechanical valve in the aortic position will almost certainly be fine for 2-3 days without warfarin or other anticoagulation should it be necessary. We will then restart it simultaneously with heparin until INR is therapeutic. 09/13: Renal function remains acceptable but ongoing abdominal distention and probable bladder distention remain problematic. He continues to move air well but shallow respirations limited by abdominal distention are worrisome. Will review CAT scan today to get a better idea whether formal endoscopic bladder decompression may be indicated. Objective Vital Signs / I&O: Vital Signs 09/12/17 16:00 09/12/17 17:43 09/12/17 19:50 Temperature 98.8 F 98.6 F Pulse Rate 88 91 H 98 H Respiratory Rate 20 19 Blood Pressure 141/66 H 127/58 L Pulse Oximetry 96 97 09/12/17 20:01 09/12/17 20:07 09/12/17 20:15 Temperature 97.8 F 98.4 F Pulse Rate 95 H 81 Respiratory Rate 26 H 24 Blood Pressure 133/65 135/70 Pulse Oximetry 95 98 09/12/17 22:00 09/12/17 23:30 09/13/17 00:00 Temperature 98.2 F 98.3 F Pulse Rate 91 H 79 77 Respiratory Rate 19 Blood Pressure 124/72 138/74 Pulse Oximetry 94 L 09/13/17 00:05 09/13/17 02:05 09/13/17 04:00 Temperature 98.2 F Pulse Rate 81 81 77 Respiratory Rate 20 24 Blood Pressure 135/67 122/66 Pulse Oximetry 94 L 94 L 09/13/17 06:00 09/13/17 08:00 09/13/17 10:00 Temperature 98.1 F Pulse Rate 78 73 76 Respiratory Rate 22 Blood Pressure 121/61 Pulse Oximetry 96 09/13/17 11:20 09/13/17 11:26 09/13/17 12:00 Temperature 98.8 F Pulse Rate 80 Respiratory Rate 21 22 Blood Pressure 124/60 Pulse Oximetry 96 91 L 09/13/17 14:00 Temperature Pulse Rate 85 Respiratory Rate Blood Pressure Pulse Oximetry Intake & Output 09/12/17 09/13/17 09/13/17 18:59 06:59 18:59 Intake Total 6100 / 6100 3500 / 3500 1500 / 1500 Output Total 790 / 790 0 / 0 Balance 5310 / 5310 3500 / 3500 1500 / 1500 Weight 73 kg Intake: IV 3000 / 3000 2700 / 2700 1500 / 1500 NS Inj 1,000 ML @ 125 mls/hr IV 2000 / 2000 1000 / 1000 1000 / 1000 .CONT .Q8H [facility] Rx#:[id number] Alburx 5% Inj 500 ML @ 250 mls/ 1000 / 1000 1500 / 1500 500 / 500 hr IV.SIG Q6H [facility] Rx#:[id number] Maxipime Inj 2,000 MG In NS Inj 200 / 200 100 ML @ 200 mls/hr IV.SIG Q12H [facility] Rx#:[id number] Intake (Blood Product) Amt 800 / 800 Rbc As-3 Leukoreduced Unit 400 / 400 [id number] Rbc As-3 Leukoreduced Unit 400 / 400 [id number] Bladder Irrigation Fluid - 3100 / 3100 Amount Retained Output: Urine Amount (Catheter) 790 / 790 3-way Urethral 790 / 790 Gastric Drainage 0 / 0 Right Nare 0 / 0 Other: Bladder Irrigation Fluid - 2,400 Amount Instilled 3-way Urethral 9,000 Bladder Irrigation Fluid - Amount Drained 3-way Urethral 7,900 Date of Last Bowel Movement 09/11/17 09/11/17 Result Diagrams: 09/13/17 05:50 09/13/17 05:50 Objective Remarks: - Imaging Impressions Chest X-Ray 09/11/17 19:03 CONCLUSION: Suspected mild right lower lobe consolidation or atelectasis. Abdomen/Pelvis CT 09/11/17 20:30 CONCLUSION: 1. Increased density and scattered air within the urinary bladder. Increased density is likely related to hemorrhage. An underlying mass or process in the bladder cannot be excluded. 2. Mild ascites. 3. Small nonobstructing renal stone seen bilaterally. There is no hydronephrosis. 4. 2 left-sided renal masses are seen. The more superior mass is too dense to represent a simple cyst. It could be a complex cyst or solid mass. The inferior mass is likely related to a cyst. These are nonspecific on this noncontrast CT examination. 5. Distended stomach and distal esophagus. 6. Bibasilar areas of consolidation or atelectasis. Exam - Constitutional mild distress, average body habitus, chronically ill appearing - Routine HEENT Exam Head: Present: normocephalic, atraumatic Eye: Present: PERRL ENT: Present: mucous membranes moist - Routine Neck Exam Present: full ROM. Absent: JVD, carotid bruit - Routine Chest/Breast/Axilla Exam Chest wall: Absent: tenderness, mass - Routine Respiratory Exam Shallow respirations, appear limited by abdominal distention. - Routine Cardiovascular Exam Present: RRR, S1, S2, tachycardia at 88. [place] prosthetic valve sounds. - Routine Abdominal Exam Present: Generalized tenderness, distended, firm. Absent: rebound, guarding - Routine Extremities Exam Tepid, adequately perfused. - Routine Skin Exam Present: intact, dry. Absent: cyanosis, erythema - Routine Neurological Exam Present: alert, oriented X3, CN II-XII intact. Absent: sensory deficit, motor deficit Assessment and Plan - Assessment and Plan Plan: Septic shock -Aggressive IV fluid hydration -Levophed as needed to keep map above 65 -Continue broad-spectrum antibiotics -Follow-up cultures -Lactic acid trend has normalized. Acute kidney injury -Unknown baseline -IV fluid hydration -Strict I's and O's -Monitor creatinine and electrolyte levels Hematuria -Status post TURP -Urology consultation -Serial hemoglobin -Three-way Snowden irrigation begun Distended abdomen -N.p.o. -CT scan negative for perforation -NG tube to low intermittent wall suction Dyslipidemia -Continue rosuvastatin Status post aortic valve replacement -Continue Coumadin per pharmacy dosing DVT GI prophylaxis -Teds SCDs -Hold Coumadin -Pepcid Overall impression: This gentleman remains critically ill with abdominal distention and shallow respirations. His respiratory status is compromised but mostly in the form of rapid shallow breaths. I suspect this will be resolved by decompression of his bladder. I have discussed at length with Dr. Banda and the patient's daughter. Critical care 40 minutes aside from procedures.
[2017-09-13] MEDS ORDERED: Vancomycin Inj 1,000 MG in Sodium Chlor 0.9% Inj 250 ML IV.SIG SCH (15:00)
[2017-09-13 15:19] LABS: Hematocrit 20.2 % (39.0-51.0)
--- NOTE | 2017-09-13 16:19 | P.PNURO ---
Subjective Patient symptoms today: Pt was seen at the bedside this afternoon. NAD, no acute events. CBI is running well, urine is light pink color. H/H decreased to 09/10 he is asymptomatic we will monitor. CT scan reviewed, still has a lot of clots in the bladder, we will plan Cysto for tomorrow Objective Vital Signs: Vital Signs 09/12/17 17:43 09/12/17 19:50 09/12/17 20:01 Temperature 98.6 F 97.8 F Pulse Rate 91 H 98 H 95 H Respiratory Rate 19 26 H Blood Pressure 127/58 L 133/65 Pulse Oximetry 97 95 09/12/17 20:07 09/12/17 20:15 09/12/17 22:00 Temperature 98.4 F Pulse Rate 81 91 H Respiratory Rate 24 Blood Pressure 135/70 Pulse Oximetry 98 09/12/17 23:30 09/13/17 00:00 09/13/17 00:05 Temperature 98.2 F 98.3 F Pulse Rate 79 77 81 Respiratory Rate 19 20 Blood Pressure 124/72 138/74 135/67 Pulse Oximetry 94 L 94 L 09/13/17 02:05 09/13/17 04:00 09/13/17 06:00 Temperature 98.2 F Pulse Rate 81 77 78 Respiratory Rate 24 Blood Pressure 122/66 Pulse Oximetry 94 L 09/13/17 08:00 09/13/17 10:00 09/13/17 11:20 Temperature 98.1 F Pulse Rate 73 76 Respiratory Rate 22 21 Blood Pressure 121/61 Pulse Oximetry 96 09/13/17 11:26 09/13/17 12:00 09/13/17 14:00 Temperature 98.8 F Pulse Rate 80 85 Respiratory Rate 22 Blood Pressure 124/60 Pulse Oximetry 96 91 L Intake & Output 09/12/17 09/13/17 09/13/17 18:59 06:59 18:59 Intake Total 6100 / 6100 3500 / 3500 1600 / 1600 Output Total 790 / 790 0 / 0 Balance 5310 / 5310 3500 / 3500 1600 / 1600 Weight 73 kg Intake: IV 3000 / 3000 2700 / 2700 1600 / 1600 NS Inj 1,000 ML @ 125 mls/hr IV 2000 / 2000 1000 / 1000 1000 / 1000 .CONT .Q8H [facility] Rx#:[id number] Alburx 5% Inj 500 ML @ 250 mls/ 1000 / 1000 1500 / 1500 500 / 500 hr IV.SIG Q6H [facility] Rx#:[id number] Maxipime Inj 2,000 MG In NS Inj 200 / 200 100 / 100 100 ML @ 200 mls/hr IV.SIG Q12H [facility] Rx#:[id number] Intake (Blood Product) Amt 800 / 800 Rbc As-3 Leukoreduced Unit 400 / 400 [id number] Rbc As-3 Leukoreduced Unit 400 / 400 [id number] Bladder Irrigation Fluid - 3100 / 3100 Amount Retained Output: Urine Amount (Catheter) 790 / 790 3-way Urethral 790 / 790 Gastric Drainage 0 / 0 Right Nare 0 / 0 Other: Bladder Irrigation Fluid - 2,400 Amount Instilled 3-way Urethral 9,000 Bladder Irrigation Fluid - Amount Drained 3-way Urethral 7,900 Date of Last Bowel Movement 09/11/17 09/11/17 Result Diagrams: 09/13/17 14:30 09/13/17 05:50 Imaging: Impressions Abdomen/Pelvis CT 09/13/17 00:00 CONCLUSION: 1. Urinary bladder remains abnormal appearance with inhomogeneous high density and multiple gas bubbles. 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 A Hannah catheter is present. 2. Bilateral nonobstructing renal calculi. 3. Left renal cyst and higher density nonspecific lesion again noted which may represent complex or hemorrhagic cyst however solid lesion could have a similar appearance. 4. Yhflm-oz-fhfaepzz amount of ascitic fluid. 5. Bilateral effusions with consolidation in the lung bases. Medications and IVs: Active Medications Generic Name Dose Route Start Last Admin Trade Name Freq PRN Reason Stop Dose Admin Acetaminophen 650 mg 09/11/17 22:17 Tylenol PO Q6H PRN PAIN 1-10 AND/OR FEVER >101F Al Hydroxide/Mg Hydroxide 30 ml 09/11/17 22:17 Milk Of Magnesia Liq PO Q12H PRN Mild Constipation Albuterol 1 ampul 09/11/17 22:17 Duoneb Neb (Prn) NEB Q2HR NEB PRN WHEEZING Atorvastatin Calcium 80 mg 09/12/17 09:00 09/13/17 09:54 Lipitor PO 80 mg DAILY [facility] Administration Bisacodyl 10 mg 09/11/17 22:17 Dulcolax Supp RECTAL DAILY PRN SEVERE CONSITIPATION Chlorhexidine Gluconate 3 pack 09/12/17 04:00 09/13/17 04:37 Chlorhexidine 2% Cloth TOPICAL 09/17/17 03:59 3 pack DAILY@0400 [facility] Administration Chlorhexidine Gluconate 3 pack 09/12/17 04:00 Chlorhexidine 2% Cloth TOPICAL 09/17/17 03:59 DAILY@0400 PRN Extra cloth needed Famotidine 20 mg 09/12/17 09:00 09/13/17 09:54 Pepcid Pf Inj IV.PUSH 20 mg Q12HR [facility] Administration Norepinephrine Bitartrate 4 mg in 250 mls @ 7.5 mls/hr 09/11/17 20:45 05:45 Levophed-Dextrose 4 Mg/250 Ml Drip IV.SIG 1 mcg/min TITRATE PRN 3.75 mls/hr Per Protocol Titration Protocol 2 MCG/MIN Sodium Chloride 1,000 mls @ 75 mls/hr 09/11/17 22:30 09/13/17 14:50 Ns Inj IV.CONT Not Given .[id number] [facility] Albumin Human 500 mls @ 250 mls/hr 09/11/17 23:00 09/13/17 12:59 Alburx 5% Inj IV.SIG Infused Q6H [facility] Infusion Cefepime HCl 2,000 mg/ Sodium 100 mls @ 200 mls/hr 09/11/17 23:00 09/13/17 12 :05 Chloride IV.SIG Infused Q12H [facility] Infusion Pharmacy Profile Note 0 mls @ 0 mls/hr 09/11/17 22:24 Vancomycin Consult Pharmacy OTHER [facility] As Directed Pharmacy Profile Note 0 mls @ 0 mls/hr 09/11/17 23:00 Coumadin Consult Pharmacy OTHER [facility] As Directed Vancomycin HCl 1,000 mg/ 250 mls @ 250 mls/hr 09/13/17 15:00 09/13/17 14:49 Sodium Chloride IV.SIG 250 mls/hr Q24H [facility] Administration Lactulose 30 ml 09/11/17 22:17 Lactulose Liq PO DAILY PRN SEVERE CONSITIPATION Metoprolol Tartrate 12.5 mg 09/12/17 18:00 09/13/17 06:53 Lopressor PO 12.5 mg Q12H [facility] Administration Miscellaneous Information 0 each 09/15/17 14:45 [facility] Ordered Lab Info OTHER 09/15/17 14:46 ONCE ONE Morphine Sulfate 2 mg 09/11/17 22:17 09/13/17 09:55 Morphine Inj IV.PUSH 2 mg Q2H PRN Administration PAIN SCALE 6 TO 10 Ondansetron HCl 4 mg 09/11/17 22:17 09/11/17 23:30 Zofran Odt PO 4 mg Q6H PRN Administration NAUSEA OR VOMITING Paroxetine HCl 20 mg 09/12/17 18:00 09/13/17 09:54 Paxil Liq NG/OG 20 mg DAILY [facility] Administration Senna/Docusate Sodium 1 tab 09/12/17 09:00 09/13/17 09:55 Natividad-Colace PO 1 tab BID [facility] Administration Sennosides 17.2 mg 09/11/17 22:17 Senokot PO Q12H PRN Moderate Constipation Sodium Chloride 2 ml 09/11/17 22:17 Ns Flush IV.FLUSH PRN PRN FLUSH AFTER USING IV ACCESS Sodium Chloride 2 ml 09/12/17 09:00 09/13/17 11:21 Ns Flush IV.FLUSH 2 ml BID [facility] Administration Terbutaline Sulfate 1 mg 09/11/17 20:35 Brethine Inj SQ UNSCH PRN For Extravasation Warfarin Sodium 4 mg 09/13/17 16:00 Coumadin PO Q48H [facility] Objective Remarks: NAD NG in place RRR, Clear lungs Hannah is in place, CBI is running Assessment and Plan - Plan -C ontinue CBI. Labs at AM - NPO post nidnight - OR tomorrow at the afternoon for Cystoscop, fulguration and clot evacuation under anesthesia - Consent signed Discussed Condition With: Dr Solo ROBERTS attending
[2017-09-13 21:29] LABS: Hematocrit 17.9 % (39.0-51.0); Hemoglobin 6.3 gm/dL (13.0-17.0)
[2017-09-13] MEDS ORDERED: Sodium Chlor 0.9% Inj 250 ML IV.SIG SCH (22:00)
[2017-09-14] MEDS: Albumin Human 5% Inj 500 ML IV.SIG SCH ×2 (06:24→12:57)
[2017-09-14] MEDS: Metoprolol Tartrate 25 MG Tablet PO SCH ×2 (06:25→17:47)
[2017-09-14 06:57] LABS: Baso % (Auto) 0.2 % (0.0-2.0); Eos % (Auto) 0.1 % (0.0-4.0); Hematocrit 23.7 % (39.0-51.0); Hemoglobin 8.1 gm/dL (13.0-17.0); Lymph # (Auto) 0.5 th/mm3 (1.0-4.8); Lymph % (Auto) 5.5 % (9.0-44.0); Mean Corpuscular Hemoglobin 29.1 pg (27.0-34.0); Mean Corpuscular Volume 85.4 fL (80.0-100.0); Mean Platelet Volume 9.4 fL (7.0-11.0); Mono % (Auto) 11.6 % (0.0-8.0); Neut % (Auto) 82.6 % (16.0-70.0); Platelet Count 72 th/mm3 (150-450); Red Blood Count 2.77 mil/mm3 (4.50-5.90); Red Cell Distribution Width 16.9 % (11.6-17.2); White Blood Count 8.5 th/mm3 (4.0-11.0)
[2017-09-14 07:07] LABS: INR 2.2 Ratio
--- NOTE | 2017-09-14 07:23 | P.PNCC ---
Subjective Subjective Remarks/Hospital Course: 62-year-old male presents for an evaluation of generalized weakness. Patient reports that he had an outpatient procedure today at the surgical center- he has green laser surgery to his prostate by Dr. Banda around 7am this morning. Reports that he was at the out patient surgical center for a few hours and was discharged home with a snowden catheter. It was draining blood - he is on coumadin because he has history of aortic valve replacement. Patient reports that after he was discharged to home, he just felt weak overall. In the emergency department he was found to be hypotensive with elevated white count, he was IV fluid resuscitated and the central line was placed by ED attending. He was started on Levophed and is now admitted to ICU. 09/12: Normotensive and mildly tachycardic. INR 4.7, large amount of blood and clots in Snowden drainage. Urology service has been contacted and has arranged to replace Snowden for irrigation -> Lengthy discussion with Solo, patient, and his daughter Claudia. I explained to her that this problem is related to the warfarin and we may need to partially or completely reverse the INR to stop the bleeding. This particular mechanical valve in the aortic position will almost certainly be fine for 2-3 days without warfarin or other anticoagulation should it be necessary. We will then restart it simultaneously with heparin until INR is therapeutic. 09/13: Renal function remains acceptable but ongoing abdominal distention and probable bladder distention remain problematic. He continues to move air well but shallow respirations limited by abdominal distention are worrisome. Will review CAT scan today to get a better idea whether formal endoscopic bladder decompression may be indicated. 09/14: Continued abdominal distention with respiratory embarrassment; desaturation requiring increasing FiO2. Required two additional units prbcs last night. Diuresing with lasix now. CXR with prominent pulmonary venous congestion. He will probably need to be intubated soon. 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 Objective Vital Signs / I&O: Vital Signs 09/13/17 08:00 09/13/17 10:00 09/13/17 11:20 Temperature 98.1 F Pulse Rate 73 76 Respiratory Rate 22 21 Blood Pressure 121/61 Pulse Oximetry 96 09/13/17 11:26 09/13/17 12:00 09/13/17 14:00 Temperature 98.8 F Pulse Rate 80 85 Respiratory Rate 22 Blood Pressure 124/60 Pulse Oximetry 96 91 L 09/13/17 16:00 09/13/17 18:00 09/13/17 18:57 Temperature 98.4 F Pulse Rate 76 83 Respiratory Rate 24 24 Blood Pressure 120/64 Pulse Oximetry 93 L 09/13/17 20:00 09/13/17 21:14 09/13/17 22:00 Temperature 97.9 F Pulse Rate 74 69 Respiratory Rate 20 Blood Pressure 110/60 Pulse Oximetry 90 L 94 L 09/14/17 00:00 09/14/17 00:26 09/14/17 02:00 Temperature 97.5 F L 97.8 F Pulse Rate 82 74 79 Respiratory Rate 25 H 25 H Blood Pressure 115/79 115/79 Pulse Oximetry 89 L 93 L 09/14/17 02:19 09/14/17 04:00 09/14/17 06:00 Temperature 99.3 F 98.6 F Pulse Rate 74 73 68 Respiratory Rate 23 26 H Blood Pressure 129/60 125/81 Pulse Oximetry 92 L 92 L Intake & Output 09/13/17 09/14/17 09/14/17 18:59 06:59 18:59 Intake Total 49740 / 53518 1200 / 1200 Output Total 350 / 350 Balance 34288 / 02442 1200 / 1200 Weight 74.9 kg Intake: IV 1850 / 1850 1000 / 1000 NS Inj 1,000 ML @ 125 mls/hr IV 1000 / 1000 .CONT .Q8H FRANCISCO Rx#:[id number] Alburx 5% Inj 500 ML @ 250 mls/ 500 / 500 1000 / 1000 hr IV.SIG Q6H FRANCISCO Rx#:[id number] Maxipime Inj 2,000 MG In NS Inj 100 / 100 100 ML @ 200 mls/hr IV.SIG Q12H FRANCISCO Rx#:[id number] Vancomycin Inj 1,000 MG In NS 250 / 250 Inj 250 ML @ 250 mls/hr IV.SIG Q24H FRANCISCO Rx#:[id number] Other 69095 / 65205 200 / 200 Rbc As-3 Leukoreduced Unit 200 / 200 [id number] Intake (Blood Product) Amt 0 / 0 Rbc As-3 Leukoreduced Unit 0 / 0 [id number] Rbc As-3 Leukoreduced Unit 0 / 0 [id number] Bladder Irrigation Fluid - 250 / 250 Amount Retained 3-way Urethral 250 / 250 Output: Urine Amount (Catheter) 350 / 350 3-way Urethral 350 / 350 Other: Bladder Irrigation Fluid - Amount Instilled 3-way Urethral 13,500 6,000 Bladder Irrigation Fluid - Amount Drained 3-way Urethral 13,250 6,450 Other Intake Source Saline Solution Date of Last Bowel Movement 09/11/17 Result Diagrams: 09/14/17 06:40 09/14/17 06:40 Objective Remarks: - Imaging Impressions Chest X-Ray 09/11/17 19:03 CONCLUSION: Suspected mild right lower lobe consolidation or atelectasis. Abdomen/Pelvis CT 09/11/17 20:30 CONCLUSION: 1. Increased density and scattered air within the urinary bladder. Increased density is likely related to hemorrhage. An underlying mass or process in the bladder cannot be excluded. 2. Mild ascites. 3. Small nonobstructing renal stone seen bilaterally. There is no hydronephrosis. 4. 2 left-sided renal masses are seen. The more superior mass is too dense to represent a simple cyst. It could be a complex cyst or solid mass. The inferior mass is likely related to a cyst. These are nonspecific on this noncontrast CT examination. 5. Distended stomach and distal esophagus. 6. Bibasilar areas of consolidation or atelectasis. Exam - Constitutional mild distress, average body habitus, chronically ill appearing - Routine HEENT Exam Head: Present: normocephalic, atraumatic Eye: Present: PERRL ENT: Present: mucous membranes moist - Routine Neck Exam Present: full ROM. - Routine Chest/Breast/Axilla Exam Chest wall: Absent: tenderness, mass - Routine Respiratory Exam Shallow respirations, markedly limited by abdominal distention. Tachypneic. Diffuse wheezes, light crackles. - Routine Cardiovascular Exam Present: RRR, S1, S2, tachycardia at 88. Gem prosthetic valve sounds. Pronounced JVD. - Routine Abdominal Exam Present: Generalized tenderness, markedly distended, firm, tympanitic. Absent: rebound, guarding - Routine Extremities Exam Tepid, adequately perfused. - Routine Skin Exam Present: intact, dry. Absent: cyanosis, erythema - Routine Neurological Exam Present: alert, anxious ,oriented X3, CN II-XII intact. Absent: sensory deficit , motor deficit Assessment and Plan - Assessment and Plan Plan: Septic shock -Aggressive IV fluid hydration -Levophed only as needed to keep map above 65 -Continue broad-spectrum antibiotics -Follow-up cultures -Lactic acid trend has normalized. Acute kidney injury -Unknown baseline -IV fluid hydration -Strict I's and O's -Monitor creatinine and electrolyte levels Hematuria -Status post TURP -Urology consultation -Serial hemoglobin -Three-way Snowden irrigation begun -Formal endoscopic decompression today. Distended abdomen -N.p.o. -CT scan negative for perforation -NG tube to low intermittent wall suction Dyslipidemia -Continue rosuvastatin Status post aortic valve replacement -Continue Coumadin per pharmacy dosing DVT GI prophylaxis -Teds SCDs -Hold Coumadin -Pepcid Overall impression: This gentleman remains critically ill with abdominal distention and rapid, shallow respirations. His respiratory status is compromised but he refuses intubation. I have discussed at length with Dr. Banda and the patient's daughter. His deteriorating respiratory status will soon be highly problematic if he is not intubated. We are attempting to get in touch with his daughter and his revenue field auditor at this time. Critical care 60 minutes aside from procedures.
[2017-09-14 07:49] LABS: Anion Gap 7 meq/L (5-15); Blood Urea Nitrogen 24 mg/dL (7-18); Calcium 7.4 mg/dL (8.5-10.1); Carbon Dioxide 23.9 meq/L (21.0-32.0); Chloride 119 meq/L (98-107); Glomerular Filtration Rate Greater Than 89 mL/min (>89); Glucose,Random 108 mg/dL (74-106); Potassium 3.2 meq/L (3.5-5.1); Sodium 150 meq/L (136-145)
[2017-09-14 08:09] LABS: Total Protein 5.3 g/dL (6.4-8.2)
[2017-09-14 08:39] LABS: Ovalocytes 1+; Platelet Morphology Normal (Normal)
[2017-09-14] MEDS: Sod Chloride 0.9% Inj 1,000 ML IV.CONT SCH (08:41)
[2017-09-14] MEDS: PARoxetine Liq 20 MG/10 ML UDC NG/OG SCH (08:42)
[2017-09-14] MEDS: Senna/Docusate Sodium 8.6/50 MG Tablet PO SCH (08:42)
[2017-09-14] MEDS: Famotidine PF Inj 20 MG/2 ML Vial IV.PUSH SCH ×2 (08:45→23:38)
--- NOTE | 2017-09-14 09:08 | XR ---
EXAM DATE: 09/14/2017 8:25 AM EDT AGE/SEX: 62 years / Male INDICATIONS: Shortness of breath. CLINICAL DATA: This is the patient's subsequent encounter. Patient reports that signs and symptoms h ave been present for 1 day and indicates a pain score of 0/10. MEDICAL/SURGICAL HISTORY: . Hypertension. Cardiovascular disease. . Turp,aortic valve. COMPARISON: [facility], CHEST 1V SINGLE AP, 09/11/2017. . FINDINGS: The heart is enlarged. Aortic valve prosthesis is noted. Median sternotomy wires are noted. Small yolanda ateral pleural effusions are noted. Mild to moderate pulmonary vascular congestion is noted. A nasoga stric tube has its tip in the expected region of the distal esophagus. CONCLUSION: 1. Mild to moderate pulmonary vascular congestion. 2. Mild hepatomegaly. 3. Small bilateral pleural effusions. 4. Nasogastric tube has its tip in the distal esophagus. Electronically signed by: Adolph Oneal MD 09/14/2017 9:07 AM EDT
[2017-09-14] MEDS ORDERED: Potassium Chlor 40 mEq Premix 40 MEQ/100 ML PIGGYBACK IV.SIG ONE (11:30)
[2017-09-14] MEDS ORDERED: Midazolam Inj 5 MG/ML 1 ML Vial IV.PUSH ONE (11:54)
[2017-09-14] MEDS ORDERED: Sodium Chlor 0.9% Inj 250 ML IV.SIG ONE (12:00)
[2017-09-14] MEDS ORDERED: Phenylephrine/NS 1000 MCG/10ML Syringe IV.PUSH ONE (12:00)
[2017-09-14] MEDS ORDERED: Propofol Inj 500 MG/50 ML Vial ONE (12:17)
[2017-09-14 12:31] LABS: Magnesium 1.9 mg/dL (1.5-2.5); Phosphorus 1.3 mg/dL (2.5-4.9)
--- NOTE | 2017-09-14 13:23 | P.PCN ---
Procedure: Preoperative diagnosis: Hypoxemic respiratory failure Postoperative diagnosis: Hypoxemic respiratory failure Procedure: Orotracheal intubation Operation: Timeout performed and patient suitably identified. Spontaneous ventilation in place through nonrebreathing mask and usual ICU monitoring attached. Head of bed elevated 20 due to abdominal distention. Versed 5 mg intravenous followed by rocuronium 100 mg IV after 5 minutes. No bag mask ventilation due to abdominal distention. Patient intubated with 8.0 mm orotracheal tube. Position confirmed watching tube passed through the cords, auscultating bilateral breath sounds, documented end-tidal CO2, and maintaining sats greater than 98% throughout. Chest x-ray ordered, will review
[2017-09-14 13:54] LABS: ABG Base Excess 0.8 mmol/L (-2-2); ABG PCO2 37 mmHg (38-42); ABG PO2 80 mmHg (61-120)
[2017-09-14] MEDS ORDERED: Potassium Phosphate Inj 30 MMOL in Sodium Chlor 0.9% Inj 250 ML IV.SIG ONE (14:00)
--- NOTE | 2017-09-14 14:04 | XR ---
EXAM DATE: 09/14/2017 1:57 PM EDT AGE/SEX: 62 years / Male INDICATIONS: Post endotracheal tube placement. CLINICAL DATA: This is the patient's initial encounter. Patient reports that signs and symptoms have been present for 3 days and indicates a pain score of Nonresponsive. MEDICAL/SURGICAL HISTORY: Hypertension. Cardiovascular disease. TURP . Aortic valve replaceme nt. COMPARISON: [facility], CHEST 1V SINGLE AP, 09/14/2017. . FINDINGS: A single AP semierect portable view of the chest was obtained and demonstrates interval placement of an endotracheal tube with the tip 3 cm above the radha. The nasogastric tube remains in place with t he distal side port now projected near the distal esophagus. Hazy opacity remains in the perihilar re gions and both lung bases. There are bilateral effusions. The patient is status post median sternotom y and there is an artificial heart valve in place. The heart size remains mildly prominent. Atheroscl erotic changes are again noted in the aorta. CONCLUSION: 1. Interval intubation. 2. Mild advancement of the nasogastric tube the distal side port projected over the region of the ga stroesophageal junction. 3. Hazy opacity remains in both lungs most consistent with pulmonary edema. Bilateral effusions are present. Electronically signed by: Aurelio Jane MD 09/14/2017 2:03 PM EDT
[2017-09-14] MEDS: Vancomycin Inj 1,250 MG in Sodium Chlor 0.9% Inj 250 ML IV.SIG SCH (14:26)
[2017-09-14] MEDS ORDERED: Potassium Chlor 20 mEq Premix 20 MEQ/100 ML PIGGYBACK IV.SIG ONE (15:30)
[2017-09-14] MEDS ORDERED: Iohexol 300 MG/ML 50 ML Vial (for Rad Diag) IVCONTRAST ONE (16:44)
--- NOTE | 2017-09-14 17:10 | XR ---
EXAM DATE: 09/14/2017 5:03 PM EDT AGE/SEX: 62 years / Male INDICATIONS: Evaluate for bladder clot. CLINICAL DATA: This is the patient's initial encounter. Patient reports that signs and symptoms have been present for 1 day and indicates a pain score of Nonresponsive. MEDICAL/SURGICAL HISTORY: . Hypertension. Cardiovascular disease. . Turp,aortic valve COMPARISON: [facility] [place], CT ABDOMEN & PELVIS W/O CONTRAST, 09/13/2017. . FINDINGS: A single coned-down view of the pelvis was obtained in the major camera demonstrates a Hannah catheter projected over the pelvis with a small amount of surrounding contrast surrounding. The balloon. The bony structures appear intact. There is a left femoral line projected over the left side of the pelvi s. CONCLUSION: Hannah catheter projected over the pelvis. Electronically signed by: Aurelio Jane MD 09/14/2017 5:09 PM EDT
[2017-09-14] MEDS: Oral Hygiene Kit OROPHARYNG SCH (17:47)
[2017-09-14 19:21] LABS: Baso % (Auto) 0.1 % (0.0-2.0); Eos % (Auto) 0.3 % (0.0-4.0); Lymph # (Auto) 0.5 th/mm3 (1.0-4.8); Lymph % (Auto) 6.9 % (9.0-44.0); Mean Corpuscular HGB Conc 34.9 % (32.0-36.0); Mean Corpuscular Hemoglobin 29.7 pg (27.0-34.0); Mean Corpuscular Volume 85.2 fL (80.0-100.0); Mean Platelet Volume 9.3 fL (7.0-11.0); Mono # (Auto) 0.8 th/mm3 (0.0-0.9); Mono % (Auto) 11.1 % (0.0-8.0); Neut # (Auto) 5.8 th/mm3 (1.8-7.7); Neut % (Auto) 81.6 % (16.0-70.0); Platelet Count 67 th/mm3 (150-450); Red Blood Count 2.23 mil/mm3 (4.50-5.90); Red Cell Distribution Width 16.6 % (11.6-17.2); White Blood Count 7.2 th/mm3 (4.0-11.0)
[2017-09-14 19:28] LABS: Hemoglobin 6.6 gm/dL (13.0-17.0)
[2017-09-14 19:41] LABS: Anion Gap 9 meq/L (5-15); Blood Urea Nitrogen 22 mg/dL (7-18); Calcium 7.3 mg/dL (8.5-10.1); Carbon Dioxide 25.8 meq/L (21.0-32.0); Chloride 115 meq/L (98-107); Glomerular Filtration Rate Greater Than 89 mL/min (>89); Glucose,Random 103 mg/dL (74-106); Potassium 3.7 meq/L (3.5-5.1); Sodium 150 meq/L (136-145)
[2017-09-14 19:55] LABS: Lymphocytes 10 % (9-44); Metamyelocytes 1 % (0-1); Monocytes 8 % (0-8); Platelet Morphology Normal (Normal); Toxic Granulation 2+
[2017-09-14 19:56] LABS: Ovalocytes 1+
[2017-09-14 20:09] LABS: Total Protein 5.5 g/dL (6.4-8.2)
[2017-09-14] MEDS ORDERED: fentaNYL Citrate Inj 100 MCG/2 ML Ampul ONE (21:00)
[2017-09-14] MEDS ORDERED: Potassium Chlor 20 mEq Premix 20 MEQ/100 ML PIGGYBACK IV.SIG SCH (21:15)
--- NOTE | 2017-09-14 21:23 | MP ---
cc: Mega Banda MD DATE OF OPERATION: 09/14/2017 DATE OF OPERATION: 09/14/2017. PREOPERATIVE DIAGNOSES: 1. Hematuria. 2. Bladder perforation. POSTOPERATIVE DIAGNOSES: 1. Hematuria. 2. Bladder perforation. PROCEDURE PERFORMED: 1. On-table cystogram 2. Cystoscopy. 3. Clot evacuation. 4. Fulguration of bleeders. 5. Exploratory laparotomy. 6. Closure of cystotomy. 7. Suprapubic tube placement. SURGEON SUPERVISOR FUNCTIONAL TESTING: Dr. Ramsey Bower. PERTINENT FINDINGS: 1. On-table cystogram did not identify any obvious bladder perforation or extravasation of contrast from the bladder. 2. Significant clot burden noted within the bladder. No obvious arterial bleed; however, oozing noted throughout the bladder. 3. Concern for bladder perforation. Therefore, exploratory laparotomy identified significant fluid within the peritoneal cavity, over 500 mL, along with significant fluid surrounding the bladder. 4. Cystotomy identified significant clot burden within the bladder. This was then subsequently closed after placement of a suprapubic tube. 5. At the end of the procedure, a 24-Qatari 3-way catheter was inserted through the urethra; a 22-Qatari suprapubic catheter, Troy drain in the pelvis, and a JASON drain in the abdomen to bulb suction. HISTORY OF PRESENT ILLNESS: Adam Saucedo is a 62-year-old male with a history of urinary retention secondary to BPH. He has a history of aortic valve for which he is on Coumadin. He underwent a GreenLight procedure due to his Coumadin in order to alleviate his BPH and retention. The GreenLight procedure was without complication. However, postoperatively, the patient developed significant bleeding, at which point his INR was found to be as high as 5.5. The patient was admitted to the ICU and his clinical picture continued to deteriorate, with a distended bladder and CT scan identifying significant clot within the bladder; however, no obvious perforation. However, clinical picture was concerning for possible perforation, therefore the patient was taken to the OR for evaluation. PROCEDURE IN DETAIL: After proper informed consent was obtained, the patient was brought to the operating room and laid supine on the table. Bilateral lower extremity SCDs were then placed. The patient was placed under general anesthesia. The patient was placed in lithotomy position, prepped and draped in standard sterile fashion. After preoperative timeout was completed, the rigid cystoscope was inserted through the urethra into the bladder. Urethral mucosa within normal limits, without any abnormalities or lesions throughout. Upon entering the bladder, prior GreenLight TURP resection was identified. No obvious bleeding from the TURP site; however oozing was noted throughout. Bilateral ureteral orifices were identified. The bladder was then entered, with significant clot burden noted. The posterior and base of the bladder wall appeared to be normal; however, the anterior and dome portion of the bladder had significant clot burden attached to this area. Resection and irrigation of this clot was performed with multiple Ellik evacuations and cauterization of any obvious bleeding sites. However, the tumor burden was significant and the patient's belly appeared to be becoming more distended throughout the procedure. Therefore, we decided the patient likely had a bladder perforation; however, unable to be visualized. Prior to cystoscope placement, a cystogram on table was performed which did not identify any obvious extravasation of contrast. There were no signs of bladder perforation on the cystogram. However, again, during cystoscopy the patient's bladder continued to be distended, with concern for probable perforation. At this point, therefore, Dr. Ramsey Bower joined the case in order to perform an exploratory laparotomy. The patient was then reprepped and draped in standard sterile fashion. An incision was made from above the umbilicus down to the level of the pubic bone. Careful dissection was carried down through the inferior portion of the incision, entered the space of Retzius and extraperitoneal space. There was significant fluid noted in this area. The bladder was identified and this was also entered, with significant clot burden noted. This clot burden filled the entire bladder and was about the size of a grapefruit. All this clot was then removed from the bladder. The bladder was inspected on the inside with no obvious bladder perforation or hole noted; however, there was some concern along the right lateral bladder wall. At this point, the peritoneal cavity was entered and significant fluid, approximately 500 mL of fluid, was noted within the peritoneal cavity. Washout of his peritoneal cavity was then completed. Further inspection did not reveal any other abnormalities. At this point, the bladder was inspected in great detail, and cautery of any bleeding sites. The remainder of the peritoneal cavity as well as the space of Retzius were within normal limits. Therefore, it was decided at this point to place a drain within the abdomen. Therefore, a JASON drain was placed in the peritoneal cavity and placed to bulb suction. Following this, the bladder cystotomy was then closed after placing a 24-Qatari urethral catheter and a 22-Qatari suprapubic catheter. Following this, a Brittany drain was placed in the pelvis. All bleeding sites were fulgurated. At this point, the fascia was then closed using 0 PDS. The skin was then closed using marleni. The catheter was irrigated and proved to be open, without any evidence of clot. The patient was then taken to the PACU in good and stable condition, as he was intubated. His wound was dressed properly. DISPOSITION: The patient will undergo bilateral nephrostomy tube placement in order to divert his urine and prevent any clotting of his catheters. This will allow his bladder to dry up and eventually heal, and eventually we can take the drains and catheters out. The patient will return to the ICU for close monitoring. MD IVETH Barry/CHELLY , 08:48 PM , 09:02 PM
[2017-09-14] MEDS ORDERED: Calcium Chloride Inj 1 GM in Sodium Chlor 0.9% Inj 100 ML IV.SIG SCH (23:00)
[2017-09-14] MEDS: Chlorhexidine 0.12% Oral Kit 15 ML UDC OROPHARYNG SCH (23:26)
[2017-09-14] MEDS: Propofol 1000 mg/100 ml Inj 1,000 MG/100 ML BOTTLE IV.CONT PRN (23:39)
[2017-09-15] MEDS: Senna/Docusate Sodium 8.6/50 MG Tablet PO SCH ×3 (00:21→20:15)
[2017-09-15] MEDS: Chlorhexidine Gluconate 2% 1 Pack (2 Cloths) TOPICAL SCH ×2 (03:25→05:26)
[2017-09-15] MEDS: Albumin Human 5% Inj 500 ML IV.SIG SCH ×4 (03:26→11:38)
[2017-09-15 03:35] LABS: Baso # (Auto) 0.1 th/mm3 (0.0-0.2); Eos % (Auto) 0.1 % (0.0-4.0); Hematocrit 27.2 % (39.0-51.0); Hemoglobin 9.5 gm/dL (13.0-17.0); Lymph # (Auto) 0.3 th/mm3 (1.0-4.8); Mean Corpuscular HGB Conc 34.9 % (32.0-36.0); Mean Corpuscular Hemoglobin 30.4 pg (27.0-34.0); Mean Corpuscular Volume 86.9 fL (80.0-100.0); Mean Platelet Volume 9.7 fL (7.0-11.0); Mono # (Auto) 0.7 th/mm3 (0.0-0.9); Mono % (Auto) 7.9 % (0.0-8.0); Neut # (Auto) 8.2 th/mm3 (1.8-7.7); Platelet Count 64 th/mm3 (150-450); Red Blood Count 3.13 mil/mm3 (4.50-5.90); Red Cell Distribution Width 15.6 % (11.6-17.2); White Blood Count 9.3 th/mm3 (4.0-11.0)
[2017-09-15] MEDS: Vancomycin Inj 1,250 MG in Sodium Chlor 0.9% Inj 250 ML IV.SIG SCH ×2 (03:44→13:54)
[2017-09-15 03:45] LABS: Albumin 4.1 g/dL (3.4-5.0); Calcium 7.4 mg/dL (8.5-10.1); Carbon Dioxide 22.3 meq/L (21.0-32.0); Potassium 3.5 meq/L (3.5-5.1); Total Protein 6.1 g/dL (6.4-8.2)
[2017-09-15 03:47] LABS: INR 1.5 Ratio; Prothrombin Time 14.9 sec (9.8-11.6)
[2017-09-15] MEDS: Propofol 1000 mg/100 ml Inj 1,000 MG/100 ML BOTTLE IV.CONT PRN ×4 (06:00→22:36)
[2017-09-15] MEDS: Metoprolol Tartrate 25 MG Tablet PO SCH ×2 (06:51→17:24)
[2017-09-15] MEDS: Oral Hygiene Kit OROPHARYNG SCH ×3 (07:29→17:24)
[2017-09-15] MEDS: PARoxetine Liq 20 MG/10 ML UDC NG/OG SCH (08:38)
[2017-09-15] MEDS: Famotidine PF Inj 20 MG/2 ML Vial IV.PUSH SCH ×2 (08:38→20:03)
--- NOTE | 2017-09-15 08:58 | P.PNURO ---
Subjective Patient symptoms today: POD#1 cystoscopy, clot evacuation, fulguration of bleeders, exploratory laparotomy, closure of cystotomy, suprapubic tube placement -Hgb and Cr stable, transfused 2u PRBCs last night -Urethral catheter draining bloody urine, CBI on slow rate via SPT. Flushes easily -Abdomen improved immediately after surgery, however appears slightly more distended this morning -JASON output over 250cc Objective Vital Signs: Vital Signs 09/14/17 10:00 09/14/17 12:00 09/14/17 12:37 Temperature 97.8 F Pulse Rate 60 58 L Respiratory Rate 20 16 Blood Pressure 133/62 Pulse Oximetry 100 09/14/17 14:00 09/14/17 14:53 09/14/17 15:26 Temperature 97.9 F 97.9 F Pulse Rate 60 55 L 49 L Respiratory Rate 18 16 Blood Pressure 107/58 L 138/55 L Pulse Oximetry 99 99 09/14/17 21:25 09/14/17 22:00 09/14/17 23:14 Temperature 97.9 F Pulse Rate 50 L 50 L Respiratory Rate 16 16 Blood Pressure 141/56 H Pulse Oximetry 100 09/14/17 23:18 09/15/17 00:00 09/15/17 00:49 Temperature 97.9 F 98.0 F Pulse Rate 49 L 60 Respiratory Rate 16 16 19 Blood Pressure 134/56 L 158/71 H Pulse Oximetry 100 09/15/17 02:00 09/15/17 03:15 09/15/17 04:00 Temperature 98.1 F Pulse Rate 60 71 Respiratory Rate 23 19 Blood Pressure 146/62 H Pulse Oximetry 98 100 09/15/17 06:00 Temperature Pulse Rate 73 Respiratory Rate Blood Pressure Pulse Oximetry Intake & Output 09/14/17 09/15/17 09/15/17 18:59 06:59 18:59 Intake Total 1709.5 / 1709.5 58149.5 / 80614.5 110 / 110 Output Total 9390 / 9390 Balance 1709.5 / 1709.5 8872.5 / 8872.5 110 / 110 Weight 75.6 kg Intake: IV 1362.5 / 1362.5 1462.5 / 1462.5 110 / 110 Diprivan 1000 mg/100 ml Inj 1, 100 / 100 000 mg In 100 ml @ 5 MCG/KG/MIN 2.247 mls/hr IV.CONT TITRATE PRN Rx#:[id number] Alburx 5% Inj 500 ML @ 250 mls/ 1000 / 1000 1000 / 1000 hr IV.SIG Q6H [facility] Rx#:[id number] Calcium Chloride Inj 1 GM In NS 110 / 110 Inj 100 ML @ 110 mls/hr IV.SIG UNSCH X1 [facility] Rx#:[id number] Maxipime Inj 2,000 MG In NS Inj 100 / 100 100 / 100 100 ML @ 200 mls/hr IV.SIG Q12H [facility] Rx#:[id number] Vancomycin Inj 1,250 MG In NS 262.5 / 262.5 262.5 / 262.5 Inj 250 ML @ 250 mls/hr IV.SIG Q12H [facility] Rx#:[id number] Anesthesia Amount 2500 / 2500 Other 41308 / 99438 Intake (Blood Product) Amt 347 / 347 0 / 0 Liquid Plasma Cp2d Unit 347 / 347 [id number] Plasma Thawed 5 Day Cp2d Unit 0 / 0 [id number] Rbc As-3 Leukoreduced Unit 0 / 0 [id number] Autotransfusion Amount 800 / 800 Output: Estimated Blood Loss 1000 / 1000 Urine Amount (Catheter) 6900 / 6900 3-way Urethral 6600 / 6600 Indwelling Urethral Catheter 300 / 300 Gastric Drainage 100 / 100 Right Nare 100 / 100 Wound Drainage 1390 / 1390 # 1 Abdomen 1390 / 1390 Other: Bladder Irrigation Fluid - Amount Instilled 3-way Urethral 7,900 Indwelling Urethral Catheter 3,000 Bladder Irrigation Fluid - Amount Drained 3-way Urethral 6,450 Other Intake Source Saline Solution Date of Last Bowel Movement 09/11/17 09/11/17 # Bowel Movements 0 Result Diagrams: 09/15/17 02:50 09/15/17 02:50 Imaging: Impressions Abdomen X-Ray 09/14/17 00:00 CONCLUSION: Chest X-Ray 09/14/17 00:00 CONCLUSION: Chest X-Ray 09/14/17 00:00 CONCLUSION: Medications and IVs: Active Medications Generic Name Dose Route Start Last Admin Trade Name Freq PRN Reason Stop Dose Admin Acetaminophen 650 mg 09/11/17 22:17 09/14/17 02:36 Tylenol PO 650 mg Q6H PRN Administration PAIN 1-10 AND/OR FEVER >101F Al Hydroxide/Mg Hydroxide 30 ml 09/11/17 22:17 Milk Of Magnesia Liq PO Q12H PRN Mild Constipation Albuterol 1 ampul 09/11/17 22:17 Duoneb Neb (Prn) NEB Q2HR NEB PRN WHEEZING Albuterol 1 ampul 09/14/17 11:56 Duoneb Neb (Prn) NEB Q4HR NEB PRN SHORTNESS OF BREATH Atorvastatin Calcium 80 mg 09/12/17 09:00 09/14/17 08:42 Lipitor PO Not Given DAILY [facility] Bisacodyl 10 mg 09/11/17 22:17 Dulcolax Supp RECTAL DAILY PRN SEVERE CONSITIPATION Chlorhexidine Gluconate 3 pack 09/12/17 04:00 09/15/17 05:26 Chlorhexidine 2% Cloth TOPICAL 09/17/17 03:59 3 pack DAILY@0400 [facility] Administration Chlorhexidine Gluconate 3 pack 09/12/17 04:00 Chlorhexidine 2% Cloth TOPICAL 09/17/17 03:59 DAILY@0400 PRN Extra cloth needed Chlorhexidine Gluconate 15 ml 09/14/17 20:00 09/14/17 23:26 Peridex 0.12% Oral Kit OROPHARYNG 15 ml BID@0800,2000 [facility] Administration Famotidine 20 mg 09/12/17 09:00 09/14/17 23:38 Pepcid Pf Inj IV.PUSH 20 mg Q12HR [facility] Administration Fentanyl Citrate 50 mcg 09/14/17 11:56 Fentanyl Inj IV.PUSH Q1H PRN SEE LABEL COMMENTS Furosemide 40 mg 09/14/17 21:15 Lasix Inj IV.PUSH 09/15/17 21:14 UNSCH X1 [facility] Norepinephrine Bitartrate 4 mg in 250 mls @ 7.5 mls/hr 09/11/17 20:45 05:45 Levophed-Dextrose 4 Mg/250 Ml Drip IV.SIG 1 mcg/min TITRATE PRN 3.75 mls/hr Per Protocol Titration Protocol 2 MCG/MIN Albumin Human 500 mls @ 250 mls/hr 09/11/17 23:00 09/15/17 06:51 Alburx 5% Inj IV.SIG 125 mls/hr Q6H [facility] Administration Cefepime HCl 2,000 mg/ Sodium 100 mls @ 200 mls/hr 09/11/17 23:00 09/15/17 05 :27 Chloride IV.SIG Infused Q12H [facility] Infusion Pharmacy Profile Note 0 mls @ 0 mls/hr 09/11/17 22:24 Vancomycin Consult Pharmacy OTHER [facility] As Directed Pharmacy Profile Note 0 mls @ 0 mls/hr 09/11/17 23:00 Coumadin Consult Pharmacy OTHER [facility] As Directed Vancomycin HCl 1,250 mg/ 262.5 mls @ 250 mls/hr 09/14/17 14:00 09/15/17 05:26 Sodium Chloride IV.SIG Infused Q12H [facility] Infusion Propofol 1,000 mg in 100 mls @ 2.247 mls/hr 09/14/17 12:57 09/15/17 06:00 Diprivan 1000 Mg/100 Ml Inj IV.CONT 35 mcg/kg/min TITRATE PRN 15.73 mls/hr Per Protocol Administration Protocol 5 MCG/KG/MIN Calcium Chloride 1 gm/ Sodium 110 mls @ 110 mls/hr 09/14/17 23:00 09/15/17 07 :31 Chloride IV.SIG 09/15/17 22:59 Infused UNS X1 [facility] Infusion Lactulose 30 ml 09/11/17 22:17 Lactulose Liq PO DAILY PRN SEVERE CONSITIPATION Metoprolol Tartrate 12.5 mg 09/12/17 18:00 09/15/17 06:51 Lopressor PO Not Given Q12H [facility] Miscellaneous Information 0 each 09/16/17 13:45 [facility] Ordered Lab Info OTHER 09/16/17 13:46 ONCE ONE Morphine Sulfate 2 mg 09/11/17 22:17 09/13/17 17:10 Morphine Inj IV.PUSH 2 mg Q2H PRN Administration PAIN SCALE 6 TO 10 Ondansetron HCl 4 mg 09/11/17 22:17 09/11/17 23:30 Zofran Odt PO 4 mg Q6H PRN Administration NAUSEA OR VOMITING Paroxetine HCl 20 mg 09/12/17 18:00 09/14/17 08:42 Paxil Liq NG/OG Not Given DAILY [facility] Senna/Docusate Sodium 1 tab 09/12/17 09:00 09/15/17 00:21 Natividad-Colace PO Not Given BID [facility] Sennosides 17.2 mg 09/11/17 22:17 Senokot PO Q12H PRN Moderate Constipation Sodium Chloride 2 ml 09/11/17 22:17 Ns Flush IV.FLUSH PRN PRN FLUSH AFTER USING IV ACCESS Sodium Chloride 2 ml 09/12/17 09:00 09/14/17 23:26 Ns Flush IV.FLUSH 2 ml BID [facility] Administration Terbutaline Sulfate 1 mg 09/11/17 20:35 Brethine Inj SQ UNSCH PRN For Extravasation Warfarin Sodium 4 mg 09/13/17 16:00 Coumadin PO Q48H [facility] Objective Remarks: Intubated and sedated Incision with dressings in place and saturated with SS fluid. Inferior portion of incision with michael drain in place to allow drainage -JASON in place with over 250cc overnight -SPT with slow CBI running through with light pink output from urethral catheter -Significant scrotal swelling and ecchymosis noted Assessment and Plan - Assessment (1) Hematuria Code(s): R31.9 - Hematuria, unspecified Status: Acute (2) S/P TURP Code(s): Z90.79 - Acquired absence of other genital organ(s) Status: Acute - Plan -Closely monitor CBI on slow rate with periodic hand irrigations. Hand irrigated catheter this morning with 120cc of normal saline with small clots removed. -Hgb improved, will continue to monitor closely -Cr slightly elevated, will continue to follow -Request IR to place bilateral nephrostomy tubes to divert urine away from the bladder and allow healing. This will allow the CBI to be turned off further drying up the bladder with the catheters in place and preventing any further fluid distention of the abdomen. With bilateral nephrostomy tubes in place the urine can be accurately monitored without the concern of clotted catheter and bladder drainage. -Cardiology recommends starting anticoagulation today. Agree with Heparin drip, however will await IR recommendations prior to initiating -Will continue to follow
[2017-09-15] MEDS ORDERED: fentaNYL Citrate Inj 250 MCG/5 ML Ampul ONE (10:40)
[2017-09-15] MEDS: Chlorhexidine 0.12% Oral Kit 15 ML UDC OROPHARYNG SCH (11:37)
--- NOTE | 2017-09-15 11:42 | P.RAD ---
Post Procedure Progress Note - Pre Procedure Diagnosis (1) Hematuria - Post Procedure Diagnosis (1) Hematuria - Procedure Information Procedure Date: 09/15/17 Supervising Radiologist: Serafin Jean Jr, MD Anesthesia: Conscious Sedation - Plan of Activity Patient to Unit: Critical Care Patient Condition: Fair Additional Comments: US of the kidneys shows no hydronephrosis on either side. Attempts at accessing the right kidney were unsuccessful. Did not attemp access to the left kidney. See PACS Report for procedural detail/treatment.
--- NOTE | 2017-09-15 12:28 | P.PNCC ---
Subjective Subjective Remarks/Hospital Course: 62-year-old male presents for an evaluation of generalized weakness. Patient reports that he had an outpatient procedure today at the surgical center- he has green laser surgery to his prostate by Dr. Banda around 7am this morning. Reports that he was at the out patient surgical center for a few hours and was discharged home with a snowden catheter. It was draining blood - he is on coumadin because he has history of aortic valve replacement. Patient reports that after he was discharged to home, he just felt weak overall. In the emergency department he was found to be hypotensive with elevated white count, he was IV fluid resuscitated and the central line was placed by ED attending. He was started on Levophed and is now admitted to ICU. 09/12: Normotensive and mildly tachycardic. INR 4.7, large amount of blood and clots in Snowden drainage. Urology service has been contacted and has arranged to replace Snowden for irrigation -> Lengthy discussion with Solo, patient, and his daughter Claudia. I explained to her that this problem is related to the warfarin and we may need to partially or completely reverse the INR to stop the bleeding. This particular mechanical valve in the aortic position will almost certainly be fine for 2-3 days without warfarin or other anticoagulation should it be necessary. We will then restart it simultaneously with heparin until INR is therapeutic. 09/13: Renal function remains acceptable but ongoing abdominal distention and probable bladder distention remain problematic. He continues to move air well but shallow respirations limited by abdominal distention are worrisome. Will review CAT scan today to get a better idea whether formal endoscopic bladder decompression may be indicated. 09/14: Continued abdominal distention with respiratory embarrassment; desaturation requiring increasing FiO2. Required two additional units prbcs last night. Diuresing with lasix now. CXR with prominent pulmonary venous congestion. He will probably need to be intubated soon. 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 09/15: Back from operating room last evening following cystoscopy and laparotomy for evacuation of bladder clot and inspection of TURP site. Suprapubic catheter and Snowden irrigation in place. Abdomen still moderately distended. Nasogastric suction in place. Mechanical ventilation going well without excessive airway pressures. Oxygenation is acceptable. Chest x-ray shows pulmonary venous congestion. Transfusion now at 5 units of red cells. Objective Vital Signs / I&O: Vital Signs 09/14/17 12:37 09/14/17 14:00 09/14/17 14:53 Temperature 97.9 F Pulse Rate 60 55 L Respiratory Rate 16 18 Blood Pressure 107/58 L Pulse Oximetry 99 09/14/17 15:26 09/14/17 21:25 09/14/17 22:00 Temperature 97.9 F Pulse Rate 49 L 50 L Respiratory Rate 16 16 Blood Pressure 138/55 L Pulse Oximetry 99 100 09/14/17 23:14 09/14/17 23:18 09/15/17 00:00 Temperature 97.9 F 97.9 F 98.0 F Pulse Rate 50 L 49 L 60 Respiratory Rate 16 16 16 Blood Pressure 141/56 H 134/56 L 158/71 H Pulse Oximetry 09/15/17 00:49 09/15/17 02:00 09/15/17 03:15 Temperature Pulse Rate 60 Respiratory Rate 19 23 Blood Pressure Pulse Oximetry 100 98 09/15/17 04:00 09/15/17 06:00 09/15/17 08:00 Temperature 98.1 F 97.2 F L Pulse Rate 71 73 52 L Respiratory Rate 19 16 Blood Pressure 146/62 H 114/44 L Pulse Oximetry 100 99 09/15/17 08:50 09/15/17 10:00 Temperature Pulse Rate 62 Respiratory Rate 18 Blood Pressure Pulse Oximetry 96 Intake & Output 09/14/17 09/15/17 09/15/17 18:59 06:59 18:59 Intake Total 1709.5 / 1709.5 83424.5 / 45547.5 610 / 610 Output Total 9390 / 9390 Balance 1709.5 / 1709.5 8872.5 / 8872.5 610 / 610 Weight 75.6 kg Intake: IV 1362.5 / 1362.5 1462.5 / 1462.5 610 / 610 Diprivan 1000 mg/100 ml Inj 1, 100 / 100 000 mg In 100 ml @ 5 MCG/KG/MIN 2.247 mls/hr IV.CONT TITRATE PRN Rx#:[id number] Alburx 5% Inj 500 ML @ 250 mls/ 1000 / 1000 1000 / 1000 500 / 500 hr IV.SIG Q6H [facility] Rx#:[id number] Calcium Chloride Inj 1 GM In NS 110 / 110 Inj 100 ML @ 110 mls/hr IV.SIG UNSCH X1 [facility] Rx#:[id number] Maxipime Inj 2,000 MG In NS Inj 100 / 100 100 / 100 100 ML @ 200 mls/hr IV.SIG Q12H [facility] Rx#:[id number] Vancomycin Inj 1,250 MG In NS 262.5 / 262.5 262.5 / 262.5 Inj 250 ML @ 250 mls/hr IV.SIG Q12H [facility] Rx#:[id number] Anesthesia Amount 2500 / 2500 Other 86312 / 23164 Intake (Blood Product) Amt 347 / 347 0 / 0 Liquid Plasma Cp2d Unit 347 / 347 [id number] Plasma Thawed 5 Day Cp2d Unit 0 / 0 [id number] Rbc As-3 Leukoreduced Unit 0 / 0 [id number] Autotransfusion Amount 800 / 800 Output: Estimated Blood Loss 1000 / 1000 Urine Amount (Catheter) 6900 / 6900 3-way Urethral 6600 / 6600 Indwelling Urethral Catheter 300 / 300 Gastric Drainage 100 / 100 Right Nare 100 / 100 Wound Drainage 1390 / 1390 # 1 Abdomen 1390 / 1390 Other: Bladder Irrigation Fluid - Amount Instilled 3-way Urethral 7,900 Indwelling Urethral Catheter 3,000 Bladder Irrigation Fluid - Amount Drained 3-way Urethral 6,450 Other Intake Source Saline Solution Date of Last Bowel Movement 09/11/17 09/11/17 # Bowel Movements 0 Result Diagrams: 09/15/17 02:50 09/15/17 02:50 Objective Remarks: - Imaging Impressions Chest X-Ray 09/11/17 19:03 CONCLUSION: Suspected mild right lower lobe consolidation or atelectasis. Abdomen/Pelvis CT 09/11/17 20:30 CONCLUSION: 1. Increased density and scattered air within the urinary bladder. Increased density is likely related to hemorrhage. An underlying mass or process in the bladder cannot be excluded. 2. Mild ascites. 3. Small nonobstructing renal stone seen bilaterally. There is no hydronephrosis. 4. 2 left-sided renal masses are seen. The more superior mass is too dense to represent a simple cyst. It could be a complex cyst or solid mass. The inferior mass is likely related to a cyst. These are nonspecific on this noncontrast CT examination. 5. Distended stomach and distal esophagus. 6. Bibasilar areas of consolidation or atelectasis. Exam - Constitutional mild distress, average body habitus, chronically ill appearing - Routine HEENT Exam Head: Present: normocephalic, atraumatic Eye: Present: PERRL ENT: Present: mucous membranes moist - Routine Neck Exam Present: full ROM. - Routine Chest/Breast/Axilla Exam Chest wall: Absent: tenderness, mass - Routine Respiratory Exam Shallow respirations, markedly limited by abdominal distention. Tachypneic. Rhonchi and light wheezes persist, light crackles. - Routine Cardiovascular Exam Present: RRR, S1, S2, tachycardia at 88. [place] prosthetic valve sounds. + JVD. - Routine Abdominal Exam Present: Generalized tenderness, moderately distended, , tympanitic. JASON drain in midline lower abdomen. Absent: rebound, guarding - Routine Extremities Exam Tepid, adequately perfused. - Routine Skin Exam Present: intact, dry. Absent: cyanosis, erythema - Routine Neurological Exam Present: Sedated on mechanical ventilation. Moves 4 limbs spontaneously to stimulation. Assessment and Plan - Assessment and Plan Plan: Septic shock, resolved -Aggressive IV fluid hydration -Levophed only as needed to keep map above 65 -Continue broad-spectrum antibiotics -Follow-up cultures -Lactic acid trend has normalized. Acute kidney injury -Unknown baseline -IV fluid hydration -Strict I's and O's -Monitor creatinine and electrolyte levels Hematuria -Status post TURP -Urology consultation -Serial hemoglobin -Three-way Snowden irrigation begun -Formal endoscopic decompression today. -Formal laparotomy performed last evening with evacuation of clot and bladder, suprapubic catheter placed and JASON drain placed external to the bladder. Distended abdomen -N.p.o. -CT scan negative for perforation -NG tube to low intermittent wall suction Dyslipidemia -Continue rosuvastatin Status post aortic valve replacement -Continue Coumadin per pharmacy dosing DVT GI prophylaxis -Teds SCDs -Hold Coumadin -Pepcid Overall impression: This gentleman remains critically ill. His gas exchange has improved with mechanical ventilation. Chest x-ray reveals diffuse bilateral pulmonary venous congestion. Limbs are well-perfused and his renal function has remained acceptable. Efforts are underway to prevent extrinsic compression of the bladder and ureters. Unable to wean from ventilator today. I 'll leave anticoagulation to the Cardiology Service. Critical care 40 minutes aside from procedures.
[2017-09-15 12:59] LABS: Hematocrit 21.4 % (39.0-51.0); Hemoglobin 7.4 gm/dL (13.0-17.0)
[2017-09-15] MEDS ORDERED: Iohexol 350 MG/ML 50 ML Vial (for Rad Diag) IVCONTRAST ONE (13:19)
--- NOTE | 2017-09-15 13:27 | IR ---
EXAM DATE: 09/15/2017 1:19 PM EDT AGE/SEX: 62 years / Male INDICATIONS: Patient with bladder rupture and hematuria within the urinary bladder. Bilateral nephro stomy tube placement for urinary diversion is requested by Dr. Banda. CLINICAL DATA: This is the patient's initial encounter. Patient reports that signs and symptoms have been present for 3 days and indicates a pain score of Nonresponsive. MEDICAL/SURGICAL HISTORY: . Aortic valve stenosis, high cholesterol, and hypertension. . H/O t ransurethral resection of prostate. COMPARISON: No prior exams available for comparison. FLUORO TIME (min): 2.0 IMAGE SERIES: 1 SEDATION TIME (min): 30 CONTRAST (cc): 8cc Omnipaque (iohexol) 350 DEVICE(S): . . PROCEDURE : 1. Ultrasound-guided puncture of the kidney. 2. Antegrade percutaneous pyelogram. 3. Percutaneous nephrostomy placement. 4. Conscious sedation with continuous EKG and oximetry monitoring. The risks, benefits and alternatives to the procedure were explained and verbal and written consent w as obtained. The site was prepped in sterile fashion. Full sterile technique was used, including ca p, mask, sterile gloves and gown and a large sterile sheet. Hand hygiene and 2% chlorhexidine and/or betadine/alcohol prep was utilized per protocol for cutaneous antisepsis. Sterile gel and sterile probe cover were utilized for ultrasound guidance. The skin and subcutaneous tissues were infiltrate d with local anesthetic solution. Ultrasound evaluation of the kidneys was performed on the angiography table. No hydronephrosis involv ing either kidney. Ultrasound-guided passage of a 21-gauge needle into the midpole of the right kidne y was performed to try and gain access to the decompressed collecting system. I was not able to gain access to the collecting system. No attempt made on the left. The procedure was terminated. Conscious sedation was performed with the prescribed dosages and duration as above in the presence o f an independent trained radiology nurse to assist in the monitoring of the patient. EKG and oximetr y remained stable throughout the procedure. The patient tolerated the procedure well and there were no complications. The patient was sent to post anesthesia recovery in stable condition. CONCLUSION: 1. Failed attempt at gaining access to the collecting system of the right kidney in this patient wit h no hydronephrosis on either side. If the patient develops hydronephrosis consideration could be mad e to repeat attempt at nephrostomy tube placement if clinically warranted.. Electronically signed by: Serafin Jean MD 09/15/2017 1:26 PM EDT
[2017-09-15 13:36] LABS: Magnesium 1.9 mg/dL (1.5-2.5)
[2017-09-15] MEDS ORDERED: Heparin Drip 25,000 UNIT/250 ML BAG IV.CONT PRN (14:30)
--- NOTE | 2017-09-15 17:16 | P.PNURO ---
Subjective Patient symptoms today: IR unable to place nephrostomy tubes CBI appears to be clearing up on slow rate. Continue CBI for now until resume anticoagulation Discussed with Dr. Matthews, will hold off Heparin drip for today, plan to start tomorrow am Transfuse 2u PRBC with 20mg Lasix in between and aggressively replace potassium Objective Vital Signs: Vital Signs 09/14/17 21:25 09/14/17 22:00 09/14/17 23:14 Temperature 97.9 F Pulse Rate 50 L 50 L Respiratory Rate 16 16 Blood Pressure 141/56 H Pulse Oximetry 100 09/14/17 23:18 09/15/17 00:00 09/15/17 00:49 Temperature 97.9 F 98.0 F Pulse Rate 49 L 60 Respiratory Rate 16 16 19 Blood Pressure 134/56 L 158/71 H Pulse Oximetry 100 09/15/17 02:00 09/15/17 03:15 09/15/17 04:00 Temperature 98.1 F Pulse Rate 60 71 Respiratory Rate 23 19 Blood Pressure 146/62 H Pulse Oximetry 98 100 09/15/17 06:00 09/15/17 08:00 09/15/17 08:50 Temperature 97.2 F L Pulse Rate 73 52 L Respiratory Rate 16 18 Blood Pressure 114/44 L Pulse Oximetry 99 96 09/15/17 10:00 09/15/17 12:00 09/15/17 15:49 Temperature 97.3 F L Pulse Rate 62 48 L Respiratory Rate 16 16 Blood Pressure 125/53 L Pulse Oximetry 99 09/15/17 16:00 Temperature Pulse Rate Respiratory Rate 17 Blood Pressure Pulse Oximetry Intake & Output 09/14/17 09/15/17 09/15/17 18:59 06:59 18:59 Intake Total 1709.5 / 1709.5 78535.5 / 81557.5 1072.5 / 1072.5 Output Total 9390 / 9390 520 / 520 Balance 1709.5 / 1709.5 8872.5 / 8872.5 552.5 / 552.5 Weight 75.6 kg Intake: IV 1362.5 / 1362.5 1462.5 / 1462.5 1072.5 / 1072.5 Diprivan 1000 mg/100 ml Inj 1, 100 / 100 100 / 100 000 mg In 100 ml @ 5 MCG/KG/MIN 2.247 mls/hr IV.CONT TITRATE PRN Rx#:[id number] Alburx 5% Inj 500 ML @ 250 mls/ 1000 / 1000 1000 / 1000 500 / 500 hr IV.SIG Q6H [facility] Rx#:[id number] Calcium Chloride Inj 1 GM In NS 110 / 110 Inj 100 ML @ 110 mls/hr IV.SIG UNSCH X1 [facility] Rx#:[id number] Maxipime Inj 2,000 MG In NS Inj 100 / 100 100 / 100 100 / 100 100 ML @ 200 mls/hr IV.SIG Q12H [facility] Rx#:[id number] Vancomycin Inj 1,250 MG In NS 262.5 / 262.5 262.5 / 262.5 262.5 / 262.5 Inj 250 ML @ 250 mls/hr IV.SIG Q12H [facility] Rx#:[id number] Anesthesia Amount 2500 / 2500 Other 79093 / 85499 Intake (Blood Product) Amt 347 / 347 0 / 0 Liquid Plasma Cp2d Unit 347 / 347 [id number] Plasma Thawed 5 Day Cp2d Unit 0 / 0 [id number] Rbc As-3 Leukoreduced Unit 0 / 0 [id number] Autotransfusion Amount 800 / 800 Output: Estimated Blood Loss 1000 / 1000 Urine Amount (Catheter) 6900 / 6900 50 / 50 3-way Urethral 6600 / 6600 50 / 50 Indwelling Urethral Catheter 300 / 300 Gastric Drainage 100 / 100 Right Nare 100 / 100 Wound Drainage 1390 / 1390 470 / 470 # 1 Abdomen 1390 / 1390 470 / 470 Other: Bladder Irrigation Fluid - Amount Instilled 3-way Urethral 7,900 3,000 Indwelling Urethral Catheter 3,000 Bladder Irrigation Fluid - Amount Drained 3-way Urethral 6,450 1,675 Other Intake Source Saline Solution Date of Last Bowel Movement 09/11/17 09/11/17 # Bowel Movements 0 Result Diagrams: 09/15/17 12:30 09/15/17 02:50 Imaging: Impressions Abdomen X-Ray 09/14/17 00:00 CONCLUSION: Hannah catheter projected over the pelvis. Chest X-Ray 09/14/17 00:00 CONCLUSION: 1. Mild to moderate pulmonary vascular congestion. 2. Mild hepatomegaly. 3. Small bilateral pleural effusions. 4. Nasogastric tube has its tip in the distal esophagus. Chest X-Ray 09/14/17 00:00 CONCLUSION: 1. Interval intubation. 2. Mild advancement of the nasogastric tube the distal side port projected over the region of the gastroesophageal junction. 3. Hazy opacity remains in both lungs most consistent with pulmonary edema. Bilateral effusions are present. Nephrostomy 09/15/17 20:38 CONCLUSION: 1. Failed attempt at gaining access to the collecting system of the right kidney in this patient with no hydronephrosis on either side. If the patient develops hydronephrosis consideration could be made to repeat attempt at nephrostomy tube placement if clinically warranted.. Medications and IVs: Active Medications Generic Name Dose Route Start Last Admin Trade Name Freq PRN Reason Stop Dose Admin Acetaminophen 650 mg 09/11/17 22:17 09/14/17 02:36 Tylenol PO 650 mg Q6H PRN Administration PAIN 1-10 AND/OR FEVER >101F Al Hydroxide/Mg Hydroxide 30 ml 09/11/17 22:17 Milk Of Magnesia Liq PO Q12H PRN Mild Constipation Albuterol 1 ampul 09/11/17 22:17 Duoneb Neb (Prn) NEB Q2HR NEB PRN WHEEZING Albuterol 1 ampul 09/14/17 11:56 Duoneb Neb (Prn) NEB Q4HR NEB PRN SHORTNESS OF BREATH Atorvastatin Calcium 80 mg 09/12/17 09:00 09/15/17 11:37 Lipitor PO Not Given DAILY [facility] Bisacodyl 10 mg 09/11/17 22:17 Dulcolax Supp RECTAL DAILY PRN SEVERE CONSITIPATION Chlorhexidine Gluconate 3 pack 09/12/17 04:00 09/15/17 05:26 Chlorhexidine 2% Cloth TOPICAL 09/17/17 03:59 3 pack DAILY@0400 [facility] Administration Chlorhexidine Gluconate 3 pack 09/12/17 04:00 Chlorhexidine 2% Cloth TOPICAL 09/17/17 03:59 DAILY@0400 PRN Extra cloth needed Chlorhexidine Gluconate 15 ml 09/14/17 20:00 09/15/17 11:37 Peridex 0.12% Oral Kit OROPHARYNG 15 ml BID@0800,2000 [facility] Administration Famotidine 20 mg 09/12/17 09:00 09/15/17 08:38 Pepcid Pf Inj IV.PUSH 20 mg Q12HR [facility] Administration Fentanyl Citrate 50 mcg 09/14/17 11:56 Fentanyl Inj IV.PUSH Q1H PRN SEE LABEL COMMENTS Furosemide 40 mg 09/14/17 21:15 Lasix Inj IV.PUSH 09/15/17 21:14 UNS X1 [facility] Norepinephrine Bitartrate 4 mg in 250 mls @ 7.5 mls/hr 09/11/17 20:45 05:45 Levophed-Dextrose 4 Mg/250 Ml Drip IV.SIG 1 mcg/min TITRATE PRN 3.75 mls/hr Per Protocol Titration Protocol 2 MCG/MIN Cefepime HCl 2,000 mg/ Sodium 100 mls @ 200 mls/hr 09/11/17 23:00 09/15/17 13 :55 Chloride IV.SIG Infused Q12H [facility] Infusion Pharmacy Profile Note 0 mls @ 0 mls/hr 09/11/17 22:24 Vancomycin Consult Pharmacy OTHER [facility] As Directed Pharmacy Profile Note 0 mls @ 0 mls/hr 09/11/17 23:00 Coumadin Consult Pharmacy OTHER [facility] As Directed Vancomycin HCl 1,250 mg/ 262.5 mls @ 250 mls/hr 09/14/17 14:00 09/15/17 14:55 Sodium Chloride IV.SIG Infused Q12H [facility] Infusion Propofol 1,000 mg in 100 mls @ 2.247 mls/hr 09/14/17 12:57 09/15/17 12:35 Diprivan 1000 Mg/100 Ml Inj IV.CONT 40 mcg/kg/min TITRATE PRN 17.98 mls/hr Per Protocol Administration Protocol 5 MCG/KG/MIN Calcium Chloride 1 gm/ Sodium 110 mls @ 110 mls/hr 09/14/17 23:00 09/15/17 07 :31 Chloride IV.SIG 09/15/17 22:59 Infused UNS X1 [facility] Infusion Heparin Sodium/Dextrose 25,000 unit in 250 mls @ 0 mls/hr 09/15/17 14:30 Heparin/D5w 25,000 U/250 Ml IV.CONT TITRATE PRN Per Protocol Protocol Per Protocol Lactulose 30 ml 09/11/17 22:17 Lactulose Liq PO DAILY PRN SEVERE CONSITIPATION Metoprolol Tartrate 12.5 mg 09/12/17 18:00 09/15/17 06:51 Lopressor PO Not Given Q12H [facility] Miscellaneous Information 0 each 09/16/17 01:45 [facility] [place] [facility] Ordered Lab Info OTHER 09/16/17 01:46 ONCE ONE Morphine Sulfate 2 mg 09/11/17 22:17 09/13/17 17:10 Morphine Inj IV.PUSH 2 mg Q2H PRN Administration PAIN SCALE 6 TO 10 Ondansetron HCl 4 mg 09/11/17 22:17 09/11/17 23:30 Zofran Odt PO 4 mg Q6H PRN Administration NAUSEA OR VOMITING Paroxetine HCl 20 mg 09/12/17 18:00 09/15/17 08:38 Paxil Liq NG/OG Not Given DAILY [facility] Senna/Docusate Sodium 1 tab 09/12/17 09:00 09/15/17 11:38 Natividad-Colace PO Not Given BID [facility] Sennosides 17.2 mg 09/11/17 22:17 Senokot PO Q12H PRN Moderate Constipation Sodium Chloride 2 ml 09/11/17 22:17 Ns Flush IV.FLUSH PRN PRN FLUSH AFTER USING IV ACCESS Sodium Chloride 2 ml 09/12/17 09:00 09/15/17 08:37 Ns Flush IV.FLUSH 2 ml BID [facility] Administration Terbutaline Sulfate 1 mg 09/11/17 20:35 Brethine Inj SQ UNSCH PRN For Extravasation Warfarin Sodium 4 mg 09/13/17 16:00 Coumadin PO Q48H [facility] Objective Remarks: JASON drain with 450cc Abodmen distended, somewhat improved/softer than this am Hannah is clear, no clots with CBI Ecchymosis and swelling of scrotum Assessment and Plan - Assessment (1) Hematuria Code(s): R31.9 - Hematuria, unspecified Status: Acute (2) S/P TURP Code(s): Z90.79 - Acquired absence of other genital organ(s) Status: Acute
[2017-09-15] MEDS ORDERED: Potassium Chlor 20 mEq Premix 20 MEQ/100 ML PIGGYBACK IV.SIG ONE (18:30)
[2017-09-15] MEDS: fentaNYL Citrate Inj 100 MCG/2 ML Ampul IV.PUSH PRN (20:02)
[2017-09-15] MEDS ORDERED: Potassium Phosphate Inj 30 MMOL in Sodium Chlor 0.9% Inj 250 ML IV.SIG STA (21:57)
[2017-09-15 23:37] LABS: Anion Gap 8 meq/L (5-15); Blood Urea Nitrogen 17 mg/dL (7-18); Calcium 7.6 mg/dL (8.5-10.1); Carbon Dioxide 25.3 meq/L (21.0-32.0); Chloride 115 meq/L (98-107); Glomerular Filtration Rate Greater Than 89 mL/min (>89); Glucose,Random 94 mg/dL (74-106); Potassium 3.2 meq/L (3.5-5.1); Sodium 148 meq/L (136-145)
[2017-09-16] MEDS ORDERED: Pharmacy Ordered Lab Info OTHER ONE ×2 (01:45→13:45)
[2017-09-16] MEDS: Oral Hygiene Kit OROPHARYNG SCH ×4 (02:36→15:05)
[2017-09-16] MEDS: Chlorhexidine 0.12% Oral Kit 15 ML UDC OROPHARYNG SCH ×3 (02:36→20:50)
[2017-09-16] MEDS: Vancomycin Inj 1,250 MG in Sodium Chlor 0.9% Inj 250 ML IV.SIG SCH ×2 (02:42→14:40)
[2017-09-16] MEDS: fentaNYL Citrate Inj 100 MCG/2 ML Ampul IV.PUSH PRN ×2 (03:50→09:37)
[2017-09-16 04:18] LABS: Baso % (Auto) 0.1 % (0.0-2.0); Eos # (Auto) 0.4 th/mm3 (0.0-0.4); Eos % (Auto) 3.9 % (0.0-4.0); Hematocrit 30.9 % (39.0-51.0); Lymph # (Auto) 0.8 th/mm3 (1.0-4.8); Lymph % (Auto) 8.1 % (9.0-44.0); Mean Corpuscular HGB Conc 35.6 % (32.0-36.0); Mean Corpuscular Hemoglobin 30.2 pg (27.0-34.0); Mean Corpuscular Volume 84.8 fL (80.0-100.0); Mean Platelet Volume 9.3 fL (7.0-11.0); Mono # (Auto) 1.2 th/mm3 (0.0-0.9); Mono % (Auto) 12.2 % (0.0-8.0); Neut # (Auto) 7.3 th/mm3 (1.8-7.7); Neut % (Auto) 75.7 % (16.0-70.0); Platelet Count 71 th/mm3 (150-450); Red Blood Count 3.65 mil/mm3 (4.50-5.90); Red Cell Distribution Width 17.4 % (11.6-17.2); White Blood Count 9.6 th/mm3 (4.0-11.0)
[2017-09-16 04:22] LABS: INR 1.2 Ratio
[2017-09-16] MEDS: Propofol 1000 mg/100 ml Inj 1,000 MG/100 ML BOTTLE IV.CONT PRN ×2 (04:30→09:20)
[2017-09-16 04:49] LABS: Anion Gap 7 meq/L (5-15); Blood Urea Nitrogen 15 mg/dL (7-18); Calcium 7.4 mg/dL (8.5-10.1); Carbon Dioxide 26.6 meq/L (21.0-32.0); Chloride 113 meq/L (98-107); Glomerular Filtration Rate Greater Than 89 mL/min (>89); Glucose,Random 95 mg/dL (74-106); Magnesium 1.8 mg/dL (1.5-2.5); Phosphorus 2.5 mg/dL (2.5-4.9); Potassium 3.2 meq/L (3.5-5.1); Sodium 147 meq/L (136-145)
--- NOTE | 2017-09-16 04:54 | XR ---
EXAM DATE: 09/16/2017 4:12 AM EDT AGE/SEX: 62 years / Male INDICATIONS: Hypoxemia. CLINICAL DATA: This is the patient's subsequent encounter. Patient reports that signs and symptoms h ave been present for 3 days and indicates a pain score of Nonresponsive. MEDICAL/SURGICAL HISTORY: Cardiovascular disease. Aortic valve stenosis, high cholesterol, and hypertension. . H/O transurethral resection of prostate. COMPARISON: [facility] [place]ST 1V SINGLE AP, 09/14/2017. . FINDINGS: Stable ETT and NGT. Slightly improved hazy opacities in the perihilar and lower lung zones. Postsurgi eva features of prior median sternotomy and cardiac valve replacement. Cardiomegaly mediastinal conto urs are stable. Remainder of exam is unchanged. CONCLUSION: 1. Stable ETT and NGT. 2. Slightly improved pulmonary edema pattern with persistent small bilateral pleural effusions and a ssociated lower lobe airspace disease. Electronically signed by: Anderson Epperson MD 09/16/2017 4:53 AM EDT
[2017-09-16 04:59] LABS: Eosinophils 5 % (0-4); Lymphocytes 8 % (9-44); Metamyelocytes 1 % (0-1); Monocytes 6 % (0-8); Myelocytes 1 % (0-0)
[2017-09-16 05:00] LABS: Platelet Morphology Normal (Normal)
[2017-09-16 05:01] LABS: Ovalocytes 1+
[2017-09-16 05:04] LABS: Total Protein 5.7 g/dL (6.4-8.2)
[2017-09-16] MEDS: Metoprolol Tartrate 25 MG Tablet PO SCH ×2 (07:59→17:11)
[2017-09-16] MEDS: Chlorhexidine Gluconate 2% 1 Pack (2 Cloths) TOPICAL SCH (07:59)
[2017-09-16] MEDS: Famotidine PF Inj 20 MG/2 ML Vial IV.PUSH SCH (09:21)
[2017-09-16] MEDS: Senna/Docusate Sodium 8.6/50 MG Tablet PO SCH ×2 (09:23→21:51)
[2017-09-16] MEDS: PARoxetine Liq 20 MG/10 ML UDC NG/OG SCH (09:23)
--- NOTE | 2017-09-16 10:23 | P.PNCA ---
Subjective Interval history: Patient just put on CPAP Proc Tech may extubate today. Progressing slowly Discussed with Dr Barrios Physical Exam Vital signs: Vital Signs 09/15/17 12:00 09/15/17 14:00 09/15/17 15:49 Temperature 97.3 F L Pulse Rate 48 L 47 L Respiratory Rate 16 16 Blood Pressure 125/53 L Pulse Oximetry 99 09/15/17 16:00 09/15/17 18:00 09/15/17 18:58 Temperature 97.7 F 98.2 F Pulse Rate 47 L 50 L 58 L Respiratory Rate 16 16 Blood Pressure 137/57 L 158/64 H Pulse Oximetry 99 99 09/15/17 20:00 09/15/17 20:10 09/15/17 20:48 Temperature 99.1 F 99.0 F Pulse Rate 52 L 52 L Respiratory Rate 19 16 Blood Pressure 158/65 H 155/64 H Pulse Oximetry 99 100 09/15/17 20:52 09/15/17 22:00 09/16/17 00:00 Temperature 99.0 F 98.2 F Pulse Rate 50 L 45 L 46 L Respiratory Rate 16 17 Blood Pressure 150/61 H 154/58 H Pulse Oximetry 100 98 09/16/17 00:05 09/16/17 00:59 09/16/17 02:00 Temperature 98.2 F Pulse Rate 48 L 44 L Respiratory Rate 16 16 Blood Pressure 124/48 L Pulse Oximetry 100 09/16/17 04:00 09/16/17 04:07 09/16/17 06:00 Temperature 98.1 F Pulse Rate 44 L 39 L Respiratory Rate 16 16 Blood Pressure 157/59 H Pulse Oximetry 99 100 09/16/17 07:40 09/16/17 08:00 09/16/17 10:00 Temperature 97.7 F Pulse Rate 39 L 39 L Respiratory Rate 21 17 Blood Pressure 148/53 H Pulse Oximetry 97 100 Intake & Output 09/15/17 09/16/17 09/16/17 18:59 06:59 18:59 Intake Total 1172.5 / 1172.5 27346.5 / 34093.5 100 / 100 Output Total 580 / 580 2960 / 2960 Balance 592.5 / 592.5 79839.5 / 83473.5 100 / 100 Weight 69.9 kg Intake: IV 1172.5 / 1172.5 462.5 / 462.5 100 / 100 Diprivan 1000 mg/100 ml Inj 1, 200 / 200 200 / 200 100 / 100 000 mg In 100 ml @ 5 MCG/KG/MIN 2.247 mls/hr IV.CONT TITRATE PRN Rx#:[id number] Alburx 5% Inj 500 ML @ 250 mls/ 500 / 500 hr IV.SIG Q6H [facility] Rx#:[id number] Calcium Chloride Inj 1 GM In NS 110 / 110 Inj 100 ML @ 110 mls/hr IV.SIG UNSCH X1 [facility] Rx#:[id number] Maxipime Inj 2,000 MG In NS Inj 100 / 100 100 ML @ 200 mls/hr IV.SIG Q12H [facility] Rx#:[id number] Vancomycin Inj 1,250 MG In NS 262.5 / 262.5 262.5 / 262.5 Inj 250 ML @ 250 mls/hr IV.SIG Q12H [facility] Rx#:[id number] Anesthesia Amount 3750 / 3750 Other 82570 / 44289 Intake (Blood Product) Amt 0 / 0 400 / 400 Rbc As-3 Leukoreduced Unit 0 / 0 [id number] Rbc As-3 Leukoreduced Unit 400 / 400 [id number] Autotransfusion Amount 2400 / 2400 Output: Estimated Blood Loss 1500 / 1500 Urine Amount (Catheter) 50 / 50 900 / 900 3-way Urethral 50 / 50 Indwelling Urethral Catheter 900 / 900 Gastric Drainage 300 / 300 Right Nare 300 / 300 Wound Drainage 530 / 530 260 / 260 # 1 Abdomen 530 / 530 260 / 260 Other: Bladder Irrigation Fluid - Amount Instilled 3-way Urethral 6,000 2,250 Indwelling Urethral Catheter 3,000 Bladder Irrigation Fluid - Amount Drained 3-way Urethral 6,275 10,250 Other Intake Source Saline Solution Date of Last Bowel Movement 09/11/17 09/11/17 # Bowel Movements 0 0 - Routine Respiratory Exam Present: diminished air movement - Routine Cardiovascular Exam Comments: Systolic murmur - Urinary Catheter Management Suprapubic Cath placed during this visit: yes Reason for continuing: Gross Hematuria Insertion date: 09/14/17 3-way Urethral Cath placed during this visit: yes, but has since been removed by the nurse Reason for continuing: Gross Hematuria Insertion date: 09/14/17 Insertion time: 19:25 Removal date: 09/12/17 Removal time: 16:00 Indwelling Urethral Catheter Cath placed during this visit: yes Reason for continuing: Gross Hematuria Insertion date: 09/12/17 Insertion time: 16:00 Assessment and Plan - Assessment (1) S/P AVR Code(s): Z95.2 - Presence of prosthetic heart valve Status: Acute - Plan Coumadin when OK by Urology
--- NOTE | 2017-09-16 16:23 | P.PNURO ---
Subjective Patient symptoms today: Patient doing very well, extubated. Awake and alert. No pain, no fevers. Hgb improved, Cr improved. Urine apears light pink to clear on slow rate CBI. Objective Vital Signs: Vital Signs 09/15/17 18:00 09/15/17 18:58 09/15/17 20:00 Temperature 98.2 F 99.1 F Pulse Rate 50 L 58 L 52 L Respiratory Rate 16 Blood Pressure 158/64 H 158/65 H Pulse Oximetry 99 99 09/15/17 20:10 09/15/17 20:48 09/15/17 20:52 Temperature 99.0 F 99.0 F Pulse Rate 52 L 50 L Respiratory Rate 19 16 16 Blood Pressure 155/64 H 150/61 H Pulse Oximetry 100 100 09/15/17 22:00 09/16/17 00:00 09/16/17 00:05 Temperature 98.2 F 98.2 F Pulse Rate 45 L 46 L 48 L Respiratory Rate 17 16 Blood Pressure 154/58 H 124/48 L Pulse Oximetry 98 09/16/17 00:59 09/16/17 02:00 09/16/17 04:00 Temperature 98.1 F Pulse Rate 44 L 44 L Respiratory Rate 16 16 Blood Pressure 157/59 H Pulse Oximetry 100 99 09/16/17 04:07 09/16/17 06:00 09/16/17 07:40 Temperature Pulse Rate 39 L Respiratory Rate 16 21 Blood Pressure Pulse Oximetry 100 97 09/16/17 08:00 09/16/17 10:00 09/16/17 10:50 Temperature 97.7 F Pulse Rate 39 L 39 L Respiratory Rate 17 27 H Blood Pressure 148/53 H Pulse Oximetry 100 100 09/16/17 11:29 09/16/17 12:00 09/16/17 14:00 Temperature 98.2 F Pulse Rate 58 L 59 L Respiratory Rate 26 H Blood Pressure 165/58 H Pulse Oximetry 97 100 Intake & Output 09/15/17 09/16/17 09/16/17 18:59 06:59 18:59 Intake Total 1172.5 / 1172.5 75943.5 / 85082.5 110 / 110 Output Total 580 / 580 2960 / 2960 Balance 592.5 / 592.5 72534.5 / 95805.5 110 / 110 Weight 69.9 kg Intake: IV 1172.5 / 1172.5 462.5 / 462.5 110 / 110 Diprivan 1000 mg/100 ml Inj 1, 200 / 200 200 / 200 110 / 110 000 mg In 100 ml @ 5 MCG/KG/MIN 2.247 mls/hr IV.CONT TITRATE PRN Rx#:[id number] Alburx 5% Inj 500 ML @ 250 mls/ 500 / 500 hr IV.SIG Q6H [facility] Rx#:[id number] Calcium Chloride Inj 1 GM In NS 110 / 110 Inj 100 ML @ 110 mls/hr IV.SIG UNSCH X1 [facility] Rx#:[id number] Maxipime Inj 2,000 MG In NS Inj 100 / 100 100 ML @ 200 mls/hr IV.SIG Q12H [facility] Rx#:[id number] Vancomycin Inj 1,250 MG In NS 262.5 / 262.5 262.5 / 262.5 Inj 250 ML @ 250 mls/hr IV.SIG Q12H [facility] Rx#:[id number] Anesthesia Amount 3750 / 3750 Other 39470 / 18470 Intake (Blood Product) Amt 0 / 0 400 / 400 Rbc As-3 Leukoreduced Unit 0 / 0 [id number] Rbc As-3 Leukoreduced Unit 400 / 400 [id number] Autotransfusion Amount 2400 / 2400 Output: Estimated Blood Loss 1500 / 1500 Urine Amount (Catheter) 50 / 50 900 / 900 3-way Urethral 50 / 50 Indwelling Urethral Catheter 900 / 900 Gastric Drainage 300 / 300 Right Nare 300 / 300 Wound Drainage 530 / 530 260 / 260 # 1 Abdomen 530 / 530 260 / 260 Other: Bladder Irrigation Fluid - Amount Instilled 3-way Urethral 6,000 2,250 Indwelling Urethral Catheter 3,000 Bladder Irrigation Fluid - Amount Drained 3-way Urethral 6,275 10,250 Other Intake Source Saline Solution Date of Last Bowel Movement 09/11/17 09/11/17 # Bowel Movements 0 0 Result Diagrams: 09/16/17 04:00 09/16/17 04:00 Imaging: Impressions Chest X-Ray 09/16/17 04:00 CONCLUSION: 1. Stable ETT and NGT. 2. Slightly improved pulmonary edema pattern with persistent small bilateral pleural effusions and associated lower lobe airspace disease. Medications and IVs: Active Medications Generic Name Dose Route Start Last Admin Trade Name Freq PRN Reason Stop Dose Admin Acetaminophen 650 mg 09/11/17 22:17 09/14/17 02:36 Tylenol PO 650 mg Q6H PRN Administration PAIN 1-10 AND/OR FEVER >101F Al Hydroxide/Mg Hydroxide 30 ml 09/11/17 22:17 Milk Of [place] Liq PO Q12H PRN Mild Constipation Albuterol 1 ampul 09/11/17 22:17 Duoneb Neb (Prn) NEB Q2HR NEB PRN WHEEZING Albuterol 1 ampul 09/14/17 11:56 Duoneb Neb (Prn) NEB Q4HR NEB PRN SHORTNESS OF BREATH Atorvastatin Calcium 80 mg 09/12/17 09:00 09/16/17 09:23 Lipitor PO 80 mg DAILY [facility] Administration Bisacodyl 10 mg 09/11/17 22:17 Dulcolax Supp RECTAL DAILY PRN SEVERE CONSITIPATION Chlorhexidine Gluconate 3 pack 09/12/17 04:00 09/16/17 07:59 Chlorhexidine 2% Cloth TOPICAL 09/17/17 03:59 3 pack DAILY@0400 [facility] Administration Chlorhexidine Gluconate 3 pack 09/12/17 04:00 Chlorhexidine 2% Cloth TOPICAL 09/17/17 03:59 DAILY@0400 PRN Extra cloth needed Chlorhexidine Gluconate 15 ml 09/14/17 20:00 09/16/17 09:23 Peridex 0.12% Oral Kit OROPHARYNG 15 ml BID@0800,2000 [facility] Administration Famotidine 20 mg 09/12/17 09:00 09/16/17 09:21 Pepcid Pf Inj IV.PUSH 20 mg Q12HR [facility] Administration Fentanyl Citrate 50 mcg 09/14/17 11:56 09/16/17 09:37 Fentanyl Inj IV.PUSH 50 mcg Q1H PRN Administration SEE LABEL COMMENTS Norepinephrine Bitartrate 4 mg in 250 mls @ 7.5 mls/hr 09/11/17 20:45 05:45 Levophed-Dextrose 4 Mg/250 Ml Drip IV.SIG 1 mcg/min TITRATE PRN 3.75 mls/hr Per Protocol Titration Protocol 2 MCG/MIN Cefepime HCl 2,000 mg/ Sodium 100 mls @ 200 mls/hr 09/11/17 23:00 09/16/17 10 :17 Chloride IV.SIG 200 mls/hr Q12H [facility] Administration Pharmacy Profile Note 0 mls @ 0 mls/hr 09/11/17 22:24 Vancomycin Consult Pharmacy OTHER [facility] As Directed Pharmacy Profile Note 0 mls @ 0 mls/hr 09/11/17 23:00 Coumadin Consult Pharmacy OTHER [facility] As Directed Vancomycin HCl 1,250 mg/ 262.5 mls @ 250 mls/hr 09/14/17 14:00 09/16/17 14:40 Sodium Chloride IV.SIG 250 mls/hr Q12H [facility] Administration Propofol 1,000 mg in 100 mls @ 2.247 mls/hr 09/14/17 12:57 09/16/17 15:06 Diprivan 1000 Mg/100 Ml Inj IV.CONT Infused TITRATE PRN Titration Per Protocol Protocol 5 MCG/KG/MIN Heparin Sodium/Dextrose 25,000 unit in 250 mls @ 0 mls/hr 09/16/17 16:09 Heparin/D5w 25,000 U/250 Ml IV.CONT TITRATE PRN Per Protocol Protocol Per Protocol Lactulose 30 ml 09/11/17 22:17 Lactulose Liq PO DAILY PRN SEVERE CONSITIPATION Metoprolol Tartrate 12.5 mg 09/12/17 18:00 09/16/17 07:59 Lopressor PO Not Given Q12H [facility] Morphine Sulfate 2 mg 09/11/17 22:17 09/13/17 17:10 Morphine Inj IV.PUSH 2 mg Q2H PRN Administration PAIN SCALE 6 TO 10 Ondansetron HCl 4 mg 09/11/17 22:17 09/11/17 23:30 Zofran Odt PO 4 mg Q6H PRN Administration NAUSEA OR VOMITING Paroxetine HCl 20 mg 09/12/17 18:00 09/16/17 09:23 Paxil Liq NG/OG 20 mg DAILY [facility] Administration Senna/Docusate Sodium 1 tab 09/12/17 09:00 09/16/17 09:23 Natividad-Colace PO 1 tab BID [facility] Administration Sennosides 17.2 mg 09/11/17 22:17 Senokot PO Q12H PRN Moderate Constipation Sodium Chloride 2 ml 09/11/17 22:17 09/15/17 20:03 Ns Flush IV.FLUSH 2 ml PRN PRN Administration FLUSH AFTER USING IV ACCESS Sodium Chloride 2 ml 09/12/17 09:00 09/16/17 09:23 Ns Flush IV.FLUSH 2 ml BID [facility] Administration Terbutaline Sulfate 1 mg 09/11/17 20:35 Brethine Inj SQ UNSCH PRN For Extravasation Warfarin Sodium 4 mg 09/13/17 16:00 Coumadin PO Q48H [facility] Objective Remarks: JASON drain with 90cc since am Abdomen with improved distention, soft Incision healing well, no evidence of infection, no erythema. Inferior michael drain in place, minimal drainage Hannah is clear, no clots with CBI Ecchymosis and swelling of scrotum somewhat improved Assessment and Plan - Assessment (1) Hematuria Code(s): R31.9 - Hematuria, unspecified Status: Acute (2) S/P TURP Code(s): Z90.79 - Acquired absence of other genital organ(s) Status: Acute - Plan -Continue CBI on slow rate -Start Anticoagulation today with Heparin. May consider starting coumadin today as well as his INR is 1.2 -Stop suction on JASON drain; If minimal output will remove tomorrow am -Likely remove michael drains tomorrow as well -Start slow rate tube feeds and check residuals. Advance diet as tolerated and may remove NGT once tolerating diet well -Patient overall doing well, significant improvement -Will continue to follow closely
--- NOTE | 2017-09-16 16:52 | P.PNCC ---
Subjective Subjective Remarks/Hospital Course: 62-year-old male presents for an evaluation of generalized weakness. Patient reports that he had an outpatient procedure today at the surgical center- he has green laser surgery to his prostate by Dr. Banda around 7am this morning. Reports that he was at the out patient surgical center for a few hours and was discharged home with a snowden catheter. It was draining blood - he is on coumadin because he has history of aortic valve replacement. Patient reports that after he was discharged to home, he just felt weak overall. In the emergency department he was found to be hypotensive with elevated white count, he was IV fluid resuscitated and the central line was placed by ED attending. He was started on Levophed and is now admitted to ICU. 09/12: Normotensive and mildly tachycardic. INR 4.7, large amount of blood and clots in Snowden drainage. Urology service has been contacted and has arranged to replace Snowden for irrigation -> Lengthy discussion with Solo, patient, and his daughter Claudia. I explained to her that this problem is related to the warfarin and we may need to partially or completely reverse the INR to stop the bleeding. This particular mechanical valve in the aortic position will almost certainly be fine for 2-3 days without warfarin or other anticoagulation should it be necessary. We will then restart it simultaneously with heparin until INR is therapeutic. 09/13: Renal function remains acceptable but ongoing abdominal distention and probable bladder distention remain problematic. He continues to move air well but shallow respirations limited by abdominal distention are worrisome. Will review CAT scan today to get a better idea whether formal endoscopic bladder decompression may be indicated. 09/14: Continued abdominal distention with respiratory embarrassment; desaturation requiring increasing FiO2. Required two additional units prbcs last night. Diuresing with lasix now. CXR with prominent pulmonary venous congestion. He will probably need to be intubated soon. 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 09/15: Back from operating room last evening following cystoscopy and laparotomy for evacuation of bladder clot and inspection of TURP site. Suprapubic catheter and Snowden irrigation in place. Abdomen still moderately distended. Nasogastric suction in place. Mechanical ventilation going well without excessive airway pressures. Oxygenation is acceptable. Chest x-ray shows pulmonary venous congestion. Transfusion now at 5 units of red cells. 09/16: He was easily extubated around noon today. Breathing comfortably now 4-1 /2 hours later. Small bilateral pleural effusions, improved from several days ago, but still way ahead on free water. We will give additional Lasix dose today. Abdomen soft will start trickle tube feeds down the NG tube and check residuals. Convert to twice daily Protonix and start heparin drip. Start Coumadin tonight. Remove central line today. No evidence of infection and all cultures negative we will stop broad-spectrum antibiotic therapy. Discussed in detail with Dr. Shi the at the bedside. Objective Vital Signs / I&O: Vital Signs 09/15/17 18:00 09/15/17 18:58 09/15/17 20:00 Temperature 98.2 F 99.1 F Pulse Rate 50 L 58 L 52 L Respiratory Rate 16 Blood Pressure 158/64 H 158/65 H Pulse Oximetry 99 99 09/15/17 20:10 09/15/17 20:48 09/15/17 20:52 Temperature 99.0 F 99.0 F Pulse Rate 52 L 50 L Respiratory Rate 19 16 16 Blood Pressure 155/64 H 150/61 H Pulse Oximetry 100 100 09/15/17 22:00 09/16/17 00:00 09/16/17 00:05 Temperature 98.2 F 98.2 F Pulse Rate 45 L 46 L 48 L Respiratory Rate 17 16 Blood Pressure 154/58 H 124/48 L Pulse Oximetry 98 09/16/17 00:59 09/16/17 02:00 09/16/17 04:00 Temperature 98.1 F Pulse Rate 44 L 44 L Respiratory Rate 16 16 Blood Pressure 157/59 H Pulse Oximetry 100 99 09/16/17 04:07 09/16/17 06:00 09/16/17 07:40 Temperature Pulse Rate 39 L Respiratory Rate 16 21 Blood Pressure Pulse Oximetry 100 97 09/16/17 08:00 09/16/17 10:00 09/16/17 10:50 Temperature 97.7 F Pulse Rate 39 L 39 L Respiratory Rate 17 27 H Blood Pressure 148/53 H Pulse Oximetry 100 100 09/16/17 11:29 09/16/17 12:00 09/16/17 14:00 Temperature 98.2 F Pulse Rate 58 L 59 L Respiratory Rate 26 H Blood Pressure 165/58 H Pulse Oximetry 97 100 Intake & Output 09/15/17 09/16/17 09/16/17 18:59 06:59 18:59 Intake Total 1172.5 / 1172.5 38341.5 / 34908.5 110 / 110 Output Total 580 / 580 2960 / 2960 Balance 592.5 / 592.5 58568.5 / 36999.5 110 / 110 Weight 69.9 kg Intake: IV 1172.5 / 1172.5 462.5 / 462.5 110 / 110 Diprivan 1000 mg/100 ml Inj 1, 200 / 200 200 / 200 110 / 110 000 mg In 100 ml @ 5 MCG/KG/MIN 2.247 mls/hr IV.CONT TITRATE PRN Rx#:[id number] Alburx 5% Inj 500 ML @ 250 mls/ 500 / 500 hr IV.SIG Q6H [place] Rx#:[id number] Calcium Chloride Inj 1 GM In NS 110 / 110 Inj 100 ML @ 110 mls/hr IV.SIG UNSCH X1 FRANCISCO Rx#:[id number] Maxipime Inj 2,000 MG In NS Inj 100 / 100 100 ML @ 200 mls/hr IV.SIG Q12H [place] Rx#:[id number] Vancomycin Inj 1,250 MG In NS 262.5 / 262.5 262.5 / 262.5 Inj 250 ML @ 250 mls/hr IV.SIG Q12H FRANCISCO Rx#:[id number] Anesthesia Amount 3750 / 3750 Other 22361 / 84399 Intake (Blood Product) Amt 0 / 0 400 / 400 Rbc As-3 Leukoreduced Unit 0 / 0 [id number] Rbc As-3 Leukoreduced Unit 400 / 400 [id number] Autotransfusion Amount 2400 / 2400 Output: Estimated Blood Loss 1500 / 1500 Urine Amount (Catheter) 50 / 50 900 / 900 3-way Urethral 50 / 50 Indwelling Urethral Catheter 900 / 900 Gastric Drainage 300 / 300 Right Nare 300 / 300 Wound Drainage 530 / 530 260 / 260 # 1 Abdomen 530 / 530 260 / 260 Other: Bladder Irrigation Fluid - Amount Instilled 3-way Urethral 6,000 2,250 Indwelling Urethral Catheter 3,000 Bladder Irrigation Fluid - Amount Drained 3-way Urethral 6,275 10,250 Other Intake Source Saline Solution Date of Last Bowel Movement 09/11/17 09/11/17 # Bowel Movements 0 0 Result Diagrams: 09/16/17 04:00 09/16/17 04:00 Objective Remarks: - Imaging Impressions Chest X-Ray 09/11/17 19:03 CONCLUSION: Suspected mild right lower lobe consolidation or atelectasis. Abdomen/Pelvis CT 09/11/17 20:30 CONCLUSION: 1. Increased density and scattered air within the urinary bladder. Increased density is likely related to hemorrhage. An underlying mass or process in the bladder cannot be excluded. 2. Mild ascites. 3. Small nonobstructing renal stone seen bilaterally. There is no hydronephrosis. 4. 2 left-sided renal masses are seen. The more superior mass is too dense to represent a simple cyst. It could be a complex cyst or solid mass. The inferior mass is likely related to a cyst. These are nonspecific on this noncontrast CT examination. 5. Distended stomach and distal esophagus. 6. Bibasilar areas of consolidation or atelectasis. Exam - Constitutional mild distress, average body habitus, chronically ill appearing - Routine HEENT Exam Head: Present: normocephalic, atraumatic Eye: Present: PERRL ENT: Present: mucous membranes moist - Routine Neck Exam Present: full ROM. - Routine Chest/Breast/Axilla Exam Chest wall: Absent: tenderness, mass - Routine Respiratory Exam Tachypneic due to anxiety, fine after extubation. No wheezes or rhonchi. - Routine Cardiovascular Exam Present: RRR, S1, S2, tachycardia at 64. [place] prosthetic valve sounds. No JVD. - Routine Abdominal Exam Present: Generalized tenderness, mildly distended. JASON drain in midline lower abdomen. Absent: rebound, guarding - Routine Extremities Exam Warm, well-perfused. - Routine Skin Exam Present: intact, dry. Absent: cyanosis, erythema - Routine Neurological Exam Present: Alert, awake, conversant. Oriented 3. Motor function grossly intact. Moves 4 limbs spontaneously to stimulation. Assessment and Plan - Assessment and Plan Plan: Septic shock, resolved -Cultures all negative, no evidence of infection. Acute kidney injury -Unknown baseline -IV fluid hydration -Strict I's and O's -Monitor creatinine and electrolyte levels -Resolved. Hematuria -Status post TURP -Urology consultation -Serial hemoglobin -Three-way Snowden irrigation begun -Formal endoscopic decompression today. -Formal laparotomy performed last evening with evacuation of clot and bladder, suprapubic catheter placed and JASON drain placed external to the bladder. Distended abdomen -N.p.o. -CT scan negative for perforation -NG tube to low intermittent wall suction -Much improved, start trickle feeds down nasogastric tube. Dyslipidemia -Continue rosuvastatin Status post aortic valve replacement -Valve sounds remain crisp. Start heparin tonight and Coumadin tonight. Discontinue heparin as Coumadin becomes therapeutic. DVT GI prophylaxis -Teds SCDs -Heparin drip. -Pepcid Overall impression: This gentleman is very much improved today. He tolerated extubation without difficulty. He is still fairly far head on free water and we will continue to diuresis that off gingerly. Renal function is returning to normal. We will start anticoagulation tonight.
[2017-09-16] MEDS ORDERED: Potassium Chlor 40 mEq Premix 40 MEQ/100 ML PIGGYBACK IV.SIG PRN (17:02)
[2017-09-16] MEDS ORDERED: Potassium Chlor 20 mEq Premix 20 MEQ/100 ML PIGGYBACK IV.SIG PRN ×2 (17:02)
[2017-09-16] MEDS ORDERED: Magnesium Sulfate Inj 2 GM in Sodium Chlor 0.9% Inj 96 ML IV.SIG PRN (17:02)
[2017-09-16] MEDS ORDERED: Magnesium Oxide 400 MG Tablet PO PRN (17:02)
[2017-09-16] MEDS ORDERED: Sodium Phosphate Inj 30 MMOL in Sodium Chlor 0.9% Inj 250 ML IV.SIG PRN (17:02)
[2017-09-16] MEDS ORDERED: Magnesium Sulfate Inj 4 GM in Sodium Chlor 0.9% Inj 92 ML IV.SIG PRN (17:02)
[2017-09-16] MEDS ORDERED: Potassium Phosphate 500 MG Soluble Tablet PO PRN ×2 (17:02)
[2017-09-16] MEDS ORDERED: Potassium Phosphate Inj 30 MMOL in Sodium Chlor 0.9% Inj 250 ML IV.SIG PRN (17:02)
[2017-09-16] MEDS: Pantoprazole Inj 40 MG Vial IV.PUSH SCH (17:11)
[2017-09-16 17:52] LABS: Activated Partial Thrombo Time 32.2 sec (24.3-30.1); INR 1.1 Ratio; Prothrombin Time 11.2 sec (9.8-11.6)
[2017-09-16] MEDS: Potassium Chlor 40 mEq Premix 40 MEQ/100 ML PIGGYBACK IV.SIG PRN ×2 (18:15→22:31)
[2017-09-16] MEDS: Heparin Drip 25,000 UNIT/250 ML BAG IV.CONT PRN (18:30)
[2017-09-17] MEDS: Oral Hygiene Kit OROPHARYNG SCH ×4 (00:45→17:44)
[2017-09-17] MEDS: Pantoprazole Inj 40 MG Vial IV.PUSH SCH ×2 (05:35→17:45)
[2017-09-17] MEDS: Metoprolol Tartrate 25 MG Tablet PO SCH ×2 (05:36→17:45)
[2017-09-17 06:27] LABS: Baso % (Auto) 0.2 % (0.0-2.0); Eos # (Auto) 0.3 th/mm3 (0.0-0.4); Eos % (Auto) 2.9 % (0.0-4.0); Hematocrit 33.7 % (39.0-51.0); Hemoglobin 11.7 gm/dL (13.0-17.0); Lymph # (Auto) 0.8 th/mm3 (1.0-4.8); Lymph % (Auto) 6.8 % (9.0-44.0); Mean Corpuscular HGB Conc 34.6 % (32.0-36.0); Mean Corpuscular Volume 83.7 fL (80.0-100.0); Mean Platelet Volume 9.7 fL (7.0-11.0); Mono # (Auto) 1.2 th/mm3 (0.0-0.9); Mono % (Auto) 10.5 % (0.0-8.0); Neut % (Auto) 79.6 % (16.0-70.0); Platelet Count 95 th/mm3 (150-450); Red Blood Count 4.02 mil/mm3 (4.50-5.90); White Blood Count 11.4 th/mm3 (4.0-11.0)
[2017-09-17 06:37] LABS: Activated Partial Thrombo Time 50.3 sec (24.3-30.1); INR 1.2 Ratio
[2017-09-17 06:56] LABS: Anion Gap 9 meq/L (5-15); Blood Urea Nitrogen 18 mg/dL (7-18); Calcium 8.6 mg/dL (8.5-10.1); Carbon Dioxide 27.3 meq/L (21.0-32.0); Chloride 109 meq/L (98-107); Glomerular Filtration Rate Greater Than 89 mL/min (>89); Glucose,Random 114 mg/dL (74-106); Potassium 3.3 meq/L (3.5-5.1); Sodium 145 meq/L (136-145)
[2017-09-17] MEDS: Chlorhexidine 0.12% Oral Kit 15 ML UDC OROPHARYNG SCH ×2 (07:25→20:46)
--- NOTE | 2017-09-17 08:31 | P.PNCC ---
Subjective Subjective Remarks/Hospital Course: 62-year-old male presents for an evaluation of generalized weakness. Patient reports that he had an outpatient procedure today at the surgical center- he has green laser surgery to his prostate by Dr. Banda around 7am this morning. Reports that he was at the out patient surgical center for a few hours and was discharged home with a snowden catheter. It was draining blood - he is on coumadin because he has history of aortic valve replacement. Patient reports that after he was discharged to home, he just felt weak overall. In the emergency department he was found to be hypotensive with elevated white count, he was IV fluid resuscitated and the central line was placed by ED attending. He was started on Levophed and is now admitted to ICU. 09/12: Normotensive and mildly tachycardic. INR 4.7, large amount of blood and clots in Snowden drainage. Urology service has been contacted and has arranged to replace Snowden for irrigation -> Lengthy discussion with Solo, patient, and his daughter Claudia. I explained to her that this problem is related to the warfarin and we may need to partially or completely reverse the INR to stop the bleeding. This particular mechanical valve in the aortic position will almost certainly be fine for 2-3 days without warfarin or other anticoagulation should it be necessary. We will then restart it simultaneously with heparin until INR is therapeutic. 09/13: Renal function remains acceptable but ongoing abdominal distention and probable bladder distention remain problematic. He continues to move air well but shallow respirations limited by abdominal distention are worrisome. Will review CAT scan today to get a better idea whether formal endoscopic bladder decompression may be indicated. 09/14: Continued abdominal distention with respiratory embarrassment; desaturation requiring increasing FiO2. Required two additional units prbcs last night. Diuresing with lasix now. CXR with prominent pulmonary venous congestion. He will probably need to be intubated soon. 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 09/15: Back from operating room last evening following cystoscopy and laparotomy for evacuation of bladder clot and inspection of TURP site. Suprapubic catheter and Snowden irrigation in place. Abdomen still moderately distended. Nasogastric suction in place. Mechanical ventilation going well without excessive airway pressures. Oxygenation is acceptable. Chest x-ray shows pulmonary venous congestion. Transfusion now at 5 units of red cells. 09/16: He was easily extubated around noon today. Breathing comfortably now 4-1 /2 hours later. Small bilateral pleural effusions, improved from several days ago, but still way ahead on free water. We will give additional Lasix dose today. Abdomen soft will start trickle tube feeds down the NG tube and check residuals. Convert to twice daily Protonix and start heparin drip. Start Coumadin tonight. Remove central line today. No evidence of infection and all cultures negative we will stop broad-spectrum antibiotic therapy. Discussed in detail with Dr. Downey at the bedside. 09/17: Extubated about 24 hours ago and continues to breathe comfortably. APTT this morning 50 seconds on continuous infusion heparin. Coumadin started yesterday with one-time 7.5 mg dose. Daily dose 4 mg now with adjustment by pharmacy. Continue heparin until INR therapeutic. He has been tolerating tube feedings at 20 mL's per hour with no residual. We will let him start with small amounts of full liquids this morning. He states he feels much better and is hungry. He has been passing gas. Objective Vital Signs / I&O: Vital Signs 09/16/17 10:00 09/16/17 10:50 09/16/17 11:29 Temperature Pulse Rate 39 L Respiratory Rate 27 H Blood Pressure Pulse Oximetry 100 97 09/16/17 12:00 09/16/17 14:00 09/16/17 16:00 Temperature 98.2 F 98.3 F Pulse Rate 58 L 59 L 53 L Respiratory Rate 26 H 27 H Blood Pressure 165/58 H Pulse Oximetry 100 09/16/17 18:00 09/16/17 19:33 09/16/17 20:00 Temperature 98.6 F Pulse Rate 52 L 56 L Respiratory Rate 28 H Blood Pressure 147/67 H Pulse Oximetry 98 98 09/16/17 22:00 09/17/17 00:00 09/17/17 02:00 Temperature 98.8 F Pulse Rate 66 55 L 54 L Respiratory Rate 25 H Blood Pressure 145/59 H Pulse Oximetry 99 09/17/17 04:00 09/17/17 06:00 09/17/17 07:29 Temperature 98.7 F Pulse Rate 53 L 61 Respiratory Rate 22 Blood Pressure 158/65 H Pulse Oximetry 98 99 Intake & Output 09/16/17 09/17/17 09/17/17 18:59 06:59 18:59 Intake Total 110 / 110 70473.5 / 63809.5 Output Total 50 / 50 615 / 615 Balance 60 / 60 38245.5 / 53426.5 Weight 69.7 kg Intake: IV 110 / 110 362.5 / 362.5 Diprivan 1000 mg/100 ml Inj 1, 110 / 110 000 mg In 100 ml @ 5 MCG/KG/MIN 2.247 mls/hr IV.CONT TITRATE PRN Rx#:[id number] KCl 40 mEq Premix Inj 40 meq In 100 / 100 100 ml @ 25 mls/hr IV.SIG Q2H PRN Rx#:[id number] Vancomycin Inj 1,250 MG In NS 262.5 / 262.5 Inj 250 ML @ 250 mls/hr IV.SIG Q12H FRANCISCO Rx#:[id number] Tube Feeding 130 / 130 Anesthesia Amount 1250 / 1250 Other 73419 / 76456 Autotransfusion Amount 800 / 800 Output: Estimated Blood Loss 500 / 500 Gastric Drainage 100 / 100 Right Nare 100 / 100 Wound Drainage 50 / 50 15 / 15 # 1 Abdomen 15 / 15 # 1 Right Upper Abdomen 50 / 50 Other: Bladder Irrigation Fluid - Amount Instilled 3-way Urethral 3,300 Bladder Irrigation Fluid - Amount Drained 3-way Urethral 5,700 5,350 Other Intake Source Saline Solution Date of Last Bowel Movement 09/11/17 09/11/17 # Bowel Movements 0 0 Result Diagrams: 09/17/17 05:45 09/17/17 05:45 Objective Remarks: - Imaging Impressions Chest X-Ray 09/11/17 19:03 CONCLUSION: Suspected mild right lower lobe consolidation or atelectasis. Abdomen/Pelvis CT 09/11/17 20:30 CONCLUSION: 1. Increased density and scattered air within the urinary bladder. Increased density is likely related to hemorrhage. An underlying mass or process in the bladder cannot be excluded. 2. Mild ascites. 3. Small nonobstructing renal stone seen bilaterally. There is no hydronephrosis. 4. 2 left-sided renal masses are seen. The more superior mass is too dense to represent a simple cyst. It could be a complex cyst or solid mass. The inferior mass is likely related to a cyst. These are nonspecific on this noncontrast CT examination. 5. Distended stomach and distal esophagus. 6. Bibasilar areas of consolidation or atelectasis. Exam - Constitutional mild distress, average body habitus, chronically ill appearing - Routine HEENT Exam Head: Present: normocephalic, atraumatic Eye: Present: PERRL ENT: Present: mucous membranes moist - Routine Neck Exam Present: full ROM. - Routine Chest/Breast/Axilla Exam Chest wall: Absent: tenderness, mass - Routine Respiratory Exam Breathing comfortably, no accessory muscle use. No wheezes or rhonchi. - Routine Cardiovascular Exam Present: RRR, S1, S2, tachycardia at 57. [place] prosthetic valve sounds. No JVD. - Routine Abdominal Exam Present: Generalized tenderness, mildly distended. JASON drain in midline lower abdomen. Absent: rebound, guarding - Routine Extremities Exam Warm, well-perfused. - Routine Skin Exam Present: intact, dry. Absent: cyanosis, erythema - Routine Neurological Exam Present: Alert, awake, conversant. Oriented 3. Motor function grossly intact. Moves 4 limbs spontaneously to stimulation. Assessment and Plan - Assessment and Plan Plan: Septic shock, resolved -Cultures all negative, no evidence of infection. Acute kidney injury -Unknown baseline -IV fluid hydration -Strict I's and O's -Monitor creatinine and electrolyte levels -Resolved. Hematuria -Status post TURP -Urology consultation -Serial hemoglobin -Three-way Snowden irrigation begun -Formal endoscopic decompression today. -Formal laparotomy performed last evening with evacuation of clot and bladder, suprapubic catheter placed and JASON drain placed external to the bladder. Distended abdomen -N.p.o. -CT scan negative for perforation -NG tube to low intermittent wall suction -Much improved, start trickle feeds down nasogastric tube. -Start full liquids today. Dyslipidemia -Continue rosuvastatin Status post aortic valve replacement -Valve sounds remain crisp. Started heparin tonight and Coumadin Discontinue heparin as Coumadin becomes therapeutic. DVT GI prophylaxis -Teds SCDs -Heparin drip. -Pepcid Overall impression: This gentleman remains very much improved today. He tolerated extubation without difficulty. He is still fairly far ahead on free water and we will continue to diuresis that off gingerly. Renal function is returning to normal. Start full liquid diet, watch GI function closely.
[2017-09-17] MEDS: Potassium Chloride 25 MEQ Effervescent Tablet PO PRN ×2 (08:59→16:31)
[2017-09-17] MEDS: PARoxetine Liq 20 MG/10 ML UDC NG/OG SCH (09:01)
[2017-09-17] MEDS: Senna/Docusate Sodium 8.6/50 MG Tablet PO SCH ×2 (09:04→20:46)
--- NOTE | 2017-09-17 10:27 | P.DIET ---
Nutritional Evaluation Type of nutrition evaluation: initial Nutrition consult regarding: Tube Feeding Subjective Subjective Comments: Pt states he feels much better and is hungry Objective - Diagnosis Severe Sepsis - Objective [place] body weight: 172 kg % IBW: 87 Body Weight Used for Calculations: Actual (68.1kg) Energy Needs - Lower Range (kCal/kg): 28 Energy Needs - Upper Range (kCal/kg): 33 Lower Limit kCal/kg (kCals): 1,907 Upper Limit kCal/kg (kCals): 2,247 Lower Limit Protein Factor (Grams per Kg): 1.1 Upper Limit Protein Factor (Grams per Kg): 1.4 Lower Protein Needs (Protein): 75 Upper Protein Needs (Protein): 95 Dietitian Reviewed in Medical Record: Current diet, Curent medications, Intake & Output, Labs, Medical history, Tube feeding Diet Order: TF plus FL Objective Comments: PMH: Aortic valve stenosis, severe, high cholesterol, HTN Labs include: K+ 3.3, Glu 114 Meds include: Lipitor Last BM 09/11 Assessment Assessment: Pt admitted with severe sepsis, is now s/p AVR. Pt extubated 09/16 and is currently on TF Jevity 1.5 at 20 ml/hr and tolerating it well. Pt has started on FL diet today which includes Ensure tid. If pt were to need TF as sole source of nutrition, a goal rate of 55 ml/hr would be necessary providing 1980 kcals 84 gms protein and 1003 mls free water. Will monitor TF tolerance, diet advancement and provide additional recs relative to clinical course. Recommendations: TF Jevity 1.5 with goal rate 55 ml/hr FL diet with Ensure Dietitian to Monitor: Supplement acceptance, Intake & Output, Diet tolerance, Tube feeding tolerance, Weight change, Diet advancement, Medical course
--- NOTE | 2017-09-17 16:18 | P.PNURO ---
Subjective Patient symptoms today: Patient improved today, continues to do well. Hgb stable. Minimal pain. tolerating TF and liquid diet. +Flatus, no bm thus far. Minimal JASON drain output. Objective Vital Signs: Vital Signs 09/16/17 18:00 09/16/17 19:33 09/16/17 20:00 Temperature 98.6 F Pulse Rate 52 L 56 L Respiratory Rate 28 H Blood Pressure 147/67 H Pulse Oximetry 98 98 09/16/17 22:00 09/17/17 00:00 09/17/17 02:00 Temperature 98.8 F Pulse Rate 66 55 L 54 L Respiratory Rate 25 H Blood Pressure 145/59 H Pulse Oximetry 99 09/17/17 04:00 09/17/17 06:00 09/17/17 07:29 Temperature 98.7 F Pulse Rate 53 L 61 Respiratory Rate 22 Blood Pressure 158/65 H Pulse Oximetry 98 99 09/17/17 08:00 09/17/17 10:00 09/17/17 12:00 Temperature 98.2 F 98.3 F Pulse Rate 72 68 90 Respiratory Rate 32 H 30 H Blood Pressure 157/67 H 154/74 H Pulse Oximetry 95 09/17/17 14:00 Temperature Pulse Rate 78 Respiratory Rate Blood Pressure Pulse Oximetry Intake & Output 09/16/17 09/17/17 09/17/17 18:59 06:59 18:59 Intake Total 110 / 110 90591.5 / 48467.5 Output Total 50 / 50 615 / 615 Balance 60 / 60 70200.5 / 39203.5 Weight 69.7 kg Intake: IV 110 / 110 362.5 / 362.5 Diprivan 1000 mg/100 ml Inj 1, 110 / 110 000 mg In 100 ml @ 5 MCG/KG/MIN 2.247 mls/hr IV.CONT TITRATE PRN Rx#:[id number] KCl 40 mEq Premix Inj 40 meq In 100 / 100 100 ml @ 25 mls/hr IV.SIG Q2H PRN Rx#:[id number] Vancomycin Inj 1,250 MG In NS 262.5 / 262.5 Inj 250 ML @ 250 mls/hr IV.SIG Q12H [facility] Rx#:[id number] Tube Feeding 130 / 130 Anesthesia Amount 1250 / 1250 Other 85855 / 23669 Autotransfusion Amount 800 / 800 Output: Estimated Blood Loss 500 / 500 Gastric Drainage 100 / 100 Right Nare 100 / 100 Wound Drainage 50 / 50 15 / 15 # 1 Abdomen 15 / 15 # 1 Right Upper Abdomen 50 / 50 Other: Bladder Irrigation Fluid - Amount Instilled 3-way Urethral 3,300 Bladder Irrigation Fluid - Amount Drained 3-way Urethral 5,700 5,350 Other Intake Source Saline Solution Date of Last Bowel Movement 09/11/17 09/11/17 # Bowel Movements 0 0 Result Diagrams: 09/17/17 05:45 09/17/17 13:10 Medications and IVs: Active Medications Generic Name Dose Route Start Last Admin Trade Name Freq PRN Reason Stop Dose Admin Acetaminophen 650 mg 09/11/17 22:17 09/14/17 02:36 Tylenol PO 650 mg Q6H PRN Administration PAIN 1-10 AND/OR FEVER >101F Al Hydroxide/Mg Hydroxide 30 ml 09/11/17 22:17 Milk Of Magnesia Liq PO Q12H PRN Mild Constipation Albuterol 1 ampul 09/11/17 22:17 Duoneb Neb (Prn) NEB Q2HR NEB PRN WHEEZING Albuterol 1 ampul 09/14/17 11:56 Duoneb Neb (Prn) NEB Q4HR NEB PRN SHORTNESS OF BREATH Atorvastatin Calcium 80 mg 09/12/17 09:00 09/17/17 09:00 Lipitor PO 80 mg DAILY [facility] Administration Bisacodyl 10 mg 09/11/17 22:17 Dulcolax Supp RECTAL DAILY PRN SEVERE CONSITIPATION Chlorhexidine Gluconate 15 ml 09/14/17 20:00 09/17/17 07:25 Peridex 0.12% Oral Kit OROPHARYNG Not Given BID@0800,2000 [facility] Fentanyl Citrate 50 mcg 09/14/17 11:56 09/16/17 09:37 Fentanyl Inj IV.PUSH 50 mcg Q1H PRN Administration SEE LABEL COMMENTS Norepinephrine Bitartrate 4 mg in 250 mls @ 7.5 mls/hr 09/11/17 20:45 05:45 Levophed-Dextrose 4 Mg/250 Ml Drip IV.SIG 1 mcg/min TITRATE PRN 3.75 mls/hr Per Protocol Titration Protocol 2 MCG/MIN Pharmacy Profile Note 0 mls @ 0 mls/hr 09/11/17 23:00 Coumadin Consult Pharmacy OTHER UNSCH [facility] As Directed Heparin Sodium/Dextrose 25,000 unit in 250 mls @ 8 mls/hr 09/16/17 16:09 18:30 Heparin/D5w 25,000 U/250 Ml IV.CONT 800 units/hr TITRATE PRN 8 mls/hr Per Protocol Administration Protocol Per Protocol Magnesium Sulfate Inj 4 gm/ 100 mls @ 50 mls/hr 09/16/17 17:02 Sodium Chloride IV.SIG UNSCH PRN For Magnesium 0.9 - 1.1 mg/dL Magnesium Sulfate Inj 2 gm/ 100 mls @ 50 mls/hr 09/16/17 17:02 Sodium Chloride IV.SIG UNSCH PRN For Magnesium 1.2 - 1.6 mg/dL Potassium Chloride 40 meq in 100 mls @ 25 mls/hr 09/16/17 17:02 09/16/17 22: 31 Kcl 40 Meq Premix Inj IV.SIG 25 mls/hr Q2H PRN Administration For Potassium 2.8 - 3.2 mEq/L Potassium Chloride 40 meq in 100 mls @ 25 mls/hr 09/16/17 17:02 Kcl 40 Meq Premix Inj IV.SIG UNSCH PRN For Potassium 3.3 - 3.5 mEq/L Potassium Phosphate 30 mmol/ 260 mls @ 42 mls/hr 09/16/17 17:02 Sodium Chloride IV.SIG UNSCH PRN SEE LABEL COMMENTS Sodium Phosphate 30 mmol/ 260 mls @ 42 mls/hr 09/16/17 17:02 Sodium Chloride IV.SIG UNSCH PRN For Phosphorus < 2.5 mg/dL Lactulose 30 ml 09/11/17 22:17 Lactulose Liq PO DAILY PRN SEVERE CONSITIPATION Magnesium Oxide 800 mg 09/16/17 17:02 Mag-Ox PO UNSCH PRN For Magnesium 1.2 - 1.6 mg/dL Metoprolol Tartrate 12.5 mg 09/12/17 18:00 09/17/17 05:36 Lopressor PO Not Given Q12H [facility] Morphine Sulfate 2 mg 09/11/17 22:17 09/13/17 17:10 Morphine Inj IV.PUSH 2 mg Q2H PRN Administration PAIN SCALE 6 TO 10 Ondansetron HCl 4 mg 09/11/17 22:17 09/11/17 23:30 Zofran Odt PO 4 mg Q6H PRN Administration NAUSEA OR VOMITING Pantoprazole Sodium 40 mg 09/16/17 18:00 09/17/17 05:35 Protonix Inj IV.PUSH 40 mg Q12H [facility] Administration Paroxetine HCl 20 mg 09/12/17 18:00 09/17/17 09:01 Paxil Liq NG/OG 20 mg DAILY [facility] Administration Potassium Bicarb/Potassium Chloride 50 meq 09/16/17 17:02 09/17/17 08:59 K-Lyte Cl Eff PO 50 meq UNSCH PRN Administration For Potassium 3.3 - 3.5 mEq/L Potassium Phosphate 2,000 mg 09/16/17 17:02 K-Phos Original PO Q4H PRN Phosphorus Less Than 2.5 mg/dL Potassium Phosphate 2,000 mg 09/16/17 17:02 K-Phos Original PO UNSCH PRN SEE LABEL COMMENTS Senna/Docusate Sodium 1 tab 09/12/17 09:00 09/17/17 09:04 Natividad-Colace PO Not Given BID [facility] Sennosides 17.2 mg 09/11/17 22:17 Senokot PO Q12H PRN Moderate Constipation Sodium Chloride 2 ml 09/11/17 22:17 09/15/17 20:03 Ns Flush IV.FLUSH 2 ml PRN PRN Administration FLUSH AFTER USING IV ACCESS Sodium Chloride 2 ml 09/12/17 09:00 09/17/17 09:04 Ns Flush IV.FLUSH 2 ml BID [facility] Administration Terbutaline Sulfate 1 mg 09/11/17 20:35 Brethine Inj SQ UNSCH PRN For Extravasation Warfarin Sodium 4 mg 09/17/17 16:00 Coumadin PO DAILY@1600 [facility] Objective Remarks: -JASON drain off suction with minimal output -Incision healing well, no infection. Abdominal distention improved, mild tenderness to palpation -Brittany drains in place with minimal output -SPT and Hannah in place with clear to light pink output with minimal slow drip CBI -Scrotal swelling improved Assessment and Plan - Assessment (1) Hematuria Code(s): R31.9 - Hematuria, unspecified Status: Acute (2) S/P TURP Code(s): Z90.79 - Acquired absence of other genital organ(s) Status: Acute - Plan -Hgb stable, Cr stable -Tolerating TF and liquid diet. Advance as tolerated -Heparin started as well as coumadin -Catheter with light pink to clear on CBI slow rate. Maintain slow rater overnight with plan to DC CBI in am -[place] and JASON drain removed at bedside today -AMbulate, PT
[2017-09-17] MEDS: Morphine Inj 4 MG/ML Vial IV.PUSH PRN (16:30)
[2017-09-17] MEDS: Heparin Drip 25,000 UNIT/250 ML BAG IV.CONT PRN (21:39)
[2017-09-18] MEDS: Metoprolol Tartrate 25 MG Tablet PO SCH ×2 (05:28→17:44)
[2017-09-18] MEDS: Pantoprazole Inj 40 MG Vial IV.PUSH SCH ×2 (05:28→17:45)
[2017-09-18] MEDS: Oral Hygiene Kit OROPHARYNG SCH ×3 (05:29→17:44)
[2017-09-18 06:59] LABS: Baso % (Auto) 0.3 % (0.0-2.0); Eos # (Auto) 0.5 th/mm3 (0.0-0.4); Eos % (Auto) 3.8 % (0.0-4.0); Hematocrit 37.6 % (39.0-51.0); Hemoglobin 12.5 gm/dL (13.0-17.0); Lymph # (Auto) 0.8 th/mm3 (1.0-4.8); Lymph % (Auto) 6.3 % (9.0-44.0); Mean Corpuscular HGB Conc 33.2 % (32.0-36.0); Mean Corpuscular Hemoglobin 28.5 pg (27.0-34.0); Mean Corpuscular Volume 85.8 fL (80.0-100.0); Mean Platelet Volume 9.8 fL (7.0-11.0); Mono # (Auto) 1.5 th/mm3 (0.0-0.9); Mono % (Auto) 11.4 % (0.0-8.0); Neut # (Auto) 10.5 th/mm3 (1.8-7.7); Neut % (Auto) 78.2 % (16.0-70.0); Platelet Count 123 th/mm3 (150-450); Red Blood Count 4.38 mil/mm3 (4.50-5.90); White Blood Count 13.4 th/mm3 (4.0-11.0)
[2017-09-18 07:10] LABS: INR 1.6 Ratio; Prothrombin Time 15.7 sec (9.8-11.6)
[2017-09-18 07:27] LABS: Calcium 8.6 mg/dL (8.5-10.1); Carbon Dioxide 33.1 meq/L (21.0-32.0); Potassium 4.3 meq/L (3.5-5.1)
[2017-09-18 08:16] LABS: Eosinophils 3 % (0-4); Lymphocytes 8 % (9-44); Monocytes 8 % (0-8); Myelocytes 1 % (0-0)
[2017-09-18 08:17] LABS: Ovalocytes 1+; Platelet Morphology Normal (Normal)
--- NOTE | 2017-09-18 09:40 | P.PNIM ---
Subjective Interval history: Pt feels like he was doing better with the clear liquids than with the full liquids today He would like his diet reduced back to clear liquids. Pt is tolerated TF at 20ml/hr Pt reports that he has not had any BM since admission. Physical Exam Vital signs: Vital Signs 09/17/17 10:00 09/17/17 12:00 09/17/17 14:00 Temperature 98.3 F Pulse Rate 68 90 78 Respiratory Rate 30 H Blood Pressure 154/74 H Pulse Oximetry 09/17/17 16:00 09/17/17 18:00 09/17/17 19:44 Temperature 98.0 F Pulse Rate 80 76 Respiratory Rate 34 H Blood Pressure 133/78 Pulse Oximetry 96 09/17/17 20:05 09/17/17 22:01 09/18/17 00:00 Temperature 98.9 F 97.9 F Pulse Rate 71 67 69 Respiratory Rate 28 H 20 Blood Pressure 120/60 156/76 H Pulse Oximetry 95 94 L 09/18/17 04:00 09/18/17 08:00 Temperature 97.7 F 97.8 F Pulse Rate 71 62 Respiratory Rate 18 18 Blood Pressure 130/68 129/63 Pulse Oximetry 94 L 94 L Intake & Output 09/17/17 09/18/17 09/18/17 18:59 06:59 18:59 Intake Total -842 / -842 470 / 470 Output Total 4885 / 4885 1950 / 1950 Balance -5727 / -5727 -1480 / -1480 Weight 67.6 kg Intake: IV 350 / 350 Heparin/D5W 25,000 U/250 mL 25, 250 / 250 000 unit In 250 ml @ Per Protocol 8 mls/hr IV.CONT TITRATE PRN Rx#:[id number] KCl 40 mEq Premix Inj 40 meq In 100 / 100 100 ml @ 25 mls/hr IV.SIG Q2H PRN Rx#:[id number] Oral 720 / 720 120 / 120 Tube Feeding 263 / 263 Water Bolus Amount 50 / 50 Bladder Irrigation Fluid - -1874 / -1874 Amount Retained 3-way Urethral -1874 / Output: Urine 1200 / 1200 Urine Amount (Catheter) 4875 / 4875 750 / 750 3-way Urethral 4875 / 4875 750 / 750 Wound Drainage # 1 Abdomen Other: Bladder Irrigation Fluid - Amount Instilled 3-way Urethral 3,000 Date of Last Bowel Movement 09/11/17 Narrative: GENERAL: NAD, AAOx3 ENT: NGT in place CARDIO: Regular. Systolic click noted RESP: Breath sounds equal bilaterally. No accessory muscle use. ABD: +BS, semi-firm, distended. Suprapubic catheter in place EXT: No cyanosis, or edema. : Hannah cath in place with CBI, light red urine noted in Hannah bag - Urinary Catheter Management Suprapubic Cath placed during this visit: yes Reason for continuing: Gross Hematuria Insertion date: 09/14/17 3-way Urethral Cath placed during this visit: yes, but has since been removed by the nurse Reason for continuing: Gross Hematuria Insertion date: 09/14/17 Insertion time: 19:25 Removal date: 09/12/17 Removal time: 16:00 Indwelling Urethral Catheter Cath placed during this visit: yes Reason for continuing: Gross Hematuria Insertion date: 09/12/17 Insertion time: 16:00 Results - Labs CBC & Chem 7: 09/21/17 04:58 09/21/17 04:58 Laboratory Results - last 24 hr 09/17/17 09/17/17 09/17/17 13:10 13:10 22:00 WBC RBC Hgb Hct MCV MCH MCHC RDW Plt Count MPV Prelim Diff (Auto) Neut % (Auto) Lymph % (Auto) [place] % (Auto) Eos % (Auto) Baso % (Auto) Neut # (Auto) Lymph # (Auto) [place] # (Auto) Eos # (Auto) Baso # (Auto) WBC Differential Seg Neuts % (Manual) Band Neuts % (Manual) Lymphocytes % (Manual) Monocytes % (Manual) Eosinophils % (Manual) Myelocytes % (Man) Abs Neuts (Manual) Differential Comment Platelet Estimate Platelet Morphology Ovalocytes PT INR APTT 45.0 H Sodium Potassium 3.5 4.0 Chloride Carbon Dioxide Anion Gap BUN Creatinine Estimated GFR Random Glucose Calcium 09/18/17 09/18/17 09/18/17 06:36 06:36 06:36 WBC 13.4 H RBC 4.38 L Hgb 12.5 L Hct 37.6 L MCV 85.8 MCH 28.5 MCHC 33.2 RDW 17.0 Plt Count 123 L MPV 9.8 Prelim Diff (Auto) Slide review pending Neut % (Auto) 78.2 H Lymph % (Auto) 6.3 L [place] % (Auto) 11.4 H Eos % (Auto) 3.8 Baso % (Auto) 0.3 Neut # (Auto) 10.5 H Lymph # (Auto) 0.8 L [place] # (Auto) 1.5 H Eos # (Auto) 0.5 H Baso # (Auto) 0.0 WBC Differential Manual diff final Seg Neuts % (Manual) 72 H Band Neuts % (Manual) 8 H Lymphocytes % (Manual) 8 L Monocytes % (Manual) 8 Eosinophils % (Manual) 3 Myelocytes % (Man) 1 H Abs Neuts (Manual) 10.9 H Differential Comment . Platelet Estimate Low L Platelet Morphology Normal Ovalocytes 1+ H PT 15.7 H INR 1.6 APTT Sodium 141 Potassium 4.3 Chloride 104 Carbon Dioxide 33.1 H Anion Gap 4 L BUN 24 H Creatinine 0.95 Estimated GFR 80 L Random Glucose 114 H Calcium 8.6 - Imaging Chest X-Ray 09/11/17 19:03 CONCLUSION: Suspected mild right lower lobe consolidation or atelectasis. Abdomen/Pelvis CT 09/11/17 20:30 CONCLUSION: 1. Increased density and scattered air within the urinary bladder. Increased density is likely related to hemorrhage. An underlying mass or process in the bladder cannot be excluded. 2. Mild ascites. 3. Small nonobstructing renal stone seen bilaterally. There is no hydronephrosis. 4. 2 left-sided renal masses are seen. The more superior mass is too dense to represent a simple cyst. It could be a complex cyst or solid mass. The inferior mass is likely related to a cyst. These are nonspecific on this noncontrast CT examination. 5. Distended stomach and distal esophagus. 6. Bibasilar areas of consolidation or atelectasis. Abdomen/Pelvis CT 09/13/17 00:00 CONCLUSION: 1. Urinary bladder remains abnormal appearance with inhomogeneous high density and multiple gas bubbles. 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 A Hannah catheter is present. 2. Bilateral nonobstructing renal calculi. 3. Left renal cyst and higher density nonspecific lesion again noted which may represent complex or hemorrhagic cyst however solid lesion could have a similar appearance. 4. [id number] amount of ascitic fluid. 5. Bilateral effusions with consolidation in the lung bases. Abdomen X-Ray 09/14/17 00:00 CONCLUSION: Hannah catheter projected over the pelvis. Chest X-Ray 09/14/17 00:00 CONCLUSION: 1. Mild to moderate pulmonary vascular congestion. 2. Mild hepatomegaly. 3. Small bilateral pleural effusions. 4. Nasogastric tube has its tip in the distal esophagus. Chest X-Ray 09/14/17 00:00 CONCLUSION: 1. Interval intubation. 2. Mild advancement of the nasogastric tube the distal side port projected over the region of the gastroesophageal junction. 3. Hazy opacity remains in both lungs most consistent with pulmonary edema. Bilateral effusions are present. Nephrostomy 09/15/17 20:38 CONCLUSION: 1. Failed attempt at gaining access to the collecting system of the right kidney in this patient with no hydronephrosis on either side. If the patient develops hydronephrosis consideration could be made to repeat attempt at nephrostomy tube placement if clinically warranted.. Chest X-Ray 09/16/17 04:00 CONCLUSION: 1. Stable ETT and NGT. 2. Slightly improved pulmonary edema pattern with persistent small bilateral pleural effusions and associated lower lobe airspace disease. Assessment and Plan - Assessment (1) Hematuria Code(s): R31.9 - Hematuria, unspecified Status: Acute Plan: Septic shock, resolved. - Pt is a 62 y/o male with ASHD, mechanical aortic valve on chronic anticoagulation with Coumadin, and hyperlipidemia. - Pt presented to the ED at [facility] on 09/11/17 ror evaluation of generalized weakness. Patient had undergone an outpatient Greenlight TURP procedure with Dr. Banda on the day of admission at the surgical center. Pt was discharged home with a Hannah catheter. He had noted hematuria which seemed to worsen and he became overall weaker which prompted his evaluation in the ED. - In the ED pt was found to be hypotensive with elevated white count. He was given IVFs and the central line was placed by ED attending. He was started on Levophed and was admitted to ICU. - Pt was felt to be in septic shock and blood cultures were drawn and pt was started on board spectrum antibiotics. - Blood cultures were negative, no evidence of infection. Antibiotics were stopped on 09/16. - Consult PT on 09/18 Acute kidney injury, resolved - Review of outpt labs with Cr 0.98/BUN 12 in 01/2017 - Following admission, pts creatinine went as high as 1.99 - Pt was given IV fluid hydration with improvement in labs which seem to be around baseline now. - Strict I's and O's - Monitor creatinine and electrolyte levels Hematuria - s/p Greenlight TURP on 09/11/[address] Banda - Urology following. - Pt required transfusion with 5 units of PRBCs during admission - His Coumadin had to be held initially due to hematuria and his INR natty to 5.2 during admission. Pt was given 2 units of plasma during admission too. - Pt had a three-way Hannah placed for irrigation - Pt underwent Cystoscopy with clot evacuation, fulguration of bleeders and exploratory laparotomy with closure of cystotomy and suprapubic catheter placed and JASON drain placed external to the bladder on 09/14/[address] Banda. - Pt had JASON drain and [place] drain removed on 09/17 - Pt still with CBI and Hannah in place - His H/H has stabilized and bleeding has minimized Distended abdomen, improving - At admission pt had a CT Abd/pelvis (09/11) 1. Increased density and scattered air within the urinary bladder, increased density is likely related to hemorrhage. An underlying mass or process in the bladder cannot be excluded. 2. Mild ascites. 3. Small nonobstructing renal stone seen bilaterally. There is no hydronephrosis. 4. 2 left-sided renal masses are seen. The more superior mass is too dense to represent a simple cyst. It could be a complex cyst or solid mass. The inferior mass is likely related to a cyst. These are nonspecific on this noncontrast CT examination. 5. Distended stomach and distal esophagus. 6. Bibasilar areas of consolidation or atelectasis. - He had a repeat CT Abdomen/Pelvis on 09/13/17 1. Urinary bladder remains abnormal appearance with inhomogeneous high density and multiple gas bubbles. 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 A Hannah catheter is present. 2. Bilateral nonobstructing renal calculi. 3. Left renal cyst and higher density nonspecific lesion again noted which may represent complex or hemorrhagic cyst however solid lesion could have a similar appearance. 4. Vuuoe-ij-[id number] amount of ascitic fluid. 5. Bilateral effusions with consolidation in the lung bases. - Pt continued to have a distended abdomen and his respiratory status became compromised and pt ended up intubated from 09/14-09/16 - He had required NG tube to low intermittent wall suction during admission but the distension did improve and he was able to be started on tube feeds via NGT. - On 09/17 the TF rate was increased to 20ml/hr and he was started on full liquids - Pt wants to back off on diet down to clear liquids today - Stool softeners and Laxatives PRN - Check KUB today Dyslipidemia -Continue rosuvastatin Mechanical aortic valve replacement - His Coumadin had to be held initially due to hematuria and his INR natty to 5.2 during admission. - Pt was given 2 units of plasma during admission - Pt was able to be started on heparin and Coumadin on 09/16 - INR 1.6 on 09/18 - Repeat INR in AM DVT/GI prophylaxis -Teds SCDs -Heparin drip. -Pepcid (2) S/P TURP Code(s): Z90.79 - Acquired absence of other genital organ(s) Status: Acute (3) S/P AVR Code(s): Z95.2 - Presence of prosthetic heart valve Status: Acute - Attending Attestation Patient examined. Assessment and plan formulated with Claudia Love PA-C. I agree with the above.
[2017-09-18] MEDS: PARoxetine Liq 20 MG/10 ML UDC NG/OG SCH (09:48)
[2017-09-18] MEDS: Chlorhexidine 0.12% Oral Kit 15 ML UDC OROPHARYNG SCH ×2 (09:48→20:08)
[2017-09-18] MEDS: Senna/Docusate Sodium 8.6/50 MG Tablet PO SCH ×2 (09:49→20:08)
--- NOTE | 2017-09-18 13:18 | XR ---
EXAM DATE: 09/18/2017 1:16 PM EDT AGE/SEX: 62 years / Male INDICATIONS: Abdominal distention. CLINICAL DATA: This is the patient's initial encounter. Patient reports that signs and symptoms have been present for 4 - 6 days and indicates a pain score of 4/10. MEDICAL/SURGICAL HISTORY: None. Cardiovascular disease, Aortic valve stenosis, high cholesterol , hypertension. . Transurethral resection of prostate. COMPARISON: [facility] [place], CT ABDOMEN & PELVIS W/O CONTRAST, 09/13/2017. . FINDINGS: The abdominal bowel gas pattern is normal. No abnormal masses, calcifications, or organomegaly is s een. The osseous structures are unremarkable. Skin marleni overlie the abdomen and pelvis at midline . Catheter, possible rectal decompression tube overlies the midline pelvis. CONCLUSION: Nonobstructive bowel gas pattern. Electronically signed by: Tyler Luciano MD 09/18/2017 1:17 PM EDT
--- NOTE | 2017-09-18 15:34 | P.PNURO ---
Subjective Patient symptoms today: Doing well, Hgb stable. No fevers. Catheter draining well, light pink to clear. Tolerating TF and diet Objective Vital Signs: Vital Signs 09/17/17 16:00 09/17/17 18:00 09/17/17 19:44 Temperature 98.0 F Pulse Rate 80 76 Respiratory Rate 34 H Blood Pressure 133/78 Pulse Oximetry 96 09/17/17 20:05 09/17/17 22:01 09/18/17 00:00 Temperature 98.9 F 97.9 F Pulse Rate 71 67 69 Respiratory Rate 28 H 20 Blood Pressure 120/60 156/76 H Pulse Oximetry 95 94 L 09/18/17 04:00 09/18/17 08:00 09/18/17 12:00 Temperature 97.7 F 97.8 F 97.2 F L Pulse Rate 71 62 80 Respiratory Rate 18 18 18 Blood Pressure 130/68 129/63 111/63 Pulse Oximetry 94 L 94 L 92 L Intake & Output 09/17/17 09/18/17 09/18/17 18:59 06:59 18:59 Intake Total -842 / -842 470 / 470 Output Total 4885 / 4885 1950 / 1950 Balance -5727 / -5727 -1480 / -1480 Weight 67.6 kg Intake: IV 350 / 350 Heparin/D5W 25,000 U/250 mL 25, 250 / 250 000 unit In 250 ml @ Per Protocol 8 mls/hr IV.CONT TITRATE PRN Rx#:[id number] KCl 40 mEq Premix Inj 40 meq In 100 / 100 100 ml @ 25 mls/hr IV.SIG Q2H PRN Rx#:[id number] Oral 720 / 720 120 / 120 Tube Feeding 263 / 263 Water Bolus Amount 50 / 50 Bladder Irrigation Fluid - -187 / -1875 Amount Retained 3-way Urethral -1874 / -187 Output: Urine 1200 / 1200 Urine Amount (Catheter) 4875 / 4875 750 / 750 3-way Urethral 4875 / 4875 750 / 750 Wound Drainage # 1 Abdomen Other: Bladder Irrigation Fluid - Amount Instilled 3-way Urethral 3,000 Date of Last Bowel Movement 09/11/17 Result Diagrams: 09/18/17 06:36 09/18/17 06:36 Imaging: Impressions Abdomen X-Ray 09/18/17 00:00 CONCLUSION: Nonobstructive bowel gas pattern. Medications and IVs: Active Medications Generic Name Dose Route Start Last Admin Trade Name Freq PRN Reason Stop Dose Admin Acetaminophen 650 mg 09/11/17 22:17 09/14/17 02:36 Tylenol PO 650 mg Q6H PRN Administration PAIN 1-10 AND/OR FEVER >101F Al Hydroxide/Mg Hydroxide 30 ml 09/11/17 22:17 Milk Of Magnesia Liq PO Q12H PRN Mild Constipation Albuterol 1 ampul 09/11/17 22:17 Duoneb Neb (Prn) NEB Q2HR NEB PRN WHEEZING Albuterol 1 ampul 09/14/17 11:56 Duoneb Neb (Prn) NEB Q4HR NEB PRN SHORTNESS OF BREATH Atorvastatin Calcium 80 mg 09/12/17 09:00 09/18/17 09:48 Lipitor PO 80 mg DAILY [facility] Administration Bisacodyl 10 mg 09/11/17 22:17 Dulcolax Supp RECTAL DAILY PRN SEVERE CONSITIPATION Chlorhexidine Gluconate 15 ml 09/14/17 20:00 09/18/17 09:48 Peridex 0.12% Oral Kit OROPHARYNG Not Given BID@0800,2000 [facility] Fentanyl Citrate 50 mcg 09/14/17 11:56 09/16/17 09:37 Fentanyl Inj IV.PUSH 50 mcg Q1H PRN Administration SEE LABEL COMMENTS Pharmacy Profile Note 0 mls @ 0 mls/hr 09/11/17 23:00 Coumadin Consult Pharmacy OTHER UNSCH [facility] As Directed Heparin Sodium/Dextrose 25,000 unit in 250 mls @ 8 mls/hr 09/16/17 16:09 21:39 Heparin/D5w 25,000 U/250 Ml IV.CONT 900 units/hr TITRATE PRN 9 mls/hr Per Protocol Administration Protocol Per Protocol Lactulose 30 ml 09/11/17 22:17 09/18/17 09:58 Lactulose Liq PO 30 ml DAILY PRN Administration SEVERE CONSITIPATION Metoprolol Tartrate 12.5 mg 09/12/17 18:00 09/18/17 05:28 Lopressor PO 12.5 mg Q12H [facility] Administration Morphine Sulfate 2 mg 09/11/17 22:17 09/13/17 17:10 Morphine Inj IV.PUSH 2 mg Q2H PRN Administration PAIN SCALE 6 TO 10 Ondansetron HCl 4 mg 09/11/17 22:17 09/11/17 23:30 Zofran Odt PO 4 mg Q6H PRN Administration NAUSEA OR VOMITING Pantoprazole Sodium 40 mg 09/16/17 18:00 09/18/17 05:28 Protonix Inj IV.PUSH 40 mg Q12H [facility] Administration Paroxetine HCl 20 mg 09/12/17 18:00 09/18/17 09:48 Paxil Liq NG/OG 20 mg DAILY [facility] Administration Senna/Docusate Sodium 1 tab 09/12/17 09:00 09/18/17 09:49 Natividad-Colace PO 1 tab BID [facility] Administration Sennosides 17.2 mg 09/11/17 22:17 Senokot PO Q12H PRN Moderate Constipation Sodium Chloride 2 ml 09/11/17 22:17 09/15/17 20:03 Ns Flush IV.FLUSH 2 ml PRN PRN Administration FLUSH AFTER USING IV ACCESS Sodium Chloride 2 ml 09/12/17 09:00 09/18/17 09:48 Ns Flush IV.FLUSH Not Given BID [facility] Terbutaline Sulfate 1 mg 09/11/17 20:35 Brethine Inj SQ UNSCH PRN For Extravasation Warfarin Sodium 4 mg 09/17/17 16:00 09/17/17 16:49 Coumadin PO 4 mg DAILY@1600 [facility] Administration Objective Remarks: -Incision healing well, no infection. Abdominal distention improved, mild tenderness to palpation -SPT and Hannah in place with clear to light pink output with minimal slow drip CBI -Scrotal swelling improved Assessment and Plan - Assessment (1) Hematuria Code(s): R31.9 - Hematuria, unspecified Status: Acute (2) S/P TURP Code(s): Z90.79 - Acquired absence of other genital organ(s) Status: Acute - Plan -Hgb stable, Cr stable. Will follow WBC -Tolerating TF and liquid diet. Advance as tolerated. Would like NGT to be removed soon. -Heparin started as well as coumadin -Catheter with light pink to clear on CBI slow rate. Hold CBI for now -AMbulate, PT
[2017-09-19] MEDS: Oral Hygiene Kit OROPHARYNG SCH ×4 (00:42→18:12)
[2017-09-19] MEDS: Heparin Drip 25,000 UNIT/250 ML BAG IV.CONT PRN (01:34)
[2017-09-19 05:17] LABS: Baso % (Auto) 0.3 % (0.0-2.0); Eos # (Auto) 0.7 th/mm3 (0.0-0.4); Hematocrit 31.1 % (39.0-51.0); Hemoglobin 10.5 gm/dL (13.0-17.0); Lymph # (Auto) 0.8 th/mm3 (1.0-4.8); Lymph % (Auto) 6.8 % (9.0-44.0); Mean Corpuscular HGB Conc 33.6 % (32.0-36.0); Mean Corpuscular Hemoglobin 28.8 pg (27.0-34.0); Mean Corpuscular Volume 85.5 fL (80.0-100.0); Mean Platelet Volume 9.7 fL (7.0-11.0); Mono # (Auto) 1.4 th/mm3 (0.0-0.9); Mono % (Auto) 11.6 % (0.0-8.0); Neut # (Auto) 9.1 th/mm3 (1.8-7.7); Neut % (Auto) 75.3 % (16.0-70.0); Platelet Count 123 th/mm3 (150-450); Red Blood Count 3.64 mil/mm3 (4.50-5.90); Red Cell Distribution Width 16.9 % (11.6-17.2); White Blood Count 12.1 th/mm3 (4.0-11.0)
[2017-09-19 05:20] LABS: INR 1.4 Ratio; Prothrombin Time 14.2 sec (9.8-11.6)
[2017-09-19 05:38] LABS: Anion Gap 5 meq/L (5-15); Blood Urea Nitrogen 25 mg/dL (7-18); Calcium 8.5 mg/dL (8.5-10.1); Carbon Dioxide 29.6 meq/L (21.0-32.0); Chloride 104 meq/L (98-107); Glomerular Filtration Rate Greater Than 89 mL/min (>89); Glucose,Random 108 mg/dL (74-106); Potassium 3.7 meq/L (3.5-5.1); Sodium 139 meq/L (136-145)
[2017-09-19] MEDS: Pantoprazole Inj 40 MG Vial IV.PUSH SCH ×2 (06:21→18:12)
[2017-09-19] MEDS: Metoprolol Tartrate 25 MG Tablet PO SCH ×2 (06:21→18:12)
[2017-09-19 07:39] LABS: Eosinophils 7 % (0-4); Lymphocytes 5 % (9-44); Metamyelocytes 2 % (0-1); Monocytes 7 % (0-8); Myelocytes 1 % (0-0); Promyelocyte 1 % (0-0)
[2017-09-19 07:40] LABS: Platelet Morphology Normal (Normal)
--- NOTE | 2017-09-19 08:42 | P.PNURO ---
Subjective Patient symptoms today: Doing well, no issues overnight. CBI off, light red urine. Tolerating TF, +BM Objective Vital Signs: Vital Signs 09/18/17 12:00 09/18/17 16:00 09/18/17 20:00 Temperature 97.2 F L 97.7 F 97.7 F Pulse Rate 80 87 75 Respiratory Rate 18 18 16 Blood Pressure 111/63 117/66 119/63 Pulse Oximetry 92 L 93 L 98 09/19/17 00:28 09/19/17 04:34 Temperature 97.4 F L 99.2 F Pulse Rate 69 72 Respiratory Rate 21 18 Blood Pressure 109/58 L 117/59 L Pulse Oximetry 94 L 96 Intake & Output 09/18/17 09/19/17 09/19/17 18:59 06:59 18:59 Intake Total 480 / 480 1030 / 1030 Output Total 1356 / 1356 1000 / 1000 Balance -876 / -876 30 30 Weight 67 kg Intake: IV 250 / 250 Heparin/D5W 25,000 U/250 mL 25, 250 / 250 000 unit In 250 ml @ Per Protocol 8 mls/hr IV.CONT TITRATE PRN Rx#:[id number] Oral 480 / 480 780 / 780 Output: Urine 1000 / 1000 Urine Amount (Catheter) 1356 / 1356 3-way Urethral 1356 / 1356 Other: Bladder Irrigation Fluid - Amount Instilled 3-way Urethral 1,900 Bladder Irrigation Fluid - Amount Drained 3-way Urethral 1,900 # Bowel Movements 2 Result Diagrams: 09/19/17 04:53 09/19/17 04:53 Imaging: Impressions Abdomen X-Ray 09/18/17 00:00 CONCLUSION: Nonobstructive bowel gas pattern. Medications and IVs: Active Medications Generic Name Dose Route Start Last Admin Trade Name Freq PRN Reason Stop Dose Admin Acetaminophen 650 mg 09/11/17 22:17 09/14/17 02:36 Tylenol PO 650 mg Q6H PRN Administration PAIN 1-10 AND/OR FEVER >101F Al Hydroxide/Mg Hydroxide 30 ml 09/11/17 22:17 Milk Of Magnesia Liq PO Q12H PRN Mild Constipation Albuterol 1 ampul 09/11/17 22:17 Duoneb Neb (Prn) NEB Q2HR NEB PRN WHEEZING Albuterol 1 ampul 09/14/17 11:56 Duoneb Neb (Prn) NEB Q4HR NEB PRN SHORTNESS OF BREATH Atorvastatin Calcium 80 mg 09/12/17 09:00 09/18/17 09:48 Lipitor PO 80 mg DAILY [facility] Administration Bisacodyl 10 mg 09/11/17 22:17 Dulcolax Supp RECTAL DAILY PRN SEVERE CONSITIPATION Chlorhexidine Gluconate 15 ml 09/14/17 20:00 09/18/17 20:08 Peridex 0.12% Oral Kit OROPHARYNG Not Given BID@0800,1999 [facility] Fentanyl Citrate 50 mcg 09/14/17 11:56 09/16/17 09:37 Fentanyl Inj IV.PUSH 50 mcg Q1H PRN Administration SEE LABEL COMMENTS Furosemide 20 mg 09/19/17 09:00 Lasix PO DAILY [facility] Pharmacy Profile Note 0 mls @ 0 mls/hr 09/11/17 23:00 Coumadin Consult Pharmacy OTHER UNSCH [facility] As Directed Heparin Sodium/Dextrose 25,000 unit in 250 mls @ 8 mls/hr 09/16/17 16:09 01:34 Heparin/D5w 25,000 U/250 Ml IV.CONT 900 units/hr TITRATE PRN 9 mls/hr Per Protocol Administration Protocol Per Protocol Lactulose 30 ml 09/11/17 22:17 09/18/17 09:58 Lactulose Liq PO 30 ml DAILY PRN Administration SEVERE CONSITIPATION Metoprolol Tartrate 12.5 mg 09/12/17 18:00 09/19/17 06:21 Lopressor PO 12.5 mg Q12H [facility] Administration Morphine Sulfate 2 mg 09/11/17 22:17 09/13/17 17:10 Morphine Inj IV.PUSH 2 mg Q2H PRN Administration PAIN SCALE 6 TO 10 Ondansetron HCl 4 mg 09/11/17 22:17 09/11/17 23:30 Zofran Odt PO 4 mg Q6H PRN Administration NAUSEA OR VOMITING Pantoprazole Sodium 40 mg 09/16/17 18:00 09/19/17 06:21 Protonix Inj IV.PUSH 40 mg Q12H [facility] Administration Paroxetine HCl 20 mg 09/12/17 18:00 09/18/17 09:48 Paxil Liq NG/OG 20 mg DAILY [facility] Administration Potassium Chloride 10 meq 09/19/17 09:00 Klor-Con 10 PO DAILY [facility] Senna/Docusate Sodium 1 tab 09/12/17 09:00 09/18/17 20:08 Natividad-Colace PO Not Given BID [facility] Sennosides 17.2 mg 09/11/17 22:17 Senokot PO Q12H PRN Moderate Constipation Sodium Chloride 2 ml 09/11/17 22:17 09/15/17 20:03 Ns Flush IV.FLUSH 2 ml PRN PRN Administration FLUSH AFTER USING IV ACCESS Sodium Chloride 2 ml 09/12/17 09:00 09/18/17 20:08 Ns Flush IV.FLUSH 2 ml BID [facility] Administration Terbutaline Sulfate 1 mg 09/11/17 20:35 Brethine Inj SQ UNSCH PRN For Extravasation Warfarin Sodium 4 mg 09/17/17 16:00 09/18/17 17:44 Coumadin PO 4 mg DAILY@1600 [facility] Administration Objective Remarks: -Incision healing well, no infection. Abdominal distention improved, mild tenderness to palpation -SPT and Hannah in place with light pink output -Scrotal swelling improved Assessment and Plan - Assessment (1) Hematuria Code(s): R31.9 - Hematuria, unspecified Status: Acute (2) S/P TURP Code(s): Z90.79 - Acquired absence of other genital organ(s) Status: Acute - Plan -Hgb stable, Cr stable. WBC stable -Tolerating TF and liquid diet. Advance as tolerated. -Recommend NGT removal today -Continue anticoagulation -Catheter with light pink, CBI off. -Ambulate, PT
--- NOTE | 2017-09-19 09:31 | P.PNIM ---
Subjective Interval history: Pt requesting NGT removed although he has not been eating much by mouth. He states that he hasn't eaten much because the tube is bothering his throat. Pt reports having had 3 BMs yesterday Denies any nausea/vomiting Denies any abd pain His urine appears more bloody today in both Hannah bags. Physical Exam Vital signs: Vital Signs 09/18/17 12:00 09/18/17 16:00 09/18/17 20:00 Temperature 97.2 F L 97.7 F 97.7 F Pulse Rate 80 87 75 Respiratory Rate 18 18 16 Blood Pressure 111/63 117/66 119/63 Pulse Oximetry 92 L 93 L 98 09/19/17 00:28 09/19/17 04:34 09/19/17 08:00 Temperature 97.4 F L 99.2 F 99.5 F Pulse Rate 69 72 69 Respiratory Rate 21 18 18 Blood Pressure 109/58 L 117/59 L 118/57 L Pulse Oximetry 94 L 96 94 L Intake & Output 09/18/17 09/19/17 09/19/17 18:59 06:59 18:59 Intake Total 480 / 480 1030 / 1030 Output Total 1356 / 1356 1000 / 1000 Balance -876 / -876 30 / 30 Weight 67 kg Intake: IV 250 / 250 Heparin/D5W 25,000 U/250 mL 25, 250 / 250 000 unit In 250 ml @ Per Protocol 8 mls/hr IV.CONT TITRATE PRN Rx#:[id number] Oral 480 / 480 780 / 780 Output: Urine 1000 / 1000 Urine Amount (Catheter) 1356 / 1356 3-way Urethral 1356 / 1356 Other: Bladder Irrigation Fluid - Amount Instilled 3-way Urethral 1,900 Bladder Irrigation Fluid - Amount Drained 3-way Urethral 1,900 # Bowel Movements 2 Narrative: GENERAL: NAD, AAOx3 ENT: NGT in place CARDIO: Regular. Systolic click noted RESP: Breath sounds equal bilaterally. No accessory muscle use. ABD: +BS, semi-firm, distended. Midline incision is well approximated. Suprapubic catheter in place with some blood on the bandages EXT: No cyanosis, or edema. : Hannah cath in place, some blood around the urethral meatus. Slightly darker red urine noted in Hannah bags - Urinary Catheter Management Suprapubic Cath placed during this visit: yes Reason for continuing: Gross Hematuria Insertion date: 09/14/17 3-way Urethral Cath placed during this visit: yes, but has since been removed by the nurse Reason for continuing: Gross Hematuria Insertion date: 09/14/17 Insertion time: 19:25 Removal date: 09/12/17 Removal time: 16:00 Indwelling Urethral Catheter Cath placed during this visit: yes Reason for continuing: Gross Hematuria Insertion date: 09/12/17 Insertion time: 16:00 Results - Labs CBC & Chem 7: 09/21/17 04:58 09/21/17 04:58 Laboratory Results - last 24 hr 09/18/17 09/19/17 09/19/17 15:57 04:53 04:53 WBC 12.1 H RBC 3.64 L Hgb 10.5 L D Hct 31.1 L MCV 85.5 MCH 28.8 MCHC 33.6 RDW 16.9 Plt Count 123 L MPV 9.7 Prelim Diff (Auto) Slide review pending Neut % (Auto) 75.3 H Lymph % (Auto) 6.8 L [place] % (Auto) 11.6 H Eos % (Auto) 6.0 H Baso % (Auto) 0.3 Neut # (Auto) 9.1 H Lymph # (Auto) 0.8 L [place] # (Auto) 1.4 H Eos # (Auto) 0.7 H Baso # (Auto) 0.0 WBC Differential Manual diff final Seg Neuts % (Manual) 74 H Band Neuts % (Manual) 3 Lymphocytes % (Manual) 5 L Monocytes % (Manual) 7 Eosinophils % (Manual) 7 H Metamyelocytes % (Man) 2 H Myelocytes % (Man) 1 H Promyelocytes % (Man) 1 H Abs Neuts (Manual) 9.8 H Differential Comment . Platelet Estimate Low L Platelet Morphology Normal PT 14.2 H INR 1.4 APTT 51.8 H Sodium Potassium Chloride Carbon Dioxide Anion Gap BUN Creatinine Estimated GFR Random Glucose Calcium Magnesium 09/19/17 09/19/17 04:53 04:53 WBC RBC Hgb Hct MCV MCH MCHC RDW Plt Count MPV Prelim Diff (Auto) Neut % (Auto) Lymph % (Auto) [place] % (Auto) Eos % (Auto) Baso % (Auto) Neut # (Auto) Lymph # (Auto) [place] # (Auto) Eos # (Auto) Baso # (Auto) WBC Differential Seg Neuts % (Manual) Band Neuts % (Manual) Lymphocytes % (Manual) Monocytes % (Manual) Eosinophils % (Manual) Metamyelocytes % (Man) Myelocytes % (Man) Promyelocytes % (Man) Abs Neuts (Manual) Differential Comment Platelet Estimate Platelet Morphology PT INR APTT 46.9 H Sodium 139 Potassium 3.7 Chloride 104 Carbon Dioxide 29.6 Anion Gap 5 BUN 25 H Creatinine 0.86 Estimated GFR Greater than 89 Random Glucose 108 H Calcium 8.5 Magnesium 2.0 - Imaging Impressions Abdomen X-Ray 09/18/17 00:00 CONCLUSION: Nonobstructive bowel gas pattern. Assessment and Plan - Assessment (1) Hematuria Code(s): R31.9 - Hematuria, unspecified Status: Acute Plan: Septic shock, resolved. - Pt is a 62 y/o male with ASHD, mechanical aortic valve on chronic anticoagulation with Coumadin, and hyperlipidemia. - [place] [facility] [place] r[place] evaluation of generalized weakness. Patient had undergone an outpatient Greenlight TURP procedure with Dr. Banda on the day of admission at the surgical center. Pt was discharged home with a Hannah catheter. He had noted hematuria which seemed to worsen and he became overall weaker which prompted his evaluation in the ED. - In the ED pt was found to be hypotensive with elevated white count. He was given IVFs and the central line was placed by ED attending. He was started on Levophed and was admitted to ICU. - Pt was felt to be in septic shock and blood cultures were drawn and pt was started on board spectrum antibiotics. - Blood cultures were negative, no evidence of infection. Antibiotics were stopped on 09/16. -Pt did well with PT on 09/18, no recommended PT following discharge. Acute kidney injury, resolved - Review of outpt labs with Cr 0.98/BUN 12 in 01/2017 - Following admission, pts creatinine went as high as 1.99 - Pt was given IV fluid hydration with improvement in labs which seem to be around baseline now. - Strict I's and O's - Monitor creatinine and electrolyte levels Hematuria - s/p Greenlight TURP on 09/11/[address] Banda - Urology following. - Pt required transfusion with 5 units of PRBCs during admission - His Coumadin had to be held initially due to hematuria and his INR natty to 5.2 during admission. Pt was given 2 units of plasma during admission too. - Pt had a three-way Hannah placed for irrigation - Pt underwent Cystoscopy with clot evacuation, fulguration of bleeders and exploratory laparotomy with closure of cystotomy and suprapubic catheter placed and JASON drain placed external to the bladder on 09/14/[address] Banda. - Pt had JASON drain and [place] drain removed on 09/17 - CBI stopped on 09/[address] as well as suprapubic catheter - His H/H decreased on 09/19 with Hgb down to 10.5 from 12.1 on 09/18 - Monitor H/H closely Distended abdomen, improving - At admission pt had a CT Abd/pelvis (09/11) 1. Increased density and scattered air within the urinary bladder, increased density is likely related to hemorrhage. An underlying mass or process in the bladder cannot be excluded. 2. Mild ascites. 3. Small nonobstructing renal stone seen bilaterally. There is no hydronephrosis. 4. 2 left-sided renal masses are seen. The more superior mass is too dense to represent a simple cyst. It could be a complex cyst or solid mass. The inferior mass is likely related to a cyst. These are nonspecific on this noncontrast CT examination. 5. Distended stomach and distal esophagus. 6. Bibasilar areas of consolidation or atelectasis. - He had a repeat CT Abdomen/Pelvis on 09/13/17 1. Urinary bladder remains abnormal appearance with inhomogeneous high density and multiple gas bubbles. 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 A Hannah catheter is present. 2. Bilateral nonobstructing renal calculi. 3. Left renal cyst and higher density nonspecific lesion again noted which may represent complex or hemorrhagic cyst however solid lesion could have a similar appearance. 4. Hderd-[id number]-[id number] amount of ascitic fluid. 5. Bilateral effusions with consolidation in the lung bases. - Pt continued to have a distended abdomen and his respiratory status became compromised and pt ended up intubated from 09/14-09/16 - He had required NG tube to low intermittent wall suction during admission but the distension did improve and he was able to be started on tube feeds via NGT. - On 09/17 the TF rate was increased to 20ml/hr and he was started on full liquids - Pt wanted the diet backed off down to clear liquids on 09/18 and tolerated this well - KUB (09/18) --> Nonobstructive bowel gas pattern - Pt had a BM on 09/18 - Stool softeners and Laxatives PRN Dyslipidemia -Continue rosuvastatin Mechanical aortic valve replacement - His Coumadin had to be held initially due to hematuria and his INR natty to 5.2 during admission. - Pt was given 2 units of plasma during admission - Pt was able to be started on heparin and Coumadin on 09/16 - INR 1.4 on 09/19 - Repeat INR in AM DVT/GI prophylaxis -Teds SCDs -Heparin drip. -Pepcid (2) S/P TURP Code(s): Z90.79 - Acquired absence of other genital organ(s) Status: Acute (3) S/P AVR Code(s): Z95.2 - Presence of prosthetic heart valve Status: Acute - Attending Attestation Patient examined. Assessment and plan formulated with Claudia Love PA-C. I agree with the above.
[2017-09-19] MEDS: Senna/Docusate Sodium 8.6/50 MG Tablet PO SCH ×2 (09:56→20:45)
[2017-09-19] MEDS: PARoxetine Liq 20 MG/10 ML UDC NG/OG SCH (09:56)
[2017-09-19] MEDS: Furosemide 20 MG Tablet PO SCH (09:56)
[2017-09-19] MEDS: Chlorhexidine 0.12% Oral Kit 15 ML UDC OROPHARYNG SCH ×2 (09:56→20:44)
[2017-09-19 14:32] LABS: Hematocrit 32.7 % (39.0-51.0)
[2017-09-20] MEDS: Oral Hygiene Kit OROPHARYNG SCH ×4 (03:17→16:39)
[2017-09-20] MEDS: Metoprolol Tartrate 25 MG Tablet PO SCH ×2 (05:11→18:13)
[2017-09-20] MEDS: Heparin Drip 25,000 UNIT/250 ML BAG IV.CONT PRN (05:15)
[2017-09-20] MEDS: Pantoprazole Inj 40 MG Vial IV.PUSH SCH ×2 (05:15→18:14)
[2017-09-20 08:49] LABS: Baso # (Auto) 0.1 th/mm3 (0.0-0.2); Baso % (Auto) 0.5 % (0.0-2.0); Eos # (Auto) 0.8 th/mm3 (0.0-0.4); Eos % (Auto) 6.7 % (0.0-4.0); Hematocrit 30.2 % (39.0-51.0); Hemoglobin 10.2 gm/dL (13.0-17.0); Lymph # (Auto) 0.9 th/mm3 (1.0-4.8); Lymph % (Auto) 7.8 % (9.0-44.0); Mean Corpuscular HGB Conc 33.7 % (32.0-36.0); Mean Corpuscular Hemoglobin 28.9 pg (27.0-34.0); Mean Corpuscular Volume 85.7 fL (80.0-100.0); Mono # (Auto) 1.2 th/mm3 (0.0-0.9); Mono % (Auto) 10.4 % (0.0-8.0); Neut # (Auto) 8.7 th/mm3 (1.8-7.7); Neut % (Auto) 74.6 % (16.0-70.0); Platelet Count 145 th/mm3 (150-450); Red Blood Count 3.53 mil/mm3 (4.50-5.90); Red Cell Distribution Width 16.6 % (11.6-17.2); White Blood Count 11.6 th/mm3 (4.0-11.0)
[2017-09-20] MEDS: Chlorhexidine 0.12% Oral Kit 15 ML UDC OROPHARYNG SCH ×2 (08:55→20:35)
[2017-09-20] MEDS: Furosemide 20 MG Tablet PO SCH (08:55)
[2017-09-20] MEDS: Senna/Docusate Sodium 8.6/50 MG Tablet PO SCH ×2 (08:56→21:53)
[2017-09-20 08:58] LABS: Activated Partial Thrombo Time 61.9 sec (24.3-30.1); INR 1.6 Ratio; Prothrombin Time 16.5 sec (9.8-11.6)
[2017-09-20 09:37] LABS: Eosinophils 6 % (0-4); Lymphocytes 4 % (9-44); Metamyelocytes 1 % (0-1); Monocytes 10 % (0-8); Myelocytes 3 % (0-0); Platelet Morphology Normal (Normal)
[2017-09-20 09:39] LABS: Dimorphic RBC Present
[2017-09-20] MEDS: PARoxetine Liq 20 MG/10 ML UDC NG/OG SCH (11:55)
--- NOTE | 2017-09-20 11:56 | P.PNIM ---
Subjective Interval history: Follow up: resolved septic shock, resolved acute kidney injury, resolved Hematuria, improving distended abdomen, Dyslipidemia, Mechanical aortic valve replacement Patient reports feeling well offers no complaints at this time His urine appears pink in both Hannah bags. Physical Exam Vital signs: Vital Signs 09/19/17 12:00 09/19/17 16:00 09/19/17 20:22 Temperature 97.8 F 98.0 F 98.3 F Pulse Rate 67 71 63 Respiratory Rate 17 18 18 Blood Pressure 134/79 118/62 122/65 Pulse Oximetry 97 96 96 09/20/17 00:34 09/20/17 08:00 Temperature 97.8 F 98.0 F Pulse Rate 63 60 Respiratory Rate 18 18 Blood Pressure 126/62 128/60 Pulse Oximetry 98 97 Intake & Output 09/19/17 09/20/17 09/20/17 18:59 06:59 18:59 Intake Total 730 / 730 Output Total 1260 / 1260 1800 / 1800 Balance -1260 / -1260 -1070 / -1070 Weight 67 kg Intake: IV 250 / 250 Heparin/D5W 25,000 U/250 mL 25, 250 / 250 000 unit In 250 ml @ Per Protocol 8 mls/hr IV.CONT TITRATE PRN Rx#:[id number] Oral 480 / 480 Output: Urine 1800 / 1800 Urine Amount (Catheter) 1260 / 1260 3-way Urethral 1250 / 1250 Suprapubic 10 / 10 Other: # Voids 3 # Bowel Movements 1 Narrative: GENERAL: NAD, AAOx3 ENT: NGT in place CARDIO: Regular. Systolic click noted RESP: Breath sounds equal bilaterally. No accessory muscle use. ABD: +BS, semi-firm, distended. Midline incision is well approximated. Suprapubic catheter in place with some blood on the bandages EXT: No cyanosis, or edema. : Hannah cath and suprapubic cath in place draining pink urine - Urinary Catheter Management Suprapubic Cath placed during this visit: yes Reason for continuing: Gross Hematuria Insertion date: 09/14/17 3-way Urethral Cath placed during this visit: yes, but has since been removed by the nurse Reason for continuing: Gross Hematuria Insertion date: 09/14/17 Insertion time: 19:25 Removal date: 09/12/17 Removal time: 16:00 Indwelling Urethral Catheter Cath placed during this visit: yes Reason for continuing: Gross Hematuria Insertion date: 09/12/17 Insertion time: 16:00 Results - Labs CBC & Chem 7: 09/21/17 04:58 09/21/17 04:58 Laboratory Results - last 24 hr 09/19/17 09/20/17 09/20/17 13:50 07:04 07:04 WBC 11.6 H RBC 3.53 L Hgb 11.0 L 10.2 L Hct 32.7 L 30.2 L MCV 85.7 MCH 28.9 MCHC 33.7 RDW 16.6 Plt Count 145 L MPV 10.0 Prelim Diff (Auto) Slide review pending Neut % (Auto) 74.6 H Lymph % (Auto) 7.8 L [place] % (Auto) 10.4 H Eos % (Auto) 6.7 H Baso % (Auto) 0.5 Neut # (Auto) 8.7 H Lymph # (Auto) 0.9 L [place] # (Auto) 1.2 H Eos # (Auto) 0.8 H Baso # (Auto) 0.1 WBC Differential Manual diff final Seg Neuts % (Manual) 68 Band Neuts % (Manual) 8 H Lymphocytes % (Manual) 4 L Monocytes % (Manual) 10 H Eosinophils % (Manual) 6 H Metamyelocytes % (Man) 1 Myelocytes % (Man) 3 H Abs Neuts (Manual) 9.3 H Differential Comment . Platelet Estimate Low L Platelet Morphology Normal Dimorphic RBCs Present H PT 16.5 H INR 1.6 APTT 61.9 H D Assessment and Plan - Assessment (1) Hematuria Code(s): R31.9 - Hematuria, unspecified Status: Acute Plan: Septic shock, resolved. - Pt is a 62 y/o male with ASHD, mechanical aortic valve on chronic anticoagulation with Coumadin, and hyperlipidemia. - Pt presented to the ED at [facility] [place] on 09/11/17 ror evaluation of generalized weakness. Patient had undergone an outpatient Greenlight TURP procedure with Dr. Banda on the day of admission at the surgical center. Pt was discharged home with a Hannah catheter. He had noted hematuria which seemed to worsen and he became overall weaker which prompted his evaluation in the ED. - In the ED pt was found to be hypotensive with elevated white count. He was given IVFs and the central line was placed by ED attending. He was started on Levophed and was admitted to ICU. - Pt was felt to be in septic shock and blood cultures were drawn and pt was started on board spectrum antibiotics. - Blood cultures were negative, no evidence of infection. Antibiotics were stopped on 09/16. -Pt did well with PT on 09/18, no recommended PT following discharge. Acute kidney injury, resolved - Review of outpt labs with Cr 0.98/BUN 12 in 01/2017 - Following admission, pts creatinine went as high as 1.99 - Pt was given IV fluid hydration with improvement in labs which seem to be around baseline now. - Strict I's and O's - Monitor creatinine and electrolyte levels Hematuria - s/p Greenlight TURP on 09/11/[address] Banda - Urology following. - Pt required transfusion with 5 units of PRBCs during admission - His Coumadin had to be held initially due to hematuria and his INR natty to 5.2 during admission. Pt was given 2 units of plasma during admission too. - Pt had a three-way Hannah placed for irrigation - Pt underwent Cystoscopy with clot evacuation, fulguration of bleeders and exploratory laparotomy with closure of cystotomy and suprapubic catheter placed and JASON drain placed external to the bladder on 09/14/[address] Banda. - Pt had JASON drain and [place] drain removed on 09/17 - CBI stopped on 09/[address] as well as suprapubic catheter - His H/H decreased on 09/19 with Hgb down to 10.5 from 12.1 on 09/18 - 8/ Hgb 10.2, Hct 30.2 - Monitor H/H closely Distended abdomen, improving - At admission pt had a CT Abd/pelvis (09/11) 1. Increased density and scattered air within the urinary bladder, increased density is likely related to hemorrhage. An underlying mass or process in the bladder cannot be excluded. 2. Mild ascites. 3. Small nonobstructing renal stone seen bilaterally. There is no hydronephrosis. 4. 2 left-sided renal masses are seen. The more superior mass is too dense to represent a simple cyst. It could be a complex cyst or solid mass. The inferior mass is likely related to a cyst. These are nonspecific on this noncontrast CT examination. 5. Distended stomach and distal esophagus. 6. Bibasilar areas of consolidation or atelectasis. - He had a repeat CT Abdomen/Pelvis on 09/13/17 1. Urinary bladder remains abnormal appearance with inhomogeneous high density and multiple gas bubbles. 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 A Hannah catheter is present. 2. Bilateral nonobstructing renal calculi. 3. Left renal cyst and higher density nonspecific lesion again noted which may represent complex or hemorrhagic cyst however solid lesion could have a similar appearance. 4. [id number] amount of ascitic fluid. 5. Bilateral effusions with consolidation in the lung bases. - Pt continued to have a distended abdomen and his respiratory status became compromised and pt ended up intubated from 09/14-09/16 - He had required NG tube to low intermittent wall suction during admission but the distension did improve and he was able to be started on tube feeds via NGT. - On 09/17 the TF rate was increased to 20ml/hr and he was started on full liquids - Pt wanted the diet backed off down to clear liquids on 09/18 and tolerated this well - KUB (09/18) --> Nonobstructive bowel gas pattern - Pt had a BM on 09/18 - Stool softeners and Laxatives PRN Dyslipidemia -Continue rosuvastatin Mechanical aortic valve replacement - His Coumadin had to be held initially due to hematuria and his INR natty to 5.2 during admission. - Pt was given 2 units of plasma during admission - Pt was able to be started on heparin and Coumadin on 09/16 - INR 1.6 on 09/20 - Repeat INR in AM DVT/GI prophylaxis -Teds SCDs -Heparin drip. -Pepcid (2) S/P TURP Code(s): Z90.79 - Acquired absence of other genital organ(s) Status: Acute (3) S/P AVR Code(s): Z95.2 - Presence of prosthetic heart valve Status: Acute - Attending Attestation Patient examined. Assessment and plan formulated with Rachel Sheldon PA-C. I agree with the above. awaiting therapeutic INR
--- NOTE | 2017-09-20 14:08 | P.PNURO ---
Subjective Patient symptoms today: Pt was seen in his room this afternoon. Continues to improve, feeling good. no pain, no f/c/n/v, Hannah and SPT are in place and draining good. Labs are improving. INR is still not at his therapeutic level, primary team is managing it Objective Vital Signs: Vital Signs 09/19/17 16:00 09/19/17 20:22 09/20/17 00:34 Temperature 98.0 F 98.3 F 97.8 F Pulse Rate 71 63 63 Respiratory Rate 18 18 18 Blood Pressure 118/62 122/65 126/62 Pulse Oximetry 96 96 98 09/20/17 08:00 09/20/17 12:00 Temperature 98.0 F 98.0 F Pulse Rate 60 71 Respiratory Rate 18 17 Blood Pressure 128/60 121/66 Pulse Oximetry 97 96 Intake & Output 09/19/17 09/20/17 09/20/17 18:59 06:59 18:59 Intake Total 730 / 730 Output Total 1260 / 1260 1800 / 1800 Balance -1260 / -1260 -1070 / -1070 Weight 67 kg Intake: IV 250 / 250 Heparin/D5W 25,000 U/250 mL 25, 250 / 250 000 unit In 250 ml @ Per Protocol 8 mls/hr IV.CONT TITRATE PRN Rx#:[id number] Oral 480 / 480 Output: Urine 1800 / 1800 Urine Amount (Catheter) 1260 / 1260 3-way Urethral 1250 / 1250 Suprapubic 10 / 10 Other: # Voids 3 # Bowel Movements 1 Result Diagrams: 09/20/17 07:04 09/19/17 04:53 Medications and IVs: Active Medications Generic Name Dose Route Start Last Admin Trade Name Freq PRN Reason Stop Dose Admin Acetaminophen 650 mg 09/11/17 22:17 09/14/17 02:36 Tylenol PO 650 mg Q6H PRN Administration PAIN 1-10 AND/OR FEVER >101F Al Hydroxide/Mg Hydroxide 30 ml 09/11/17 22:17 Milk Of Magnesia Liq PO Q12H PRN Mild Constipation Albuterol 1 ampul 09/11/17 22:17 Duoneb Neb (Prn) NEB Q2HR NEB PRN WHEEZING Albuterol 1 ampul 09/14/17 11:56 Duoneb Neb (Prn) NEB Q4HR NEB PRN SHORTNESS OF BREATH Atorvastatin Calcium 80 mg 09/12/17 09:00 09/20/17 08:56 Lipitor PO 80 mg DAILY [facility] Administration Bisacodyl 10 mg 09/11/17 22:17 Dulcolax Supp RECTAL DAILY PRN SEVERE CONSITIPATION Chlorhexidine Gluconate 15 ml 09/14/17 20:00 09/20/17 08:55 Peridex 0.12% Oral Kit OROPHARYNG Not Given BID@0800,2000 [facility] Fentanyl Citrate 50 mcg 09/14/17 11:56 09/16/17 09:37 Fentanyl Inj IV.PUSH 50 mcg Q1H PRN Administration SEE LABEL COMMENTS Furosemide 20 mg 09/19/17 09:00 09/20/17 08:55 Lasix PO 20 mg DAILY [facility] Administration Heparin Sodium/Dextrose 25,000 unit in 250 mls @ 8 mls/hr 09/16/17 16:09 03/09 05:15 Heparin/D5w 25,000 U/250 Ml IV.CONT 900 units/hr TITRATE PRN 9 mls/hr Per Protocol Administration Protocol Per Protocol Lactulose 30 ml 09/11/17 22:17 09/18/17 09:58 Lactulose Liq PO 30 ml DAILY PRN Administration SEVERE CONSITIPATION Metoprolol Tartrate 12.5 mg 09/12/17 18:00 09/20/17 05:11 Lopressor PO 12.5 mg Q12H [facility] Administration Morphine Sulfate 2 mg 09/11/17 22:17 09/13/17 17:10 Morphine Inj IV.PUSH 2 mg Q2H PRN Administration PAIN SCALE 6 TO 10 Ondansetron HCl 4 mg 09/11/17 22:17 09/11/17 23:30 Zofran Odt PO 4 mg Q6H PRN Administration NAUSEA OR VOMITING Pantoprazole Sodium 40 mg 09/16/17 18:00 09/20/17 05:15 Protonix Inj IV.PUSH 40 mg Q12H [facility] Administration Paroxetine HCl 20 mg 09/12/17 18:00 09/20/17 11:55 Paxil Liq NG/OG 20 mg DAILY [facility] Administration Potassium Chloride 10 meq 09/19/17 09:00 09/20/17 08:55 Klor-Con 10 PO 10 meq DAILY [facility] Administration Senna/Docusate Sodium 1 tab 09/12/17 09:00 09/20/17 08:56 Natividad-Colace PO Not Given BID [facility] Sennosides 17.2 mg 09/11/17 22:17 Senokot PO Q12H PRN Moderate Constipation Sodium Chloride 2 ml 09/11/17 22:17 09/15/17 20:03 Ns Flush IV.FLUSH 2 ml PRN PRN Administration FLUSH AFTER USING IV ACCESS Sodium Chloride 2 ml 09/12/17 09:00 09/20/17 08:56 Ns Flush IV.FLUSH Not Given BID [facility] Terbutaline Sulfate 1 mg 09/11/17 20:35 Brethine Inj SQ UNSCH PRN For Extravasation Warfarin Sodium 6 mg 09/20/17 16:00 Coumadin PO 09/20/17 16:01 DAILY@1600 [facility] Warfarin Sodium 5 mg 09/21/17 16:00 Coumadin PO DAILY@1600 [facility] Objective Remarks: - NAD RRR Clear lungs -Incision healing well, no infection. Abdominal distention improved, mild tenderness to palpation -SPT and Hannah in place with light pink output -Scrotal swelling improved Assessment and Plan - Plan -Hgb stable, Cr stable. WBC stable -Tolerating liquid diet. Advance as tolerated. -Labs as per primary team. Monitor I&O -Use IS if in bed -Continue anticoagulation -Keep both catheters in -Ambulate, PT
[2017-09-21] MEDS: Oral Hygiene Kit OROPHARYNG SCH ×3 (05:02→17:53)
[2017-09-21] MEDS: Metoprolol Tartrate 25 MG Tablet PO SCH ×2 (05:56→17:51)
[2017-09-21] MEDS: Pantoprazole Inj 40 MG Vial IV.PUSH SCH ×2 (05:56→17:52)
[2017-09-21 06:15] LABS: Baso % (Auto) 0.2 % (0.0-2.0); Eos # (Auto) 0.4 th/mm3 (0.0-0.4); Eos % (Auto) 3.4 % (0.0-4.0); Hematocrit 30.9 % (39.0-51.0); Hemoglobin 10.4 gm/dL (13.0-17.0); Lymph # (Auto) 0.9 th/mm3 (1.0-4.8); Lymph % (Auto) 7.5 % (9.0-44.0); Mean Corpuscular HGB Conc 33.8 % (32.0-36.0); Mean Corpuscular Hemoglobin 29.1 pg (27.0-34.0); Mean Corpuscular Volume 86.3 fL (80.0-100.0); Mean Platelet Volume 10.2 fL (7.0-11.0); Mono % (Auto) 8.2 % (0.0-8.0); Neut # (Auto) 10.1 th/mm3 (1.8-7.7); Neut % (Auto) 80.7 % (16.0-70.0); Platelet Count 185 th/mm3 (150-450); Red Blood Count 3.58 mil/mm3 (4.50-5.90); Red Cell Distribution Width 16.6 % (11.6-17.2); White Blood Count 12.5 th/mm3 (4.0-11.0)
[2017-09-21 06:29] LABS: Activated Partial Thrombo Time 66.4 sec (24.3-30.1); INR 3.2 Ratio
[2017-09-21 06:39] LABS: Calcium 8.8 mg/dL (8.5-10.1); Carbon Dioxide 27.5 meq/L (21.0-32.0); Phosphorus 2.5 mg/dL (2.5-4.9); Potassium 3.6 meq/L (3.5-5.1)
[2017-09-21] MEDS: Chlorhexidine 0.12% Oral Kit 15 ML UDC OROPHARYNG SCH ×2 (09:30→20:53)
[2017-09-21] MEDS: Senna/Docusate Sodium 8.6/50 MG Tablet PO SCH ×2 (09:30→20:53)
[2017-09-21] MEDS: PARoxetine Liq 20 MG/10 ML UDC NG/OG SCH (09:32)
[2017-09-21] MEDS: Furosemide 20 MG Tablet PO SCH (09:32)
--- NOTE | 2017-09-21 10:22 | P.DCO ---
Addendum entered and electronically signed by TELLO Best 10:25: Also draw INR in 2 days with results to PCP Dr. Delgado Original Note: - Home Health Nursing Order: Medical education, Signs/symptoms of disease process, Hannah catheter maintenance - Certification I have seen patient Adam Saucedo on 09/21/17. My clinical findings support the need for the requested home health care services because: Deconditioned with increased weakness I certify that my clinical findings support that this patient is homebound because: Unsafe to leave home unassisted
--- NOTE | 2017-09-21 10:29 | P.DS ---
Date of admission: 09/11/17 21:39 Primary care physician: Fritz Delgado MD Attending physician on discharge: Chase Will Anticipated date of discharge: 09/21/17 Brief History from admission: 62-year-old male presents for an evaluation of generalized weakness. Patient reports that he had an outpatient procedure today at the surgical center- he has green laser surgery to his prostate by Dr. Banda around 7am this morning. Reports that he was at the out patient surgical center for a few hours and was discharged home with a snowden catheter. It was draining blood - he is on coumadin because he has history of aortic valve replacement. Patient reports that after he was discharged to home, he just felt weak overall. In the emergency department he was found to be hypotensive with elevated white count, he was IV fluid resuscitated and the central line was placed by ED attending. He was started on Levophed and is now admitted to ICU. DS: Diagnosis - Discharge Diagnosis (1) Hematuria Status: Acute (2) S/P TURP Status: Acute (3) S/P AVR Status: Acute DS: Summary Hospital Course: Septic shock, resolved. - Pt is a 62 y/o male with ASHD, mechanical aortic valve on chronic anticoagulation with Coumadin, and hyperlipidemia. - Pt presented to the ED at [facility] on 09/11/17 ror evaluation of generalized weakness. Patient had undergone an outpatient Greenlight TURP procedure with Dr. Banda on the day of admission at the surgical center. Pt was discharged home with a Snowden catheter. He had noted hematuria which seemed to worsen and he became overall weaker which prompted his evaluation in the ED. - In the ED pt was found to be hypotensive with elevated white count. He was given IVFs and the central line was placed by ED attending. He was started on Levophed and was admitted to ICU. - Pt was felt to be in septic shock and blood cultures were drawn and pt was started on board spectrum antibiotics. - Blood cultures were negative, no evidence of infection. Antibiotics were stopped on 09/16. -Pt did well with PT on 09/18, no recommended PT following discharge. Acute kidney injury, resolved - Review of outpt labs with Cr 0.98/BUN 12 in 01/2017 - Following admission, pts creatinine went as high as 1.99 - Pt was given IV fluid hydration with improvement in labs which seem to be around baseline now. - Strict I's and O's - Monitor creatinine and electrolyte levels Hematuria - s/p Greenlight TURP on 09/11/[address] Banda - Urology following. - Pt required transfusion with 5 units of PRBCs during admission - His Coumadin had to be held initially due to hematuria and his INR natty to 5.2 during admission. Pt was given 2 units of plasma during admission too. - Pt had a three-way Snowden placed for irrigation - Pt underwent Cystoscopy with clot evacuation, fulguration of bleeders and exploratory laparotomy with closure of cystotomy and suprapubic catheter placed and JASON drain placed external to the bladder on 09/14/[address] Banda. - Pt had JASON drain and Brittany drain removed on 09/17 - CBI stopped on 09/[address] as well as suprapubic catheter - His H/H decreased on 09/19 with Hgb down to 10.5 from 12.1 on 09/18 - 8/ Hgb 10.2, Hct 30.2 - Monitor H/H closely Distended abdomen, improving - At admission pt had a CT Abd/pelvis (09/11) 1. Increased density and scattered air within the urinary bladder, increased density is likely related to hemorrhage. An underlying mass or process in the bladder cannot be excluded. 2. Mild ascites. 3. Small nonobstructing renal stone seen bilaterally. There is no hydronephrosis. 4. 2 left-sided renal masses are seen. The more superior mass is too dense to represent a simple cyst. It could be a complex cyst or solid mass. The inferior mass is likely related to a cyst. These are nonspecific on this noncontrast CT examination. 5. Distended stomach and distal esophagus. 6. Bibasilar areas of consolidation or atelectasis. - He had a repeat CT Abdomen/Pelvis on 09/13/17 1. Urinary bladder remains abnormal appearance with inhomogeneous high density and multiple gas bubbles. 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 A Snowden catheter is present. 2. Bilateral nonobstructing renal calculi. 3. Left renal cyst and higher density nonspecific lesion again noted which may represent complex or hemorrhagic cyst however solid lesion could have a similar appearance. 4. Djjnv-lj-kyuryagr amount of ascitic fluid. 5. Bilateral effusions with consolidation in the lung bases. - Pt continued to have a distended abdomen and his respiratory status became compromised and pt ended up intubated from 09/14-09/16 - He had required NG tube to low intermittent wall suction during admission but the distension did improve and he was able to be started on tube feeds via NGT. - On 09/17 the TF rate was increased to 20ml/hr and he was started on full liquids - Pt wanted the diet backed off down to clear liquids on 09/18 and tolerated this well - KUB (09/18) --> Nonobstructive bowel gas pattern - Pt had a BM on 09/18 - Stool softeners and Laxatives PRN Dyslipidemia -Continue rosuvastatin Mechanical aortic valve replacement - His Coumadin had to be held initially due to hematuria and his INR natty to 5.2 during admission. - Pt was given 2 units of plasma during admission - Pt was able to be started on heparin and Coumadin on 09/16 - INR 1.6 on 09/20 - Repeat INR in AM DVT/GI prophylaxis -Teds SCDs -Heparin drip. -Pepcid - Time Spent with Patient Total time spent providing and/or coordinating discharge services: Greater than 30 minutes Exam Vital signs: Vital Signs 09/20/17 12:00 09/20/17 16:00 09/20/17 20:00 Temperature 98.0 F 98.4 F 98.5 F Pulse Rate 71 74 61 Respiratory Rate 17 19 16 Blood Pressure 121/66 128/65 Pulse Oximetry 96 96 95 09/21/17 00:00 09/21/17 08:00 Temperature 98.2 F 98.6 F Pulse Rate 71 59 L Respiratory Rate 18 18 Blood Pressure 116/63 114/65 Pulse Oximetry 96 95 Intake & Output 09/20/17 09/21/17 09/21/17 18:59 06:59 18:59 Output Total 1600 / 1600 Balance -1600 / -1600 Output: Urine 1600 / 1600 Narrative: GENERAL: NAD, AAOx3 ENT: NGT in place CARDIO: Regular. Systolic click noted RESP: Breath sounds equal bilaterally. No accessory muscle use. ABD: +BS, semi-firm, distended. Midline incision is well approximated. Suprapubic catheter in place with some blood on the bandages EXT: No cyanosis, or edema. : Snowden cath and suprapubic cath in place draining pink urine Results Procedures completed during hospitalization: Cystoscopy with clot evacuation, fulguration of bleeders and exploratory laparotomy with closure of cystotomy and suprapubic catheter placed and JASON drain placed external to the bladder on 09/14/[address] Banda. Labs on day of discharge: Labs from last 24 hours 09/21/17 09/21/17 09/21/17 04:58 04:58 04:58 WBC 12.5 H RBC 3.58 L Hgb 10.4 L Hct 30.9 L MCV 86.3 MCH 29.1 MCHC 33.8 RDW 16.6 Plt Count 185 MPV 10.2 Neut % (Auto) 80.7 H Lymph % (Auto) 7.5 L [place] % (Auto) 8.2 H Eos % (Auto) 3.4 Baso % (Auto) 0.2 Neut # (Auto) 10.1 H Lymph # (Auto) 0.9 L [place] # (Auto) 1.0 H Eos # (Auto) 0.4 Baso # (Auto) 0.0 WBC Differential . Differential Comment Auto diff final PT 32.0 H D INR 3.2 APTT 66.4 H Sodium 137 Potassium 3.6 Chloride 101 Carbon Dioxide 27.5 Anion Gap 9 BUN 16 Creatinine 1.06 Estimated GFR 71 L Random Glucose 134 H Calcium 8.8 Phosphorus 2.5 - Impressions ITS Impressions Abdomen/Pelvis CT 09/13/17 00:00 CONCLUSION: 1. Urinary bladder remains abnormal appearance with inhomogeneous high density and multiple gas bubbles. 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 A Snowden catheter is present. 2. Bilateral nonobstructing renal calculi. 3. Left renal cyst and higher density nonspecific lesion again noted which may represent complex or hemorrhagic cyst however solid lesion could have a similar appearance. 4. Coxvw-yc-qppqgcfp amount of ascitic fluid. 5. Bilateral effusions with consolidation in the lung bases. Nephrostomy 09/15/17 20:38 CONCLUSION: 1. Failed attempt at gaining access to the collecting system of the right kidney in this patient with no hydronephrosis on either side. If the patient develops hydronephrosis consideration could be made to repeat attempt at nephrostomy tube placement if clinically warranted.. Chest X-Ray 09/16/17 04:00 CONCLUSION: 1. Stable ETT and NGT. 2. Slightly improved pulmonary edema pattern with persistent small bilateral pleural effusions and associated lower lobe airspace disease. Abdomen X-Ray 09/18/17 00:00 CONCLUSION: Nonobstructive bowel gas pattern. Discharge Plan - Discharge Disposition Patient Disposition: W/Home Health Service - Discharge Condition Condition: Stable - Discharge Details Anticipated Discharge Date: 09/21/17 - Physicians Team Primary Care Provider: Fritz Delgado Attending Provider: Chase Will Other Providers: Taz Smith MD ; Yung Mtathews MD ; Jem Trinidad MD ; [facility],Agency
--- NOTE | 2017-09-21 12:38 | P.PNIM ---
Subjective Interval history: No new complaints. Physical Exam Vital signs: Vital Signs 09/20/17 16:00 09/20/17 20:00 09/21/17 00:00 Temperature 98.4 F 98.5 F 98.2 F Pulse Rate 74 61 71 Respiratory Rate 19 16 18 Blood Pressure 128/65 116/63 Pulse Oximetry 96 95 96 09/21/17 08:00 Temperature 98.6 F Pulse Rate 59 L Respiratory Rate 18 Blood Pressure 114/65 Pulse Oximetry 95 Intake & Output 09/20/17 09/21/17 09/21/17 18:59 06:59 18:59 Output Total 1600 / 1600 800 / 800 Balance -1600 / -1600 -800 / -800 Output: Urine 1600 / 1600 Urine Amount (Catheter) 800 / 800 3-way Urethral 450 / 450 Suprapubic 350 / 350 Narrative: GENERAL: NAD, AAOx3 ENT: NGT in place CARDIO: Regular. Systolic click noted RESP: Breath sounds equal bilaterally. No accessory muscle use. ABD: +BS x4, Midline incision is well approximated. EXT: No cyanosis, or edema. : Hannah cath and suprapubic cath in place draining pink urine - Urinary Catheter Management Suprapubic Cath placed during this visit: yes Reason for continuing: Gross Hematuria Insertion date: 09/14/17 3-way Urethral Cath placed during this visit: yes, but has since been removed by the nurse Reason for continuing: Gross Hematuria Insertion date: 09/14/17 Insertion time: 19:25 Removal date: 09/12/17 Removal time: 16:00 Indwelling Urethral Catheter Cath placed during this visit: yes Reason for continuing: Gross Hematuria Insertion date: 09/12/17 Insertion time: 16:00 Results - Labs CBC & Chem 7: 09/21/17 04:58 09/21/17 04:58 - Procedures Cystoscopy with clot evacuation, fulguration of bleeders and exploratory laparotomy with closure of cystotomy and suprapubic catheter placed and JASON drain placed external to the bladder on 09/14/[address] Banda. Assessment and Plan - Assessment (1) Hematuria Code(s): R31.9 - Hematuria, unspecified Status: Acute Plan: Septic shock, resolved. - Pt is a 62 y/o male with ASHD, mechanical aortic valve on chronic anticoagulation with Coumadin, and hyperlipidemia. - Pt presented to the ED at [facility] on 09/11/17 ror evaluation of generalized weakness. Patient had undergone an outpatient Greenlight TURP procedure with Dr. Banda on the day of admission at the surgical center. Pt was discharged home with a Hannah catheter. He had noted hematuria which seemed to worsen and he became overall weaker which prompted his evaluation in the ED. - In the ED pt was found to be hypotensive with elevated white count. He was given IVFs and the central line was placed by ED attending. He was started on Levophed and was admitted to ICU. - Pt was felt to be in septic shock and blood cultures were drawn and pt was started on board spectrum antibiotics. - Blood cultures were negative, no evidence of infection. Antibiotics were stopped on 09/16. -Pt did well with PT on 09/18, no recommended PT following discharge. Acute kidney injury, resolved - Review of outpt labs with Cr 0.98/BUN 12 in 01/2017 - Following admission, pts creatinine went as high as 1.99 - Pt was given IV fluid hydration with improvement in labs which seem to be around baseline now. - Strict I's and O's - Monitor creatinine and electrolyte levels Hematuria - s/p Greenlight TURP on 09/11/[address] Banda - Urology following. - Pt required transfusion with 5 units of PRBCs during admission - His Coumadin had to be held initially due to hematuria and his INR natty to 5.2 during admission. Pt was given 2 units of plasma during admission too. - Pt had a three-way Hannah placed for irrigation - Pt underwent Cystoscopy with clot evacuation, fulguration of bleeders and exploratory laparotomy with closure of cystotomy and suprapubic catheter placed and JASON drain placed external to the bladder on 09/14/[address] Banda. - Pt had JASON drain and Brittany drain removed on 09/17 - CBI stopped on 09/[address] as well as suprapubic catheter - His H/H decreased on 09/19 with Hgb down to 10.5 from 12.1 on 09/18 - Hgb 10.2 (8/1), Hg 10.4 (8/2) - Monitor H/H closely Distended abdomen, improving - At admission pt had a CT Abd/pelvis (7/23) 1. Increased density and scattered air within the urinary bladder, increased density is likely related to hemorrhage. An underlying mass or process in the bladder cannot be excluded. 2. Mild ascites. 3. Small nonobstructing renal stone seen bilaterally. There is no hydronephrosis. 4. 2 left-sided renal masses are seen. The more superior mass is too dense to represent a simple cyst. It could be a complex cyst or solid mass. The inferior mass is likely related to a cyst. These are nonspecific on this noncontrast CT examination. 5. Distended stomach and distal esophagus. 6. Bibasilar areas of consolidation or atelectasis. - He had a repeat CT Abdomen/Pelvis on 09/13/17 1. Urinary bladder remains abnormal appearance with inhomogeneous high density and multiple gas bubbles. 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 A Hannah catheter is present. 2. Bilateral nonobstructing renal calculi. 3. Left renal cyst and higher density nonspecific lesion again noted which may represent complex or hemorrhagic cyst however solid lesion could have a similar appearance. 4. [place] amount of ascitic fluid. 5. Bilateral effusions with consolidation in the lung bases. - Pt continued to have a distended abdomen and his respiratory status became compromised and pt ended up intubated from 09/14-09/16 - He had required NG tube to low intermittent wall suction during admission but the distension did improve and he was able to be started on tube feeds via NGT. - On 09/17 the TF rate was increased to 20ml/hr and he was started on full liquids - Pt wanted the diet backed off down to clear liquids on 09/18 and tolerated this well - KUB (09/18) --> Nonobstructive bowel gas pattern - Pt had a BM on 09/18 - Stool softeners and Laxatives PRN Dyslipidemia -Continue rosuvastatin Mechanical aortic valve replacement - His Coumadin had to be held initially due to hematuria and his INR natty to 5.2 during admission. - Pt was given 2 units of plasma during admission - Pt was able to be started on heparin and Coumadin on 09/16 - INR 1.6 on 09/20 - INR 3.2 on 09/21 - stop coumadin for now. Pt increased rapidly from 09/20 to 09/21 and I do NOT want to overshoot therapeutic range - repeat CBC/INR in AM 09/22/17. - I anticipate d/c to home 09/22/17 on previous home dose of coumadin with repeat INR on Monday, 09/24 by [facility] DVT/GI prophylaxis -Teds SCDs -Heparin drip. -Pepcid (2) S/P TURP Code(s): Z90.79 - Acquired absence of other genital organ(s) Status: Acute (3) S/P AVR Code(s): Z95.2 - Presence of prosthetic heart valve Status: Acute
[2017-09-22] MEDS: Metoprolol Tartrate 25 MG Tablet PO SCH ×2 (05:35→18:07)
[2017-09-22] MEDS: Pantoprazole Inj 40 MG Vial IV.PUSH SCH ×2 (05:35→18:07)
[2017-09-22] MEDS: Oral Hygiene Kit OROPHARYNG SCH ×3 (05:35→15:50)
[2017-09-22 06:07] LABS: Baso % (Auto) 0.4 % (0.0-2.0); Eos # (Auto) 0.5 th/mm3 (0.0-0.4); Lymph # (Auto) 0.9 th/mm3 (1.0-4.8); Lymph % (Auto) 10.3 % (9.0-44.0); Mean Corpuscular HGB Conc 34.5 % (32.0-36.0); Mean Corpuscular Hemoglobin 29.8 pg (27.0-34.0); Mean Corpuscular Volume 86.1 fL (80.0-100.0); Mean Platelet Volume 10.1 fL (7.0-11.0); Mono % (Auto) 10.8 % (0.0-8.0); Neut # (Auto) 6.8 th/mm3 (1.8-7.7); Neut % (Auto) 73.5 % (16.0-70.0); Platelet Count 216 th/mm3 (150-450); Red Blood Count 3.37 mil/mm3 (4.50-5.90); Red Cell Distribution Width 16.9 % (11.6-17.2); White Blood Count 9.2 th/mm3 (4.0-11.0)
[2017-09-22 06:10] LABS: INR 4.1 Ratio; Prothrombin Time 40.8 sec (9.8-11.6)
[2017-09-22] MEDS: Chlorhexidine 0.12% Oral Kit 15 ML UDC OROPHARYNG SCH ×2 (08:36→20:46)
[2017-09-22] MEDS: Senna/Docusate Sodium 8.6/50 MG Tablet PO SCH ×2 (08:37→20:46)
[2017-09-22] MEDS: Furosemide 20 MG Tablet PO SCH (08:37)
[2017-09-22] MEDS: PARoxetine Liq 20 MG/10 ML UDC NG/OG SCH (08:37)
--- NOTE | 2017-09-22 16:06 | P.DIET ---
Nutritional Evaluation Type of nutrition evaluation: follow-up Nutrition consult regarding: Tube Feeding Subjective Subjective Comments: Pt asking why he is still on Clear Liquids; says he is hungry and wants "some solid food" Objective - Diagnosis Severe Sepsis - Objective [place] body weight: 172 kg % IBW: 87 Body Weight Used for Calculations: Actual (68.1kg) Energy Needs - Lower Range (kCal/kg): 28 Energy Needs - Upper Range (kCal/kg): 33 Lower Limit kCal/kg (kCals): 1,907 Upper Limit kCal/kg (kCals): 2,247 Lower Limit Protein Factor (Grams per Kg): 1.1 Upper Limit Protein Factor (Grams per Kg): 1.4 Lower Protein Needs (Protein): 75 Upper Protein Needs (Protein): 95 Dietitian Reviewed in Medical Record: Current diet, Curent medications, Intake & Output, Labs, Medical history Diet Order: Clear Liquid Oral Diet Intake Amount: Good 75-90% Objective Comments: PMH: Aortic valve stenosis, severe, high cholesterol, HTN +2BM Feeding - Current PO Supplement Current Supplement: Ensure Original Current Frequency of Supplement: Three times a day Current kCals Provided by Supplement: 250 Current Protein Provided by Supplement: 9 Assessment Assessment: Pt admitted with severe sepsis, is now s/p AVR. Pt previously receiving TF'ing- discontinued 09/17. Pt tolerating Clears and request for solid food. Ensure per MD. Send Ensure Clear tid(240 kcal and 8g Protein per 8-oz). Labs reviewed. Wt changes noted. Monitor diet advancement. Recommendations: 1.TF'ing-discontinued 09/17 2. Pt tolerating Clears and request for solid food 3. Ensure per MD 4. Send Ensure Clear tid 5. Monitor diet advancement Dietitian to Monitor: Supplement acceptance, Intake & Output, Diet tolerance, Weight change, PO Intake, Diet advancement, Medical course
--- NOTE | 2017-09-22 16:29 | P.PNIM ---
Subjective Interval history: No new complaints. Physical Exam Vital signs: 09/22/17 12:00 Temperature 97.8 F Pulse Rate 60 Respiratory Rate 18 Blood Pressure 107/67 Pulse Oximetry 97 Narrative: GENERAL: NAD, AAOx3 ENT: NGT in place CARDIO: Regular. Systolic click noted RESP: Breath sounds equal bilaterally. No accessory muscle use. ABD: +BS x4, Midline incision is well approximated. EXT: No cyanosis, or edema. : Hannah cath and suprapubic cath in place draining pink urine - Urinary Catheter Management Suprapubic Cath placed during this visit: yes Reason for continuing: Gross Hematuria Insertion date: 09/14/17 3-way Urethral Cath placed during this visit: yes, but has since been removed by the nurse Reason for continuing: Gross Hematuria Insertion date: 09/14/17 Insertion time: 19:25 Removal date: 09/12/17 Removal time: 16:00 Indwelling Urethral Catheter Cath placed during this visit: yes Reason for continuing: Gross Hematuria Insertion date: 09/12/17 Insertion time: 16:00 Results - Labs CBC & Chem 7: 09/22/17 03:29 09/21/17 04:58 - Procedures Cystoscopy with clot evacuation, fulguration of bleeders and exploratory laparotomy with closure of cystotomy and suprapubic catheter placed and JASON drain placed external to the bladder on 09/14/[address] Banda. Assessment and Plan - Assessment (1) Hematuria Code(s): R31.9 - Hematuria, unspecified Status: Acute Plan: Septic shock, resolved. - Pt is a 62 y/o male with ASHD, mechanical aortic valve on chronic anticoagulation with Coumadin, and hyperlipidemia. - Pt presented to the ED at [facility] on 09/11/17 ror evaluation of generalized weakness. Patient had undergone an outpatient Greenlight TURP procedure with Dr. Banda on the day of admission at the surgical center. Pt was discharged home with a Hannah catheter. He had noted hematuria which seemed to worsen and he became overall weaker which prompted his evaluation in the ED. - In the ED pt was found to be hypotensive with elevated white count. He was given IVFs and the central line was placed by ED attending. He was started on Levophed and was admitted to ICU. - Pt was felt to be in septic shock and blood cultures were drawn and pt was started on board spectrum antibiotics. - Blood cultures were negative, no evidence of infection. Antibiotics were stopped on 09/16. -Pt did well with PT on 09/18, no recommended PT following discharge. Acute kidney injury, resolved - Review of outpt labs with Cr 0.98/BUN 12 in 01/2017 - Following admission, pts creatinine went as high as 1.99 - Pt was given IV fluid hydration with improvement in labs which seem to be around baseline now. - Strict I's and O's - Monitor creatinine and electrolyte levels Hematuria - s/p Greenlight TURP on 09/11/[address] Banda - Urology following. - Pt required transfusion with 5 units of PRBCs during admission - His Coumadin had to be held initially due to hematuria and his INR natty to 5.2 during admission. Pt was given 2 units of plasma during admission too. - Pt had a three-way Hannah placed for irrigation - Pt underwent Cystoscopy with clot evacuation, fulguration of bleeders and exploratory laparotomy with closure of cystotomy and suprapubic catheter placed and JASON drain placed external to the bladder on 09/14/[address] Banda. - Pt had JASON drain and Brittany drain removed on 09/17 - CBI stopped on 09/[address] as well as suprapubic catheter - His H/H decreased on 09/19 with Hgb down to 10.5 from 12.1 on 09/18 - Hgb 10.2 (8/1), Hg 10.4 (8/2), Hg 10.0 (8/3) - Monitor H/H closely Distended abdomen, improving - At admission pt had a CT Abd/pelvis (09/11) 1. Increased density and scattered air within the urinary bladder, increased density is likely related to hemorrhage. An underlying mass or process in the bladder cannot be excluded. 2. Mild ascites. 3. Small nonobstructing renal stone seen bilaterally. There is no hydronephrosis. 4. 2 left-sided renal masses are seen. The more superior mass is too dense to represent a simple cyst. It could be a complex cyst or solid mass. The inferior mass is likely related to a cyst. These are nonspecific on this noncontrast CT examination. 5. Distended stomach and distal esophagus. 6. Bibasilar areas of consolidation or atelectasis. - He had a repeat CT Abdomen/Pelvis on 09/13/17 1. Urinary bladder remains abnormal appearance with inhomogeneous high density and multiple gas bubbles. 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 A Hannah catheter is present. 2. Bilateral nonobstructing renal calculi. 3. Left renal cyst and higher density nonspecific lesion again noted which may represent complex or hemorrhagic cyst however solid lesion could have a similar appearance. 4. Badik-yw-mdqvsdjf amount of ascitic fluid. 5. Bilateral effusions with consolidation in the lung bases. - Pt continued to have a distended abdomen and his respiratory status became compromised and pt ended up intubated from 09/14-09/16 - He had required NG tube to low intermittent wall suction during admission but the distension did improve and he was able to be started on tube feeds via NGT. - On 09/17 the TF rate was increased to 20ml/hr and he was started on full liquids - Pt wanted the diet backed off down to clear liquids on 09/18 and tolerated this well - KUB (09/18) --> Nonobstructive bowel gas pattern - Pt had a BM on 09/18 - Stool softeners and Laxatives PRN Dyslipidemia -Continue rosuvastatin Mechanical aortic valve replacement - His Coumadin had to be held initially due to hematuria and his INR natty to 5.2 during admission. - Pt was given 2 units of plasma during admission - Pt was able to be started on heparin and Coumadin on 09/16 - INR 1.6 (/), 3.2 (8/), 4.1 (09/22) - repeat INR in AM, if INR has plateaued then will d/c to home - stop coumadin for now. INR with rapid increase and I do NOT want to overshoot therapeutic range - repeat CBC/INR in AM 09/22/17. - I anticipate d/c to home 09/23/17 on previous home dose of coumadin with repeat INR on Monday, 09/25 by [facility] DVT/GI prophylaxis -Teds SCDs -Heparin drip. -Pepcid (2) S/P TURP Code(s): Z90.79 - Acquired absence of other genital organ(s) Status: Acute (3) S/P AVR Code(s): Z95.2 - Presence of prosthetic heart valve Status: Acute
[2017-09-23] MEDS: Oral Hygiene Kit OROPHARYNG SCH ×4 (00:28→16:11)
[2017-09-23] MEDS: Pantoprazole Inj 40 MG Vial IV.PUSH SCH ×2 (05:57→17:33)
[2017-09-23] MEDS: Metoprolol Tartrate 25 MG Tablet PO SCH ×2 (05:57→17:33)
[2017-09-23 06:14] LABS: Baso # (Auto) 0.1 th/mm3 (0.0-0.2); Baso % (Auto) 0.7 % (0.0-2.0); Eos # (Auto) 0.4 th/mm3 (0.0-0.4); Eos % (Auto) 4.4 % (0.0-4.0); Hematocrit 33.6 % (39.0-51.0); Hemoglobin 11.3 gm/dL (13.0-17.0); Lymph % (Auto) 10.1 % (9.0-44.0); Mean Corpuscular HGB Conc 33.6 % (32.0-36.0); Mean Corpuscular Hemoglobin 29.2 pg (27.0-34.0); Mean Corpuscular Volume 86.8 fL (80.0-100.0); Mean Platelet Volume 10.1 fL (7.0-11.0); Neut # (Auto) 7.2 th/mm3 (1.8-7.7); Neut % (Auto) 74.8 % (16.0-70.0); Platelet Count 268 th/mm3 (150-450); Red Blood Count 3.87 mil/mm3 (4.50-5.90); White Blood Count 9.7 th/mm3 (4.0-11.0)
[2017-09-23 06:21] LABS: INR 1.9 Ratio; Prothrombin Time 19.6 sec (9.8-11.6)
[2017-09-23] MEDS: Chlorhexidine 0.12% Oral Kit 15 ML UDC OROPHARYNG SCH ×2 (07:43→20:48)
[2017-09-23] MEDS: Senna/Docusate Sodium 8.6/50 MG Tablet PO SCH ×2 (09:48→20:50)
[2017-09-23] MEDS: PARoxetine Liq 20 MG/10 ML UDC NG/OG SCH (09:48)
[2017-09-23] MEDS: Furosemide 20 MG Tablet PO SCH (09:48)
[2017-09-23] MEDS ORDERED: Enoxaparin Inj 80 MG/0.8 ML Syringe SQ SCH (11:00)
--- NOTE | 2017-09-23 14:49 | P.PNIM ---
Subjective Interval history: Follow up Septic shock, mechanical aortic valve offers no new concerns/complaints snowden and suprapubic catheters draining pink tinged urine -> less red then previously INR 1.9 (09/23/18) Physical Exam Vital signs: Vital Signs 09/22/17 16:00 09/22/17 20:00 09/23/17 00:00 Temperature 97.8 F 98.2 F 98 F Pulse Rate 71 74 70 Respiratory Rate 18 17 17 Blood Pressure 122/76 131/60 113/56 L Pulse Oximetry 97 96 95 09/23/17 08:00 09/23/17 12:00 Temperature 97.6 F 97.8 F Pulse Rate 64 65 Respiratory Rate 17 17 Blood Pressure 130/66 135/73 Pulse Oximetry 97 98 Intake & Output 09/22/17 09/23/17 09/23/17 18:59 06:59 18:59 Intake Total 720 / 720 720 / 720 250 / 250 Output Total 1450 / 1450 Balance 720 / 720 -730 / -730 250 / 250 Intake: IV 250 / 250 Heparin/D5W 25,000 U/250 mL 25, 250 / 250 000 unit In 250 ml @ Per Protocol 8 mls/hr IV.CONT TITRATE PRN Rx#:[id number] Oral 720 / 720 720 / 720 Output: Urine Amount (Catheter) 1450 / 1450 3-way Urethral 1400 / 1400 Suprapubic 50 / 50 Other: # Bowel Movements 1 Narrative: GENERAL: NAD, AAOx3 ENT: NGT in place CARDIO: Regular. Systolic click noted RESP: Breath sounds equal bilaterally. No accessory muscle use. ABD: +BS x4, Midline incision is well approximated. EXT: No cyanosis, or edema. : Snowden cath and suprapubic cath in place draining pink tinged urine - Urinary Catheter Management Suprapubic Cath placed during this visit: yes Reason for continuing: Gross Hematuria Insertion date: 09/14/17 3-way Urethral Cath placed during this visit: yes, but has since been removed by the nurse Reason for continuing: Gross Hematuria Insertion date: 09/14/17 Insertion time: 19:25 Removal date: 09/12/17 Removal time: 16:00 Indwelling Urethral Catheter Cath placed during this visit: yes Reason for continuing: Gross Hematuria Insertion date: 09/12/17 Insertion time: 16:00 Results - Labs CBC & Chem 7: 09/23/17 04:35 09/21/17 04:58 Laboratory Results - last 24 hr 09/23/17 09/23/17 04:35 04:35 WBC 9.7 RBC 3.87 L Hgb 11.3 L Hct 33.6 L MCV 86.8 MCH 29.2 MCHC 33.6 RDW 17.0 Plt Count 268 MPV 10.1 Neut % (Auto) 74.8 H Lymph % (Auto) 10.1 Isabela % (Auto) 10.0 H Eos % (Auto) 4.4 H Baso % (Auto) 0.7 Neut # (Auto) 7.2 Lymph # (Auto) 1.0 Isabela # (Auto) 1.0 H Eos # (Auto) 0.4 Baso # (Auto) 0.1 WBC Differential . Differential Comment Auto diff final PT 19.6 H D INR 1.9 - Procedures Cystoscopy with clot evacuation, fulguration of bleeders and exploratory laparotomy with closure of cystotomy and suprapubic catheter placed and JASON drain placed external to the bladder on 09/14/[address] Banda. Assessment and Plan - Assessment (1) Hematuria Code(s): R31.9 - Hematuria, unspecified Status: Acute Plan: Septic shock, resolved. - Pt is a 62 y/o male with ASHD, mechanical aortic valve on chronic anticoagulation with Coumadin, and hyperlipidemia. - Pt presented to the ED at [facility] on 09/11/17 ror evaluation of generalized weakness. Patient had undergone an outpatient Greenlight TURP procedure with Dr. Banda on the day of admission at the surgical center. Pt was discharged home with a Snowden catheter. He had noted hematuria which seemed to worsen and he became overall weaker which prompted his evaluation in the ED. - In the ED pt was found to be hypotensive with elevated white count. He was given IVFs and the central line was placed by ED attending. He was started on Levophed and was admitted to ICU. - Pt was felt to be in septic shock and blood cultures were drawn and pt was started on board spectrum antibiotics. - Blood cultures were negative, no evidence of infection. Antibiotics were stopped on 09/16. -Pt did well with PT on 09/18, no recommended PT following discharge. Acute kidney injury, resolved - Review of outpt labs with Cr 0.98/BUN 12 in 01/2017 - Following admission, pts creatinine went as high as 1.99 - Pt was given IV fluid hydration with improvement in labs which seem to be around baseline now. - Strict I's and O's - Monitor creatinine and electrolyte levels Hematuria - s/p Greenlight TURP on 09/11/[address] Banda - Urology following. - Pt required transfusion with 5 units of PRBCs during admission - His Coumadin had to be held initially due to hematuria and his INR natty to 5.2 during admission. Pt was given 2 units of plasma during admission too. - Pt had a three-way Snowden placed for irrigation - Pt underwent Cystoscopy with clot evacuation, fulguration of bleeders and exploratory laparotomy with closure of cystotomy and suprapubic catheter placed and JASON drain placed external to the bladder on 09/14/[address] Banda. - Pt had JASON drain and Corry drain removed on 09/17 - CBI stopped on 09/[address] as well as suprapubic catheter - His H/H decreased on 09/19 with Hgb down to 10.5 from 12.1 on 09/18 - Hgb 10.2 (8/1), Hg 10.4 (8/2), Hg 10.0 (8/3) - Monitor H/H closely Distended abdomen, improving - At admission pt had a CT Abd/pelvis (09/11) 1. Increased density and scattered air within the urinary bladder, increased density is likely related to hemorrhage. An underlying mass or process in the bladder cannot be excluded. 2. Mild ascites. 3. Small nonobstructing renal stone seen bilaterally. There is no hydronephrosis. 4. 2 left-sided renal masses are seen. The more superior mass is too dense to represent a simple cyst. It could be a complex cyst or solid mass. The inferior mass is likely related to a cyst. These are nonspecific on this noncontrast CT examination. 5. Distended stomach and distal esophagus. 6. Bibasilar areas of consolidation or atelectasis. - He had a repeat CT Abdomen/Pelvis on 09/13/17 1. Urinary bladder remains abnormal appearance with inhomogeneous high density and multiple gas bubbles. 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 A Snowden catheter is present. 2. Bilateral nonobstructing renal calculi. 3. Left renal cyst and higher density nonspecific lesion again noted which may represent complex or hemorrhagic cyst however solid lesion could have a similar appearance. 4. Ipsgl-ik-rpcyvvyh amount of ascitic fluid. 5. Bilateral effusions with consolidation in the lung bases. - Pt continued to have a distended abdomen and his respiratory status became compromised and pt ended up intubated from 09/14-09/16 - He had required NG tube to low intermittent wall suction during admission but the distension did improve and he was able to be started on tube feeds via NGT. - On 09/17 the TF rate was increased to 20ml/hr and he was started on full liquids - Pt wanted the diet backed off down to clear liquids on 09/18 and tolerated this well - KUB (09/18) --> Nonobstructive bowel gas pattern - Pt had a BM on 09/18 - Stool softeners and Laxatives PRN Dyslipidemia -Continue rosuvastatin Mechanical aortic valve replacement - His Coumadin had to be held initially due to hematuria and his INR natty to 5.2 during admission. - Pt was given 2 units of plasma during admission - Pt was able to be started on heparin and Coumadin on 09/16 - INR 1.6 (8/1), 3.2 (8/2), 4.1 (8/3), 1.9 (8/4) - resume coumadin at 4 mg PO daily - repeat INR in AM, if INR has plateaued then will d/c to home DVT/GI prophylaxis -Teds SCDs -Heparin drip. -Pepcid (2) S/P TURP Code(s): Z90.79 - Acquired absence of other genital organ(s) Status: Acute (3) S/P AVR Code(s): Z95.2 - Presence of prosthetic heart valve Status: Acute - Attending Attestation Patient examined. Assessment and plan formulated with Rachel Sheldon PA-C. I agree with the above.
[2017-09-23] MEDS: Enoxaparin Inj 80 MG/0.8 ML Syringe SQ SCH (22:02)
[2017-09-24] MEDS: Oral Hygiene Kit OROPHARYNG SCH ×3 (05:40→16:13)
[2017-09-24] MEDS: Metoprolol Tartrate 25 MG Tablet PO SCH ×2 (05:41→18:52)
[2017-09-24] MEDS: Pantoprazole Inj 40 MG Vial IV.PUSH SCH ×2 (05:41→18:53)
[2017-09-24] MEDS: Chlorhexidine 0.12% Oral Kit 15 ML UDC OROPHARYNG SCH (07:10)
[2017-09-24 08:04] LABS: INR 1.2 Ratio
[2017-09-24] MEDS: PARoxetine Liq 20 MG/10 ML UDC NG/OG SCH (08:22)
[2017-09-24] MEDS: Furosemide 20 MG Tablet PO SCH (08:22)
[2017-09-24] MEDS: Senna/Docusate Sodium 8.6/50 MG Tablet PO SCH (08:22)
[2017-09-24] MEDS: Enoxaparin Inj 80 MG/0.8 ML Syringe SQ SCH (08:22)
--- NOTE | 2017-09-24 10:47 | P.PNIM ---
Subjective Interval history: Follow up Septic shock, mechanical aortic valve snowden and suprapubic catheters in place per RN patient had clots in tubbing requiring irrigation/flush this AM INR 1.2 (09/24/18) Physical Exam Vital signs: Vital Signs 09/23/17 12:00 09/23/17 16:00 09/23/17 20:00 Temperature 97.8 F 98.0 F 98 F Pulse Rate 65 74 63 Respiratory Rate 17 17 17 Blood Pressure 135/73 121/62 115/61 Pulse Oximetry 98 97 97 09/23/17 23:51 09/24/17 03:51 09/24/17 08:00 Temperature 98.3 F 98.2 F 98.1 F Pulse Rate 63 65 67 Respiratory Rate 17 17 17 Blood Pressure 119/62 115/67 121/63 Pulse Oximetry 97 95 97 Intake & Output 09/23/17 09/24/17 09/24/17 18:59 06:59 18:59 Intake Total 1960 1000 / 1000 Output Total 3950 / 3950 Balance 1960 / 1960 -2950 / -2950 Weight 67.4 kg Intake: IV 250 / 250 Heparin/D5W 25,000 U/250 mL 25, 250 / 250 000 unit In 250 ml @ Per Protocol 8 mls/hr IV.CONT TITRATE PRN Rx#:[id number] Oral 1711 / 1711 200 / 200 Autotransfusion Amount 800 / 800 Output: Urine Amount (Catheter) 3950 / 3950 Indwelling Urethral Catheter 1750 / 1750 Suprapubic 2200 / 2200 Other: # Voids 10 Date of Last Bowel Movement 09/23/17 09/23/17 # Bowel Movements 2 Narrative: GENERAL: NAD, AAOx3 ENT: NGT in place CARDIO: Regular. Systolic click noted RESP: Breath sounds equal bilaterally. No accessory muscle use. ABD: +BS x4, Midline incision is well approximated. EXT: No cyanosis, or edema. : Snowden cath and suprapubic cath in place draining - Urinary Catheter Management Suprapubic Cath placed during this visit: yes Reason for continuing: Gross Hematuria Insertion date: 09/14/17 3-way Urethral Cath placed during this visit: yes, but has since been removed by the nurse Reason for continuing: Gross Hematuria Insertion date: 07/26/18 Insertion time: 19:25 Removal date: 09/12/17 Removal time: 16:00 Indwelling Urethral Catheter Cath placed during this visit: yes Reason for continuing: Gross Hematuria Insertion date: 09/12/17 Insertion time: 16:00 Results - Labs CBC & Chem 7: 09/23/17 04:35 09/21/17 04:58 Laboratory Results - last 24 hr 09/24/17 06:12 PT 12.0 H INR 1.2 - Procedures Cystoscopy with clot evacuation, fulguration of bleeders and exploratory laparotomy with closure of cystotomy and suprapubic catheter placed and JASON drain placed external to the bladder on 09/14/[address] Banda. Assessment and Plan - Assessment (1) Hematuria Code(s): R31.9 - Hematuria, unspecified Status: Acute Plan: Septic shock, resolved. - Pt is a 62 y/o male with ASHD, mechanical aortic valve on chronic anticoagulation with Coumadin, and hyperlipidemia. - Pt presented to the ED at [facility] [place] [place] on 09/11/17 ror evaluation of generalized weakness. Patient had undergone an outpatient Greenlight TURP procedure with Dr. Banda on the day of admission at the surgical center. Pt was discharged home with a Snowden catheter. He had noted hematuria which seemed to worsen and he became overall weaker which prompted his evaluation in the ED. - In the ED pt was found to be hypotensive with elevated white count. He was given IVFs and the central line was placed by ED attending. He was started on Levophed and was admitted to ICU. - Pt was felt to be in septic shock and blood cultures were drawn and pt was started on board spectrum antibiotics. - Blood cultures were negative, no evidence of infection. Antibiotics were stopped on 09/16. -Pt did well with PT on 09/18, no recommended PT following discharge. Acute kidney injury, resolved - Review of outpt labs with Cr 0.98/BUN 12 in 01/2017 - Following admission, pts creatinine went as high as 1.99 - Pt was given IV fluid hydration with improvement in labs which seem to be around baseline now. - Strict I's and O's - Monitor creatinine and electrolyte levels Hematuria - s/p Greenlight TURP on 09/11/[address] Banda - Urology following. - Pt required transfusion with 5 units of PRBCs during admission - His Coumadin had to be held initially due to hematuria and his INR natty to 5.2 during admission. Pt was given 2 units of plasma during admission too. - Pt had a three-way Snowden placed for irrigation - Pt underwent Cystoscopy with clot evacuation, fulguration of bleeders and exploratory laparotomy with closure of cystotomy and suprapubic catheter placed and JASON drain placed external to the bladder on 09/14/[address] Banda. - Pt had JASON drain and Brittany drain removed on 09/17 - CBI stopped on 09/[address] as well as suprapubic catheter - His H/H decreased on 09/19 with Hgb down to 10.5 from 12.1 on 09/18 - Hgb 10.2 (09/20), Hg 10.4 (8), Hg 10.0 (09/22) - Monitor H/H closely - Per RN snowden with clots this AM requiring manual irrigation Distended abdomen, improving - At admission pt had a CT Abd/pelvis (09/11) 1. Increased density and scattered air within the urinary bladder, increased density is likely related to hemorrhage. An underlying mass or process in the bladder cannot be excluded. 2. Mild ascites. 3. Small nonobstructing renal stone seen bilaterally. There is no hydronephrosis. 4. 2 left-sided renal masses are seen. The more superior mass is too dense to represent a simple cyst. It could be a complex cyst or solid mass. The inferior mass is likely related to a cyst. These are nonspecific on this noncontrast CT examination. 5. Distended stomach and distal esophagus. 6. Bibasilar areas of consolidation or atelectasis. - He had a repeat CT Abdomen/Pelvis on 09/13/17 1. Urinary bladder remains abnormal appearance with inhomogeneous high density and multiple gas bubbles. 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 A Snowden catheter is present. 2. Bilateral nonobstructing renal calculi. 3. Left renal cyst and higher density nonspecific lesion again noted which may represent complex or hemorrhagic cyst however solid lesion could have a similar appearance. 4. Smeja-xg-hprujbpn amount of ascitic fluid. 5. Bilateral effusions with consolidation in the lung bases. - Pt continued to have a distended abdomen and his respiratory status became compromised and pt ended up intubated from 09/14-09/16 - He had required NG tube to low intermittent wall suction during admission but the distension did improve and he was able to be started on tube feeds via NGT. - On 09/17 the TF rate was increased to 20ml/hr and he was started on full liquids - Pt wanted the diet backed off down to clear liquids on 09/18 and tolerated this well - KUB (09/18) --> Nonobstructive bowel gas pattern - Stool softeners and Laxatives PRN Dyslipidemia -Continue rosuvastatin Mechanical aortic valve replacement - His Coumadin had to be held initially due to hematuria and his INR natty to 5.2 during admission. - Pt was given 2 units of plasma during admission - Pt was able to be started on heparin and Coumadin on 09/16 - INR 1.6 (09/20), 3.2 (09/21), 4.1 (09/22), 1.9 (09/23), 1.2 (09/24) - resumes coumadin at 4 mg PO daily (09/23) - Lovenox 70 kg SQ BID untill INR therapeutic DVT/GI prophylaxis -Teds SCDs - Lovenox -Pepcid (2) S/P TURP Code(s): Z90.79 - Acquired absence of other genital organ(s) Status: Acute (3) S/P AVR Code(s): Z95.2 - Presence of prosthetic heart valve Status: Acute - Attending Attestation Patient examined. Assessment and plan formulated with Rachel Sheldon PA-C. I agree with the above.
--- NOTE | 2017-09-24 11:50 | P.DCO ---
- Home Health Nursing Order: Medical education, Medication education-adverse effect, Nursing assessment with vital signs, Hannah catheter maintenance Instructions: please assist with Lovenox injections daily INR with results to Dr. Barrios - Certification I have seen patient Adam Saucedo on 09/24/17. My clinical findings support the need for the requested home health care services because: Limited mobility due to disease progression, Injectable medication education/ administration I certify that my clinical findings support that this patient is homebound because: Unsafe to leave home unassisted
--- NOTE | 2017-09-24 11:58 | P.DS ---
<Rachel Sheldon - Last Filed: 09/24/17 15:50> Date of admission: 09/11/17 21:39 Primary care physician: Fritz Delgado MD Attending physician on discharge: Chase Will Anticipated date of discharge: 09/21/17 Brief History from admission: 62-year-old male presents for an evaluation of generalized weakness. Patient reports that he had an outpatient procedure today at the surgical center- he has green laser surgery to his prostate by Dr. Banda around 7am this morning. Reports that he was at the out patient surgical center for a few hours and was discharged home with a snowden catheter. It was draining blood - he is on coumadin because he has history of aortic valve replacement. Patient reports that after he was discharged to home, he just felt weak overall. In the emergency department he was found to be hypotensive with elevated white count, he was IV fluid resuscitated and the central line was placed by ED attending. He was started on Levophed and is now admitted to ICU. DS: Diagnosis - Discharge Diagnosis (1) Hematuria Status: Acute (2) S/P TURP Status: Acute (3) S/P AVR Status: Acute DS: Summary Hospital Course: Septic shock, resolved. - Pt is a 62 y/o male with ASHD, mechanical aortic valve on chronic anticoagulation with Coumadin, and hyperlipidemia. - Pt presented to the ED at [facility] [place]/11/17 ror evaluation of generalized weakness. Patient had undergone an outpatient Greenlight TURP procedure with Dr. Banda on the day of admission at the surgical center. Pt was discharged home with a Snowden catheter. He had noted hematuria which seemed to worsen and he became overall weaker which prompted his evaluation in the ED. - In the ED pt was found to be hypotensive with elevated white count. He was given IVFs and the central line was placed by ED attending. He was started on Levophed and was admitted to ICU. - Pt was felt to be in septic shock and blood cultures were drawn and pt was started on board spectrum antibiotics. - Blood cultures were negative, no evidence of infection. Antibiotics were stopped on 09/16. -Pt did well with PT on 09/18, no recommended PT following discharge. Acute kidney injury, resolved - Review of outpt labs with Cr 0.98/BUN 12 in 01/2017 - Following admission, pts creatinine went as high as 1.99 - Pt was given IV fluid hydration with improvement in labs which seem to be around baseline now. - Strict I's and O's - Monitor creatinine and electrolyte levels Hematuria - s/p Greenlight TURP on 09/11/[address] Banda - Urology following. - Pt required transfusion with 5 units of PRBCs during admission - His Coumadin had to be held initially due to hematuria and his INR natty to 5.2 during admission. Pt was given 2 units of plasma during admission too. - Pt had a three-way Snowden placed for irrigation - Pt underwent Cystoscopy with clot evacuation, fulguration of bleeders and exploratory laparotomy with closure of cystotomy and suprapubic catheter placed and JASON drain placed external to the bladder on 09/14/[address] Banda. - Pt had JASON drain and Brodhead drain removed on 09/17 - CBI stopped on 09/[address] as well as suprapubic catheter - His H/H decreased on 09/19 with Hgb down to 10.5 from 12.1 on 09/18 - Hgb 10.2 (8/1), Hg 10.4 (8/2), Hg 10.0 (8/3) - Monitor H/H closely - Per RN snowden with clots this AM requiring manual irrigation - bladder scan checked and 20 ml present Distended abdomen, improving - At admission pt had a CT Abd/pelvis (09/11) 1. Increased density and scattered air within the urinary bladder, increased density is likely related to hemorrhage. An underlying mass or process in the bladder cannot be excluded. 2. Mild ascites. 3. Small nonobstructing renal stone seen bilaterally. There is no hydronephrosis. 4. 2 left-sided renal masses are seen. The more superior mass is too dense to represent a simple cyst. It could be a complex cyst or solid mass. The inferior mass is likely related to a cyst. These are nonspecific on this noncontrast CT examination. 5. Distended stomach and distal esophagus. 6. Bibasilar areas of consolidation or atelectasis. - He had a repeat CT Abdomen/Pelvis on 09/13/17 1. Urinary bladder remains abnormal appearance with inhomogeneous high density and multiple gas bubbles. 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 A Snowden catheter is present. 2. Bilateral nonobstructing renal calculi. 3. Left renal cyst and higher density nonspecific lesion again noted which may represent complex or hemorrhagic cyst however solid lesion could have a similar appearance. 4. Ztjaq-yr-[id number] amount of ascitic fluid. 5. Bilateral effusions with consolidation in the lung bases. - Pt continued to have a distended abdomen and his respiratory status became compromised and pt ended up intubated from 09/14-09/16 - He had required NG tube to low intermittent wall suction during admission but the distension did improve and he was able to be started on tube feeds via NGT. - On 09/17 the TF rate was increased to 20ml/hr and he was started on full liquids - Pt wanted the diet backed off down to clear liquids on 09/18 and tolerated this well - KUB (09/18) --> Nonobstructive bowel gas pattern - Stool softeners and Laxatives PRN Dyslipidemia -Continue rosuvastatin Mechanical aortic valve replacement - His Coumadin had to be held initially due to hematuria and his INR natty to 5.2 during admission. - Pt was given 2 units of plasma during admission - Pt was able to be started on heparin and Coumadin on 09/16 - INR 1.6 (8/1), 3.2 (8/2), 4.1 (8/3), 1.9 (8/4), 1.2 (8/5) - resumes coumadin at 4 mg PO daily (09/23) - Lovenox untill INR therapeutic DVT/GI prophylaxis -Teds SCDs - Lovenox -Pepcid Will DC patient home with [facility] to assist with snowden catheter care, Lovenox injections and daily INR monitoring with results tot Dr. Brarios - Time Spent with Patient Total time spent providing and/or coordinating discharge services: Greater than 30 minutes Exam Vital signs: Vital Signs 09/23/17 12:00 09/23/17 16:00 09/23/17 20:00 Temperature 97.8 F 98.0 F 98 F Pulse Rate 65 74 63 Respiratory Rate 17 17 17 Blood Pressure 135/73 121/62 115/61 Pulse Oximetry 98 97 97 09/23/17 23:51 09/24/17 03:51 09/24/17 08:00 Temperature 98.3 F 98.2 F 98.1 F Pulse Rate 63 65 67 Respiratory Rate 17 17 17 Blood Pressure 119/62 115/67 121/63 Pulse Oximetry 97 95 97 Intake & Output 09/23/17 09/24/17 09/24/17 18:59 06:59 18:59 Intake Total 1960 1000 / 1000 Output Total 3950 / 3950 Balance 1960 -2950 / -2950 Weight 67.4 kg Intake: IV 250 / 250 Heparin/D5W 25,000 U/250 mL 25, 250 / 250 000 unit In 250 ml @ Per Protocol 8 mls/hr IV.CONT TITRATE PRN Rx#:[id number] Oral 1711 / 1711 200 / 200 Autotransfusion Amount 800 / 800 Output: Urine Amount (Catheter) 3950 / 3950 Indwelling Urethral Catheter 1750 / 1750 Suprapubic 2200 / 2200 Other: # Voids 10 Date of Last Bowel Movement 09/23/17 09/23/17 # Bowel Movements 2 Narrative: GENERAL: NAD, AAOx3 ENT: NGT in place CARDIO: Regular. Systolic click noted RESP: Breath sounds equal bilaterally. No accessory muscle use. ABD: +BS x4, Midline incision is well approximated. EXT: No cyanosis, or edema. : Snowden cath and suprapubic cath in place draining Results Procedures completed during hospitalization: Cystoscopy with clot evacuation, fulguration of bleeders and exploratory laparotomy with closure of cystotomy and suprapubic catheter placed and JASON drain placed external to the bladder on 09/14/[address] Banda. Labs on day of discharge: Labs from last 24 hours 09/24/17 06:12 PT 12.0 H INR 1.2 - Impressions ITS Impressions Abdomen/Pelvis CT 09/13/17 00:00 CONCLUSION: 1. Urinary bladder remains abnormal appearance with inhomogeneous high density and multiple gas bubbles. 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 A Snowden catheter is present. 2. Bilateral nonobstructing renal calculi. 3. Left renal cyst and higher density nonspecific lesion again noted which may represent complex or hemorrhagic cyst however solid lesion could have a similar appearance. 4. [id number] amount of ascitic fluid. 5. Bilateral effusions with consolidation in the lung bases. Nephrostomy 09/15/17 20:38 CONCLUSION: 1. Failed attempt at gaining access to the collecting system of the right kidney in this patient with no hydronephrosis on either side. If the patient develops hydronephrosis consideration could be made to repeat attempt at nephrostomy tube placement if clinically warranted.. Chest X-Ray 09/16/17 04:00 CONCLUSION: 1. Stable ETT and NGT. 2. Slightly improved pulmonary edema pattern with persistent small bilateral pleural effusions and associated lower lobe airspace disease. Abdomen X-Ray 09/18/17 00:00 CONCLUSION: Nonobstructive bowel gas pattern. <Chase Will - Last Filed: 10/10/17 10:30> Date of admission: 09/11/17 21:39 Primary care physician: Fritz Delgado MD DS: Diagnosis - Discharge Diagnosis (1) Hematuria Status: Acute (2) S/P TURP Status: Acute (3) S/P AVR Status: Acute DS: Summary Hospital Course: Patient examined. Assessment and plan formulated with Rachel Sheldon PA-C. I agree with the above. - Time Spent with Patient Total time spent providing and/or coordinating discharge services: Results - Impressions ITS Impressions Abdomen/Pelvis CT 09/13/17 00:00 CONCLUSION: 1. Urinary bladder remains abnormal appearance with inhomogeneous high density and multiple gas bubbles. 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 A Snowden catheter is present. 2. Bilateral nonobstructing renal calculi. 3. Left renal cyst and higher density nonspecific lesion again noted which may represent complex or hemorrhagic cyst however solid lesion could have a similar appearance. 4. Ucyvs-[id number]-[id number] amount of ascitic fluid. 5. Bilateral effusions with consolidation in the lung bases. Nephrostomy 09/15/17 20:38 CONCLUSION: 1. Failed attempt at gaining access to the collecting system of the right kidney in this patient with no hydronephrosis on either side. If the patient develops hydronephrosis consideration could be made to repeat attempt at nephrostomy tube placement if clinically warranted.. Chest X-Ray 09/16/17 04:00 CONCLUSION: 1. Stable ETT and NGT. 2. Slightly improved pulmonary edema pattern with persistent small bilateral pleural effusions and associated lower lobe airspace disease. Abdomen X-Ray 09/18/17 00:00 CONCLUSION: Nonobstructive bowel gas pattern. Discharge Plan - Discharge Order Discharge Orders: Discharge Order (Routine); Ordered 09/24/17 Ordered By: Rachel Sheldon - Discharge Details Anticipated Discharge Date: 09/24/17 - Physicians Team Primary Care Provider: Fritz Delgado Attending Provider: Chase Will Other Providers: Taz Smith MD ; Yung Matthews MD ; Jem Trinidad MD ; [facility]
[2017-09-24] MEDS ORDERED: Enoxaparin Inj 80 MG/0.8 ML Syringe SQ SCH (19:00)
[2017-09-26 18:04] VITALS: BP 116/70; PULSE 74; TEMP 97.9; O2SAT 97
[2017-09-26 18:38] VITALS: RESP 17
== END 2017-09-24 19:28 | disposition home health service (06) ==
LOC: NEPD 18:26 → NEDA 21:39 → N03 22:59 → N07 09-17 23:48
PROVIDERS: ADMIT Hospitalist; ATTEND Hospitalist